=== PATIENT | female | born 1985 | race Caucasian/White ===

== ENCOUNTER → 2018-03-29 09:17 | Outpatient (REF) | payer MEDICARE, SELFPAY ==
[2018-03-29 13:56] LABS: Alanine Aminotransferase 45 U/L (12-78); Albumin Level 4.3 gm/dL (3.4-5.0); Albumin/Globulin Ratio 1.2 (1.1-1.8); Alkaline Phosphatase 71 U/L (46-116); Anion Gap 13.3 mEq/L (5-15); Aspartate Amino Transferase 14 U/L (15-37); Bilirubin,Total 0.3 mg/dL (0.2-1.0); Blood Urea Nitrogen 9 mg/dL (7-18); Calcium 9.6 mg/dL (8.5-10.1); Carbon Dioxide 26 mmol/L (21.0-32.0); Chloride 105 mmol/L (98-107); Estimated Glomerular Filt Rate 97 ml/min (>60); GFR (African American) 117 ML/MIN (>60); Globulin 3.6 gm/dl (1.3-3.2); Glucose 53 mg/dL (74-106); Potassium 4.3 mmoL/L (3.5-5.1); Sodium 140 mmol/L (136-145); T4 (Thyroxine) 5.7 ug/dl (4.7-13.3); Thyroid Stimulating Hormone 1.86 uIU/ml (0.358-3.740); Total Protein,Serum 7.9 gm/dL (6.4-8.2)
[2018-03-29 13:58] LABS: Basophils % 0.5 % (0.1-2.0); Eosinophils # 0.2 K/mm3 (0.0-0.4); Eosinophils % 2.7 % (0.1-12.0); Hematocrit 46.8 % (37.0-47.0); Hemoglobin 14.8 g/dL (12.2-16.2); Lymphocytes # 2.2 K/mm3 (0.7-4.5); Lymphocytes % 33.2 K/mm3 (10-50); Mean Corpuscular HGB Conc 31.7 g/dL (31.8-35.4); Mean Corpuscular Hemoglobin 29.4 pg (27.0-31.2); Mean Corpuscular Volume 92.9 fl (81-99); Mean Platelet Volume 7.2 fl (7.4-10.4); Monocytes # 0.6 K/mm3 (0.1-1.0); Monocytes % 9.1 % (1.7-9.3); Neutrophils # 3.6 K/mm3 (1.8-7.8); Neutrophils % 54.6 % (37.0-80.0); Platelet Count 424 K/mm3 (142-424); Red Blood Count 5.04 M/mm3 (4.20-5.40); Red Cell Distribution Width 13.4 % (11.5-17.5); White Blood Count 6.6 K/mm3 (4.8-10.8)
[2018-03-30 07:27] LABS: Hep A Ab, IgM Negative (Negative); Hepatitis B Core Antibody IgM Negative (Negative); Hepatitis B Surface Antigen Negative (Negative)
[2018-03-31 06:17] LABS: Hepatitis C Antibody >11.0 s/co ratio (0.0-0.9)
== END ==
LOC: LAB 09:17
PROVIDERS: Visit Provider Nurse Practitioner Family
DX: B19.20 Unspecified viral hepatitis C without hepatic coma (principal); R53.83 Other fatigue; J84.01 Alveolar proteinosis
CPT/HCPCS: 80053; 80074; 84436; 84443; 85025

== ENCOUNTER → 2018-04-05 08:20 | Outpatient (REF) | payer MEDICARE, SELFPAY ==
[2018-04-05 15:32] LABS: Amphetamine/Metha Screen,Urine Negative ng/mL (<1000); Barbiturates Screen,Urine Negative ng/mL (<200); Benzodiazepines Screen,Urine Positive ng/mL (<200); Cannabinoid Screen,Urine Negative ng/mL (<50); Cocaine Screen,Urine Negative ng/mL (<300); Methadone Screen,Urine Negative ng/mL (<300); Opiate Screen,Urine Negative ng/mL (<300); Phencyclidine Screen,Urine Negative ng/mL (<25)
[2018-04-07 17:12] LABS: Lamotrigine (Lamictal) 3.1 ug/mL (2.0-20.0); Oxcarbazepine 15 ug/mL (10-35)
== END ==
LOC: LAB 08:20
PROVIDERS: Visit Provider Nurse Practitioner Family
DX: G40.909 Epilepsy, unspecified, not intractable, without status epilepticus (principal); F32.9 Major depressive disorder, single episode, unspecified
CPT/HCPCS: 80168; 80183; 80305

== ENCOUNTER → 2018-04-19 09:34 | Outpatient (REF) | payer MEDICARE, SELFPAY ==
[2018-04-19 13:48] LABS: Amphetamine/Metha Screen,Urine Negative ng/mL (<1000); Barbiturates Screen,Urine Negative ng/mL (<200); Benzodiazepines Screen,Urine Positive ng/mL (<200); Cannabinoid Screen,Urine Negative ng/mL (<50); Cocaine Screen,Urine Negative ng/mL (<300); Methadone Screen,Urine Negative ng/mL (<300); Opiate Screen,Urine Negative ng/mL (<300); Phencyclidine Screen,Urine Negative ng/mL (<25)
== END ==
LOC: LAB 09:34
PROVIDERS: Visit Provider Nurse Practitioner Family
DX: Z79.899 Other long term (current) drug therapy (principal)
CPT/HCPCS: 80305

== ENCOUNTER → 2018-04-29 14:48 | Outpatient (CLI) | payer MEDICARE, SELFPAY ==
--- NOTE | 2018-04-29 14:51 | MM_ITS ---
MM Dig mamm BI DX w/CAD, US breast LT complete INDICATION: Palpable left abnormality of the left breast ORDERING PHYSICIAN: Honey Junior PATIENT AGE: 32 years COMPARISON: 04/26/2015 TECHNIQUE: Diagnostic bilateral mammogram performed along with left breast ultrasound FINDINGS: There is very dense fibroglandular tissue which decreases the sensitivity of mammography. Right breast: No malignant appearing mass or malignant appearing microcalcification is evident. The other artifact is noted in the axilla which slightly decreased when the patient was instructed to clean her armpits. There was some residual artifact noted. Left breast: The palpable abnormality is in the outer aspect of the left breast. A marker is placed at this region. There is very dense fibroglandular tissue which decreases sensitivity of mammography. Metallic artifact is noted in the axilla did persist somewhat following cleansing of the armpits. There is an asymmetric density measuring 16 x 12 mm in the upper aspect of the left breast didn't persist on spot compression view well-circumscribed along the anterior superior and posterior margin but not well delineated on the inferior margin likely due to overlying obscuration from the breast tissue. There is a 10 x 10 mm area of asymmetric density in the upper aspect of the left breast near the placed marker for the palpable abnormality. This is only well seen on the MLO view. Left breast ultrasound: Echodense fibroglandular tissue noted. There is a 4 mm hypoechoic area at 3:00 near the nipple in the region of the palpable abnormality. No sonographic abnormality to correspond to the mammographic abnormalities. Small node is present in the axilla and 1.6 x 0.5 cm. IMPRESSION: There is very dense fibroglandular tissue which decreases sensitivity of mammography and ultrasound. The right breast has an unremarkable appearance. Persistent asymmetric density is noted in the superior portion of the left breast at 16 x 12 mm and in the outer aspect of the left breast at 10 mm without sonographic correlate. These are only well seen on the MLO view. Recommend breast MRI for further evaluation in this patient with very dense breast tissue. There is a 4 mm hypoechoic area at 3:00 may be due to a complex cyst. BI-RADS Category: 0 Need Additional Imaging Evaluation RECOMMENDED FOLLOW-UP: IMM - IMMEDIATE FOLLOW-UP RECOMMENDED (A letter has been sent to the patient regarding results of the study.)
== END ==
PROVIDERS: Family Provider Emergency Medicine; PCP Emergency Medicine; Visit Provider Nurse Practitioner Family
DX: R92.8 Other abnormal and inconclusive findings on diagnostic imaging of breast (principal); N64.4 Mastodynia
CPT/HCPCS: 76641; 77066

== ENCOUNTER → 2018-05-14 15:28 | Outpatient (REF) | payer MEDICARE, SELFPAY ==
[2018-05-14 18:07] LABS: Amphetamine/Metha Screen,Urine Negative ng/mL (<1000); Barbiturates Screen,Urine Negative ng/mL (<200); Benzodiazepines Screen,Urine Positive ng/mL (<200); Cannabinoid Screen,Urine Negative ng/mL (<50); Cocaine Screen,Urine Negative ng/mL (<300); Methadone Screen,Urine Negative ng/mL (<300); Opiate Screen,Urine Negative ng/mL (<300); Phencyclidine Screen,Urine Negative ng/mL (<25)
== END ==
LOC: LAB 15:28
PROVIDERS: Visit Provider Nurse Practitioner Family
DX: Z79.899 Other long term (current) drug therapy (principal)
CPT/HCPCS: 80305

== ENCOUNTER → 2018-06-07 10:41 | Outpatient (POV) | payer MEDICARE, SELFPAY ==
[2018-06-07 13:27] LABS: INR 1.05 (0.9-1.1); Prothrombin Time 10.8 seconds (9.4-11.8)
[2018-06-07 13:40] LABS: Alanine Aminotransferase 99 U/L (12-78); Albumin Level 4.4 gm/dL (3.4-5.0); Albumin/Globulin Ratio 1.2 (1.1-1.8); Alkaline Phosphatase 78 U/L (46-116); Anion Gap 13.2 mEq/L (5-15); Aspartate Amino Transferase 24 U/L (15-37); Bilirubin,Total 0.2 mg/dL (0.2-1.0); Blood Urea Nitrogen 8 mg/dL (7-18); Calcium 9.4 mg/dL (8.5-10.1); Carbon Dioxide 30 mmol/L (21.0-32.0); Chloride 104 mmol/L (98-107); Creatinine,Serum 0.77 mg/dL (0.55-1.02); Estimated Glomerular Filt Rate 87 ml/min (>60); Ferritin 17 ng/mL (8-388); GFR (African American) 105 ML/MIN (>60); Globulin 3.7 gm/dl (1.3-3.2); Glucose 92 mg/dL (74-106); Potassium 4.2 mmoL/L (3.5-5.1); Sodium 143 mmol/L (136-145); Total Protein,Serum 8.1 gm/dL (6.4-8.2)
[2018-06-07 14:49] LABS: Basophils % 0.4 % (0.1-2.0); Eosinophils # 0.2 K/mm3 (0.0-0.4); Eosinophils % 2.9 % (0.1-12.0); Hematocrit 43.7 % (37.0-47.0); Lymphocytes # 1.9 K/mm3 (0.7-4.5); Lymphocytes % 30.2 K/mm3 (10-50); Mean Corpuscular Hemoglobin 29.8 pg (27.0-31.2); Mean Corpuscular Volume 93.3 fl (81-99); Mean Platelet Volume 6.8 fl (7.4-10.4); Monocytes # 0.5 K/mm3 (0.1-1.0); Monocytes % 8.9 % (1.7-9.3); Neutrophils # 3.5 K/mm3 (1.8-7.8); Neutrophils % 57.7 % (37.0-80.0); Platelet Count 428 K/mm3 (142-424); Red Blood Count 4.68 M/mm3 (4.20-5.40); Red Cell Distribution Width 13.1 % (11.5-17.5); White Blood Count 6.1 K/mm3 (4.8-10.8)
[2018-06-08 10:14] LABS: Iron 57 ug/dL (27-159); UIBC 385 ug/dL (131-425)
[2018-06-08 11:23] LABS: Hep A Ab, IgM Negative (Negative); Hepatitis B Core Antibody IgM Negative (Negative); Hepatitis B Surface Antigen Negative (Negative)
[2018-06-08 12:20] LABS: Ceruloplasmin 27.1 mg/dL (19.0-39.0); Immunoglobulin A, Qn 294 mg/dL (87-352); Immunoglobulin G, Qn 1169 mg/dL (700-1600)
[2018-06-08 15:22] LABS: Angiotensin Converting Enzyme 32 U/L (14-82)
[2018-06-09 11:26] LABS: Iron Saturation 13 % (15-55)
[2018-06-09 11:27] LABS: Actin (Smooth Muscle) Antibody 9 Units (0-19); Antinuclear Antibodies, IFA Negative (.); Deamidated Gliadin Abs, IgA 3 units (0-19); Deamidated Gliadin Abs, IgG 2 units (0-19); Endomysial IgA Antibody Negative (Negative); Hepatitis C Antibody >11.0 s/co ratio (0.0-0.9); Immunoglobulin M, Qn 262 mg/dL (26-217); Liver-Kidney Microsomal Ab <1.0 Units (0.0-20.0); Mitochondrial (M2) Antibody <20.0 Units (0.0-20.0); Tissue Transglutaminase IgA Ab <2 U/mL (0-3); Tissue Transglutaminase IgG Ab <2 U/mL (0-5)
[2018-06-10 06:36] LABS: Reticulin IgA Antibody Negative titer (Neg:<1:2.5)
[2018-06-10 08:23] LABS: ALT (SGPT) P5P 93 IU/L (0-40); AST (SGOT) P5P 34 IU/L (0-40); Alpha 2-Macroglobulins, Qn 323 mg/dL (110-276); Apolipoprotein A-1 172 mg/dL (116-209); Bilirubin, Total 0.1 mg/dL (0.0-1.2); Cholesterol, Total 147 mg/dL (100-199); Fibrosis Score 0.11 (0.00-0.21); GGT 32 IU/L (0-60); Glucose 86 mg/dL (65-99); Haptoglobin 53 mg/dL (34-200); NASH Score 0.25 (0.25); Steatosis Score 0.14 (0.00-0.30); Triglycerides 115 mg/dL (0-149)
[2018-06-10 12:16] LABS: HCV Genotype Charge YES; Hepatitis C Genotype 1a (.)
[2018-06-10 16:23] LABS: Alpha-1-Antitrypsin 106 mg/dL (90-200)
[2018-06-11 17:25] LABS: Phenotype (PI) MZ (.)
== END ==
PROVIDERS: Visit Provider Nurse Practitioner Acute Care
DX: K76.0 Fatty (change of) liver, not elsewhere classified (principal); R10.10 Upper abdominal pain, unspecified
CPT/HCPCS: 36415; 80053; 80074; 81256; 82103; 82104; 82164; 82390; 82728; 82784; 83516; 83540; 83550; 85025; 85610; 86038; 86255; 86256; 86376; 87522; 87902

== ENCOUNTER → 2018-06-09 10:18 | Outpatient (CLI) | payer MEDICARE, MEDICAID, SELFPAY ==
--- NOTE | 2018-06-09 10:24 | US_ITS ---
US abdomen limited History:Mid abdominal pain, hepatitis C Ordering Physician:Skye Green Patient Age: 32 years Comparison:None Findings: Pancreas:Unremarkable. No obvious mass or abnormal fluid collection. No ductal dilatation Liver:No focal liver lesions demonstrated. Homogeneous echogenicity. No intrahepatic biliary ductal dilatation evident. There is appropriate direction of blood flow within a nondilated portal vein Right Kidney:Unremarkable. Normal size and echogenicity. No hydronephrosis Gallbladder:No gallstones, gallbladder wall thickening, pericholecystic fluid, or biliary dilatation. Impression:Negative gallbladder/right upper quadrant ultrasound
== END ==
PROVIDERS: Family Provider Emergency Medicine; Visit Provider Nurse Practitioner Acute Care
DX: B19.20 Unspecified viral hepatitis C without hepatic coma (principal); R10.11 Right upper quadrant pain
CPT/HCPCS: 76705

== ENCOUNTER → 2018-06-11 13:28 | Outpatient (REF) | payer MEDICARE, SELFPAY ==
[2018-06-11 18:41] LABS: Amphetamine/Metha Screen,Urine Negative ng/mL (<1000); Barbiturates Screen,Urine Negative ng/mL (<200); Benzodiazepines Screen,Urine Negative ng/mL (<200); Cannabinoid Screen,Urine Negative ng/mL (<50); Cocaine Screen,Urine Negative ng/mL (<300); Methadone Screen,Urine Negative ng/mL (<300); Opiate Screen,Urine Negative ng/mL (<300); Phencyclidine Screen,Urine Negative ng/mL (<25)
[2018-06-21 12:12] LABS: Benzodiazepines Negative
[2018-06-21 12:13] LABS: Alprazolam Negative; Clonazepam Negative; Flurazepam Negative; Lorazepam Negative; Midazolam Negative; Temazepam Negative; Triazolam Negative
== END ==
LOC: LAB 13:28
PROVIDERS: Visit Provider Emergency Medicine
DX: Z79.899 Other long term (current) drug therapy (principal)
CPT/HCPCS: 80305; 80346

== ENCOUNTER → 2018-06-14 08:36 | Outpatient (CLI) | payer MEDICARE, MEDICAID, SELFPAY ==
--- NOTE | 2018-06-14 08:38 | MR_ITS ---
MR head/brain wo/w con HISTORY: Headaches, seizures, ITS.REASON: seizure ORDERING PHYSICIAN: Reny Mac MD PATIENT AGE: 32 years Comparison: 08/11/2015 TECHNIQUE: Standard multiplanar multiecho sequences are performed without and with gadolinium enhancement. FINDINGS: No midline shift, mass effect, intracranial hemorrhage, hydrocephalus, or enhancing lesion evident. There is normal taveras-white matter differentiation. One small T2 white matter hyperintensities present in the left basal ganglia anteriorly. This is nonspecific and of questionable clinical significance rounded in nature and measuring approximately 3 mm. The pituitary is somewhat bulky but does not demonstrate any enhancement or absence of enhancement on these non dynamic enhanced images. The pituitary stalk is not deviated. The cerebellopontine angles, cerebellum, and brainstem are unremarkable. The optic chiasm, and corpus callosum have an unremarkable appearance. There is mild cerebellar ectopia of approximately 3 mm. The fourth ventricle has an unremarkable appearance. There is opacification of the right aspect of the sphenoid sinus. No mastoid effusion. IMPRESSION: 1. No acute intracranial findings. 2. Mild prominence of the pituitary gland nonspecific. No obvious pituitary mass. 3. Single small T2 hyperintensity in the left basal ganglia anteriorly of questionable clinical significance and may be due to small gliotic focus. 4. Right sphenoid sinus disease 5. Mild cerebellar ectopia
== END ==
PROVIDERS: Family Provider Emergency Medicine; PCP Emergency Medicine; Visit Provider Specialist
DX: G40.909 Epilepsy, unspecified, not intractable, without status epilepticus (principal)
CPT/HCPCS: 70553; A9576

== ENCOUNTER → 2018-06-14 16:36 | Outpatient (REF) | payer MEDICARE, SELFPAY | LOC: LAB 16:36 | PROVIDERS: PCP Emergency Medicine; Visit Provider Emergency Medicine | DX: Z79.899 Other long term (current) drug therapy (principal) ==

== ENCOUNTER → 2018-07-07 10:20 | Outpatient (CLI) | payer MEDICARE, MEDICAID, SELFPAY ==
--- NOTE | 2018-07-07 10:24 | US_ITS ---
US transvaginal HISTORY: Pelvic pain ITS.REASON: US T/V-DUB, Recommended by CT Scan ORDERING PHYSICIAN: Joyce Dockery MD PATIENT AGE: 33 years Comparison: 06/03/2018 Last menstrual period: 06/22/2018 FINDINGS: The uterus is enlarged at 10 x 6 x 7.4 cm. Combined endometrial thickness is 15 mm. There is somewhat heterogeneous echogenicity of the endometrium. The left ovary is 3.9 x 2.5 cm with multiple small follicles. The right ovary is 3 x 2.47 m also with multiple small follicles. Bilateral fallopian tubal occlusive devices are present. No cul-de-sac fluid is evident. IMPRESSION: The uterus is bulky with a thickened endometrium with heterogeneous echogenicity and may be related to blood clots within the endometrium. Follow-up suggested as endometrial hyperplasia or even neoplasm could have a similar appearance Multiple small bilateral ovarian follicles
== END ==
PROVIDERS: PCP Emergency Medicine; Visit Provider Obstetrics & Gynecology
DX: N93.8 Other specified abnormal uterine and vaginal bleeding (principal)
CPT/HCPCS: 76830

== ENCOUNTER → 2018-07-12 08:08 | Outpatient (POV) | payer MEDICARE, MEDICAID, SELFPAY | PROVIDERS: Visit Provider Specialist | DX: G40.909 Epilepsy, unspecified, not intractable, without status epilepticus (principal) | CPT/HCPCS: 95816 ==

== ENCOUNTER → 2018-07-26 08:50 | Outpatient (POV) | payer MEDICARE, SELFPAY | PROVIDERS: Visit Provider Nurse Practitioner Acute Care | DX: Z00.00 Encounter for general adult medical examination without abnormal findings (principal) ==

== ENCOUNTER → 2018-08-25 12:34 | Outpatient (CLI) | payer MEDICARE, MEDICAID, SELFPAY ==
[2018-08-25 13:41] LABS: Alanine Aminotransferase 24 U/L (12-78); Albumin Level 4.1 gm/dL (3.4-5.0); Albumin/Globulin Ratio 1.2 (1.1-1.8); Alkaline Phosphatase 66 U/L (46-116); Anion Gap 13.4 mEq/L (5-15); Aspartate Amino Transferase 8 U/L (15-37); Bilirubin,Total 0.3 mg/dL (0.2-1.0); Blood Urea Nitrogen 9 mg/dL (7-18); Calcium 9.4 mg/dL (8.5-10.1); Carbon Dioxide 28 mmol/L (21.0-32.0); Chloride 102 mmol/L (98-107); Creatinine,Serum 0.82 mg/dL (0.55-1.02); Estimated Glomerular Filt Rate 80 ml/min (>60); GFR (African American) 97 ML/MIN (>60); Globulin 3.4 gm/dl (1.3-3.2); Glucose 98 mg/dL (74-106); Potassium 4.4 mmoL/L (3.5-5.1); Sodium 139 mmol/L (136-145); Total Protein,Serum 7.5 gm/dL (6.4-8.2)
[2018-08-25 14:33] LABS: Basophils # 0.1 K/mm3 (0-0.2); Basophils % 0.6 % (0.1-2.0); Eosinophils # 0.1 K/mm3 (0.0-0.4); Eosinophils % 1.9 % (0.1-12.0); Hematocrit 40.5 % (37.0-47.0); Hemoglobin 12.8 g/dL (12.2-16.2); Lymphocytes # 2.1 K/mm3 (0.7-4.5); Mean Corpuscular HGB Conc 31.6 g/dL (31.8-35.4); Mean Corpuscular Hemoglobin 28.5 pg (27.0-31.2); Mean Platelet Volume 6.7 fl (7.4-10.4); Monocytes # 0.6 K/mm3 (0.1-1.0); Monocytes % 7.5 % (1.7-9.3); Neutrophils # 4.6 K/mm3 (1.8-7.8); Platelet Count 453 K/mm3 (142-424); Red Blood Count 4.49 M/mm3 (4.20-5.40); Red Cell Distribution Width 13.2 % (11.5-17.5); White Blood Count 7.4 K/mm3 (4.8-10.8)
== END ==
PROVIDERS: Visit Provider Nurse Practitioner Acute Care
DX: B18.2 Chronic viral hepatitis C (principal)
CPT/HCPCS: 36415; 80053; 85025; 87522

== ENCOUNTER → 2018-09-20 13:45 | Outpatient (CLI) | payer MEDICARE, MEDICAID, SELFPAY ==
[2018-09-20 14:28] LABS: Basophils % 0.2 % (0.1-2.0); Eosinophils % 0.6 % (0.1-12.0); Hematocrit 38.4 % (37.0-47.0); Hemoglobin 11.9 g/dL (12.2-16.2); Lymphocytes # 2.1 K/mm3 (0.7-4.5); Mean Corpuscular Hemoglobin 27.7 pg (27.0-31.2); Mean Corpuscular Volume 89.2 fl (81-99); Mean Platelet Volume 6.4 fl (7.4-10.4); Monocytes # 0.4 K/mm3 (0.1-1.0); Monocytes % 5.1 % (1.7-9.3); Neutrophils % 66.1 % (37.0-80.0); Platelet Count 445 K/mm3 (142-424); Red Blood Count 4.31 M/mm3 (4.20-5.40); Red Cell Distribution Width 13.3 % (11.5-17.5); White Blood Count 7.6 K/mm3 (4.8-10.8)
[2018-09-20 14:53] LABS: Amphetamine/Metha Screen,Urine Negative ng/mL (<1000); Barbiturates Screen,Urine Negative ng/mL (<200); Benzodiazepines Screen,Urine Positive ng/mL (<200); Cannabinoid Screen,Urine Negative ng/mL (<50); Cocaine Screen,Urine Negative ng/mL (<300); Methadone Screen,Urine Negative ng/mL (<300); Opiate Screen,Urine Negative ng/mL (<300); Phencyclidine Screen,Urine Negative ng/mL (<25)
[2018-09-20 15:05] LABS: Alanine Aminotransferase 19 U/L (12-78); Albumin Level 3.9 gm/dL (3.4-5.0); Albumin/Globulin Ratio 1.2 (1.1-1.8); Alkaline Phosphatase 58 U/L (46-116); Anion Gap 14.1 mEq/L (5-15); Aspartate Amino Transferase 7 U/L (15-37); Bilirubin,Total 0.3 mg/dL (0.2-1.0); Blood Urea Nitrogen 12 mg/dL (7-18); Carbon Dioxide 24 mmol/L (21.0-32.0); Chloride 103 mmol/L (98-107); Creatinine,Serum 0.89 mg/dL (0.55-1.02); Estimated Glomerular Filt Rate 73 ml/min (>60); GFR (African American) 88 ML/MIN (>60); Globulin 3.2 gm/dl (1.3-3.2); Glucose 90 mg/dL (74-106); Potassium 4.1 mmoL/L (3.5-5.1); Sodium 137 mmol/L (136-145); Total Protein,Serum 7.1 gm/dL (6.4-8.2)
== END ==
PROVIDERS: Emergency Medicine; Visit Provider Nurse Practitioner Acute Care
DX: Z79.899 Other long term (current) drug therapy (principal); B18.2 Chronic viral hepatitis C
CPT/HCPCS: 36415; 80053; 80305; 85025; 87522

== ENCOUNTER → 2018-09-20 14:04 | Outpatient (POV) | payer MEDICARE, MEDICAID, SELFPAY | PROVIDERS: Visit Provider Nurse Practitioner Acute Care | DX: Z00.00 Encounter for general adult medical examination without abnormal findings (principal) ==

== ENCOUNTER → 2018-12-17 13:36 | Outpatient (CLI) | payer MEDICARE, MEDICAID, SELFPAY ==
[2018-12-17 14:36] LABS: Amphetamine/Metha Screen,Urine Negative ng/mL (<1000); Barbiturates Screen,Urine Negative ng/mL (<200); Benzodiazepines Screen,Urine Negative ng/mL (<200); Cannabinoid Screen,Urine Negative ng/mL (<50); Cocaine Screen,Urine Negative ng/mL (<300); Methadone Screen,Urine Negative ng/mL (<300); Opiate Screen,Urine Negative ng/mL (<300); Phencyclidine Screen,Urine Negative ng/mL (<25)
[2018-12-25 10:16] LABS: Alprazolam Negative (Cutoff=100); Benzodiazepines Negative ng/mL (Cutoff=100); Clonazepam Negative (Cutoff=100); Flurazepam Negative (Cutoff=100); Lorazepam Negative (Cutoff=100); Midazolam Negative (Cutoff=100); Temazepam Negative (Cutoff=100); Triazolam Negative (Cutoff=100)
== END ==
PROVIDERS: Visit Provider Emergency Medicine
DX: Z79.899 Other long term (current) drug therapy (principal); F41.9 Anxiety disorder, unspecified
CPT/HCPCS: 80305; 80346

== ENCOUNTER → 2019-03-09 15:06 | Outpatient (CLI) | payer MEDICARE, MEDICAID, SELFPAY ==
[2019-03-09 16:12] LABS: Amphetamine/Metha Screen,Urine Negative ng/mL (<1000); Barbiturates Screen,Urine Negative ng/mL (<200); Benzodiazepines Screen,Urine Negative ng/mL (<200); Cannabinoid Screen,Urine Negative ng/mL (<50); Cocaine Screen,Urine Negative ng/mL (<300); Methadone Screen,Urine Negative ng/mL (<300); Opiate Screen,Urine Negative ng/mL (<300); Phencyclidine Screen,Urine Negative ng/mL (<25)
[2019-03-18 19:12] LABS: Alprazolam Negative (Cutoff=100); Benzodiazepines Negative ng/mL (Cutoff=100); Clonazepam Negative (Cutoff=100); Flurazepam Negative (Cutoff=100); Lorazepam Negative (Cutoff=100); Midazolam Negative (Cutoff=100); Temazepam Negative (Cutoff=100); Triazolam Negative (Cutoff=100)
== END ==
PROVIDERS: Visit Provider Emergency Medicine
DX: Z79.899 Other long term (current) drug therapy (principal)
CPT/HCPCS: 80305; 80346

== ENCOUNTER → 2019-06-13 13:45 | Outpatient (CLI) | payer MEDICARE, MEDICAID, SELFPAY ==
[2019-06-13 15:57] LABS: Amphetamine/Metha Screen,Urine Negative ng/mL (<1000); Barbiturates Screen,Urine Negative ng/mL (<200); Benzodiazepines Screen,Urine Positive ng/mL (<200); Cannabinoid Screen,Urine Negative ng/mL (<50); Cocaine Screen,Urine Negative ng/mL (<300); Methadone Screen,Urine Negative ng/mL (<300); Opiate Screen,Urine Negative ng/mL (<300); Phencyclidine Screen,Urine Negative ng/mL (<25)
== END ==
PROVIDERS: Visit Provider Emergency Medicine
DX: G40.909 Epilepsy, unspecified, not intractable, without status epilepticus (principal)
CPT/HCPCS: 80305

== ENCOUNTER → 2019-09-12 14:55 | Outpatient (CLI) | payer MEDICARE, MEDICAID, SELFPAY ==
[2019-09-12 16:47] LABS: Amphetamine/Metha Screen,Urine Negative ng/mL (<1000); Barbiturates Screen,Urine Negative ng/mL (<200); Benzodiazepines Screen,Urine Positive ng/mL (<200); Cannabinoid Screen,Urine Negative ng/mL (<50); Cocaine Screen,Urine Negative ng/mL (<300); Methadone Screen,Urine Negative ng/mL (<300); Opiate Screen,Urine Negative ng/mL (<300); Phencyclidine Screen,Urine Negative ng/mL (<25)
== END ==
PROVIDERS: Visit Provider Emergency Medicine
DX: G40.909 Epilepsy, unspecified, not intractable, without status epilepticus (principal)
CPT/HCPCS: 80305

== ENCOUNTER → 2020-01-10 17:51 | Outpatient (CLI) | payer MEDICARE, MEDICAID, SELFPAY | PROVIDERS: Visit Provider Nurse Practitioner Family | DX: M54.9 Dorsalgia, unspecified (principal) | CPT/HCPCS: 87086; 87088; 87186 ==

== ENCOUNTER 2020-02-28 09:19 | Emergency (ER) | payer MEDICARE, MEDICAID, SELFPAY ==
[2020-02-28 09:31] VITALS: BP 106/65; PULSE 89; RESP 18; TEMP 37.2; O2SAT 98; BMI 18.8
[2020-02-28 09:52] LABS: Microscopic, Urine URINE MICROSCOPIC (MICROSCOPIC)
[2020-02-28 09:55] LABS: Appearance,Urine CLEAR (Clear); Bilirubin,Urine Negative (Negative); Blood, Urine Negative (Negative); Color,Urine YELLOW (Yellow); Glucose,Urine (UA) Negative (Negative); Ketones,Urine Negative (Negative); Leukocyte Esterase,Urine Negative (Negative); Nitrate,Urine Negative (Negative); PH,Urine 6.5 (5.0-8.5); Protein,Urine Negative (Negative); Specific Gravity, Urine 1.025 (1.005-1.030); Urobilinogen,Urine 0.2 EU/dl (0.2)
[2020-02-28 09:56] LABS: Urine Pregnancy, HCG Qual. Negative (Negative)
[2020-02-28 10:11] LABS: WBC,Urine Occasional #/hpf (0-3)
--- NOTE | 2020-02-28 10:49 | HMH.EDSKAF ---
ED Disposition Clinical Impression: Cellulitis Disposition: Home, Self-Care Condition on Discharge: Good Instructions: DI for Skin Abscess Prescriptions: clindamycin HCL [Clindamycin HCl 300mg Cap] 300 mg PO Q6 10 Days #40 cap Transmission Status: Pending to [facility] Referrals: Ed Morrissey MD [Primary Care Provider] - - Critical Care Critical Care Time: No Attestation: On 02/28/20, the high probability of a clinically significant, sudden or life threatening deterioration of the following system(s) required my full and direct attention, intervention and personal management. The time I documented below is in addition to time spent performing reported procedures but includes the following listed in this critical care notation. Medical Decision Making - Medical Records Medical records reviewed: Yes: I reviewed the patient's medical records. - Cosme Inquiry Pt receiving controlled substance: No Vital Signs: 02/28/20 09:31 Temperature 98.9 F Temperature Source Oral Pulse Rate [Left Radial] 89 Respiratory Rate 18 Blood Pressure [Right Arm] 106/65 L Blood Pressure Mean [Right Arm] 78 Blood Pressure Position [Right Arm] Sitting 02 Sat by Pulse Oximetry 98 Oxygen Delivery Method Room Air - Lab Data Lab Results 02/28/20 09:30: Urine Color Yellow, Urine Appearance Clear, Urine pH 6.5, Ur Specific [place] 1.025, Urine Protein Negative, Urine Glucose (UA) Negative, Urine Ketones Negative, Urine Blood Negative, Urine Nitrate Negative, Urine Bilirubin Negative, Urine Urobilinogen 0.2, Ur Leukocyte Esterase Negative, Urine RBC 3-5, Urine WBC Occasional, Ur Squamous Epith Cells 3-5, Urine Bacteria None 02/28/20 09:30: Urine HCG, Qual Negative Orders (Tests/Meds): ED MEDICATIONS Discontinued Medications Generic Name Dose Route Start Last Admin Trade Name Freq PRN Reason Stop Dose Admin Lidocaine HCl 20 ml 02/28/20 09:37 Lidocaine 1% 20ml Mdv SQ 02/28/20 09:38 ONCE ONE Skin/Abscess/FB HPI - General Chief complaint: Skin/Abscess/Foreign Body Stated complaint: right arm and kidneys Time Seen by Provider: 02/28/20 10:00 Mode of Arrival: Ambulatory Limitations: No Limitations Description of Symptoms (Recalled from ER Triage Doc. by RN): to ed per pvt car with c/o rt upper arm pain and swelling pt with hx IV drug use last used 1 week ago. pt also c/o kidney pain rt side lower back pain x 1 week. pt denies fever, chills, nausea, vomiting. cpta kobe 730 - History of Present Illness MD complaint: abscess/boil Onset (ago): day(s) Tetanus up to date: yes Location: LUE Severity: moderate Severity scale (1-10): 4 Quality: stabbing Consistency: constant Relieving factors: none Exacerbating factors: none Context: none - Related Data Home Medications Medication Instructions Recorded Confirmed Hyoscyamine Sulfate 0.125 mg PO DAILY 07/14/18 01/10/20 Previous Rx's Medication Instructions Recorded naproxen 500 mg tablet 500 mg PO BID PRN #40 tab 02/03/19 omeprazole 20 mg capsule,delayed 20 mg PO DAILY #90 cap 03/09/19 release epinephrine 0.3 mg/0.3 mL 0.3 mg IM Q10-15M PRN #2 each 12/05/19 injection, auto-injector alprazolam 1 mg tablet 1 mg PO TID #90 tab 01/10/20 amoxicillin 500 mg tablet 500 mg PO BID 10 Days #20 tab 01/10/20 cephalexin 500 mg capsule 500 mg PO BID 10 Days #20 cap 01/12/20 buspirone 5 mg tablet See Rx Instructions .ROUTE 01/19/20 .COMPLEX #60 tab lamotrigine 200 mg tablet 200 mg PO BID #180 tab 01/19/20 oxcarbazepine 300 mg tablet 300 mg PO BID #180 tab 01/19/20 clindamycin HCL [Clindamycin HCl 300 mg PO Q6 10 Days #40 cap 02/28/20 300mg Cap] Allergies Allergy/AdvReac Type Severity Reaction Status Date / Time venom-honey bee Allergy Unknown Verified 01/10/20 15:22 [BEE VENOM (HONEY BEE)] H History - Hepatitis A Screen Drug use history?: Yes High risk sexual behaviors?: No History of sexual
[2020-02-28 11:55] VITALS: BP 122/74; PULSE 78; RESP 16; TEMP 36.6; O2SAT 98
== END 2020-02-28 11:57 | disposition home or self-care (01) ==
PROVIDERS: Emergency Provider Family Medicine; PCP Emergency Medicine
DX: L03.111 Cellulitis of right axilla (principal); M54.5 Low back pain; F41.8 Other specified anxiety disorders; K21.9 Gastro-esophageal reflux disease without esophagitis; G43.709 Chronic migraine without aura, not intractable, without status migrainosus; Z86.718 Personal history of other venous thrombosis and embolism
CPT/HCPCS: 81001; 81025; 96372; 99281; 99282

== ENCOUNTER → 2020-04-13 11:14 | Outpatient (CLI) | payer MEDICARE, MEDICAID, SELFPAY ==
--- NOTE | 2020-04-13 11:14 | US_ITS ---
PROCEDURE: US TRANSVAGINAL CLINICAL INDICATION: US T/V- DUB enlarged uterus Dysfunctional uterine bleeding, enlarged uterus COMPARISON: CT CT ABDOMEN PELVIS W CON from 06/02/2019 FINDINGS: UTERUS: 9cm x 6cmx 5cm with a combined endometrial thickness of 14.7mm LEFT OVARY: [id number] with a volume of 8ml. RIGHT OVARY: [id number] with a volume of 10ml. The endometrium is thickened at 15 mm. There is some apparent scarring along the lower uterine segment anteriorly there is some shadowing from the endometrial area. There are bilateral ovarian follicles. No cul-de-sac fluid. IMPRESSION: Enlarged uterus with thickened endometrium with some shadowing from the fundus of the endometrial area which could be due to prior surgery. Dictated b Jarrett Kim MD 04/13/2020 13:58 Jarrett Kim MD in OV 04/13/2020 13:58
== END ==
PROVIDERS: PCP Emergency Medicine; Visit Provider Obstetrics & Gynecology
DX: N85.2 Hypertrophy of uterus (principal); N92.6 Irregular menstruation, unspecified
CPT/HCPCS: 76830

== ENCOUNTER → 2020-05-07 10:00 | Outpatient (CLI) | payer MEDICARE, MEDICAID, SELFPAY ==
[2020-05-07 10:32] LABS: Basophils % 0.4 % (0.1-2.0); Eosinophils # 0.1 K/mm3 (0.0-0.4); Eosinophils % 1.6 % (0.1-12.0); Hemoglobin 13.1 g/dL (12.2-16.2); Lymphocytes # 2.1 K/mm3 (0.7-4.5); Lymphocytes % 27.4 % (10-50); Mean Corpuscular HGB Conc 32.7 g/dL (31.8-35.4); Mean Corpuscular Hemoglobin 25.5 pg (27.0-31.2); Mean Platelet Volume 6.6 fl (7.4-10.4); Monocytes # 0.5 K/mm3 (0.1-1.0); Monocytes % 6.1 % (1.7-9.3); Neutrophils # 4.9 K/mm3 (1.8-7.8); Neutrophils % 64.6 % (37.0-80.0); Platelet Count 631 K/mm3 (142-424); Red Blood Count 5.13 M/mm3 (4.20-5.40); Red Cell Distribution Width 16.1 % (11.5-17.5); White Blood Count 7.6 K/mm3 (4.8-10.8)
[2020-05-07 11:09] LABS: Alanine Aminotransferase 12 U/L (12-78); Albumin Level 4.7 g/dl (3.5-5.0); Albumin/Globulin Ratio 1.3 (1.1-1.8); Alkaline Phosphatase 119 U/L (38-126); Anion Gap 16.9 mEq/L (5-15); Aspartate Amino Transferase 18 U/L (14-36); Bilirubin,Total 0.3 mg/dl (0.2-1.3); Blood Urea Nitrogen 11 mg/dl (7-17); Calcium 10.3 mg/dl (8.4-10.2); Carbon Dioxide 25 mmol/L (22.0-30.0); Chloride 101 mmol/L (98-107); Estimated Glomerular Filt Rate 141 ml/min (>60); GFR (African American) 171 ML/MIN (>60); Globulin 3.6 g/dL (1.3-3.2); Glucose 117 mg/dl (74-100); Potassium 4.9 mmoL/L (3.5-5.1); Sodium 138 mmol/L (136-145); Total Protein,Serum 8.3 g/dl (6.3-8.2)
[2020-05-07 11:10] LABS: HCG Qualitative, Serum Negative (Negative)
[2020-05-07 12:31] LABS: Benzodiazepines Screen,Urine Negative ng/ml (<200)
[2020-05-07 12:32] LABS: Amphetamine/Metha Screen,Urine Negative ng/ml (<1000)
[2020-05-07 12:33] LABS: Barbiturates Screen,Urine Negative ng/ml (<200); Cannabinoid Screen,Urine Negative ng/ml (<50)
[2020-05-07 12:34] LABS: Cocaine Screen,Urine Negative ng/ml (<300); Methadone Screen,Urine Negative ng/ml (<300)
[2020-05-07 12:35] LABS: Opiate Screen,Urine Negative ng/ml (<300)
[2020-05-07 12:36] LABS: Phencyclidine Screen,Urine Negative ng/ml (<25)
[2020-05-07 15:24] LABS: Coronavirus 19 IgG Antibody Negative (Negative); Coronavirus 19 IgM Antibody Negative (Negative)
== END ==
PROVIDERS: Visit Provider Obstetrics & Gynecology
DX: Z01.818 Encounter for other preprocedural examination (principal)
CPT/HCPCS: 36415; 80053; 80305; 84703; 85025; 86328

== ENCOUNTER 2020-05-08 07:09 | Inpatient (IN) | payer MEDICARE, MEDICAID, SELFPAY ==
[2020-05-07 14:57] VITALS: BMI 19.5
[2020-05-08] VITALS (24 sets, daily range): BP systolic 112–150; BP diastolic 68–98; PULSE 83–105; RESP 18–24; TEMP 36.6–43; O2SAT 96–100
--- NOTE | 2020-05-08 09:48 | HMH.ANESCL ---
[facility] Anesthesia Checklist - Patient Identification Patient Identification: Arm Band - Structural Data Admitted From: Home Planned Operative Procedure/s: Total Abdominal Hysterectomy Consent for Planned Operative Procedure(s) Verified: Yes Verified Documents: Surgical Consent, History and Physical - NPO Status Verified Time NPO: 00:00 - Additional verifications Anesthesia Reactions: No Hx Blood Transfusions: No Blood Transfusion Reaction: No - Airway Assessment C-Spine Mobility Assessed: Yes (mp2) TMJ Mobility Assessed: Yes Dentition: Good Dentition - Neurological Assessment Level of Consciousness: Awake, Alert - Anesthesia Plan Anesthesia Risk discussed: Yes Anesthesia Plan: Verified ASA Class: II Anesthesia Type: General w/block (risks/benefits of GA with TAP block at end of procedure discussed. Pt verbalizes understanding) [facility] History I have reviewed the patient's past medical history: Yes Medical History: Reports:: Anxiety, Deep Vein Thrombosis, Depression, Gastroesophageal Reflux Disease(GERD), Hepatitis, Migraine, Seizures (controlled meds) Denies:: Cancer, Diabetes Mellitus Type 1, Diabetes Mellitus Type 2, Internal Pacemaker, Lung Disease, MRSA *Have you ever received a pneumonia vaccine?: No *Have you received a flu vaccine this season?: No Other Medical History: Reports: Other. Denies: Blood Transfusion Reaction Anesthesia experience/problems:: nac Other Surgeries: Yes: , Tubal Ligation. No: Pacemaker Amputation: No Fractures: No - *Social History Smoking Status: Current every day smoker Alcohol Intake: never Alcohol Intake Frequency:: other Substance Use Type: former substance user *Occupational Status:: disabled Housing: house Household Members: spouse *Travel in the last 8 weeks: None - Psychiatric History Pschychiatric History:: Reports:: Anxiety, Bipolar Disorder, Depression Family Hx:: Coronary Artery Disease, Cancer
--- NOTE | 2020-05-08 10:51 | HMH.PHAINT ---
HOME MEDICATION RECONCILIATION COMPLETED USING LIST FROM HOME PHARMACY.
--- NOTE | 2020-05-08 11:43 | P.PN_ITS ---
[facility] Anesthesia Record Part I Intake, IV Amount: 2,200 Estimated blood loss (mL): 200 Urine output (mL): 200 Blood Pressure: 129/68 SaO2: 97 Pulse Rate: 105 Respiratory Rate: 24 Temperature: 98.2 F Patient is:: Drowsy, Stable Stable to PACU at:: 11:35
--- NOTE | 2020-05-08 11:50 | HMH.OPNOTE ---
Date of procedure: 05/08/20 Pre-op Diagnosis:: 1. Heavy menstrual bleeding 2. Pelvic pain 3. Failed endometrial ablation 4. Previous C Section 5. H/O Essure tubal sterilization Post-op Diagnosis:: same Procedure performed:: Total abdominal hysterectomy, Left salpingo-oophorectomy, right salpingectomy, lysis of adhesions Surgeon:: Joyce Dockery MD Mental Health Director(s):: Ava Shaw CARTRIDGE ASSEMBLER:: Ethan Ramos Anesthesia: GETA Estimated blood loss (mL): 200 Operative findings:: moderate dense pelvic adhesions, grossly normal uterus, grossly normal placement of essure devices bilaterally, grossly normal appearing ovaries bilaterally Operative note:: The patient was taken to the operating room and general anesthesia was administered without difficulty. She was prepped and draped in the supine position. A Pfannenstiel skin incision was made approximately 2 cm above the pubic symphysis, through the previous scar, with a scalpel and carried down to the underlying layer of fascia. The fascia was incised in the midline and extended laterally sharply. The rectus muscles were sharply dissected off the fascia and in the midline. The peritoneum was turned and sharply, with good visualization of the underlying structures. The peritoneal incision was extended bluntly. A survey of the patient's pelvis and abdomen revealed dense peritoneal adhesions extending from the bladder midway up the uterus. Uterine mobilization was limited by these dense adhesions and required sharp dissection in order to free the uterus for mobilization during the procedure. This dissection took approximately 20 minutes and proceeded without complication. Once this was completed, the patient was placed in Trendelenburg and a Mamadou retractor was placed in the abdomen; the bowel was packed with moist laparotomy sponges. A double tooth tenaculum was placed on the uterine fundus and the uterus was elevated out of the pelvis. A small pedunculated fibroid was noted off the posterior right side of the uterus. The fallopian tubes were inspected for malposition of the Essure devices but there was no perforation or malposition noted on either side. The round ligaments were identified and transected and suture-ligated. The anterior lip of the broad ligament was dissected medially on both sides and the bladder flap was created digitally. The posterior leaf of the broad ligament was dissected until the ureters were able to be identified on either side and noted to be free of the forthcoming adnexal pedicles. Infundibulopelvic ligaments were doubly clamped transected and suture ligated on either side, with excellent hemostasis noted. The right fallopian tube was excised using the enseal. The distal end of the left fallopian tube was densely adhesed to the left ovary and the resection of the fallopian tube resulted in a moderate amount of bleeding from that ovary which did not respond to oversewing the tissue. The left ovary was removed with the fallopian tube as a result of these adhesions. The uterine arteries were skeletonized on either side, and were clamped, transected and suture ligated with excellent hemostasis. The bladder flap was further bluntly dissected off the lower uterine segment with excellent hemostasis and without injury to the bladder. The cardinal and uterosacral ligaments were clamped transected and suture ligated on both sides until the vaginal mucosa was entered. The vaginal incision was extended circumferentially with the Jorganson scissors; the uterus and cervix were removed abdominally and sent for pathology, along with the left ovary and fallopian tubes. The vaginal cuff angles were closed 0 Vicryl [id number] sutures and were transfixed to the ipsilateral cardinal and uterosacral ligaments. The remainder of the vaginal cuff was closed with 0 Vicryl interrupted sutures. The pelvis was copiously irrigated with a solution of sterile water. [facility]
--- NOTE | 2020-05-08 11:56 | SUR.OPER ---
0937: 3 laps in 1048: 3 laps out
[2020-05-08 12:20] LABS: Microscopic,Cath URINE MICROSCOPIC (MICROSCOPIC)
[2020-05-08 12:56] LABS: Appearance,Urine/Cath CLEAR (Clear); Bilirubin,Cath Negative (Negative); Blood, Urine/Cath Negative (Negative); Color,Urine/Cath YELLOW (Yellow); Glucose,Urine/Cath (UA) Negative (Negative); Ketones,Urine/Cath Negative (Negative); Leukocyte Esterase,Cath Negative (Negative); Nitrate,Cath Negative (Negative); PH,Urine/Cath 7.5 (5.0-8.5); Protein,Urine/Cath Negative (Negative); Specific Gravity, Urine/Cath 1.025 (1.005-1.030); Urobilinogen,Cath 0.2 EU/dl (0.2)
[2020-05-08 13:07] LABS: Bacteria,Urine/Cath TRACE /lpf
--- NOTE | 2020-05-08 13:15 | PC.NURSE ---
pt refuses to continue to have f/c. educated on need for f/c. continues to request f/c be removed or states she will pull it out/ f/c removed at this time per pt request
--- NOTE | 2020-05-08 13:32 | P.CONPHA_ITS ---
[facility] Pharmacy VTE Monitoring - Patient Demographics Admission date: 05/08/20 Report Date: 05/08/20 Time: 13:32 Allergies/Adverse Reactions: Patient Allergies venom-honey bee [BEE VENOM (HONEY BEE)] Allergy (Unknown, Verified 05/04/20 13:26) Height: 1.7 m Weight: 56.699 kg Patient Problems: Current Active Problems S/P hysterectomy (Acute) Previous section (Acute) History of endometrial ablation (Acute) Pelvic pain in female (Acute) Menorrhagia with irregular cycle (Acute) History of female sterilization (Acute) H/O nonchemical tubal occlusion (Acute) - Prophylaxis VTE Prophylaxis Ordered?: Yes Types of VTE Prophylaxis: IPCS Thigh High Location of Applied Device: Bilateral Lower Extremeties
--- NOTE | 2020-05-08 13:55 | PC.NURSE ---
PT FREQUENTLY TURNING SIDE TO SIDE, IV PULLED OUT BY PT
--- NOTE | 2020-05-08 16:07 | P.PN_ITS ---
[facility] Anesthesia Record Part II Discharge Time: 12:05 Destination: Medical Surgical Department PACU nurse assessment reviewed?: Yes Patient Condition:: Fair Anesthesia Complications:: None Swallowing reflex intact?: Yes Cyanosis?: No Blood Pressure: 143/96 Pulse Rate: 95 Temperature: 98.2 F Mental Status: Alert & Oriented Pain level:: 7 Nausea and/or vomitting:: Nauseated Intake, IV Amount: 0 (NM)
--- NOTE | 2020-05-08 17:29 | PC.NURSE ---
PT HAS REMAINED STABLE SINCE, CONTINUES TO RATE PAIN 8-9/10, BEFORE PAIN MEDICATION AND RATES PAIN 5/10 AFTER WHICH SHE REPORTS TOLERABLE. PT HAS RESTED INTERMITTENTLY WITH EYES CLOSED VITAL SIGNS STABLE. LUNGS CTAB. HEART RATE REGULAR. HAS VOIDED SINCE F/C REMOVAL. IV PATENT. USING INCENTIVE SPIROMETER. SCUDDS ON BILATERALLY. LTV DRESSING HAS BEEN CHANGED TWICE SINCE ARRIVAL TO UNIT. PT FREQUENTLY TOSSING AND TURNING IN BED BEFORE ADEQUATE PAIN CONTROL. NO ACUTE DISTRESS AT THIS TIME. PT RESTING WITH K-PAD AND AT BEDSIDE. CALL LIGHT WITHIN REACH. WILL CONTINUE TO MONITOR
--- NOTE | 2020-05-08 23:00 | PC.NURSE ---
Addendum entered by Suellen Washington RN 05/09/20 04:00: ABD binder provided at this time. Pt. tolerated well, will continue to monitor. Original Note: Pt. rates pain at 9/10, Pt. roughly turning side to side in bed, nurse advised pt. to turn more gently.in bed, Pt. continues to roughly turn side to side. Pt. reports being unable to get comfortable. and feeling nauseated. scopolamine patch applied. Dressing remains C/D/I.
[2020-05-09] VITALS (30 sets, daily range): BP systolic 114–152; BP diastolic 67–101; PULSE 79–101; RESP 12–24; TEMP 36.5–38; O2SAT 96–100
--- NOTE | 2020-05-09 01:00 | PC.NURSE ---
Pt. resting in bed, reports pain at 9/10, requests pain medication. Toradol IV available, given see EMAR. Nurse informed pt. Oxy IR 10 available next at 03:00. Pt. v/u and denies needs.
--- NOTE | 2020-05-09 03:30 | PC.NURSE ---
Nurse to room to administer pain medication. Pt. rates pain at 9/10, pain medication given. Assessment completed at this time. Lungs remain CTA, Heart at RRR. Pt. resting easier in bed than earlier in night. Abd binder in place. Bowel sounds present x4 pt. denies flatus. No edema noted. nurse noted blood on abd binder and mesh panties Abd binder loosened. Sanguineous drainage noted to be coming from under dressing. Dressing removed ABD pad noted to be saturated with sanguineous drainage, at midline of low transverse incision, incision noted to be dehissing, fascia noted to be poking through between sutures, approximately 2 inches across. fascia noted to be pink, site cleansed and covered with sterile water soaked gauze and dry abd pad, held in place with surgical tape. Dr. Villa notified of incision site, Orders received to keep site covered and moist, give pt 30 mg restoril P.O HS. to help pt. rest. remind pt. to move gently and not roughly toss and turn in bed. Orders read back and verified. Restoril given. Pt. updated on plan of care. Pt.. V/U, denies further needs.
--- NOTE | 2020-05-09 07:10 | PC.NURSE ---
Report given to Ponce Granger RN.
[2020-05-09 07:45] LABS: Hematocrit 33.1 % (37.0-47.0); Hemoglobin 10.5 g/dL (12.2-16.2)
[2020-05-09 07:46] LABS: Chloride 104 mmol/L (98-107); Potassium 4.2 mmoL/L (3.5-5.1); Sodium 137 mmol/L (136-145)
[2020-05-09 07:49] LABS: Blood Urea Nitrogen 7 mg/dl (7-17); Creatinine Clearance Estimated 118 mL/min (50-200); Estimated Glomerular Filt Rate 114 ml/min (>60); GFR (African American) 138 ML/MIN (>60)
[2020-05-09 07:50] LABS: Anion Gap 12.2 mEq/L (5-15); Calcium 9.3 mg/dl (8.4-10.2); Carbon Dioxide 25 mmol/L (22.0-30.0); Glucose 134 mg/dl (74-100)
--- NOTE | 2020-05-09 08:58 | PC.NURSE ---
patient transferred via bed to preop. report given to luis valadez rn and lisette maldonado rn.
--- NOTE | 2020-05-09 09:10 | HMH.ACPN2 ---
Internal Medicine - PN: Subj *Date: 05/09/20 *Time: 09:10 Interval history: POD #1 KEELEY, LSO, right salpingectomy Patient had bleeding from incision through the night, requiring multiple dressing changes This morning during dressing change, fatty tissue was noted prolapsing through joseph Hgb is 10.5 this morning, with EBL 200cc; admission hgb was 13.1 Patient advised that she will need to return to OR for ex lap to evaluate for postop bleeding and new wound closure Exam Vital signs and Labs for Last 24 Hours: Temp Pulse Resp BP Pulse Ox 98.2 F 96 H 20 135/87 97 05/09/20 08:00 05/09/20 08:00 05/09/20 08:00 05/09/20 08:00 05/09/20 08:00 Laboratory Results - last 24 hr 05/08/20 09:06: Urine Color Yellow, Urine Appearance Clear, Urine pH 7.5, Ur Specific [place] 1.025, Urine Protein Negative, Urine Glucose (UA) Negative, Urine Ketones Negative, Urine Blood Negative, Urine Nitrate Negative, Urine Bilirubin Negative, Urine Urobilinogen 0.2, Ur Leukocyte Esterase Negative, Urine RBC None, Urine WBC None, Ur Squamous Epith Cells 3-5, Urine Bacteria Trace 05/09/20 07:06: Hgb 10.5 L, Hct 33.1 L 05/09/20 07:06: Sodium 137, Potassium 4.2, Chloride 104, Carbon Dioxide 25, Anion Gap 12.2, BUN 7 D, Creatinine 0.60, Estimated Creat Clear 118, Estimated GFR 114, Est GFR ( Amer) 138, Glucose 134 H, Calcium 9.3 I & O for Last 24 hours: Intake & Output 05/06/20 05/07/20 05/08/20 05/09/20 11:59 11:59 11:59 11:59 Intake Total 2325 / 2325 0 / 0 Output Total 650 / 650 Balance 2325 / 2325 -650 / -650 Weight 125 lb Narrative: CONSTITUTIONAL: no acute distress HEENT: mucous membranes moist PULMONARY: breathing unlabored without audible wheezes CV: no tachycardia or visible JVD; normal LE peripheral pulses ABD: soft, ND; appropriately tender but no rebound/guarding SKIN: incision joseph in place but active drainage and fatty tissue prolapsing through joseph EXT: no edema LEs NEURO: alert/oriented, no altered mental status PSYCH: appropriate mood and demeanor without anxiety/depression Assessment and Plan (1) Postoperative bleeding from incision Current visit: No Status: Acute Category: Medical (2) S/P hysterectomy Current visit: No Status: Acute Category: Surgical Code(s): Z90.710 - Acquired absence of both cervix and uterus - Assessment and plan all Dx Assessment and Plan for all problems:: Consented to return to OR for exploratory laparotomy
--- NOTE | 2020-05-09 10:46 | P.PN_ITS ---
[facility] Anesthesia Record Part I Intake, IV Amount: 1,200 Estimated blood loss (mL): 50 Urine output (mL): 200 Blood Pressure: 143/92 SaO2: 98 Pulse Rate: 92 Respiratory Rate: 16 Temperature: 98.6 F Patient is:: Drowsy, Stable Stable to PACU at:: 10:40
--- NOTE | 2020-05-09 10:57 | HMH.OPNOTE ---
Date of procedure: 05/09/20 Pre-op Diagnosis:: Postoperative incision bleeding Post-op Diagnosis:: Wound dehiscence Procedure performed:: Exploratory Laparotomy Surgeon:: Joyce Dockery MD Sheet Metal Layout Mechanic(s):: Ava Shaw STOCKROOM ASSOCIATE:: Ethan Ramos Anesthesia: GETA Estimated blood loss (mL): 50 Operative findings:: dehiscence of fascia no intra-abdominal bleeding from any structures Operative note:: The patient was taken to the operating room and general anesthesia was administered without difficulty. She was prepped and draped in the supine position. The Pfannenstiel skin incision was opened using a staple remover. The fascia was opened the entire length of the incision, with the knot intact on the left aspect of the incision. The remainder of the suture was cut and removed. No active bleeding or old clot was noted above the level of the fascia. The patient was placed in trendelenberg and the bowel was retracted using moist laparotomy sponges. No active bleeding or accumulated blood was noted in the pelvis. The pelvis was irrigated copiously and repeatedly with a sterile water and ancef solution. After prolonged observation, no bleeding was noted from any structures, with a clinical conclusion that the incisional bleeding observed through the night had been the result of the fascial dehiscence. As an additional precaution, Gelfoam was placed over the vaginal cuff and bladder peritoneum. Denisha was placed over the rectus muscles. The fascia was closed with 0-PDS in a running fashion. The subcutaneous fat was closed with 2-0 vicryl in an interrupted fasion. The skin was closed with joseph. The patient tolerated the procedure well; sponge/lap/needle and instrument counts were correct ?2. She was taken to the recovery room awake in stable condition. Estimated blood loss: 50 cc. Condition: stable Disposition: PACU Specimens:: none Complications:: none
--- NOTE | 2020-05-09 12:20 | PC.NURSE ---
1215 PATIENT RESTING WITH EYES CLOSED AT THIS TIME.
--- NOTE | 2020-05-09 12:33 | PC.NURSE ---
RESTING WITH EYES CLOSED. NO CHANGES TO NOTE.
[2020-05-09 12:46] LABS: Microscopic,Cath URINE MICROSCOPIC (MICROSCOPIC)
[2020-05-09 12:54] LABS: Appearance,Urine/Cath CLEAR (Clear); Bilirubin,Cath Negative (Negative); Blood, Urine/Cath TRACE-L (Negative); Color,Urine/Cath YELLOW (Yellow); Glucose,Urine/Cath (UA) Negative (Negative); Ketones,Urine/Cath Negative (Negative); Leukocyte Esterase,Cath Negative (Negative); Nitrate,Cath Negative (Negative); Protein,Urine/Cath Negative (Negative); Specific Gravity, Urine/Cath 1.015 (1.005-1.030); Urobilinogen,Cath 0.2 EU/dl (0.2)
[2020-05-09 13:14] LABS: Amorphous Sediment,Ur/Cath Trace /lpf
--- NOTE | 2020-05-09 15:49 | PC.NURSE ---
RESTING IN BED. NO CHANGES TO NOTE FROM PREVIOUS ASSESSMENT. PATIENT UPSET MENDES CATHETER STILL IN PLACE, DR PATEL WANTS LEFT TILL AM. LOW TRANSVERSE INCISION COVERED WITH TELFA, ABD PAD, AND TEGADERM. DRESSING REMAINS CLEAN DRY AND INTACT. ABDOMINAL BINDER REMAINS IN PLACE.
[2020-05-09 16:30] LABS: Hematocrit 30.5 % (37.0-47.0); Hemoglobin 9.7 g/dL (12.2-16.2)
--- NOTE | 2020-05-09 19:08 | PC.NURSE ---
REPORT GIVEN TO Chicho SUH RN.
--- NOTE | 2020-05-09 20:42 | PC.NURSE ---
pt c/o increased gas pain at this time, medicated with simethicone low grade fever noted given tylenol and encouraged incentive spirometer use, pt vervalizes understanding and is able to properly demonstrate correct use of incentive spirometer, no other needs voice, iv patent
[2020-05-10] VITALS (19 sets, daily range): BP systolic 112–153; BP diastolic 72–97; PULSE 91–120; RESP 16–20; TEMP 36.5–38.2; O2SAT 97–100
--- NOTE | 2020-05-10 03:03 | PC.NURSE ---
pt encouraged to use incentive spirometer at this time d/t low grade fever of 100.8, pt to drowsy at this time. no acute distress noted, medicated with tylenol at this time will continue to monitor fever at this time
[2020-05-10 06:11] LABS: Hematocrit 32.3 % (37.0-47.0); Hemoglobin 10.3 g/dL (12.2-16.2)
--- NOTE | 2020-05-10 06:33 | PC.NURSE ---
pt is alert and oriented x 3 and able to make needs known, heart rate remains regular, lungs clear throughout exceot LLL expiratory wheeze noted, BS x 4 quads hypoactive, pt states she isnt passing any flatus medicated with simethicone x 2 this shift for gas pain, pt has been medicated many times for pain this shift see emar, godoy catheter remains in place at this time patent and draining, pt is currently resting comfortably, dressing to abdomen remain clean dry and intact with abd binder over. pt has had low grade fever this shift medicated with acetaminophen see vital signs for list current temperature is 99.3 F orally, iv is patent no distress noted will continue to monitor at this time
--- NOTE | 2020-05-10 07:11 | PC.NURSE ---
godoy catheter removed, pt tolerated well. pt ambulated to bathroom at this time with minimal difficulty no distress noted
--- NOTE | 2020-05-10 07:22 | PC.NURSE ---
report given to Vi Granger RN
--- NOTE | 2020-05-10 08:01 | HMH.ANESII ---
[facility] Anesthesia Record Part II Discharge Time: 11:50 Destination: Obstetric PACU nurse assessment reviewed?: Yes Patient Condition:: Good Anesthesia Complications:: None Swallowing reflex intact?: Yes Cyanosis?: No Blood Pressure: 147/97 Pulse Rate: 101 Temperature: 97.7 F Mental Status: Alert & Oriented Pain level:: 0 Nausea and/or vomitting:: None Intake, IV Amount: 0
--- NOTE | 2020-05-10 11:43 | HMH.PROC ---
[facility] Procedure Note Procedure Note:: Pt in pain unable to control with current orders, consulted by Dr. Dockery. Medication ordered and an infusion of lidocaine, magnesium, and ketamine initiated for continuous infusion as tolerated.
--- NOTE | 2020-05-10 13:11 | PC.NURSE ---
1220 report called to terri reed rn. patient transported via wheelchair to room 217 stepdown at this time.
--- NOTE | 2020-05-10 13:43 | HMH.ACPN2 ---
Internal Medicine - PN: Subj *Date: 05/10/20 *Time: 13:43 Interval history: POD #2 s/p KEELEY, LSO, right salpingectomy POD #1 following exploratory laparotomy with fascial dehiscence Complaining of abdominal pain unresponsive to pain meds; patient has a history of substance abuse she was refused controlled substance Rx from pcp 3 months ago because UDS + fentanyl and + norfentanyl No drainage or bleeding from incision overnight tolerating po normal urine output Exam Vital signs and Labs for Last 24 Hours: Temp Pulse Resp BP Pulse Ox 98.2 F 96 H 16 130/73 100 05/10/20 11:45 05/10/20 11:45 05/10/20 11:45 05/10/20 11:45 05/10/20 11:45 Laboratory Results - last 24 hr 05/09/20 16:20: Hgb 9.7 L, Hct 30.5 L 05/10/20 04:29: Hgb 10.3 L, Hct 32.3 L I & O for Last 24 hours: Intake & Output 05/08/20 05/09/20 05/10/20 05/11/20 11:59 11:59 11:59 11:59 Intake Total 2325 / 2325 1200 / 1200 1700 / 1700 Output Total 850 / 1750 3900 / 3900 Balance 2325 / 2325 350 / -550 -2200 / -2200 Weight 125 lb Narrative: CONSTITUTIONAL: no acute distress, resting comfortably HEENT: mucous membranes moist PULMONARY: breathing unlabored without audible wheezes CV: no tachycardia or visible JVD; normal LE peripheral pulses ABD: soft, ND; appropriately tender but no rebound/guarding SKIN: incision well approximated with no drainage, erythema or induration EXT: no edema LEs NEURO: alert/oriented, no altered mental status Assessment and Plan (1) S/P hysterectomy Current visit: No Status: Acute Category: Surgical Code(s): Z90.710 - Acquired absence of both cervix and uterus (2) Postoperative bleeding from incision Current visit: No Status: Acute Category: Medical (3) Substance abuse Current visit: Yes Status: Acute Category: Medical Code(s): F19.10 - Other psychoactive substance abuse, uncomplicated - Assessment and plan all Dx Assessment and Plan for all problems:: Routine postop care Anesthesia consulted regarding pain control in context of patient's substance abuse
--- NOTE | 2020-05-10 15:24 | PC.NURSE ---
RECEIVED REPORT FROM Chicho GARZA @ [phone]
--- NOTE | 2020-05-10 17:23 | PC.NURSE ---
Addendum entered by Cinthia Dickens RN 05/10/20 18:56: Pt reports she has not passed flatus but did have a BM this shift. Original Note: Pt is resting at this time. Remains on room air w/ no s/s of resp distress. Continues on Ketamine gtt @ 33.6 mls/hr w/ pump locked. Gtt is being managed by anesthesia, Jean Chester, METER TESTER PRIMARY came to floor earlier to check on pt & gtt. Pt is one on one supervision w/ SRNA at arms length for pt safety. Is sinus tach on teley w/ HR ranging upper 90's to 110's. Phenergan given once since taking over care of pt w/ adequate relief noted. Low transverse surgical incision to abdomen w/ dressing c/d/i. Abdominal binder in place. Discussed importance of use of pillow to splint when getting up, pt verbalized understanding. IS at bedside w/ encouraged used throughout shift. Refuses scuds. Call cee w/in reach. No needs voiced at this time.
--- NOTE | 2020-05-10 18:09 | PC.NURSE ---
1800 - Spoke w/ B HILARIO Chester face to face. States that it is okay for pt to receive IV pain medication as well as continue on Ketamine gtt to control pain. Verbalized understanding.
--- NOTE | 2020-05-10 22:54 | PC.NURSE ---
URINE NOTED CLEAR AND YELLOW
[2020-05-11] VITALS (18 sets, daily range): BP systolic 119–143; BP diastolic 70–95; PULSE 85–100; RESP 14–20; TEMP 36.7–37.5; O2SAT 96–100; BMI 18.2
--- NOTE | 2020-05-11 02:01 | PC.NURSE ---
A&OX3. THIRD HELPER EQUAL BILAT. LUNGS CLEAR T/O AUSCULTATION. TOLERATED RA WELL. INCENTIVE SPIROMETER USED Q1HR WHILE AWAKE, DEMONSTRATED APPROPRIATE USE TO STAFF. ABDOMEN NONDISTENDED, HYPOACTIVE BOWEL SOUNDS NOTED THIS SHIFT, SOFT IN ALL QUADS PER PALPATION, LOWER ABDOMINAL QUADS NOTED WITH TENDERNESS PER PALPATION. LOW TRANSVERSE DRESSING NOTED CDI. DENIES PASSING FLATUS. NO BM NOTED THIS SHIFT. PT TOLERATED CLEAR LIQUID DIET WELL. PT REPORTS PAIN PULLING/GAS PAIN THIS SHIFT IN LOWER PORTION OF ABDOMEN. ON REASSESSMENT, PT IS NOTED RESTING IN BED WITH EYES CLOSED. ADVISED PT TO USE PILLOW TO SPLINT ABDOMINAL WALL WHILE MOVING/ COUGHING/ SNEEZING AND TO ALLOW STAFF TO ASSIST WITH EXTENSIVE MOVEMENT IN BED AND GETTING OOB. ABDOMINAL BINDER IN PLACE. SEIZURE PADS IN PLACE. ONE ON ONE OBSERVATION MAINTAINED THIS SHIFT. KETAMINE GTT INFUSING AT A RATE OF 33.6 ML/HR, PT TOLERATED WELL. IV PUMP LOCKED T/O SHIFT. VSS. WILL CONTINUE TO MONITOR.
--- NOTE | 2020-05-11 05:22 | PC.NURSE ---
PT REPORTS PASSING FLATUS.
--- NOTE | 2020-05-11 05:50 | PC.NURSE ---
HAVE OFFERED THE OTHER ADDITIONAL PAIN MEDICATIONS LISTED PER MAR WITH C/O LOWER ABDOMINAL PAIN. PT STILL REQUESTS DILAUDID AND SIMETHICONE, REPORTS ADEQUATE RELIEF FROM DILAUDID AND SIMETHICONE THIS SHIFT.
--- NOTE | 2020-05-11 09:39 | PC.NURSE ---
Dr Dockery and Ethan in anesthesia rounded on patient this morning. Per Ethan decrease Ketamine drip to 16ml and hour for 4 hours, then stop the Ketamine drip. oral pain meds to be changed to PO Dilaudid.
--- NOTE | 2020-05-11 09:42 | P.PCN_ITS ---
[facility] Procedure Note Procedure Note:: Pt seems to be doing better overall with Ketamine gtt. Still required a few doses of IV Dilaudid throughout the night. Discussed plan of care with pt. and Dr. Dockery while at bedside. Plan is to decrease infusion by half for 4 hours and then to discontinue infusion. PO Meds per Dr. Dockery. Discussed changing Oxycodone to PO Dilaudid.
--- NOTE | 2020-05-11 11:52 | P.PN_ITS ---
Internal Medicine - PN: Subj *Date: 05/11/20 *Time: 10:52 Interval history: POD #3 hysterectomy, POD #2 ex lap Patient has a history of substance abuse and has had difficulty with pain control since surgery She was moved to [facility] surg yesterday in order to accomodate 1-1 nursing needs with ketamine drip Pain control has been better with medication changes but she still rates pain 7 out of 10 this morning, although she appears to be resting comfortably Tolerating clear liquids, passing gas and had solid BM No bleeding or drainage from incision postop labs appropriate Exam Vital signs and Labs for Last 24 Hours: Temp Pulse Resp BP Pulse Ox 99.3 F 88 16 133/83 100 05/11/20 08:17 05/11/20 11:00 05/11/20 11:00 05/11/20 11:00 05/11/20 11:00 I & O for Last 24 hours: Intake & Output 05/08/20 05/09/20 05/10/20 05/11/20 11:59 11:59 11:59 11:59 Intake Total 2325 / 2325 1200 / 1200 1700 / 1700 798 / 798 Output Total 850 / 1750 3900 / 3900 1450 / 1450 Balance 2325 / 2325 350 / -550 -2200 / -2200 -652 / -652 Weight 125 lb 116 lb 3 oz Narrative: CONSTITUTIONAL: no acute distress HEENT: mucous membranes moist PULMONARY: breathing unlabored without audible wheezes CV: no tachycardia or visible JVD; normal LE peripheral pulses ABD: soft, ND; appropriately tender but no rebound/guarding SKIN: incision well approximated with no drainage, erythema or induration EXT: no edema LEs NEURO: alert/oriented, no altered mental status PSYCH: appropriate mood and demeanor without anxiety/depression Assessment and Plan (1) S/P hysterectomy Current visit: No Status: Acute Category: Surgical Code(s): Z90.710 - Acquired absence of both cervix and uterus (2) Postoperative bleeding from incision Current visit: No Status: Acute Category: Medical (3) Substance abuse Current visit: Yes Status: Acute Category: Medical Code(s): F19.10 - Other psychoactive substance abuse, uncomplicated - Assessment and plan all Dx Assessment and Plan for all problems:: Plan to discontinue ketamine drip today Resume po narcotics for postop pain Anticipate discharge home tomorrow
--- NOTE | 2020-05-11 12:50 | PC.NURSE ---
pt refused lunch. she attempted to take a few bites but is afraid her stomach isnt quite ready for it yet. pt was up to the bsc with staff, urinated with no issues. abdominal binder was replaced in a lower position that covered her incision at this time.
--- NOTE | 2020-05-11 13:18 | PC.NURSE ---
verified with Dr Dockery at 1314 that it is ok with her that the pt comes out of Stepdown after the Ketamine drip is stopped at 1330. Dr dockery is ok with coming out of SD and to also DC 1:1. Verified with Ethan Ramos in anesthesia (via Rory Mejia RN) that the pt 1:1 is dc and she is ok to come out of stepdown. ok per lainey via delfina at 1318
--- NOTE | 2020-05-11 19:11 | PC.NURSE ---
report given to mayelin
--- NOTE | 2020-05-12 03:05 | PC.NURSE ---
Pt A&OX4. lungs CTA. BS hypoactive. Pt has c/o of abd pain been medicated per NOV. Surgical incision cleaned and dressing applied c/d/i. Pt has tolerated diet well. Pt has rested quietly in bed. family member @ bedside.
[2020-05-12 04:00] VITALS: BP 143/76; PULSE 93; RESP 14; TEMP 36.8; O2SAT 98
[2020-05-12 05:00] VITALS: BMI 18.6
[2020-05-12 08:00] VITALS: BP 126/79; PULSE 89; RESP 16; TEMP 36.9; O2SAT 100
--- NOTE | 2020-05-12 13:00 | HMH.DCSUM ---
General - General Admission date:: 05/08/20 Discharge date: 05/12/20 Hospital Course Hospital Course: Patient underwent uncomplicated KEELEY, LSO, right salpingectomy She was restless following surgery and moving excessively throughout the bed, with subsequent dehiscence of fascial layer She was taken back to the OR on POD #1 for evaluation and fascia was repaired with PDS suture No intra-abdominal bleeding was noted at that surgery She again had insufficient pain control after surgery and was moved to [facility] floor to be managed with IV ketamine drip and 1-1 nursing care Pain control has improved since that time, but still sub-optimal, as patient has a history of substance abuse and showed fentanyl on drug screen a couple months prior to surgery She is discharged home on POD #4, in stable condition Tolerating po with stable vital signs and labs Ambulating and voiding without difficulty Objective Vital signs: Temp Pulse Resp BP Pulse Ox 98.4 F 89 16 126/79 100 05/12/20 08:00 05/12/20 08:00 05/12/20 08:00 05/12/20 08:00 05/12/20 08:00 Narrative: CONSTITUTIONAL: no acute distress HEENT: mucous membranes moist PULMONARY: breathing unlabored without audible wheezes CV: no tachycardia or visible JVD; normal LE peripheral pulses ABD: soft, ND; appropriately tender but no rebound/guarding SKIN: incision well approximated with no drainage, erythema or induration EXT: no edema LEs NEURO: alert/oriented, no altered mental status PSYCH: appropriate mood and demeanor without anxiety/depression DS: Diagnosis - Discharge Diagnosis (1) S/P hysterectomy Status: Acute (2) Postoperative bleeding from incision Status: Acute (3) Substance abuse Status: Acute Discharge Plan - Patient Discharge Instructions ACTIVITY: Continue current activity DIET: regular diet Patient Instructions: How to Care for a Surgical Wound, Hysterectomy -- Open Surgery, DI for Surgical Site Infection - Follow up Plan Disposition: Home, Self-Fci Medications: Home Medications Medication Instructions Recorded Confirmed Type epinephrine 0.3 mg/0.3 mL 0.3 mg IM Q10-15M PRN #2 each 12/05/19 05/08/20 Rx injection, auto-injector lamotrigine 200 mg tablet 200 mg PO BID #180 tab 04/05/20 05/08/20 Rx oxcarbazepine 300 mg tablet 300 mg PO BID #180 tab 04/05/20 05/08/20 Rx Buspirone HCl [Buspar 5mg tablet] 5 mg PO BID 05/04/20 05/08/20 History Hydromorphone HCl [Dilaudid 2mg 2 mg PO Q3HP PRN #30 tab 05/12/20 Rx tablet] Ibuprofen [Motrin 400mg 800 mg PO Q6HP PRN #30 tab 05/12/20 Rx tablet] Promethazine HCl [Phenergan 12.5mg 12.5 mg PO Q6H PRN #30 tab 05/12/20 Rx tablet] Prescriptions/Medication Reconciliation: New Hydromorphone HCl [Dilaudid 2mg tablet] 2 mg PO Q3HP PRN #30 tab PRN Reason: Moderate To Severe Pain Ibuprofen [Motrin 400mg tablet] 800 mg PO Q6HP PRN #30 tab PRN Reason: Mild Pain Promethazine HCl [Phenergan 12.5mg tablet] 12.5 mg PO Q6H PRN #30 tab PRN Reason: Nausea Continued epinephrine 0.3 mg/0.3 mL injection, auto-injector 0.3 mg IM Q10-15M PRN #2 each PRN Reason: hypersensitivity reaction lamotrigine 200 mg tablet 200 mg PO BID #180 tab oxcarbazepine 300 mg tablet 300 mg PO BID #180 tab Buspirone HCl [Buspar 5mg tablet] 5 mg PO BID - Problem Reconciliation Problems Reviewed?: Yes
== END 2020-05-12 15:35 | disposition home or self-care (01) | DRG 742 ==
LOC: OB 12:16 → 2ND 05-09 06:59 → OB 05-09 06:59 → 2ND 05-10 12:40
PROVIDERS: Admitting Provider Obstetrics & Gynecology; PCP Emergency Medicine; Visit Provider Obstetrics & Gynecology
PROC: 0UT90ZZ Resection of Uterus, Open Approach (ICD-10-PCS; CPT 58150; principal; 2020-05-08 08:30)
PROC: (CPT 49320; principal; 2020-05-09 09:00)
DX: N92.0 Excessive and frequent menstruation with regular cycle (principal); T81.31XA Disruption of external operation (surgical) wound, not elsewhere classified, initial encounter; N99.820 Postprocedural hemorrhage of a genitourinary system organ or structure following a genitourinary system procedure; D25.9 Leiomyoma of uterus, unspecified; N80.0 Endometriosis of uterus; N83.202 Unspecified ovarian cyst, left side; N32.89 Other specified disorders of bladder; N73.6 Female pelvic peritoneal adhesions (postinfective); F11.10 Opioid abuse, uncomplicated
CPT/HCPCS: 58150; 58740; 49002; 36415; 80048; 80053; 80305; 81001; 84703; 85014; 85018; 85025; 86328; 88307; 96374; J0670; J2405

== ENCOUNTER → 2020-05-18 10:15 | Outpatient (CLI) | payer MEDICARE, MEDICAID, SELFPAY ==
[2020-05-18 10:33] LABS: Basophils % 0.1 % (0.1-2.0); Eosinophils # 0.1 K/mm3 (0.0-0.4); Eosinophils % 0.5 % (0.1-12.0); Hematocrit 31.6 % (37.0-47.0); Hemoglobin 10.2 g/dL (12.2-16.2); Lymphocytes # 0.9 K/mm3 (0.7-4.5); Lymphocytes % 4.9 % (10-50); Mean Corpuscular HGB Conc 32.4 g/dL (31.8-35.4); Mean Corpuscular Hemoglobin 25.3 pg (27.0-31.2); Mean Corpuscular Volume 78.2 fl (81-99); Mean Platelet Volume 6.8 fl (7.4-10.4); Monocytes # 1.1 K/mm3 (0.1-1.0); Monocytes % 6.1 % (1.7-9.3); Neutrophils # 15.7 K/mm3 (1.8-7.8); Neutrophils % 88.3 % (37.0-80.0); Platelet Count 714 K/mm3 (142-424); Red Blood Count 4.04 M/mm3 (4.20-5.40); White Blood Count 17.8 K/mm3 (4.8-10.8)
[2020-05-18 10:39] LABS: MANUAL DIFFERENTIAL MANUAL DIFFERENTIAL (MANUAL DIFF)
[2020-05-18 10:48] LABS: Anisocytosis 1+; Eosinophils % 2 % (0-3); Hypochromasia 1+; Lymphocytes % 11 % (10-50); Microcytosis 1+; Monocytes % 1 % (2-9); Neutrophils % 86 % (42-76); Platelet Estimate Marked Increase; Poikilocytosis 1+; Total Cells Counted 100
== END ==
PROVIDERS: Visit Provider Obstetrics & Gynecology
DX: Z48.89 Encounter for other specified surgical aftercare (principal)
CPT/HCPCS: 36415; 85007; 85025

== ENCOUNTER 2020-06-12 14:34 | Emergency (ER) | payer MEDICARE, MEDICAID, SELFPAY ==
[2020-06-12 14:52] VITALS: BP 132/82; PULSE 93; RESP 20; TEMP 36.4; O2SAT 98; BMI 19.7
--- NOTE | 2020-06-12 15:07 | HMH.EDUTC ---
[facility] [place] Clinical Impression: Thrush Disposition: Home, Self-Care Condition on Discharge: Good Instructions: DI for Thrush Additional Instructions: Drink plenty of fluids. Take tylenol or ibuprofen for pain or fever. Take the medications as directed. Follow up with your regular doctor. GO TO THE ER FOR ANY WORSENING SYMPTOMS Prescriptions: Fluconazole [Diflucan 150mg tab] 150 mg PO ONCE #1 tab Transmission Status: Received by [facility] [place] [facility] Nystatin [Nystatin Susp 500,000 Units/5mL Udc] 5 ml PO QID #240 udc Transmission Status: Received by [facility] [place] [facility] Referrals: Ed Morrissey MD [Primary Care Provider] - Time of Disposition: 15:43 Medical Decision Making - Medical Records Medical records reviewed: No: I reviewed the patient's medical records. - Cosme Inquiry Pt receiving controlled substance: No Vital Signs: 06/12/20 14:52 06/12/20 15:42 Temperature 97.5 F L 97.5 F L Temperature Source Oral Pulse Rate 93 H Pulse Rate [Right Brachial] 93 H Respiratory Rate 20 20 Blood Pressure 132/82 Blood Pressure [Right Arm] 132/82 Blood Pressure Mean [Right Arm] 98 Blood Pressure Source [Right Arm] Automatic Cuff Blood Pressure Position [Right Arm] Sitting 02 Sat by Pulse Oximetry 98 Oxygen Delivery Method Room Air [facility] [place] HPI - General Stated complaint: sores in mouth and throat Time Seen by Provider: 06/12/20 15:07 Mode of Arrival: Ambulatory Source of Information: Patient Limitations: No Limitations Description of Symptoms (Recalled from Triage Doc. by RN): PATIENT C/O SORES ON TONGUE X APPROX 2.5 WEEKS. SHE WAS RECENTLY ON 14 DAYS OF BACTRIM THAT SHE FINISHED LAST WEEK HEENT Symptoms (Recalled from RN notes): Yes Resp Symptoms (Recalled from RN notes): No Skin Symptoms (Recalled from RN notes): No MS Symptoms (Recalled from RN notes): No Functional Status (Recalled from RN notes): WNL - History of Present Illness Provider Complaint: She c/o having white patches inside her mouth and her mouth is sore in places. She is on bactrim for a uti. - Related Data Home Medications Medication Instructions Recorded Confirmed Buspirone HCl [Buspar 5mg tablet] 5 mg PO BID 05/04/20 06/12/20 Previous Rx's Medication Instructions Recorded lamotrigine 200 mg tablet 200 mg PO BID #180 tab 04/05/20 oxcarbazepine 300 mg tablet 300 mg PO BID #180 tab 04/05/20 Ibuprofen [Motrin 400mg 800 mg PO Q6HP PRN #30 tab 05/12/20 tablet] Promethazine HCl [Phenergan 12.5mg 12.5 mg PO Q6H PRN #30 tab 05/12/20 tablet] Fluconazole [Diflucan 150mg tab] 150 mg PO ONCE #1 tab 06/12/20 Nystatin [Nystatin Susp 500,000 5 ml PO QID #240 udc 06/12/20 Units/5mL Udc] Allergies Allergy/AdvReac Type Severity Reaction Status Date / Time venom-honey bee Allergy Unknown Verified 05/18/20 13:22 [BEE VENOM (HONEY BEE)] - Worker's Comp Is this a Worker's Comp case?: No [facility] History - Hepatitis A Screen Drug use history?: No High risk sexual behaviors?: No History of sexually transmitted infection?: No Currently employed?: No Childcare worker?: No Do you have indoor plumbing?: Yes Do you have electricity?: Yes Attestation statement:: This patient has been screened for Hepatitis A risk factors. I have reviewed the patient's past medical history: Yes Medical History: Reports:: Anxiety, Deep Vein Thrombosis, Depression, Gastroesophageal Reflux Disease(GERD), Hepatitis, Migraine, Seizures Denies:: Cancer, Diabetes Mellitus Type 1, Diabetes Mellitus Type 2, Internal Pacemaker, Lung Disease, MRSA Other Medical History: Reports: Other. Denies: Blood Transfusion Reaction Comment: bipolar Other Surgeries: Yes: , Tubal Ligation. No: Pacemaker Amputation: No Fractures: No Comment: , Essure, Novasure/Myosure,Hysteroscopy - Social History Smoking Status: Light tobacco smoker # Packs/Day (cigarettes): 1 Alcohol Intake: never Alcohol Intake [place]
[2020-06-12 15:42] VITALS: BP 132/82; PULSE 93; RESP 20; TEMP 36.4; O2SAT 98
== END 2020-06-12 15:45 | disposition home or self-care (01) ==
PROVIDERS: Emergency Provider Nurse Practitioner Family; PCP Emergency Medicine
DX: B37.0 Candidal stomatitis (principal); F41.8 Other specified anxiety disorders; K21.9 Gastro-esophageal reflux disease without esophagitis
CPT/HCPCS: G0463; 99201

== ENCOUNTER 2020-06-19 13:10 | Emergency (ER) | payer MEDICARE, MEDICAID, SELFPAY ==
[2020-06-19 13:54] VITALS: BP 121/74; PULSE 77; RESP 18; TEMP 36.8; O2SAT 100; BMI 20.3
--- NOTE | 2020-06-19 14:09 | HMH.EDUTC ---
[facility] Disposition Clinical Impression: Thrush Disposition: Home, Self-Care Condition on Discharge: Good Instructions: Thrush-Adult, DI for Thrush Additional Instructions: Continue using Nystatin as prescribed Follow up with Family Doctor or Dentist is symptoms persist Warm fluids like tea with honey may help with mouth irritation Return if needed Straight to ER if any life threatening symptoms Referrals: Ed Morrissey MD [Primary Care Provider] - As needed Time of Disposition: 14:16 Medical Decision Making - Cosme Inquiry Pt receiving controlled substance: No Cosme was queried for this patient: No Vital Signs: 06/19/20 13:54 Temperature 98.2 F Temperature Source Oral Pulse Rate [Right Brachial] 77 Respiratory Rate 18 Blood Pressure [Right Arm] 121/74 Blood Pressure Mean [Right Arm] 89 Blood Pressure Source [Right Arm] Automatic Cuff Blood Pressure Position [Right Arm] Sitting 02 Sat by Pulse Oximetry 100 Oxygen Delivery Method Room Air [facility] HPI - General Stated complaint: sores in mouth Time Seen by Provider: 06/19/20 14:10 Mode of Arrival: Ambulatory Source of Information: Patient Limitations: No Limitations Description of Symptoms (Recalled from Triage Doc. by RN): PATIENT WAS RECENTLY SEEN IN [facility] AND TREATED FOR THRUSH. SHE STATES IT HAS NOT GONE AWAY AND IT STILL HURTS HER TO EAT OR DRINK HEENT Symptoms (Recalled from RN notes): Yes Resp Symptoms (Recalled from RN notes): No Skin Symptoms (Recalled from RN notes): No MS Symptoms (Recalled from RN notes): No Functional Status (Recalled from RN notes): WNL - History of Present Illness Provider Complaint: Patient states that she was seen in [facility] on 06/12 and was given oral medication and a mouth wash type of stuff States that she has taken all the oral medication and has been using the mouth wash and the white patches is gone but still feeling a little raw when she eats or drinks and wanted to come in and see if she needed more of the oral medication - Related Data Home Medications Medication Instructions Recorded Confirmed Buspirone HCl [Buspar 5mg tablet] 5 mg PO BID 05/04/20 06/19/20 Previous Rx's Medication Instructions Recorded lamotrigine 200 mg tablet 200 mg PO BID #180 tab 04/05/20 oxcarbazepine 300 mg tablet 300 mg PO BID #180 tab 04/05/20 Promethazine HCl [Phenergan 12.5mg 12.5 mg PO Q6H PRN #30 tab 05/12/20 tablet] Allergies Allergy/AdvReac Type Severity Reaction Status Date / Time venom-honey bee Allergy Unknown Verified 05/18/20 13:22 [BEE VENOM (HONEY BEE)] - Worker's Comp Is this a Worker's Comp case?: No H History - Hepatitis A Screen Drug use history?: No High risk sexual behaviors?: No History of sexually transmitted infection?: No Currently employed?: No Childcare worker?: No Do you have indoor plumbing?: Yes Do you have electricity?: Yes Attestation statement:: This patient has been screened for Hepatitis A risk factors. Medical History: Reports:: Anxiety, Deep Vein Thrombosis, Depression, Gastroesophageal Reflux Disease(GERD), Hepatitis, Migraine, Seizures Denies:: Cancer, Diabetes Mellitus Type 1, Diabetes Mellitus Type 2, Internal Pacemaker, Lung Disease, MRSA Other Medical History: Reports: Other. Denies: Blood Transfusion Reaction Comment: bipolar Other Surgeries: Yes: , Tubal Ligation. No: Pacemaker Amputation: No Fractures: No Comment: , Essure, Novasure/Myosure,Hysteroscopy - Social History Smoking Status: Light tobacco smoker # Packs/Day (cigarettes): 1 Alcohol Intake: never Alcohol Intake Frequency:: other Substance Use Type: former substance user Occupational Status: other Housing: house Household Members: spouse - Psychiatric History Pschychiatric History:: Reports:: Anxiety, Bipolar Disorder, Depression Family Hx:: Coronary Artery Disease, Cancer ROS Obtained: Yes All systems reviewed & no additional complaints, Yes Systems reviewed as george
[2020-06-19 14:27] VITALS: BP 121/74; PULSE 77; RESP 18; TEMP 36.8; O2SAT 100
== END 2020-06-19 14:28 | disposition home or self-care (01) ==
PROVIDERS: Emergency Provider Nurse Practitioner; PCP Emergency Medicine
DX: B37.0 Candidal stomatitis (principal); F17.210 Nicotine dependence, cigarettes, uncomplicated; Z79.899 Other long term (current) drug therapy; F41.8 Other specified anxiety disorders; K21.9 Gastro-esophageal reflux disease without esophagitis; G43.709 Chronic migraine without aura, not intractable, without status migrainosus
CPT/HCPCS: G0463; 99201

== ENCOUNTER 2020-06-29 02:53 | Emergency (ER) | payer MEDICARE, MEDICAID, SELFPAY ==
[2020-06-29] VITALS (20 sets, daily range): BP systolic 94–144; BP diastolic 53–98; PULSE 64–142; RESP 16–24; TEMP 36.4–37; O2SAT 96–100; BMI 19.5
--- NOTE | 2020-06-29 02:54 | ECG_ITS ---
APPROVED REPORT Exam: Resting ECG HR:121 bpm ECG Measurements Heart Rate 121 AXES MT 154 P 71 QRSd 96 QRS 86 QT 304 T 56 QTc 431 Conclusion Sinus tachycardia RSR' or QR pattern in V1 suggests right ventricular conduction delay Nonspecific ST abnormality Abnormal ECG Electronically signed by : Louie Lombardi, 07/09/2020 16:32:13
--- NOTE | 2020-06-29 02:59 | HMH.EDGENADL ---
ED Disposition Clinical Impression: Suicide attempt, Substance abuse Disposition: Xfer Psychiatric Hosp Condition on Discharge: Fair Additional Instructions: Additional instructions for URINARY TRACT INFECTION: Take antibiotic as prescribed. See your physician in 2-3 days for follow up and culture results. Return immediately if you have an uncontrollable fever greater than 102 degrees, severe back or abdominal pain, inability to urinate, or repetitive vomiting. Prescriptions: cephALEXin [Keflex 500mg Cap] 500 mg PO QID #28 cap Prescription Printed Referrals: Ed Morrissey MD [Primary Care Provider] - - Critical Care Critical Care Time: No Attestation: On 06/29/20, the high probability of a clinically significant, sudden or life threatening deterioration of the following system(s) required my full and direct attention, intervention and personal management. The time I documented below is in addition to time spent performing reported procedures but includes the following listed in this critical care notation. Medical Decision Making - Medical Records Medical records reviewed: Yes: I reviewed the patient's medical records. - Cosme Inquiry Pt receiving controlled substance: No Vital Signs: 06/29/20 03:03 06/29/20 03:15 06/29/20 03:30 Temperature 97.7 F 98.5 F Temperature Source Oral Axillary Pulse Rate [Right Brachial] 110 H 118 H 114 H Respiratory Rate 21 18 18 Blood Pressure [Right Arm] 144/98 H 123/83 125/76 Blood Pressure Mean [Right Arm] 113 96 92 Blood Pressure Source [Right Arm] Automatic Cuff Automatic Cuff Automatic Cuff Blood Pressure Position [Right Arm] Sitting Supine Supine 02 Sat by Pulse Oximetry 98 99 98 Oxygen Delivery Method Room Air Room Air Room Air 06/29/20 03:45 06/29/20 04:00 06/29/20 04:15 Temperature 98 F 98 F 98.6 F Temperature Source Axillary Axillary Axillary Pulse Rate [Right Brachial] 109 H 114 H 108 H Respiratory Rate 18 18 18 Blood Pressure [Right Arm] 132/81 128/79 129/71 Blood Pressure Mean [Right Arm] 98 95 90 Blood Pressure Source [Right Arm] Automatic Cuff Automatic Cuff Automatic Cuff Blood Pressure Position [Right Arm] Supine Supine Supine 02 Sat by Pulse Oximetry 98 98 99 Oxygen Delivery Method Room Air Room Air Room Air 06/29/20 04:30 06/29/20 04:45 06/29/20 05:00 Temperature Temperature Source Pulse Rate [Right Brachial] 103 H 109 H 95 H Respiratory Rate 18 18 16 Blood Pressure [Right Arm] 114/71 102/68 L 94/53 L Blood Pressure Mean [Right Arm] 85 79 66 Blood Pressure Source [Right Arm] Automatic Cuff Automatic Cuff Automatic Cuff Blood Pressure Position [Right Arm] Supine Supine Supine 02 Sat by Pulse Oximetry 97 98 99 Oxygen Delivery Method Room Air Room Air Room Air 06/29/20 05:15 06/29/20 05:30 06/29/20 05:45 Temperature 97.6 F 97.8 F 98.1 F Temperature Source Axillary Axillary Axillary Pulse Rate [Right Brachial] 95 H 122 H 114 H Respiratory Rate 17 18 20 Blood Pressure [Right Arm] 96/56 L 105/65 L 113/58 L Blood Pressure Mean [Right Arm] 69 78 76 Blood Pressure Source [Right Arm] Automatic Cuff Automatic Cuff Automatic Cuff Blood Pressure Position [Right Arm] Supine Supine Sitting 02 Sat by Pulse Oximetry 96 100 99 Oxygen Delivery Method Room Air Room Air Room Air 06/29/20 06:00 06/29/20 06:15 06/29/20 06:30 Temperature 98 F 98.1 F 98.2 F Temperature Source Axillary Oral Oral Pulse Rate [Right Brachial] 125 H 128 H 114 H Respiratory Rate 24 24 18 Blood Pressure [Right Arm] 126/86 99/68 L 111/75 Blood Pressure Mean [Right Arm] 99 78 87 Blood Pressure Source [Right Arm] Automatic Cuff Automatic Cuff Automatic Cuff Blood Pressure Position [Right Arm] Supine Supine Supine 02 Sat by Pulse Oximetry 100 99 100 Oxygen Delivery Method Room Air Room Air Room Air 06/29/20 06:45 06/29/20 07:00 06/29/20 07:16 Temperature 98.1 F 98.1 F Temperature Source Oral Axillary Pulse Rate [Right Brachial] 64 136 H 142 H Respiratory Rate 20
--- NOTE | 2020-06-29 03:12 | XR_ITS ---
PROCEDURE: XR CHEST PORTABLE CLINICAL HISTORY: chest pain COMPARISON: CR [id number] CHEST 2 VIEW W/APICAL LORDOTIC from 05/02/2015 CR CXR CHEST(2 VIEWS-NOT PORTABLE) from 08/08/2016 CR XR CHEST 2V from 06/02/2019 FINDINGS: The cardiomediastinal silhouette and pulmonary vascularity are within normal limits. The lungs are clear without infiltrates, suspicious nodules, or pleural effusions. No acute bony abnormalities. IMPRESSION: No acute findings. Dictated by: Jarrett Kim MD 06/29/2020 04:59 Jarrett Kmi MD in [facility] 06/29/2020 04:59
--- NOTE | 2020-06-29 03:15 | PC.NURSE ---
pt belongings removed from room, pt states she is suicidal, and has a plan for self-harm, one she has already attempted to execute this date. obs in place. house notified
[2020-06-29 03:22] LABS: Microscopic, Urine URINE MICROSCOPIC (MICROSCOPIC)
[2020-06-29 03:23] LABS: Appearance,Urine CLOUDY (Clear); Bilirubin,Urine Negative (Negative); Blood, Urine Negative (Negative); Color,Urine YELLOW (Yellow); Glucose,Urine (UA) Negative (Negative); Ketones,Urine Negative (Negative); Leukocyte Esterase,Urine 1+ (Negative); Nitrate,Urine Negative (Negative); Protein,Urine Negative (Negative); Specific Gravity, Urine 1.015 (1.005-1.030); Urobilinogen,Urine 0.2 EU/dl (0.2)
[2020-06-29 03:23] LABS: Basophils % 0.2 % (0.1-2.0); Eosinophils # 0.1 K/mm3 (0.0-0.4); Eosinophils % 0.3 % (0.1-12.0); Hemoglobin 11.8 g/dL (12.2-16.2); Lymphocytes # 2.4 K/mm3 (0.7-4.5); Lymphocytes % 13.7 % (10-50); Mean Corpuscular HGB Conc 29.5 g/dL (31.8-35.4); Mean Corpuscular Volume 74.6 fl (81-99); Mean Platelet Volume 6.4 fl (7.4-10.4); Monocytes # 1.2 K/mm3 (0.1-1.0); Monocytes % 6.5 % (1.7-9.3); Neutrophils # 14.1 K/mm3 (1.8-7.8); Neutrophils % 79.3 % (37.0-80.0); Platelet Count 772 K/mm3 (142-424); Red Blood Count 5.37 M/mm3 (4.20-5.40); Red Cell Distribution Width 16.5 % (11.5-17.5); White Blood Count 17.8 K/mm3 (4.8-10.8)
[2020-06-29 03:25] LABS: Chloride 102 mmol/L (98-107); Potassium 3.6 mmoL/L (3.5-5.1); Sodium 139 mmol/L (136-145)
[2020-06-29 03:27] LABS: Alanine Aminotransferase 13 U/L (12-78); Albumin Level 4.8 g/dl (3.5-5.0); Alkaline Phosphatase 117 U/L (38-126); Aspartate Amino Transferase 19 U/L (14-36); Bilirubin,Indirect 0.3 mg/dL (0.0-0.9); Bilirubin,Total 0.3 mg/dl (0.2-1.3); Bilirubin,Unconjugated 0.3 mg/dL (0.0-1.1); Blood Urea Nitrogen 9 mg/dl (7-17); Creatinine Clearance Estimated 88 mL/min (50-200); Estimated Glomerular Filt Rate 95 ml/min (>60); GFR (African American) 115 ML/MIN (>60); Total Protein,Serum 8.7 g/dl (6.3-8.2)
[2020-06-29 03:28] LABS: Acetaminophen 16 ug/ml (10-30); Anion Gap 15.6 mEq/L (5-15); Carbon Dioxide 25 mmol/L (22.0-30.0); Ethyl Alcohol < 10 mg/dl (0-10); Glucose 121 mg/dl (74-100)
[2020-06-29 03:29] LABS: MANUAL DIFFERENTIAL MANUAL DIFFERENTIAL (MANUAL DIFF); Salicylate < 1.0 mg/dL (2.0-20.0)
[2020-06-29 03:31] LABS: Amorphous Sediment,Urine 1+ /lpf; Bacteria,Urine 2+ /lpf; Mucus,Urine 1+ /lpf
[2020-06-29 03:35] LABS: Barbiturates Screen,Urine Negative ng/ml (<200)
[2020-06-29 03:36] LABS: Amphetamine/Metha Screen,Urine Negative ng/ml (<1000); Benzodiazepines Screen,Urine Negative ng/ml (<200)
[2020-06-29 03:37] LABS: Cannabinoid Screen,Urine Negative ng/ml (<50)
[2020-06-29 03:38] LABS: Cocaine Screen,Urine Positive ng/ml (<300); Methadone Screen,Urine Negative ng/ml (<300)
[2020-06-29 03:39] LABS: Opiate Screen,Urine Negative ng/ml (<300)
[2020-06-29 03:40] LABS: Phencyclidine Screen,Urine Negative ng/ml (<25)
[2020-06-29 04:00] LABS: Troponin I < 0.01 ng/ml (0.00-0.034)
--- NOTE | 2020-06-29 04:00 | PC.NURSE ---
pt requests to speak with md. emmanuel order received for what she perceives as signs of withdrawal to help calm her down
--- NOTE | 2020-06-29 04:12 | PC.NURSE ---
daughter at bedside. pt remains 1-on-1 obs.
[2020-06-29 04:27] LABS: Lymphocytes % 14 % (10-50); Monocytes % 1 % (2-9); Neutrophils % 85 % (42-76); Platelet Estimate Normal; Stomatocytes 1+; Total Cells Counted 100
[2020-06-29 04:28] LABS: Lactic Acid 0.6 mmol/L (0.7-2.1)
--- NOTE | 2020-06-29 05:10 | PC.NURSE ---
pt resting on her left side. no complaints offered. daughter remains at bedside along with staff member.
--- NOTE | 2020-06-29 05:48 | PC.NURSE ---
md at bedside. daughter upset and left bedside due to conversation between the two.
[2020-06-29 06:46] LABS: Troponin I < 0.01 ng/ml (0.00-0.034)
--- NOTE | 2020-06-29 07:05 | PC.NURSE ---
report given to yanni mills and anya mcgowanrn
--- NOTE | 2020-06-29 07:13 | PC.NURSE ---
shift change report taken from shift engineer. I am sitting 1-1 at this time. Pt is very agitated stating she hurts all over I can't do this, let me go home to my family, I won't do it! pt writhing around in bed.
--- NOTE | 2020-06-29 07:15 | PC.NURSE ---
Upon entering the room to sit 1-1 pt was observed eating her breakfast with her fingers stating that she doesn't want any silverware.
--- NOTE | 2020-06-29 07:18 | PC.NURSE ---
Per retail shift manager pt has removed her own IV. Pt nurse aware.
--- NOTE | 2020-06-29 07:22 | PC.NURSE ---
Pt is requesting something to help her sleep. Due to 1-1 precautions, I asked pt's nurse for order and she was going to ask Dr Andres.
--- NOTE | 2020-06-29 07:24 | PC.NURSE ---
Pt has now removed all v/s monitors and is laying in the floor stating that her legs are hurting.
--- NOTE | 2020-06-29 07:36 | PC.NURSE ---
while reaching for her orange juice pt dumped entire breakfast tray in the floor. House keeping has mopped. Pt given clean blankets and is back to writing around in bed at this time. refusing all v/s monitors.
--- NOTE | 2020-06-29 07:41 | PC.NURSE ---
Addendum entered by Agnes Craig, EMT 06/29/20 07:42: aware. Original Note: Pt up to restroom but states that she is unable to go. States that her vision is going black . Pt helped back to bed at this time. Will make MD aware.
--- NOTE | 2020-06-29 08:03 | PC.NURSE ---
Pt asking to speak with the MD at this time. MD aware.
--- NOTE | 2020-06-29 08:11 | PC.NURSE ---
MD at bedside but pt is asleep at this time.
--- NOTE | 2020-06-29 08:15 | PC.NURSE ---
commitment papers faxed to judge Lipscomb, unable to contact him by phone.
--- NOTE | 2020-06-29 08:15 | PC.NURSE ---
Pt refusing v/s monitors
--- NOTE | 2020-06-29 08:46 | PC.NURSE ---
Pt continues to writhe around in bed at this time and is asking for something to drink.
--- NOTE | 2020-06-29 08:48 | PC.NURSE ---
Pt provided with juice at this time.
--- NOTE | 2020-06-29 08:58 | PC.NURSE ---
Pt is awake requesting her phone at this time.
--- NOTE | 2020-06-29 08:59 | PC.NURSE ---
Pt is talking on the phone at this time. Repeating, they will not let me leave
--- NOTE | 2020-06-29 09:04 | PC.NURSE ---
asked MD about home meds and he stated he would get them ordered.
--- NOTE | 2020-06-29 09:20 | PC.NURSE ---
Pt again requesting to speak to the MD. Stating that she has not seen a doctor since shes been here, which is not the case. Explained to pt that MD had been in here she was just asleep when he came in. Pt understands but seems frustrated with this. MD aware that pt is requesting to speak to him.
--- NOTE | 2020-06-29 09:26 | PC.NURSE ---
Pt up to restroom, pt remained 1-1 while in the restroom.
--- NOTE | 2020-06-29 09:27 | PC.NURSE ---
Pt is back on the phone at this time. She has covered her head up and is asking whoever is on the phone if there is a leather production worker that can get her out of this. Pt states she wants to go home. I explained to pt that the safety measures we have to take due to the nature of what has gone on.
--- NOTE | 2020-06-29 09:50 | PC.NURSE ---
pt resting at this time
--- NOTE | 2020-06-29 10:03 | PC.NURSE ---
pt back on her phone at this time.
--- NOTE | 2020-06-29 10:41 | PC.NURSE ---
report called to [facility]
== END 2020-06-29 10:47 ==
PROVIDERS: Emergency Provider Emergency Medicine; PCP Emergency Medicine
DX: R07.9 Chest pain, unspecified (principal); T14.91XA Suicide attempt, initial encounter; T65.92XA Toxic effect of unspecified substance, intentional self-harm, initial encounter; Y92.019 Unspecified place in single-family (private) house as the place of occurrence of the external cause; F19.10 Other psychoactive substance abuse, uncomplicated; D47.3 Essential (hemorrhagic) thrombocythemia; F41.8 Other specified anxiety disorders; G43.709 Chronic migraine without aura, not intractable, without status migrainosus; K21.9 Gastro-esophageal reflux disease without esophagitis; Z79.899 Other long term (current) drug therapy
CPT/HCPCS: 71045; 80048; 80076; 80305; 80329; 81001; 83605; 84484; 85007; 85025; 87040; 87086; 93005; 96365; 96375; 96376; 99284; J2405

== ENCOUNTER 2020-07-21 19:55 | Emergency (ER) | payer MEDICARE, MEDICAID, SELFPAY ==
[2020-07-21 20:18] VITALS: BP 128/85; PULSE 121; RESP 18; O2SAT 98; BMI 19.3
--- NOTE | 2020-07-21 20:38 | HMH.EDUTC ---
[facility] [place] Disposition Clinical Impression: Cough, Encounter for laboratory testing for COVID-19 virus Disposition: Home, Self-Care Condition on Discharge: Good Instructions: Cough Additional Instructions: *Monitor Temp, Over the counter Motrin or Tylenol as directed/as needed Tylenol every 4 hours and Motrin every 6 hours (as long as your family doctor has told you that you can take it) for fever or pain. and straight to ER if unable to lower temp less than 101.0 after medication given *Warm salt water gargles may help to soothe the throat *Throat Lozenges *Warm fluids like tea with honey may help to soothe the throat *Sleep elevated *Humidifier/Vaporizer *Flonase 2 sprays in each nostril daily but be aware that it may take 2-3 days before you notice improvement Follow up IMMEDIATELY for new or worsening symptoms or no Noticeable improvement over the next 48-72 hours. 911 for difficulty breathing or swallowing You was tested for today for COVID19 your test result should be back in the next 24-48 hours, you may call to the [facility] tomorrow to see if your test results are back and the result [phone] You was given a handout with instructions for Self Quarantine and Self isolation for while you wait on test results and what to do if they are positive If you are positive the Health Dept will be contacting you also Prescriptions: Fluticasone Propionate [Flonase 50mcg nasal spray 16gm] 1 - 2 spr NS DAILY #1 bottle Transmission Status: Pending to [facility] Referrals: Ed Morrissey MD [Primary Care Provider] - As needed Forms: Work/School Release Time of Disposition: 20:44 Medical Decision Making - Cosme Inquiry Pt receiving controlled substance: No Cosme was queried for this patient: No Vital Signs: 07/21/20 20:18 Pulse Rate [Radial] 121 H Respiratory Rate 18 Blood Pressure [Right Arm] 128/85 Blood Pressure Mean [Right Arm] 99 Blood Pressure Source [Right Arm] Automatic Cuff Blood Pressure Position [Right Arm] Sitting 02 Sat by Pulse Oximetry 98 Oxygen Delivery Method Room Air Orders (Tests/Meds): ORDERS Category Date Time Status Covid-19 Nasal PCR ([facility]) Routine Lab 07/21/20 20:20 Received Medical Decision Narrative: Patient heart rate elevated, patient advised that she is nervous about the COVID test denies nausea at this time [facility] HPI - General Stated complaint: Cough Time Seen by Provider: 07/21/20 20:38 Mode of Arrival: Ambulatory Source of Information: Patient Limitations: No Limitations Description of Symptoms (Recalled from Triage Doc. by RN): COUGH, NAUSEA X 4 DAYS. WANTS COVID TEST HEENT Symptoms (Recalled from RN notes): No Resp Symptoms (Recalled from RN notes): No Skin Symptoms (Recalled from RN notes): No MS Symptoms (Recalled from RN notes): No Functional Status (Recalled from RN notes): WNL - History of Present Illness Provider Complaint: Patient states that she has had cough for about 4 days and at times having nausea States that she thinks she may have been exposed to someone with COVID and wants to get tested - Related Data Previous Rx's Medication Instructions Recorded oxcarbazepine 300 mg tablet 300 mg PO BID #180 tab 04/05/20 Promethazine HCl [Phenergan 12.5mg 12.5 mg PO Q6H PRN #30 tab 05/12/20 tablet] buspirone 5 mg tablet See Rx Instructions .ROUTE 06/27/20 .COMPLEX #60 tablet cephALEXin [Keflex 500mg Cap] 500 mg PO QID #28 cap 06/29/20 lamotrigine 200 mg tablet See Rx Instructions .ROUTE 07/17/20 .COMPLEX #180 tab Fluticasone Propionate [Flonase 1 - 2 spr NS DAILY #1 bottle 07/21/20 50mcg nasal spray 16gm] Allergies Allergy/AdvReac Type Severity Reaction Status Date / Time venom-honey bee Allergy Unknown Verified 05/18/20 13:22 [BEE VENOM (HONEY BEE)] - Worker's Comp Is this a Worker's Comp case?: No [facility] History - Hepatitis A Screen Drug use history?: No High risk sexual behaviors?: No History of sexually t
[2020-07-21 21:04] VITALS: BP 128/85; PULSE 121; RESP 18; TEMP 36.7; O2SAT 98
== END 2020-07-21 21:05 | disposition home or self-care (01) ==
PROVIDERS: Emergency Provider Nurse Practitioner; PCP Emergency Medicine
DX: Z20.828 Contact with and (suspected) exposure to other viral communicable diseases (principal); F41.8 Other specified anxiety disorders; K21.9 Gastro-esophageal reflux disease without esophagitis; G43.709 Chronic migraine without aura, not intractable, without status migrainosus; G40.909 Epilepsy, unspecified, not intractable, without status epilepticus; F17.210 Nicotine dependence, cigarettes, uncomplicated
CPT/HCPCS: G0463; 99201; U0003

== ENCOUNTER 2020-07-25 08:10 | Emergency (ER) | payer MEDICARE, MEDICAID, SELFPAY ==
[2020-07-25 08:11] VITALS: BP 131/89; PULSE 86; RESP 18; TEMP 36.7; O2SAT 100; BMI 19.3
--- NOTE | 2020-07-25 08:25 | CT_ITS ---
PROCEDURE: CT HEAD/BRAIN WO CON CLINICAL INDICATION: fall, headstrike Head injury with headache/pain, contusion, abrasion or hematoma with loss of consciousness, possible seizure COMPARISON: CT HDWO CT HEAD W/O CONTRAST from 08/11/2015 TECHNIQUE: Axial images obtained. All CT scans at the facility use one or more dose reduction, viz: automated exposure control, ma/kV adjustment per patient size (including targeted exams where dose is matched to indication, i.e. head), or iterative reconstruction technique. FINDINGS: No midline shift, mass effect, intracranial hemorrhage, hydrocephalus, or extra-axial fluid collection is evident. The calvarium has an unremarkable appearance. No mastoid effusion. No sinus air-fluid level. IMPRESSION: No acute intracranial finding Dictated by: Jarrett Kim MD 07/25/2020 09:06 Jarrett Kim MD in [facility] 07/25/2020 09:06
[2020-07-25 08:38] LABS: Chloride 106 mmol/L (98-107); Potassium 4.1 mmoL/L (3.5-5.1); Sodium 141 mmol/L (136-145)
[2020-07-25 08:41] VITALS: BP 135/94; PULSE 87; O2SAT 99
[2020-07-25 08:41] LABS: Alanine Aminotransferase 18 U/L (12-78); Albumin Level 4.8 g/dl (3.5-5.0); Albumin/Globulin Ratio 1.3 (1.1-1.8); Alkaline Phosphatase 124 U/L (38-126); Anion Gap 14.1 mEq/L (5-15); Aspartate Amino Transferase 27 U/L (14-36); Bilirubin,Total 0.3 mg/dl (0.2-1.3); Blood Urea Nitrogen 5 mg/dl (7-17); Calcium 9.8 mg/dl (8.4-10.2); Carbon Dioxide 25 mmol/L (22.0-30.0); Creatinine Clearance Estimated 96 mL/min (50-200); Estimated Glomerular Filt Rate 95 ml/min (>60); GFR (African American) 115 ML/MIN (>60); Globulin 3.7 g/dL (1.3-3.2); Glucose 115 mg/dl (74-100); Total Protein,Serum 8.5 g/dl (6.3-8.2)
[2020-07-25 09:11] VITALS: BP 140/81; PULSE 113; O2SAT 98
--- NOTE | 2020-07-25 09:29 | HMH.EDGENADL ---
ED Disposition Clinical Impression: Generalized seizure Disposition: Left Against Medical Advice Condition on Discharge: Undetermined Instructions: DI for Seizure Disorder -- Adult, DI for Seizure (Not Epilepsy/Seizure Disorder), DI for Seizure Disorder -- Child Referrals: Ed Morrissey MD [Primary Care Provider] - - Critical Care Critical Care Time: No Attestation: On 07/25/20, the high probability of a clinically significant, sudden or life threatening deterioration of the following system(s) required my full and direct attention, intervention and personal management. The time I documented below is in addition to time spent performing reported procedures but includes the following listed in this critical care notation. Medical Decision Making - Cosme Inquiry Pt receiving controlled substance: No Vital Signs: 07/25/20 08:11 07/25/20 08:41 07/25/20 09:11 Temperature 98.0 F Temperature Source Oral Pulse Rate [Left Radial] 86 87 113 H Respiratory Rate 18 Blood Pressure [Right Arm] 131/89 135/94 H 140/81 Blood Pressure Mean [Right Arm] 103 107 100 Blood Pressure Source [Right Arm] Automatic Cuff Automatic Cuff Automatic Cuff Blood Pressure Position [Right Arm] Sitting Sitting Sitting 02 Sat by Pulse Oximetry 100 99 98 Oxygen Delivery Method Room Air Room Air Room Air - Lab Data Lab Results 07/25/20 07:50: Sodium 141, Potassium 4.1, Chloride 106, Carbon Dioxide 25, Anion Gap 14.1, BUN 5 L, Creatinine 0.70, Estimated Creat Clear 96, Estimated GFR 95, Est GFR ( Amer) 115, Glucose 115 H, Calcium 9.8, Total Bilirubin 0.3, AST 27, ALT 18, Alkaline Phosphatase 124, Total Protein 8.5 H, Albumin 4.8, Globulin 3.7 H, Albumin/Globulin Ratio 1.3 Result diagrams: 07/25/20 07:50 Orders (Tests/Meds): ORDERS Category Date Time Status Drug Screen,Urine Stat Lab 07/25/20 08:26 Ordered - CT Data CT Scan: Head Time Received: 09:[address] Reviewed: Yes: I have reviewed the patient's CT results Preliminary Findings: Normal/NAD Medical Decision Narrative: 35yo F evaluated post seizure. Patient reports taking medication as directed. Etiology of seizure possibly inappropriate dosing of medication, missing doses of medication, drug withdrawal from opiates. Patient CT head is unremarkable. CMP is also unremarkable. Patient is in no acute distress during her evaluation the emergency department. Shortly after receiving back her blood work and CT result, patient states that she no letter was to be here and would like to sign out AMA. Risk/benefits/alternatives explained to patient. She proceeded to leave AMA. General Adult HPI - General Chief complaint: Seizure Stated complaint: seizure Time Seen by Provider: 07/25/20 08:12 Mode of Arrival: EMS Limitations: No Limitations Description of Symptoms (Recalled from ER Triage Doc. by RN): Per EMS pt was witnessed by bystanders having a seizure. States pt was walking through the front door and fell to the ground hitting her head. Red area noted on left forehead and right foot. Pt states that she has a hx of seizures but hasnt for a few years. Denies any issure at this time. - History of Present Illness HPI narrative: 35yo F w/ PMH significant for seizure for which she takes 2 antiepileptic medications. Also has a history positive for drug abuse and reports her last use of fentanyl was 2 days ago. States she was recently evicted from her home and lost her bupropion in that time. She states she continues take her seizure medication as directed. She denies missing any doses of the medication. She denies any fever, nausea/vomiting/diarrhea. EMS brought patient in following a seizure of unknown length of time. Patient does not remember the event, did not lose control of her bladder, did not bite her tongue. Patient has no complaints at this time. - Related Data Previous Rx's Medication Instructions Recorded oxcarbazepine 300 mg tablet 300 m
[2020-07-25 09:30] VITALS: BP 119/78; PULSE 96
--- NOTE | 2020-07-25 09:30 | PC.NURSE ---
Pt stepped out of room stating that she wanted to sign herself out. Pt states that she don't know how long we are going to be and she just wants to leave. MD aware, Pt understands that if symptoms occur again to seek medical attention. Pt verbalizes she understands and aware of symptoms to observe for.
[2020-07-25 09:35] VITALS: BP 119/76; PULSE 87; RESP 20; TEMP 36.7; O2SAT 100
== END 2020-07-25 09:42 | disposition home or self-care (01) ==
PROVIDERS: Emergency Provider Family Medicine; PCP Emergency Medicine
DX: G40.909 Epilepsy, unspecified, not intractable, without status epilepticus (principal); F41.8 Other specified anxiety disorders; K21.9 Gastro-esophageal reflux disease without esophagitis; G43.709 Chronic migraine without aura, not intractable, without status migrainosus; F17.210 Nicotine dependence, cigarettes, uncomplicated; Z79.899 Other long term (current) drug therapy
CPT/HCPCS: 70450; 80053; 99283

== ENCOUNTER 2020-08-15 10:51 | Emergency (ER) | payer MEDICARE, MEDICAID, SELFPAY ==
[2020-08-15 11:09] VITALS: BP 115/76; PULSE 102; RESP 14; TEMP 37; O2SAT 99; BMI 19.7
[2020-08-15 11:22] LABS: Apearance,Urine Cloudy (Clear); Color,Urine Yellow (Yellow)
[2020-08-15 11:23] LABS: Glucose,Urine (UA) Negative (Negative); Ketones,Urine Negative (Negative); PH,Urine 5.5 (5.0-8.5); Protein,Urine Negative (Negative)
[2020-08-15 11:24] LABS: Bilirubin,Urine Negative (Negative); Blood, Urine Trace (Negative); UTC Leukocyte Esterase,Urine 2+ (Negative); Urobilinogen,Urine 0.2 EU/dl (0.2)
[2020-08-15 11:25] LABS: UTC Nitrate,Urine Positive (Negative)
--- NOTE | 2020-08-15 11:31 | HMH.EDUTC ---
[facility] [place] Clinical Impression: Numbness and tingling in right hand UTI (urinary tract infection) Qualifiers: Urinary tract infection type: site unspecified Hematuria presence: with hematuria Qualified Code(s): N39.0 - Urinary tract infection, site not specified Disposition: Home, Self-Care Condition on Discharge: Good Instructions: Urinary Tract Infection, Urine Culture, DI for Carpal Tunnel Syndrome Additional Instructions: Drink plenty of fluids. Take tylenol or ibuprofen for pain or fever. Take the medications as directed. Follow up with your regular doctor. GO TO THE ER FOR ANY WORSENING SYMPTOMS The pyridium will make your urine turn orange, this is an expected side effect. It will stain your clothes if it comes into contact with them. Use the elastic wrist splint that I prescribed as directed (sleep with it on, to see if it helps you not wake up with a numb and tingling hand). Prescriptions: Sulfamethoxazole/Trimethoprim [Bactrim DS tablet] 1 each PO BID 7 Days #14 tab Transmission Status: Received by [facility] Phenazopyridine HCl [Pyridium 200mg Tablet] 200 pow PO TID #6 tab Transmission Status: Received by [facility] Referrals: Ed Morrissey MD [Primary Care Provider] - Funmilayo Calderón MD [Physician] - Time of Disposition: 11:37 Medical Decision Making - Medical Records Medical records reviewed: No: I reviewed the patient's medical records. - Cosme Inquiry Pt receiving controlled substance: No Vital Signs: 08/15/20 11:09 08/15/20 11:48 Temperature 98.6 F 98.6 F Temperature Source Oral Oral Pulse Rate 102 H Pulse Rate [Radial] 102 H Respiratory Rate 14 14 Blood Pressure 115/76 Blood Pressure [Right Arm] 115/76 Blood Pressure Mean [Right Arm] 89 Blood Pressure Source Automatic Cuff Blood Pressure Source [Right Arm] Automatic Cuff Blood Pressure Position Sitting Blood Pressure Position [Right Arm] Sitting 02 Sat by Pulse Oximetry 99 Oxygen Delivery Method Room Air Room Air - Lab Data Lab results reviewed: Yes: I reviewed the patient's lab results. Lab Results 08/15/20 11:21: Urine Color Yellow, Urine Appearance Cloudy, Urine pH 5.5, Ur Specific [place] 1.020, Urine Protein Negative, Urine Glucose (UA) Negative, Urine Ketones Negative, Urine Blood Trace, Urine Nitrate Positive A, Urine Bilirubin Negative, Urine Urobilinogen 0.2, Ur Leukocyte Esterase 2+ A Orders (Tests/Meds): ORDERS Category Date Time Status Covid-19 Nasal PCR Sendout Lorenzo Routine Lab 08/15/20 11:15 Received Urine Culture Stat Micro 08/15/20 11:15 [place] [facility] [place] - General Stated complaint: Vomiting, constant urination, pain Time Seen by Provider: 08/15/20 11:31 Mode of Arrival: Ambulatory Source of Information: Patient Limitations: No Limitations Description of Symptoms (Recalled from Triage Doc. by RN): COVID TEST. Pain in vaginal area, difficulty urinating, pressure down there HEENT Symptoms (Recalled from RN notes): No Resp Symptoms (Recalled from RN notes): No Skin Symptoms (Recalled from RN notes): No MS Symptoms (Recalled from RN notes): No Functional Status (Recalled from RN notes): wnl - History of Present Illness Provider Complaint: She c/o 3 days of dysuria, low back pain and urinary frequency. She has also been waking up with her right hand numb at times. She denies any neck, shoulder or arm pain. - Related Data Previous Rx's Medication Instructions Recorded Promethazine HCl [Phenergan 12.5mg 12.5 mg PO Q6H PRN #30 tab 05/12/20 tablet] lamotrigine 200 mg tablet See Rx Instructions .ROUTE 07/17/20 .COMPLEX #180 tab Fluticasone Propionate [Flonase 1 - 2 spr NS DAILY #1 bottle 07/21/20 50mcg nasal spray 16gm] buspirone 5 mg tablet See Rx Instructions .ROUTE 07/31/20 .COMPLEX #60 tablet oxcarbazepine 300 mg tablet 300 mg PO BID #180 tab 07/31/20 Phenazopyridine HCl [Pyridium 200 pow PO TID #6 tab 1
[2020-08-15 11:48] VITALS: BP 115/76; PULSE 102; RESP 14; TEMP 37; O2SAT 99
[2020-08-16 12:33] LABS: Covid-19 Nasal PCR Sendout Lex Not Detected
[2020-08-18 00:59] LABS: Neisseria gonorrhoeae, NAA Negative (Negative)
== END 2020-08-15 11:49 | disposition home or self-care (01) ==
PROVIDERS: Emergency Provider Nurse Practitioner Family; PCP Emergency Medicine
DX: Z20.828 Contact with and (suspected) exposure to other viral communicable diseases (principal); R20.2 Paresthesia of skin; N39.0 Urinary tract infection, site not specified; F41.8 Other specified anxiety disorders; K21.9 Gastro-esophageal reflux disease without esophagitis; F17.210 Nicotine dependence, cigarettes, uncomplicated; Z79.899 Other long term (current) drug therapy
CPT/HCPCS: G0463; 81003; 87086; 87088; 87186; 87491; 87591; 99202; U0004

== ENCOUNTER 2020-08-19 21:26 | Emergency (ER) | payer MEDICARE, MEDICAID, SELFPAY ==
[2020-08-19 21:27] VITALS: BP 135/106; PULSE 111; RESP 16; TEMP 37; O2SAT 100; BMI 19.3
--- NOTE | 2020-08-19 21:34 | CT_ITS ---
PROCEDURE: CT ABDOMEN PELVIS W CON CLINICAL INDICATION: n/v Right-sided abdominal pain with nausea vomiting and diarrhea COMPARISON: CT CT ABDOMEN PELVIS W CON from 06/02/2019 TECHNIQUE: IV Contrast: 75ML Isovue 370 Oral Contrast None Axial images obtained with sagittal and coronal reformats. All CT scans at the facility use one or more dose reduction, viz: automated exposure control, ma/kV adjustment per patient size (including targeted exams where dose is matched to indication, i.e. head), or iterative reconstruction technique. FINDINGS: LOWER THORAX: No acute finding ABDOMEN & PELVIS: The liver, spleen, adrenal glands, pancreas, and kidneys have an unremarkable appearance. There is an intussusception involving the jejunal loops in the left upper quadrant with some adjacent mucosal thickening. No dilated small bowel loops. Contrast is present distal to this region. No evidence of appendicitis. There has been a prior hysterectomy. There is anterior angulation of the coccyx which is old. No acute bony anomalies. IMPRESSION: Intussusception of small bowel loops in the left upper quadrant. In adults is usually transient. Follow-up CT enterography small-bowel follow-through may confirm. Contrast material noted distal to this site. Dictated by: Jarrett Kim MD 08/20/2020 05:50 Jarrett Kim MD in [place] 08/20/2020 05:50
[2020-08-19 21:44] LABS: Basophils % 0.7 % (0.1-2.0); Eosinophils # 0.2 K/mm3 (0.0-0.4)
[2020-08-19 21:50] LABS: Alanine Aminotransferase 24 U/L (12-78); Albumin Level 5.7 g/dl (3.5-5.0); Albumin/Globulin Ratio 1.2 (1.1-1.8); Alkaline Phosphatase 123 U/L (38-126); Anion Gap 19.1 mEq/L (5-15); Aspartate Amino Transferase 25 U/L (14-36); Bilirubin,Total 0.6 mg/dl (0.2-1.3); Blood Urea Nitrogen 14 mg/dl (7-17); Calcium 11.4 mg/dl (8.4-10.2); Carbon Dioxide 29 mmol/L (22.0-30.0); Chloride 98 mmol/L (98-107); Creatinine Clearance Estimated 75 mL/min (50-200); Eosinophils % 1.4 % (0.1-12.0); Estimated Glomerular Filt Rate 71 ml/min (>60); GFR (African American) 86 ML/MIN (>60); Globulin 4.6 g/dL (1.3-3.2); Glucose 118 mg/dl (74-100); Hematocrit 48.5 % (37.0-47.0); Hemoglobin 14.8 g/dL (12.2-16.2); Lymphocytes # 3.4 K/mm3 (0.7-4.5); Lymphocytes % 25.3 % (10-50); Mean Corpuscular HGB Conc 30.5 g/dL (31.8-35.4); Mean Corpuscular Hemoglobin 22.3 pg (27.0-31.2); Mean Corpuscular Volume 73.4 fl (81-99); Mean Platelet Volume 6.5 fl (7.4-10.4); Monocytes # 0.8 K/mm3 (0.1-1.0); Monocytes % 6.1 % (1.7-9.3); Neutrophils # 8.9 K/mm3 (1.8-7.8); Neutrophils % 66.5 % (37.0-80.0); Platelet Count 882 K/mm3 (142-424); Potassium 4.1 mmoL/L (3.5-5.1); Red Blood Count 6.61 M/mm3 (4.20-5.40); Red Cell Distribution Width 16.8 % (11.5-17.5); Sodium 142 mmol/L (136-145); Total Protein,Serum 10.3 g/dl (6.3-8.2); White Blood Count 13.4 K/mm3 (4.8-10.8)
--- NOTE | 2020-08-19 21:50 | HMH.EDSEIZ ---
ED Disposition Clinical Impression: Gastroenteritis, SIRS (systemic inflammatory response syndrome), Thrombocytosis Epileptic seizure Qualifiers: Epilepsy type: unspecified Intractability: not intractable Status epilepticus: without status epilepticus Qualified Code(s): G40.909 - Epilepsy, unspecified, not intractable, without status epilepticus Disposition: Home, Self-Care Condition on Discharge: Good Instructions: DI for Seizure Disorder -- Adult Additional Instructions: see pcp for follow up and neuro Referrals: Ed Morrissey MD [Primary Care Provider] - Reny Mac MD [Staff Physician] - - Critical Care Critical Care Time: No Attestation: On 08/19/20, the high probability of a clinically significant, sudden or life threatening deterioration of the following system(s) required my full and direct attention, intervention and personal management. The time I documented below is in addition to time spent performing reported procedures but includes the following listed in this critical care notation. Medical Decision Making - Medical Records Medical records reviewed: Yes: I reviewed the patient's medical records. - Cosme Inquiry Pt receiving controlled substance: No Vital Signs: 08/19/20 21:27 08/19/20 21:57 08/19/20 22:27 Temperature 98.6 F Temperature Source Oral Pulse Rate [Right Brachial] 111 H 101 H 95 H Respiratory Rate 16 Blood Pressure [Right Arm] 135/106 H 144/104 H 124/82 Blood Pressure Mean [Right Arm] 115 117 96 02 Sat by Pulse Oximetry 100 100 98 Oxygen Delivery Method Room Air 08/19/20 22:57 08/20/20 00:13 Temperature Temperature Source Pulse Rate [Right Brachial] 94 H Respiratory Rate Blood Pressure [Right Arm] 128/81 Blood Pressure Mean [Right Arm] 96 02 Sat by Pulse Oximetry 100 Oxygen Delivery Method Room Air - Lab Data Lab results reviewed: Yes: I reviewed the patient's lab results. Lab Results 08/19/20 21:25: WBC 13.4 H, RBC 6.61 H, Hgb 14.8, Hct 48.5 H, MCV 73.4 L, MCH 22.3 L, MCHC 30.5 L, RDW 16.8, Plt Count 882 H, MPV 6.5 L, Neut % (Auto) 66.5, Lymph % (Auto) 25.3, [place] % (Auto) 6.1, Eos % (Auto) 1.4, Baso % (Auto) 0.7, Neut # (Auto) 8.9 H, Lymph # (Auto) 3.4, [place] # (Auto) 0.8, Eos # (Auto) 0.2, Baso # (Auto) 0.1 08/19/20 21:25: Sodium 142, Potassium 4.1, Chloride 98, Carbon Dioxide 29, Anion Gap 19.1 H, BUN 14, Creatinine 0.90, Estimated Creat Clear 75, Estimated GFR 71, Est GFR ( Amer) 86, Glucose 118 H, Calcium 11.4 H, Total Bilirubin 0.6, AST 25, ALT 24, Alkaline Phosphatase 123, C-Reactive Protein < 0.3, Total Protein 10.3 H, Albumin 5.7 H, Globulin 4.6 H, Albumin/Globulin Ratio 1.2 08/19/20 21:25: ESR 1 08/19/20 21:25: Procalcitonin 0.078 08/19/20 21:25: Lipase 98 08/19/20 21:25: SARS-CoV-2 IgG Ab (Rapid) Negative, SARS-CoV-2 IgM Ab (Rapid) Negative 08/19/20 21:43: Influenza Type A Ag Negative, Influenza Type B Ag Negative 08/19/20 23:25: Urine Color Yellow, Urine Appearance Sl cloudy, Urine pH 7.5, Ur Specific L[place] <= 1.005, Urine Protein Negative, Urine Glucose (UA) Negative, Urine Ketones Negative, Urine Blood Trace-i, Urine Nitrate Positive, Urine Bilirubin Negative, Urine Urobilinogen 0.2, Ur Leukocyte Esterase Negative, Urine RBC Occasional, Ur Squamous Epith Cells 20-50, Urine Bacteria Trace 08/19/20 23:25: Urine Opiates Screen Negative, Urine Methadone Screen Negative, Ur Barbituates Screen Negative, Ur Phencyclidine Scrn Negative, Ur Amphetamines Screen Negative, U Benzodiazepines Scrn Negative, Urine Cocaine Screen Negative, U Marijuana (THC) Screen Negative Result diagrams: 08/19/20 21:25 08/19/20 21:25 Orders (Tests/Meds): ED MEDICATIONS Generic Name Dose Route Start Last Admin Trade Name Freq PRN Reason Stop Dose Admin Sodium Chloride 1,000 mls @ 999 mls/hr 08/19/20 21:45 08/19/20 21:55 Sod Chlor 0.9% 1000ml Bag IV 12/13/20 22:45 999 mls/hr .Q1H1M ASIM Administration Sodium Chloride 8 ml 08/19/20 21:38
[2020-08-19 21:53] LABS: Basophils # 0.1 K/mm3 (0-0.2)
[2020-08-19 21:57] VITALS: BP 144/104; PULSE 101; O2SAT 100
[2020-08-19 22:02] LABS: Lipase 98 U/L (23-300)
[2020-08-19 22:09] LABS: Procalcitonin 0.078 ng/mL (0.0-2.0)
--- NOTE | 2020-08-19 22:10 | PC.NURSE ---
oral contrast finished at 2210
--- NOTE | 2020-08-19 22:10 | PC.NURSE ---
Pt finished oral contrast Rabecca in radiology notified
[2020-08-19 22:11] LABS: C-Reactive Protein < 0.3 mg/L (0-4)
--- NOTE | 2020-08-19 22:11 | PC.NURSE ---
pt threw up contrast. md was made aware and advised to just do the scan with iv contrast.
[2020-08-19 22:16] LABS: Erythrocyte Sedimentation Rate 1 mm/hr (0-20)
[2020-08-19 22:27] VITALS: BP 124/82; PULSE 95; O2SAT 98
[2020-08-19 22:57] VITALS: BP 128/81; PULSE 94; O2SAT 100
--- NOTE | 2020-08-19 22:57 | PC.NURSE ---
Seizure pads placed on bed
[2020-08-19 23:26] LABS: Coronavirus 19 IgG Antibody Negative (Negative); Coronavirus 19 IgM Antibody Negative (Negative)
[2020-08-19 23:31] LABS: Microscopic, Urine URINE MICROSCOPIC (MICROSCOPIC)
[2020-08-19 23:32] LABS: Appearance,Urine SL CLOUDY (Clear); Bilirubin,Urine Negative (Negative); Blood, Urine TRACE-I (Negative); Color,Urine YELLOW (Yellow); Glucose,Urine (UA) Negative (Negative); Ketones,Urine Negative (Negative); Leukocyte Esterase,Urine Negative (Negative); Nitrate,Urine POSITIVE (Negative); PH,Urine 7.5 (5.0-8.5); Protein,Urine Negative (Negative); Specific Gravity, Urine <= 1.005 (1.005-1.030); Urobilinogen,Urine 0.2 EU/dl (0.2)
[2020-08-19 23:36] LABS: RBC,Urine Occasional #/hpf (0-3)
[2020-08-19 23:37] LABS: Bacteria,Urine Trace /lpf; Squamous Epithelial Cell,Urine 20-50 #/hpf (0-5)
[2020-08-19 23:47] LABS: Amphetamine/Metha Screen,Urine Negative ng/ml (<1000)
[2020-08-19 23:48] LABS: Barbiturates Screen,Urine Negative ng/ml (<200)
[2020-08-19 23:49] LABS: Benzodiazepines Screen,Urine Negative ng/ml (<200); Cannabinoid Screen,Urine Negative ng/ml (<50)
[2020-08-19 23:50] LABS: Cocaine Screen,Urine Negative ng/ml (<300); Methadone Screen,Urine Negative ng/ml (<300)
[2020-08-19 23:51] LABS: Opiate Screen,Urine Negative ng/ml (<300)
[2020-08-19 23:52] LABS: Phencyclidine Screen,Urine Negative ng/ml (<25)
[2020-08-20 00:41] VITALS: BP 129/80; PULSE 110; RESP 17; TEMP 36.7; O2SAT 98
[2020-08-22 00:27] LABS: Peripheral Smear Review Scanned Result
[2020-08-23 02:28] LABS: Lamotrigine (Lamictal) 2.1 ug/mL (2.0-20.0)
[2020-10-09 12:49] LABS: POC Glucose,Bedside 109 (70-110)
== END 2020-08-20 00:48 | disposition home or self-care (01) ==
PROVIDERS: Emergency Provider Emergency Medicine; PCP Emergency Medicine
DX: K52.9 Noninfective gastroenteritis and colitis, unspecified (principal); R65.10 Systemic inflammatory response syndrome (SIRS) of non-infectious origin without acute organ dysfunction; D47.3 Essential (hemorrhagic) thrombocythemia; Z01.84 Encounter for antibody response examination; G40.909 Epilepsy, unspecified, not intractable, without status epilepticus; F41.8 Other specified anxiety disorders; K21.9 Gastro-esophageal reflux disease without esophagitis; F17.210 Nicotine dependence, cigarettes, uncomplicated; Z79.899 Other long term (current) drug therapy
CPT/HCPCS: 74177; 80053; 80168; 80305; 81001; 82962; 83690; 84145; 85025; 85651; 86140; 86328; 87275; 87276; 96365; 96375; 99284; J2405; Q9967

== ENCOUNTER 2020-09-10 10:01 | Emergency (ER) | payer MEDICARE, MEDICAID, SELFPAY ==
[2020-09-10 10:30] VITALS: BP 0/0; PULSE 0; RESP 0; TEMP -17.7; TEMP 0
== END 2020-09-10 10:30 | disposition left against medical advice (07) ==
PROVIDERS: Emergency Provider Nurse Practitioner; PCP Emergency Medicine
DX: Z53.21 Procedure and treatment not carried out due to patient leaving prior to being seen by health care provider (principal); R05 Cough

== ENCOUNTER 2020-10-02 14:38 | Emergency (ER) | payer MEDICARE, MEDICAID, SELFPAY ==
[2020-10-02 15:10] VITALS: BP 120/78; PULSE 82; RESP 20; TEMP 36.7; O2SAT 98
--- NOTE | 2020-10-02 15:16 | HMH.EDUTC ---
[facility] – [place] Dis[place] Clinical Impression: Aphthous ulcer Disposition: Home, Self-Care Condition on Discharge: Good Instructions: DI for Mouth Lesions Additional Instructions: Follow up with Dr. Bryan (ENT doctor). Call either this afternoon or in the morning to get an appointment. Use the trimacinolone dental paste as directed. Follow up with your primary care doctor. GO TO THE ER FOR ANY WORSENING SYMPTOMS OR CONCERNS Prescriptions: Triamcinolone Acetonide 5 gm DT DAILYP PRN 5 Days #1 tube PRN Reason: Mouth Irritation Transmission Status: Received by [facility] Referrals: Ed Morrissey MD [Primary Care Provider] - Finn Bryan MD [Staff Physician] - Time of Disposition: 15:32 Medical Decision Making - Medical Records Medical records reviewed: No: I reviewed the patient's medical records. - Cosme Inquiry Pt receiving controlled substance: No Vital Signs: 10/02/20 15:10 10/02/20 15:33 Temperature 98.1 F 98.1 F Temperature Source Oral Pulse Rate 82 Pulse Rate [Right Brachial] 82 Respiratory Rate 20 20 Blood Pressure 120/78 Blood Pressure [Right Arm] 120/78 Blood Pressure Mean [Right Arm] 92 Blood Pressure Source [Right Arm] Automatic Cuff Blood Pressure Position [Right Arm] Sitting 02 Sat by Pulse Oximetry 98 Oxygen Delivery Method Room Air Medical Decision Narrative: I explained to her that any lesions in your mouth that last for over 2 weeks need to be followed up on by an ENT doctor. She is agreeable to f/u with ENT from here on out. [facility] [place] HPI - General Stated complaint: sores in mouth Time Seen by Provider: 10/02/20 15:18 - History of Present Illness Provider Complaint: She states that for the past 1 month she has had recurrent sores in side her mouth. She has been here once for this already. She states that she was prescribed. - Related Data Home Medications Medication Instructions Recorded Confirmed Buspirone HCl [Buspar 5mg tablet] See Rx Instructions .ROUTE .COMPLEX 08/19/20 09/18/20 lamoTRIgine [Lamotrigine] See Rx Instructions .ROUTE .COMPLEX 08/19/20 09/18/20 Previous Rx's Medication Instructions Recorded oxcarbazepine 300 mg tablet 300 mg PO BID #180 tab 07/31/20 alprazolam 0.5 mg tablet 0.5 mg PO QID #120 tab 09/18/20 Triamcinolone Acetonide 5 gm DT DAILYP PRN 5 Days #1 tube 10/02/20 Allergies Allergy/AdvReac Type Severity Reaction Status Date / Time venom-honey bee Allergy Unknown Verified 09/18/20 15:50 [BEE VENOM (HONEY BEE)] [facility] History - Hepatitis A Screen Attestation statement:: This patient has been screened for Hepatitis A risk factors. I have reviewed the patient's past medical history: Yes Medical History: Reports:: Anxiety, Deep Vein Thrombosis, Depression, Gastroesophageal Reflux Disease(GERD), Hepatitis, Migraine, Seizures Denies:: Cancer, Diabetes Mellitus Type 1, Diabetes Mellitus Type 2, Internal Pacemaker, Lung Disease, MRSA Other Medical History: Reports: Other. Denies: Blood Transfusion Reaction Comment: bipolar Other Surgeries: Yes: , Tubal Ligation. No: Pacemaker Amputation: No Fractures: No Comment: , Essure, Novasure/Myosure,Hysteroscopy - Social History Smoking Status: Current every day smoker Tobacco Type: cigarettes # Packs/Day (cigarettes): 1 Alcohol Intake: never Alcohol Intake Frequency:: other Substance Use Type: former substance user Occupational Status: unemployed Housing: house Household Members: spouse - Psychiatric History Pschychiatric History:: Reports:: Anxiety, Bipolar Disorder, Depression Family Hx:: Coronary Artery Disease, Cancer ROS Obtained: Yes All systems reviewed & no additional complaints - Constitutional Constitutional: Reports system reviewed and no additional complaints, except as docu, Denies chills, Denies fever(s) - Integumentary/Breasts Skin/Breast: Reports as per HPI Physical Exam - General General appearance: alert,
[2020-10-02 15:33] VITALS: BP 120/78; PULSE 82; RESP 20; TEMP 36.7; O2SAT 98
== END 2020-10-02 15:35 | disposition home or self-care (01) ==
PROVIDERS: Emergency Provider Nurse Practitioner Family; PCP Emergency Medicine
DX: K12.0 Recurrent oral aphthae (principal); F41.8 Other specified anxiety disorders; K21.9 Gastro-esophageal reflux disease without esophagitis; G43.709 Chronic migraine without aura, not intractable, without status migrainosus; F17.210 Nicotine dependence, cigarettes, uncomplicated; Z79.899 Other long term (current) drug therapy
CPT/HCPCS: G0463; 99202

== ENCOUNTER → 2021-03-01 13:50 | Outpatient (CLI) | payer MEDICARE, MEDICAID, SELFPAY ==
[2021-03-01 14:29] LABS: Amphetamine/Metha Screen,Urine Negative ng/ml (<1000)
[2021-03-01 14:30] LABS: Barbiturates Screen,Urine Negative ng/ml (<200); Benzodiazepines Screen,Urine Negative ng/ml (<200)
[2021-03-01 14:31] LABS: Cannabinoid Screen,Urine Negative ng/ml (<50)
[2021-03-01 14:32] LABS: Cocaine Screen,Urine Negative ng/ml (<300); Methadone Screen,Urine Negative ng/ml (<300)
[2021-03-01 14:33] LABS: Opiate Screen,Urine Negative ng/ml (<300)
[2021-03-01 14:34] LABS: Phencyclidine Screen,Urine Negative ng/ml (<25)
== END ==
PROVIDERS: Visit Provider Emergency Medicine
DX: Z79.899 Other long term (current) drug therapy (principal)
CPT/HCPCS: 80305

== ENCOUNTER 2021-06-03 15:23 | Emergency (ER) | payer MEDICARE, MEDICAID, SELFPAY ==
[2021-06-03 15:24] VITALS: BP 119/77; PULSE 87; RESP 16; TEMP 37.2; O2SAT 98; BMI 17.2
[2021-06-03 15:39] LABS: Basophils # 0.1 K/mm3 (0-0.2); Basophils % 0.5 % (0.1-2.0); Eosinophils # 0.1 K/mm3 (0.0-0.4); Hematocrit 47.8 % (37.0-47.0); Hemoglobin 15.2 g/dL (12.2-16.2); Lymphocytes # 2.4 K/mm3 (0.7-4.5); Lymphocytes % 25.6 % (10-50); Mean Corpuscular HGB Conc 31.7 g/dL (31.8-35.4); Mean Corpuscular Hemoglobin 26.1 pg (27.0-31.2); Mean Corpuscular Volume 82.2 fl (81-99); Mean Platelet Volume 8.2 fl (7.4-10.4); Monocytes # 0.6 K/mm3 (0.1-1.0); Neutrophils # 6.2 K/mm3 (1.8-7.8); Neutrophils % 66.9 % (37.0-80.0); Platelet Count 800 K/mm3 (142-424); Red Blood Count 5.81 M/mm3 (4.20-5.40); Red Cell Distribution Width 16.5 % (11.5-17.5); White Blood Count 9.3 K/mm3 (4.8-10.8)
[2021-06-03 15:42] LABS: Chloride 105 mmol/L (98-107); Potassium 3.6 mmoL/L (3.5-5.1); Sodium 142 mmol/L (136-145)
[2021-06-03 15:45] LABS: Alanine Aminotransferase 21 U/L (12-78); Albumin/Globulin Ratio 1.3 (1.1-1.8); Alkaline Phosphatase 114 U/L (38-126); Anion Gap 16.6 mEq/L (5-15); Aspartate Amino Transferase 26 U/L (14-36); Bilirubin,Total 0.3 mg/dl (0.2-1.3); Blood Urea Nitrogen 7 mg/dl (7-17); Calcium 10.4 mg/dl (8.4-10.2); Carbon Dioxide 24 mmol/L (22.0-30.0); Creatinine Clearance Estimated 112 mL/min (50-200); Estimated Glomerular Filt Rate 114 ml/min (>60); GFR (African American) 138 ML/MIN (>60); Glucose 113 mg/dl (74-100)
--- NOTE | 2021-06-03 15:57 | HMH.EDGENADL ---
ED Disposition Clinical Impression: Seizure, Left against medical advice Disposition: Home, Self-Care Condition on Discharge: Fair Instructions: DI for Acute Abdominal Pain Referrals: Provider,Referral, [Primary Care Provider] - - Critical Care Critical Care Time: No Attestation: On 06/03/21, the high probability of a clinically significant, sudden or life threatening deterioration of the following system(s) required my full and direct attention, intervention and personal management. The time I documented below is in addition to time spent performing reported procedures but includes the following listed in this critical care notation. Medical Decision Making - Medical Records Medical records reviewed: Yes: I reviewed the patient's medical records. - Cosme Inquiry Pt receiving controlled substance: No Vital Signs: 06/03/21 15:24 Temperature 98.9 F Temperature Source Oral Pulse Rate [Radial] 87 Respiratory Rate 16 Blood Pressure [Right Arm] 119/77 Blood Pressure Mean [Right Arm] 91 Blood Pressure Position [Right Arm] Sitting 02 Sat by Pulse Oximetry 98 Oxygen Delivery Method Room Air - Lab Data Lab Results 06/03/21 15:25: WBC 9.3, RBC 5.81 H, Hgb 15.2, Hct 47.8 H, MCV 82.2, MCH 26.1 L, MCHC 31.7 L, RDW 16.5, Plt Count 800 H, MPV 8.2, Neut % (Auto) 66.9, Lymph % (Auto) 25.6, [place] % (Auto) 6.0, Eos % (Auto) 1.0, Baso % (Auto) 0.5, Neut # (Auto) 6.2, Lymph # (Auto) 2.4, [place] # (Auto) 0.6, Eos # (Auto) 0.1, Baso # (Auto) 0.1 06/03/21 15:25: Sodium 142, Potassium 3.6, Chloride 105, Carbon Dioxide 24, Anion Gap 16.6 H, BUN 7, Creatinine 0.60, Estimated Creat Clear 112, Estimated GFR 114, Est GFR ( Amer) 138, Glucose 113 H, Calcium 10.4 H, Total Bilirubin 0.3, AST 26, ALT 21, Alkaline Phosphatase 114, Total Protein 9.0 H, Albumin 5.0, Globulin 4.0 H, Albumin/Globulin Ratio 1.3 Result diagrams: 06/03/21 15:25 06/03/21 15:25 Orders (Tests/Meds): ED MEDICATIONS Discontinued Medications Generic Name Dose Route Start Last Admin Trade Name Darshana PRN Reason Stop Dose Admin Ondansetron HCl 4 mg 06/03/21 15:34 Ondansetron 4mg/2ml Vial IV 06/03/21 15:35 ONCE ONE ORDERS Category Date Time Status UDS [Drug Screen,Urine] Stat Lab 06/03/21 15:30 Ordered Urinalysis and Microscopic Stat Lab 06/03/21 15:29 Ordered - Reevaluation(s) Time: 15:59 Reevaluation #1: On reevaluation, the patient states that she does not want to provide urine. I said it is part of her current medical work-up. Patient is declining. She states that would not have been helping her here. I did assure her that we are completing her work-up and also provided antiemetics given her symptoms. Patient became very aggressive at this time. She elected to leave AGAINST MEDICAL ADVICE. Medical Decision Narrative: 35-year-old female presented to the emergency department with breakthrough seizure and abdominal pain. Patient has a normal neurologic exam at this time. There is no evidence of tongue trauma. Abdomen is relatively benign. Work-up initiated. General Adult HPI - General Chief complaint: Abdominal Pain Stated complaint: seizure Time Seen by Provider: 06/03/21 15:30 Mode of Arrival: EMS Limitations: No Limitations Description of Symptoms (Recalled from ER Triage Doc. by RN): TO ED PER [facility] REPORTS THEY WERE CALLED FOR SEIZURE ACTIVITY. PT WITH HX OF SEIZURES. PT STATES TAKING MEDS PRESCRIBED. PT ALERT AND ORIENTED X 4. PT C/O GENERALIZED ABD PAIN AND NAUSEA. - History of Present Illness HPI narrative: 35-year-old female presented to the emergency department after possible seizure. Patient states that it was witnessed by a friend of hers. Shaking in nature. Lasted approximately 5 seconds. Patient does have a longstanding history of seizure disorder. She has been complaining of some abdominal pain nausea and vomiting. She is had this for the last few days. Abdominal pain is mera
[2021-06-03 16:00] VITALS: BP 119/77; PULSE 87; RESP 16; TEMP 37.2; O2SAT 98
== END 2021-06-03 16:04 | disposition left against medical advice (07) ==
PROVIDERS: Emergency Provider Emergency Medicine
DX: G40.909 Epilepsy, unspecified, not intractable, without status epilepticus (principal); F41.8 Other specified anxiety disorders; K21.9 Gastro-esophageal reflux disease without esophagitis; F17.210 Nicotine dependence, cigarettes, uncomplicated
CPT/HCPCS: 80053; 85025; 96374; 99281; J2405

== ENCOUNTER 2021-06-05 04:35 | Emergency (ER) | payer MEDICARE, MEDICAID, SELFPAY ==
[2021-06-05 04:36] VITALS: BP 139/94; PULSE 76; RESP 16; TEMP 36.7; O2SAT 99; BMI 19.3
--- NOTE | 2021-06-05 04:51 | ECG_ITS ---
APPROVED REPORT Exam: Resting ECG HR:76 bpm ECG Measurements Heart Rate 76 AXES AL 158 P 56 QRSd 72 QRS 75 QT 388 T 34 QTc 436 Conclusion Normal sinus rhythm Normal ECG Electronically signed by : Kun Tobin MD 06/05/2021 11:18:23
--- NOTE | 2021-06-05 04:53 | CT_ITS ---
PROCEDURE INFORMATION: Exam: CT Abdomen And Pelvis With Contrast Exam date and time: 06/05/2021 4:53 AM Age: 35 years old Clinical indication: Abdominal pain; Localized; Left lower quadrant (llq); Prior surgery; Surgery date: 6+ months; Surgery type: Hysterectomy; Additional info: Abdominal pain llq TECHNIQUE: Imaging protocol: Computed tomography of the abdomen and pelvis with contrast. Radiation optimization: All CT scans at this facility use at least one of these dose optimization techniques: automated exposure control; mA and/or kV adjustment per patient size (includes targeted exams where dose is matched to clinical indication); or iterative reconstruction. Contrast material: ISOVUE; Contrast volume: 75 ml; Contrast route: IV; COMPARISON: CT ABDOMEN PELVIS W CON 08/19/2020 10:37 PM FINDINGS: Liver: Unremarkable. No definable mass or enhancing hepatic lesion. Gallbladder and bile ducts: Normal. No calcified stones. No ductal dilation. Pancreas: Normal. No ductal dilation. Spleen: Normal. No splenomegaly. Adrenal glands: Normal. No mass. Kidneys and ureters: Kidneys enhance symmetrically and there is no evidence for obstructive uropathy. Stomach and bowel: Increased amount of stool noted within the colon, which may be correlated clinically with constipation. Appendix: No evidence of appendicitis. Intraperitoneal space: Trace free pelvic fluid. Vasculature: Unremarkable. No abdominal aortic aneurysm. Lymph nodes: Unremarkable. No enlarged lymph nodes. Urinary bladder: The bladder is decompressed around a Quintanilla catheter with nondependent air compatible with recent intervention. Reproductive: The uterus is not well appreciated, possibly atrophic or resected. Bones/joints: Unremarkable. No acute fracture. Soft tissues: Unremarkable. IMPRESSION: 1. Trace nonspecific free pelvic fluid. 2. Increased amount of stool noted within the colon, which may be correlated clinically with constipation. 3. Other incidental/chronic changes, as above.
--- NOTE | 2021-06-05 04:53 | XR_ITS ---
PROCEDURE INFORMATION: Exam: XR Chest Exam date and time: 06/05/2021 4:53 AM Age: 35 years old Clinical indication: Pain; Chest pressure; Patient HX: N/v; Additional info: Chest pain TECHNIQUE: Imaging protocol: XR of the chest. Views: 2 views. COMPARISON: CR XR CHEST PORTABLE 06/29/2020 3:19 AM FINDINGS: Lungs: Unremarkable. No consolidation. Pleural spaces: Unremarkable. No pleural effusion. No pneumothorax. Heart/Mediastinum: Unremarkable. No cardiomegaly. Bones/joints: Unremarkable. IMPRESSION: No acute findings.
--- NOTE | 2021-06-05 05:04 | PC.NURSE ---
Pt finished PO contrast at this time. Radiology notified.
[2021-06-05 05:15] LABS: Alanine Aminotransferase 19 U/L (12-78); Albumin Level 4.3 g/dl (3.5-5.0); Alkaline Phosphatase 86 U/L (38-126); Amylase 83 U/L (30-110); Anion Gap 14.2 mEq/L (5-15); Aspartate Amino Transferase 19 U/L (14-36); Bilirubin,Direct 0.1 mg/dl (0.0-0.4); Blood Urea Nitrogen 13 mg/dl (7-17); Calcium 9.1 mg/dl (8.4-10.2); Carbon Dioxide 24 mmol/L (22.0-30.0); Chloride 109 mmol/L (98-107); Creatinine Clearance Estimated 112 mL/min (50-200); Estimated Glomerular Filt Rate 114 ml/min (>60); GFR (African American) 138 ML/MIN (>60); Glucose 113 mg/dl (74-100); Lipase 112 U/L (23-300); Potassium 4.2 mmoL/L (3.5-5.1); Sodium 143 mmol/L (136-145); Total Protein,Serum 7.4 g/dl (6.3-8.2)
[2021-06-05 05:20] LABS: Bilirubin,Total 0.1 mg/dl (0.2-1.3); C-Reactive Protein 0.5 mg/L (0-4)
[2021-06-05 05:21] LABS: Microscopic, Urine URINE MICROSCOPIC (MICROSCOPIC)
[2021-06-05 05:21] LABS: Basophils % 0.3 % (0.1-2.0); Eosinophils # 0.2 K/mm3 (0.0-0.4); Eosinophils % 1.7 % (0.1-12.0); Hematocrit 45.2 % (37.0-47.0); Hemoglobin 13.7 g/dL (12.2-16.2); Lymphocytes # 3.7 K/mm3 (0.7-4.5); Lymphocytes % 40.4 % (10-50); Mean Corpuscular HGB Conc 30.4 g/dL (31.8-35.4); Mean Corpuscular Hemoglobin 26.4 pg (27.0-31.2); Mean Platelet Volume 7.3 fl (7.4-10.4); Monocytes # 0.6 K/mm3 (0.1-1.0); Monocytes % 6.3 % (1.7-9.3); Neutrophils # 4.7 K/mm3 (1.8-7.8); Neutrophils % 51.3 % (37.0-80.0); Platelet Count 637 K/mm3 (142-424); Red Cell Distribution Width 17.1 % (11.5-17.5); White Blood Count 9.1 K/mm3 (4.8-10.8)
[2021-06-05 05:23] LABS: Lactic Acid 1.6 mmol/L (0.7-2.1)
[2021-06-05 05:26] LABS: Appearance,Urine CLEAR (Clear); Bilirubin,Urine Negative (Negative); Blood, Urine Negative (Negative); Color,Urine YELLOW (Yellow); Glucose,Urine (UA) Negative (Negative); Ketones,Urine Negative (Negative); Leukocyte Esterase,Urine Negative (Negative); Nitrate,Urine Negative (Negative); Protein,Urine Negative (Negative); Specific Gravity, Urine 1.025 (1.005-1.030); Urobilinogen,Urine 0.2 EU/dl (0.2)
[2021-06-05 05:27] LABS: Troponin I < 0.01 ng/ml (0.00-0.034)
[2021-06-05 05:39] LABS: Barbiturates Screen,Urine Negative ng/ml (<200)
[2021-06-05 05:40] LABS: Benzodiazepines Screen,Urine Negative ng/ml (<200)
[2021-06-05 05:41] LABS: Amphetamine/Metha Screen,Urine Negative ng/ml (<1000); Cannabinoid Screen,Urine Negative ng/ml (<50)
[2021-06-05 05:42] LABS: Cocaine Screen,Urine Negative ng/ml (<300); Methadone Screen,Urine Negative ng/ml (<300)
[2021-06-05 05:43] LABS: Opiate Screen,Urine Negative ng/ml (<300)
[2021-06-05 05:44] LABS: Phencyclidine Screen,Urine Negative ng/ml (<25)
[2021-06-05 05:53] LABS: Erythrocyte Sedimentation Rate 8 mm/hr (0-20)
[2021-06-05 05:54] LABS: Bacteria,Urine 1+ /lpf; Mucus,Urine 1+ /lpf
--- NOTE | 2021-06-05 06:18 | HMH.EDNVD ---
ED Disposition Clinical Impression: Abdominal pain Qualifiers: Abdominal location: generalized Qualified Code(s): R10.84 - Generalized abdominal pain Fentanyl adverse reaction Qualifiers: Encounter type: initial encounter Qualified Code(s): T40.415A - Adverse effect of fentanyl or fentanyl analogs, initial encounter Disposition: Home, Self-Care Condition on Discharge: Fair Instructions: DI for Acute Abdominal Pain Additional Instructions: fluids and see pcp for follow up Prescriptions: ondansetron HCL [Zofran 4mg Tab] 4 mg PO TID #30 tab Transmission Status: Pending to [facility] Referrals: Ed Morrissey MD [Primary Care Provider] - - Critical Care Critical Care Time: No Attestation: On 06/05/21, the high probability of a clinically significant, sudden or life threatening deterioration of the following system(s) required my full and direct attention, intervention and personal management. The time I documented below is in addition to time spent performing reported procedures but includes the following listed in this critical care notation. Medical Decision Making - Medical Records Medical records reviewed: Yes: I reviewed the patient's medical records. - Cosme Inquiry Pt receiving controlled substance: No Vital Signs: 06/05/21 04:36 Temperature 98.0 F Temperature Source Oral Pulse Rate [Right Radial] 76 Respiratory Rate 16 Blood Pressure [Right Arm] 139/94 H Blood Pressure Mean [Right Arm] 109 Blood Pressure Source [Right Arm] Automatic Cuff Blood Pressure Position [Right Arm] Sitting 02 Sat by Pulse Oximetry 99 Oxygen Delivery Method Room Air - Lab Data Lab results reviewed: Yes: I reviewed the patient's lab results. Lab Results 06/05/21 04:50: WBC 9.1, RBC 5.20, Hgb 13.7, Hct 45.2, MCV 87.0, MCH 26.4 L, MCHC 30.4 L, RDW 17.1, Plt Count 637 H, MPV 7.3 L, Neut % (Auto) 51.3, Lymph % (Auto) 40.4, [place] % (Auto) 6.3, Eos % (Auto) 1.7, Baso % (Auto) 0.3, Neut # (Auto) 4.7, Lymph # (Auto) 3.7, [place] # (Auto) 0.6, Eos # (Auto) 0.2, Baso # (Auto) 0.0, ESR 8 06/05/21 04:50: Sodium 143, Potassium 4.2, Chloride 109 H, Carbon Dioxide 24, Anion Gap 14.2, BUN 13 D, Creatinine 0.60, Estimated Creat Clear 112, Estimated GFR 114, Est GFR ( Amer) 138, Glucose 113 H, Calcium 9.1, Total Bilirubin 0.1 L, Direct Bilirubin 0.1, Conjugated Bilirubin 0.0, Indirect Bilirubin 0.0, Unconjugated Bilirubin 0.0, AST 19 D, ALT 19, Alkaline Phosphatase 86, Troponin I < 0.01, C-Reactive Protein 0.5, Total Protein 7.4, Albumin 4.3, Amylase 83, Lipase 112, Procalcitonin 0.050 06/05/21 04:50: Lactate 1.6 06/05/21 05:00: Urine Color Yellow, Urine Appearance Clear, Urine pH 6.0, Ur Specific [place] 1.025, Urine Protein Negative, Urine Glucose (UA) Negative, Urine Ketones Negative, Urine Blood Negative, Urine Nitrate Negative, Urine Bilirubin Negative, Urine Urobilinogen 0.2, Ur Leukocyte Esterase Negative, Urine WBC 3-5, Urine Bacteria 1+, Urine Mucus 1+ 06/05/21 05:00: Urine Opiates Screen Negative, Urine Methadone Screen Negative, Ur Barbituates Screen Negative, Ur Phencyclidine Scrn Negative, Ur Amphetamines Screen Negative, U Benzodiazepines Scrn Negative, Urine Cocaine Screen Negative, U Marijuana (THC) Screen Negative Result diagrams: 06/05/21 04:50 06/05/21 04:50 Orders (Tests/Meds): ED MEDICATIONS Generic Name Dose Route Start Last Admin Trade Name Freq PRN Reason Stop Dose Admin Sodium Chloride 8 ml 06/05/21 04:53 Sodium Chloride 0.9% 10ml Vial IV 07/05/21 04:52 NEEDED PRN dilute pepcid Discontinued Medications Generic Name Dose Route Start Last Admin Trade Name Freq PRN Reason Stop Dose Admin Diatrizoate Meglum/Diatrizoate Sod 30 ml 06/05/21 04:53 06/05/21 05:03 Diatrizoate Kathi 66% & Diatrizoate Na 10% 30ml Udc PO 06/05/21 04:54 30 ml ONCE ONE Administration Famotidine 20 mg 06/05/21 04:53 06/05/21 05:08 Famotidine 20mg/2ml Vial IV 06/05/21 04:54 20 m
--- NOTE | 2021-06-05 06:43 | PC.NURSE ---
pt gone to ct scan
--- NOTE | 2021-06-05 06:58 | PC.NURSE ---
pt returned from ct scan
[2021-06-05 09:19] VITALS: BP 132/70; PULSE 70; RESP 16; TEMP 36.8; O2SAT 98
== END 2021-06-05 09:19 | disposition home or self-care (01) ==
PROVIDERS: Emergency Provider Emergency Medicine; PCP Emergency Medicine
DX: R10.84 Generalized abdominal pain (principal); T40.415A Adverse effect of fentanyl or fentanyl analogs, initial encounter; F41.8 Other specified anxiety disorders; K21.9 Gastro-esophageal reflux disease without esophagitis; F17.210 Nicotine dependence, cigarettes, uncomplicated; K59.00 Constipation, unspecified; Z79.899 Other long term (current) drug therapy
CPT/HCPCS: 71046; 74177; 80048; 80076; 80305; 81001; 82150; 83605; 83690; 84145; 84484; 85025; 85651; 86140; 87040; 93005; 96365; 96367; 96375; 99284; J2405; Q9967

== ENCOUNTER → 2021-07-31 14:18 | Outpatient (CLI) | payer MEDICARE, MEDICAID, SELFPAY ==
[2021-07-31 14:52] LABS: Amphetamine/Metha Screen,Urine Negative ng/ml (<1000)
[2021-07-31 14:53] LABS: Barbiturates Screen,Urine Negative ng/ml (<200)
[2021-07-31 14:55] LABS: Benzodiazepines Screen,Urine Negative ng/ml (<200); Cannabinoid Screen,Urine Negative ng/ml (<50)
[2021-07-31 14:56] LABS: Cocaine Screen,Urine Negative ng/ml (<300)
[2021-07-31 14:57] LABS: Methadone Screen,Urine Negative ng/ml (<300); Opiate Screen,Urine Negative ng/ml (<300)
[2021-07-31 14:58] LABS: Phencyclidine Screen,Urine Negative ng/ml (<25)
== END ==
PROVIDERS: Visit Provider Nurse Practitioner Family
DX: Z79.899 Other long term (current) drug therapy (principal)
CPT/HCPCS: 80305

== ENCOUNTER 2021-08-19 12:01 | Emergency (ER) | payer MEDICARE, MEDICAID, SELFPAY ==
--- NOTE | 2021-08-19 12:26 | HMH.EDUTC ---
[facility] [place] Clinical Impression: Viral syndrome Pharyngitis Qualifiers: Pharyngitis/tonsillitis etiology: unspecified etiology Qualified Code(s): J02.9 - Acute pharyngitis, unspecified Low back pain Qualifiers: Chronicity: acute Back pain laterality: left Sciatica presence: without sciatica Qualified Code(s): M54.50 - Low back pain, unspecified Disposition: Home, Self-Care Condition on Discharge: Good Instructions: Low Back Pain, DI for Low Back Pain Additional Instructions: Drink plenty of fluids. Take tylenol or ibuprofen for pain or fever. Take the medications as directed. Follow up with your regular doctor. GO TO THE ER FOR ANY WORSENING SYMPTOMS Quarantine until you know the results of your covid-19 test. If it is positive, the health department should call you and give you further instructions about your length of Quarantine and other things. Notify your school or workplace of your results and follow their instructions regarding return to work/school. Prescriptions: Ibuprofen [Ibuprofen 600mg Tablet] 600 mg PO Q6HP PRN #30 tab PRN Reason: Mild Pain Transmission Status: Received by [facility] Cefdinir [Omnicef 300mg Capsule] 300 mg PO BID #20 cap Transmission Status: Received by [facility] Referrals: Ed Morrissey MD [Primary Care Provider] - Time of Disposition: 14:50 Medical Decision Making - Medical Records Medical records reviewed: No: I reviewed the patient's medical records. - Cosme Inquiry Pt receiving controlled substance: No Vital Signs: 08/19/21 12:39 08/19/21 14:48 Temperature 98.9 F 98.9 F Temperature Source Oral Pulse Rate 112 H Pulse Rate [Left] 112 H Respiratory Rate 18 18 Blood Pressure 131/87 Blood Pressure [Right Arm] 131/87 Blood Pressure Mean [Right Arm] 101 02 Sat by Pulse Oximetry 98 - Lab Data Lab results reviewed: Yes: I reviewed the patient's lab results. Lab Results 08/19/21 12:52: Strep Scn [facility] Negative 08/19/21 13:11: Urine Color Yellow, Urine Appearance Clear, Urine pH 7.0, Ur Specific [place] 1.015, Urine Protein Negative, Urine Glucose (UA) Negative, Urine Ketones Negative, Urine Blood Negative, Urine Nitrate Negative, Urine Bilirubin Negative, Urine Urobilinogen 0.2, Ur Leukocyte Esterase Negative Orders (Tests/Meds): ORDERS Category Date Time Status Covid-19 Nasal PCR ([facility]) Routine Lab 08/19/21 14:40 Received Strep Screen Confirmation Routine Micro 08/19/21 12:52 Received [facility] HPI - General Stated complaint: sore throat, kidney pain Time Seen by Provider: 08/19/21 12:26 - History of Present Illness Provider Complaint: She states that she has had a sore throat for the past 2 days. She has also been having left sided low back pain that does not radiate any where. She denies any back pain. - Related Data Previous Rx's Medication Instructions Recorded ondansetron HCL [Zofran 4mg Tab] 4 mg PO TID #30 tab 06/05/21 oxcarbazepine 300 mg tablet See Rx Instructions .ROUTE 07/23/21 .COMPLEX #180 tablet lamotrigine 200 mg tablet 200 mg PO BID #180 tab 07/30/21 hydroxyzine pamoate 25 mg capsule 25 mg PO TID PRN #60 cap 07/31/21 escitalopram oxalate 10 mg tablet 10 mg PO DAILY #30 tab 08/07/21 Cefdinir [Omnicef 300mg Capsule] 300 mg PO BID #20 cap 08/19/21 Ibuprofen [Ibuprofen 600mg 600 mg PO Q6HP PRN #30 tab 08/19/21 Tablet] Allergies Allergy/AdvReac Type Severity Reaction Status Date / Time venom-honey bee Allergy Unknown Verified 08/07/21 11:13 [BEE VENOM (HONEY BEE)] [facility] History - Hepatitis A Screen Attestation statement:: This patient has been screened for Hepatitis A risk factors. I have reviewed the patient's past medical history: Yes Medical History: Reports:: Anxiety, Deep Vein Thrombosis, Depression, Gastroesophageal Reflux Disease(GERD), Hepatitis, Migraine, Seizures Denies:: Cancer, Diabetes Mellitus Type 1, Diabet
[2021-08-19 12:39] VITALS: BP 131/87; PULSE 112; RESP 18; TEMP 37.2; O2SAT 98; BMI 21.1
[2021-08-19 12:53] LABS: UTC Strep Screen (Rapid) Negative (Negative)
[2021-08-19 13:12] LABS: Apearance,Urine Clear (Clear); Color,Urine Yellow (Yellow)
[2021-08-19 13:13] LABS: Bilirubin,Urine Negative (Negative); Blood, Urine Negative (Negative); Glucose,Urine (UA) Negative (Negative); Ketones,Urine Negative (Negative); Protein,Urine Negative (Negative); Specific Gravity, Urine 1.015 (1.005-1.030); UTC Leukocyte Esterase,Urine Negative (Negative); UTC Nitrate,Urine Negative (Negative); Urobilinogen,Urine 0.2 EU/dl (0.2)
[2021-08-19 14:48] VITALS: BP 131/87; PULSE 112; RESP 18; TEMP 37.2
== END 2021-08-19 15:40 | disposition home or self-care (01) ==
PROVIDERS: Emergency Provider Nurse Practitioner Family; PCP Emergency Medicine
DX: J02.9 Acute pharyngitis, unspecified (principal); B34.9 Viral infection, unspecified; M54.50 Low back pain, unspecified; F41.8 Other specified anxiety disorders; K21.9 Gastro-esophageal reflux disease without esophagitis; G43.709 Chronic migraine without aura, not intractable, without status migrainosus; F17.210 Nicotine dependence, cigarettes, uncomplicated
CPT/HCPCS: G0463; 81003; 87880; 99203; C9803; U0003; U0005

== ENCOUNTER → 2021-08-21 18:29 | Outpatient (CLI) | payer MEDICARE, MEDICAID, SELFPAY ==
[2021-08-21 23:47] LABS: Amphetamine/Metha Screen,Urine Negative ng/ml (<1000); Barbiturates Screen,Urine Negative ng/ml (<200)
[2021-08-21 23:48] LABS: Benzodiazepines Screen,Urine Negative ng/ml (<200)
[2021-08-21 23:49] LABS: Cannabinoid Screen,Urine Negative ng/ml (<50); Cocaine Screen,Urine Negative ng/ml (<300)
[2021-08-21 23:50] LABS: Methadone Screen,Urine Negative ng/ml (<300)
[2021-08-21 23:51] LABS: Opiate Screen,Urine Negative ng/ml (<300); Phencyclidine Screen,Urine Negative ng/ml (<25)
== END ==
PROVIDERS: Visit Provider Emergency Medicine
DX: Z79.899 Other long term (current) drug therapy (principal)
CPT/HCPCS: 80305

== ENCOUNTER → 2021-09-10 13:54 | Outpatient (CLI) | payer MEDICARE, MEDICAID, SELFPAY ==
--- NOTE | 2021-09-10 13:54 | US_ITS ---
PROCEDURE INFORMATION: Exam: US Left Breast, Complete MG Bilateral Diagnostic Breast Tomosynthesis Exam date and time: 09/10/2021 1:54 PM Age: 36 years old Clinical indication: Palpable area lateral left breast TECHNIQUE: Imaging protocol: Complete ultrasound of all four quadrants of the Left breast and the retroareolar regions, including ultrasound of the axilla when performed. Bilateral Diagnostic tomosynthesis and 2D mammography including computer-aided detection (CAD) when performed. Unilateral or bilateral exam. COMPARISON: 1. MG DXBI MM Dig mamm BI DX w/CAD 04/29/2018 3:05 PM 2. MG DMDBAV DIG MAMM-DX CHRISTIAN W ADD VIEWS 04/26/2015 11:28 AM Sonogram dated 04/29/2018 FINDINGS: MAMMOGRAPHY: The breast tissue is extremely dense, limiting the sensitivity of mammography. A skin marker was placed over the palpable abnormality left anterior upper outer quadrant. The spot compression views demonstrate normal overlapping fibroglandular structures. There is no stellate mass, architectural distortion or suspicious microcalcifications in either breast to suggest malignancy. No skin thickening or axillary adenopathy. ULTRASOUND: Sonographic images of the left breast including the retroareolar region, all 4 quadrants and the axilla demonstrates a questionable hypoechoic mass in the 3 o'clock periareolar region measuring 0.4 x 0.3 cm in dimension. This may reflect a debris-filled cyst. The finding is nevertheless stable compared to prior ultrasound dated 04/29/2018. Its long-term stability is compatible with a benign etiology. No architectural distortion or acoustical shadowing. No skin thickening or axillary adenopathy. IMPRESSION: Benign 0.4 cm mass in the left 3 o'clock axis. It is unclear if this is a directly correlates with the patient's complaint of a palpable abnormality. Further evaluation of a palpable abnormality should be based on clinical grounds regardless of radiographic findings or lack thereof.Annual bilateral mammographic screening is recommended to commence at the age of 40 unless otherwise clinically indicated. ASSESSMENT: BI-RADS Category 2: Benign
== END ==
PROVIDERS: PCP Emergency Medicine; Visit Provider Emergency Medicine
DX: N64.59 Other signs and symptoms in breast (principal); N63.20 Unspecified lump in the left breast, unspecified quadrant
CPT/HCPCS: 76641; 77062; 77066; G0279

== ENCOUNTER → 2021-09-19 13:49 | Outpatient (CLI) | payer MEDICARE, MEDICAID, SELFPAY | PROVIDERS: PCP Emergency Medicine; Visit Provider Nurse Practitioner | DX: Z20.822 Contact with and (suspected) exposure to COVID-19 (principal) | CPT/HCPCS: C9803; U0003; U0005 ==

== ENCOUNTER 2021-09-26 11:39 | Emergency (ER) | payer MEDICARE, MEDICAID, SELFPAY ==
[2021-09-26 11:41] VITALS: BP 130/68; PULSE 78; RESP 16; TEMP 36.8; O2SAT 100; BMI 20.5
--- NOTE | 2021-09-26 12:09 | HMH.EDGENADL ---
ED Disposition Clinical Impression: Exposure to COVID-19 virus Concussion Qualifiers: Encounter type: initial encounter Loss of consciousness presence/duration: with LOC of 30 min or less Qualified Code(s): S06.0X1A - Concussion with loss of consciousness of 30 minutes or less, initial encounter Cervical strain Qualifiers: Encounter type: initial encounter Qualified Code(s): S16.1XXA - Strain of muscle, fascia and tendon at neck level, initial encounter Disposition: Home, Self-Care Condition on Discharge: Good Instructions: DI for COVID-19 (Suspected or Confirmed ), DI for Concussion, DI for Neck Sprain Additional Instructions: Tylenol or ibuprofen for pain. The emergency department will call you with results of your COVID test. Follow-up with your primary care provider if headaches persist. Call for appointment. Referrals: Ed Morrissey MD [Primary Care Provider] - - Critical Care Critical Care Time: No Attestation: On 09/26/21, the high probability of a clinically significant, sudden or life threatening deterioration of the following system(s) required my full and direct attention, intervention and personal management. The time I documented below is in addition to time spent performing reported procedures but includes the following listed in this critical care notation. Medical Decision Making - Cosme Inquiry Pt receiving controlled substance: No Vital Signs: 09/26/21 11:41 Temperature 98.2 F Temperature Source Oral Pulse Rate [Right] 78 Respiratory Rate 16 Blood Pressure [Right Arm] 130/68 Blood Pressure Mean [Right Arm] 88 Blood Pressure Source [Right Arm] Automatic Cuff Blood Pressure Position [Right Arm] Sitting 02 Sat by Pulse Oximetry 100 Oxygen Delivery Method Room Air Orders (Tests/Meds): ORDERS Category Date Time Status Rapid PCR Covid and Flu A/B Stat Lab 09/26/21 13:40 Received - CT Data CT Scan: Head, C-Spine Time Received: 14:[address] Reviewed: Yes: I have viewed the radiologist's interpretation Findings Narrative: Procedure(s): CT head/brain wo con Accession Number(s): [id number] cc: Ed Morrissey MD; Mayank Womack MD; Wilman Andres MD~ FINAL REPORT CLINICAL HISTORY: fall with head and neck injury, c/o left sided head and neck pain COMPARISON: 07/25/2020 FINDINGS: Axial images of the head were obtained without contrast. Coronal reformatted images were also obtained.This study was performed with techniques to keep radiation doses as low as reasonably achievable (ALARA). Individualized dose reduction techniques using automated exposure control or adjustment of mA and/or kV according to the patient''s size were employed. There is no evidence of intracranial hemorrhage or mass. The ventricular size is within normal limits. There is no evidence of shift of the midline structures. No abnormal extra axial fluid collection is identified. No skull abnormality is seen on the bone window images. IMPRESSION: No acute intracranial abnormality. Reviewed, Interpreted and Dictated by Mayank Womack III, MD Transcribed by Ihsan Fernandez Authenticated by Mayank Womack III, MD on 09/26/2021 02:00:09 PM [facility] Procedure(s): CT cervical spine wo con Accession Number(s): [id number] cc: Ed Morrissey MD; Mayank Womack MD; Wilman Andres MD~ FINAL REPORT CLINICAL HISTORY: fall with head and neck injury, c/o left sided head and neck pain FINDINGS: Axial CT images of the cervical spine were obtained without contrast. Sagittal and coronal reformatted images were also obtained. This study was performed with techniques to keep radiation doses as low as reasonably achievable (ALARA). Individualized dose reduction techniques using automated exposure control or adjustment of mA and/or kV according to the patient's size were employed. There is no evidence of fracture or dislocation. The bony alignment is normal. The
--- NOTE | 2021-09-26 12:16 | CT_ITS ---
FINAL REPORT CLINICAL HISTORY: fall with head and neck injury, c/o left sided head and neck pain FINDINGS: Axial CT images of the cervical spine were obtained without contrast. Sagittal and coronal reformatted images were also obtained. This study was performed with techniques to keep radiation doses as low as reasonably achievable (ALARA). Individualized dose reduction techniques using automated exposure control or adjustment of mA and/or kV according to the patient's size were employed. There is no evidence of fracture or dislocation. The bony alignment is normal. There is mild kyphosis centered at C5. There are mild degenerative changes with osteophytes. There is no evidence of canal stenosis. No paraspinous soft tissue abnormality is seen. There is mild scarring in the lung apices. IMPRESSION: No fracture or acute bony abnormality identified. Reviewed, Interpreted and Dictated by Mayank Womack III, MD Transcribed by Maura Iyer Authenticated by Mayank Womack III, MD on 09/26/2021 01:39:59 PM [facility]
--- NOTE | 2021-09-26 12:16 | CT_ITS ---
FINAL REPORT CLINICAL HISTORY: fall with head and neck injury, c/o left sided head and neck pain COMPARISON: 07/25/2020 FINDINGS: Axial images of the head were obtained without contrast. Coronal reformatted images were also obtained.This study was performed with techniques to keep radiation doses as low as reasonably achievable (ALARA). Individualized dose reduction techniques using automated exposure control or adjustment of mA and/or kV according to the patient''s size were employed. There is no evidence of intracranial hemorrhage or mass. The ventricular size is within normal limits. There is no evidence of shift of the midline structures. No abnormal extra axial fluid collection is identified. No skull abnormality is seen on the bone window images. IMPRESSION: No acute intracranial abnormality. Reviewed, Interpreted and Dictated by Mayank Womack III, MD Transcribed by Ihsan Fernandez Authenticated by Mayank Womack III, MD on 09/26/2021 02:00:09 PM [facility]
--- NOTE | 2021-09-26 12:53 | PC.NURSE ---
pt to rad.
[2021-09-26 13:48] LABS: Influenza A, PCR Not Detected (NotDetected); Influenza B, PCR Not Detected (NotDetected)
[2021-09-26 14:14] LABS: Coronavirus 19, PCR Detected (NotDetected)
[2021-09-26 14:44] VITALS: BP 128/79; PULSE 72; RESP 14; TEMP 36.8; O2SAT 97
== END 2021-09-26 14:44 | disposition home or self-care (01) ==
PROVIDERS: Emergency Provider Emergency Medicine; PCP Emergency Medicine
DX: S06.0X1A Concussion with loss of consciousness of 30 minutes or less, initial encounter (principal); S16.1XXA Strain of muscle, fascia and tendon at neck level, initial encounter; F41.8 Other specified anxiety disorders; F17.210 Nicotine dependence, cigarettes, uncomplicated; W10.9XXA Fall (on) (from) unspecified stairs and steps, initial encounter; Y92.019 Unspecified place in single-family (private) house as the place of occurrence of the external cause
CPT/HCPCS: 70450; 72125; 99282; C9803; U0003; U0005

== ENCOUNTER 2021-10-12 18:09 | Emergency (ER) | payer MEDICARE, MEDICAID, SELFPAY ==
[2021-10-12 18:10] VITALS: BP 137/100; PULSE 88; RESP 18; TEMP 36.7; O2SAT 100; BMI 19.3
--- NOTE | 2021-10-12 18:24 | CT_ITS ---
PROCEDURE INFORMATION: Exam: CT Abdomen And Pelvis With Contrast Exam date and time: 10/12/2021 6:24 PM Age: 36 years old Clinical indication: Abdominal pain; Localized; Right lower quadrant (rlq); Prior surgery; Surgery date: 6+ months; Surgery type: Hysterectomy; Additional info: Lrq pain lower RT abdomen pain TECHNIQUE: Imaging protocol: Computed tomography of the abdomen and pelvis with contrast. Radiation optimization: All CT scans at this facility use at least one of these dose optimization techniques: automated exposure control; mA and/or kV adjustment per patient size (includes targeted exams where dose is matched to clinical indication); or iterative reconstruction. Contrast material: ISOVUE; Contrast volume: 75 ml; Contrast route: IV; COMPARISON: CT ABDOMEN PELVIS W CON 06/05/2021 6:47 AM FINDINGS: Lungs: The visualized lung bases are clear. Pleural spaces: There are no pleural effusions. Heart: The visualized portions of the heart are unremarkable. There is no evidence of pericardial fluid collections. Liver: There is diffuse decrease in hepatic parenchymal density consistent with fatty infiltration. Gallbladder and bile ducts: The gallbladder is normal. Pancreas: The pancreas is normal. Spleen: The spleen is normal. An accessory splenule is present. Adrenal glands: The adrenal glands are normal. Kidneys and ureters: The kidneys are normal. Stomach and bowel: The stomach is normal. The duodenum is unremarkable. Lack of gastrointestinal contrast limits evaluation of bowel. There is mild retained fecal material and fluid throughout the abdomen with air-fluid levels in the proximal colon raising the question of possible diarrheal illness. Correlate clinically. Unopacified loops of small bowel are within range of normal. There is fluid and fecal filled fecal distention of the cecum measuring 9.6 cm. Appendix: No evidence of appendicitis. Intraperitoneal space: No evidence of intraperitoneal free air. No significant free fluid. Vasculature: There are numerous benign phleboliths in the pelvis. No aneurysm. Lymph nodes: No enlarged lymph nodes. Urinary bladder: The bladder is decompressed. Reproductive: The uterus is either atrophic or absent. There is a cystic region in the right adnexal area which is likely right ovarian cyst measuring approximately 3.2 x 3.2 by 3.3 cm. There is a small peripheral enhancing hypodensity immediately posteriorly measuring approximately 13 mm which most likely reflects involuting corpus luteal cyst or follicle. The left ovary is normal. Bones/joints: Small focus of increased density in the left femoral neck is most likely a benign enostosis.There is no evidence of acute fracture. Soft tissues: Unremarkable. IMPRESSION: 1. Mild retained fecal material and fluid throughout the colon with air-fluid levels in the proximal colon raising the question of possible diarrheal illness. There is fluid-filled distention of the right colon, most noted involving the cecum, measuring 9.6 cm. Correlate clinically. 2. Cystic region in the right adnexal area which is likely right ovarian cyst measuring approximately 3.2 x 3.2 by 3.3 cm. There is a small peripheral enhancing hypodensity immediately posteriorly measuring approximately 13 mm which most likely reflects involuting corpus luteal cyst or follicle. Pelvic ultrasound could be performed for further evaluation as clinically warranted. 3. Fatty hepatic infiltration.
[2021-10-12 18:48] LABS: Basophils # 0.2 K/mm3 (0-0.2); Basophils % 2.6 % (0.1-2.0); Eosinophils # 0.1 K/mm3 (0.0-0.4); Eosinophils % 1.1 % (0.1-12.0); Hematocrit 44.6 % (37.0-47.0); Hemoglobin 14.2 g/dL (12.2-16.2); Lymphocytes # 2.8 K/mm3 (0.7-4.5); Lymphocytes % 35.2 % (10-50); Mean Corpuscular HGB Conc 31.9 g/dL (31.8-35.4); Mean Corpuscular Hemoglobin 29.3 pg (27.0-31.2); Mean Corpuscular Volume 91.7 fl (81-99); Mean Platelet Volume 6.8 fl (7.4-10.4); Monocytes # 0.6 K/mm3 (0.1-1.0); Monocytes % 7.3 % (1.7-9.3); Neutrophils # 4.2 K/mm3 (1.8-7.8); Neutrophils % 53.8 % (37.0-80.0); Platelet Count 556 K/mm3 (142-424); Red Blood Count 4.86 M/mm3 (4.20-5.40); Red Cell Distribution Width 14.4 % (11.5-17.5); White Blood Count 7.8 K/mm3 (4.8-10.8)
[2021-10-12 19:18] LABS: Alanine Aminotransferase 15 U/L (12-78); Albumin Level 4.8 g/dl (3.5-5.0); Albumin/Globulin Ratio 1.7 (1.1-1.8); Alkaline Phosphatase 74 U/L (38-126); Amylase 84 U/L (30-110); Anion Gap 13.1 mEq/L (5-15); Aspartate Amino Transferase 19 U/L (14-36); Bilirubin,Total 0.4 mg/dl (0.2-1.3); Blood Urea Nitrogen 13 mg/dl (7-17); Calcium 9.8 mg/dl (8.4-10.2); Carbon Dioxide 27 mmol/L (22.0-30.0); Chloride 107 mmol/L (98-107); Creatinine Clearance Estimated 114 mL/min (50-200); Estimated Glomerular Filt Rate 113 ml/min (>60); GFR (African American) 137 ML/MIN (>60); Globulin 2.8 g/dL (1.3-3.2); Glucose 98 mg/dl (74-100); Lipase 82 U/L (23-300); Potassium 4.1 mmoL/L (3.5-5.1); Sodium 143 mmol/L (136-145); Total Protein,Serum 7.6 g/dl (6.3-8.2)
[2021-10-12 19:44] LABS: Microscopic, Urine URINE MICROSCOPIC (MICROSCOPIC)
--- NOTE | 2021-10-12 19:46 | HMH.EDGENADL ---
ED Disposition Clinical Impression: Colitis Disposition: Home, Self-Care Condition on Discharge: Good Instructions: DI for Acute Abdominal Pain Prescriptions: Ondansetron [Zofran 4mg ODT] 4 mg PO TIDP PRN #12 tab PRN Reason: Nausea Transmission Status: Pending to [facility] Referrals: Ed Morrissey MD [Primary Care Provider] - - Critical Care Critical Care Time: No Attestation: On 10/12/21, the high probability of a clinically significant, sudden or life threatening deterioration of the following system(s) required my full and direct attention, intervention and personal management. The time I documented below is in addition to time spent performing reported procedures but includes the following listed in this critical care notation. Medical Decision Making - Medical Records Medical records reviewed: Yes: I reviewed the patient's medical records. - Cosme Inquiry Pt receiving controlled substance: No Vital Signs: 10/12/21 18:10 Temperature 98.1 F Temperature Source Oral Pulse Rate [Left Radial] 88 Respiratory Rate 18 Blood Pressure [Right Arm] 137/100 H Blood Pressure Mean [Right Arm] 112 Blood Pressure Source [Right Arm] Automatic Cuff Blood Pressure Position [Right Arm] Sitting 02 Sat by Pulse Oximetry 100 Oxygen Delivery Method Room Air - Lab Data Lab Results 10/12/21 18:15: Urine Color Yellow, Urine Appearance Sl cloudy, Urine pH >= 9.0 H, Ur Specific [place] 1.015, Urine Protein 1+, Urine Glucose (UA) Negative, Urine Ketones Negative, Urine Blood Negative, Urine Nitrate Negative, Urine Bilirubin Negative, Urine Urobilinogen 0.2, Ur Leukocyte Esterase Negative, Urine WBC Occasional, Ur Squamous Epith Cells 5-10, Urine Bacteria 4+ 10/12/21 18:30: WBC 7.8, RBC 4.86, Hgb 14.2, Hct 44.6, MCV 91.7, MCH 29.3, MCHC 31.9, RDW 14.4, Plt Count 556 H, MPV 6.8 L, Neut % (Auto) 53.8, Lymph % (Auto) 35.2, [place] % (Auto) 7.3, Eos % (Auto) 1.1, Baso % (Auto) 2.6 H, Neut # (Auto) 4.2, Lymph # (Auto) 2.8, [place] # (Auto) 0.6, Eos # (Auto) 0.1, Baso # (Auto) 0.2 10/12/21 18:30: Sodium 143, Potassium 4.1, Chloride 107, Carbon Dioxide 27, Anion Gap 13.1, BUN 13, Creatinine 0.60, Estimated Creat Clear 114, Estimated GFR 113, Est GFR ( Amer) 137, Glucose 98, Calcium 9.8, Total Bilirubin 0.4, AST 19, ALT 15, Alkaline Phosphatase 74, Total Protein 7.6, Albumin 4.8, Globulin 2.8, Albumin/Globulin Ratio 1.7, Amylase 84, Lipase 82 Result diagrams: 10/12/21 18:30 10/12/21 18:30 Orders (Tests/Meds): ED MEDICATIONS Generic Name Dose Route Start Last Admin Trade Name Freq PRN Reason Stop Dose Admin Sodium Chloride 10 ml 10/12/21 18:24 Sodium Chloride 0.9% 10ml Flush Syringe IV 11/11/21 18:23 NEEDED PRN Maintain IV Site Discontinued Medications Generic Name Dose Route Start Last Admin Trade Name Freq PRN Reason Stop Dose Admin Iopamidol 75 ml 10/12/21 18:50 10/12/21 18:51 Iopamidol-370 (76%);100ml Bottle IV 10/12/21 18:51 75 ml ONCE ONE Administration Ketorolac Tromethamine 30 mg 10/12/21 18:36 10/12/21 18:38 Ketorolac 30mg/Ml Vial IV 10/12/21 18:37 30 mg ONCE ONE Administration Ondansetron HCl 4 mg 10/12/21 18:36 10/12/21 18:38 Ondansetron 4mg/2ml Vial IV 10/12/21 18:37 4 mg ONCE ONE Administration Sodium Chloride 10 ml 10/12/21 18:50 10/12/21 18:51 Sodium Chloride 0.9% 10ml Syr (Rad Only) IV 10/12/21 18:51 10 ml ONCE ONE Administration ORDERS Category Date Time Status Urine Culture Stat Micro 10/12/21 18:15 Received Medical Decision Narrative: Patient is a 36-year-old female presents the ED today with right lower quadrant abdominal pain, patient is well-appearing on initial evaluation no acute distress, vital signs within normal limits and stable, patient with no tachycardia no hypotension, no evidence of peritonism or valdemar abdominal sepsis. Patient does have positive McBurney's point tenderness, positive psoas
[2021-10-12 19:47] LABS: Appearance,Urine SL CLOUDY (Clear); Bilirubin,Urine Negative (Negative); Blood, Urine Negative (Negative); Color,Urine YELLOW (Yellow); Glucose,Urine (UA) Negative (Negative); Ketones,Urine Negative (Negative); Leukocyte Esterase,Urine Negative (Negative); Nitrate,Urine Negative (Negative); Protein,Urine 1+ (Negative); Specific Gravity, Urine 1.015 (1.005-1.030); Urobilinogen,Urine 0.2 EU/dl (0.2)
[2021-10-12 19:59] LABS: PH,Urine >= 9.0 (5.0-8.5)
[2021-10-12 20:01] LABS: Bacteria,Urine 4+ /lpf; WBC,Urine Occasional #/hpf (0-3)
[2021-10-12 20:44] VITALS: BP 111/70; PULSE 81; RESP 20; TEMP 36.7; O2SAT 99
== END 2021-10-12 20:47 | disposition home or self-care (01) ==
PROVIDERS: Emergency Provider Student in an Organized Health Care Education/Training Program; PCP Emergency Medicine
DX: K52.9 Noninfective gastroenteritis and colitis, unspecified (principal); K21.9 Gastro-esophageal reflux disease without esophagitis; F41.8 Other specified anxiety disorders; F17.210 Nicotine dependence, cigarettes, uncomplicated
CPT/HCPCS: 74177; 80053; 81001; 82150; 83690; 85025; 87086; 96374; 96375; 99283; J2405; Q9967

== ENCOUNTER 2022-03-09 16:13 | Emergency (ER) | payer MEDICARE, MEDICAID, SELFPAY ==
[2022-03-09 16:15] VITALS: BP 121/67; PULSE 91; RESP 16; TEMP 37.1; O2SAT 98; BMI 19.3
[2022-03-09 16:29] VITALS: BMI 19.3
[2022-03-09 16:37] LABS: Microscopic, Urine URINE MICROSCOPIC (MICROSCOPIC)
--- NOTE | 2022-03-09 16:40 | HMH.EDABDPAI ---
ED Disposition Clinical Impression: Gastritis Qualifiers: Gastritis type: unspecified gastritis Chronicity: acute Gastritis bleeding: without bleeding Qualified Code(s): K29.00 - Acute gastritis without bleeding Disposition: Home, Self-Care Condition on Discharge: Fair Instructions: DI for Gastritis Additional Instructions: You may take [id number] antacid and/or proton pump inhibitors for your symptoms. I recommend you follow-up with your primary care doctor in about 1 week or so to discuss the possibility of needing an upper endoscopy. Please return to the emergency department if you feel worse in any way. Referrals: Ed Morrissey MD [Primary Care Provider] - - Critical Care Critical Care Time: No Attestation: On 03/09/22, the high probability of a clinically significant, sudden or life threatening deterioration of the following system(s) required my full and direct attention, intervention and personal management. The time I documented below is in addition to time spent performing reported procedures but includes the following listed in this critical care notation. Medical Decision Making - [place] Inquiry Pt receiving controlled substance: No Vital Signs: 03/09/22 16:15 Temperature 98.8 F Temperature Source Oral Pulse Rate [Radial] 91 H Respiratory Rate 16 Blood Pressure [Right Arm] 121/67 Blood Pressure Mean [Right Arm] 85 Blood Pressure Position [Right Arm] Sitting 02 Sat by Pulse Oximetry 98 Oxygen Delivery Method Room Air - Lab Data Lab results reviewed: Yes: I reviewed the patient's lab results. Lab Results 03/09/22 16:35: Urine Color Yellow, Urine Appearance Clear, Urine pH 7.5, Ur Specific [place] 1.020, Urine Protein Negative, Urine Glucose (UA) Negative, Urine Ketones Negative, Urine Blood Negative, Urine Nitrate Negative, Urine Bilirubin Negative, Urine Urobilinogen 0.2, Ur Leukocyte Esterase Negative, Urine RBC None, Urine WBC Occasional, Ur Squamous Epith Cells Occasional, Urine Bacteria None 03/09/22 17:00: Sodium 137, Potassium 4.3, Chloride 107, Carbon Dioxide 24, Anion Gap 10.3, BUN 17, Creatinine 0.60, Estimated Creat Clear 111, Estimated GFR 113, Est GFR ( Amer) 137, Glucose 99, Calcium 9.8, Total Bilirubin 0.3, AST 29, ALT 16, Alkaline Phosphatase 56, Total Protein 7.3, Albumin 4.6, Globulin 2.7, Albumin/Globulin Ratio 1.7, Lipase 69 03/09/22 17:15: WBC 10.2, RBC 4.67, Hgb 13.9, Hct 45.0, MCV 96.4, MCH 29.7, MCHC 30.8 L, RDW 13.1, Plt Count 424, MPV 7.4, Neut % (Auto) 60.9, Lymph % (Auto) 27.0, [place] % (Auto) 6.5, Eos % (Auto) 3.4, Baso % (Auto) 2.2 H, Neut # (Auto) 6.2, Lymph # (Auto) 2.8, [place] # (Auto) 0.7, Eos # (Auto) 0.3, Baso # (Auto) 0.2 Result diagrams: 03/09/22 17:15 03/09/22 17:00 Orders (Tests/Meds): ED MEDICATIONS Discontinued Medications Generic Name Dose Route Start Last Admin Trade Name Freq PRN Reason Stop Dose Admin Belladonna Alkaloids 60 ml 03/09/22 16:42 03/09/22 17:02 Gi Cocktail 60ml Udc PO 03/09/22 16:43 60 ml ONCE ONE Administration Medical Decision Narrative: The patient's work-up in the emergency department did not reveal any life-threatening or dangerous causes for the patient's abdominal pain. The patient was given a GI cocktail which significantly but transiently improved the patient's symptoms. The patient's urinalysis and blood work are unremarkable. I feel that the patient's symptoms are most likely due to a gastritis and/or peptic ulcer. The patient will be discharged in stable condition with instructions to follow-up with her primary care physician to discuss a possible upper endoscopy. Meanwhile I am recommending that the patient take [id number] antacid or proton pump inhibitors. Abdominal Pain HPI - General Stated Complaint: pain left side and back Time Seen by Provider: 03/09/22 16:40 Source of Information: Patient Limitations: No Limitations - History of Present Illness HPI narrative: Th
[2022-03-09 16:50] LABS: Appearance,Urine CLEAR (Clear); Bilirubin,Urine Negative (Negative); Blood, Urine Negative (Negative); Color,Urine YELLOW (Yellow); Glucose,Urine (UA) Negative (Negative); Ketones,Urine Negative (Negative); Leukocyte Esterase,Urine Negative (Negative); Nitrate,Urine Negative (Negative); PH,Urine 7.5 (5.0-8.5); Protein,Urine Negative (Negative); Urobilinogen,Urine 0.2 EU/dl (0.2)
[2022-03-09 17:04] LABS: Squamous Epithelial Cell,Urine Occasional #/hpf (0-5); WBC,Urine Occasional #/hpf (0-3)
--- NOTE | 2022-03-09 17:05 | PC.NURSE ---
pt resting offers no other c/o at present
[2022-03-09 17:14] LABS: Chloride 107 mmol/L (98-107); Potassium 4.3 mmoL/L (3.5-5.1); Sodium 137 mmol/L (136-145)
[2022-03-09 17:16] LABS: Alanine Aminotransferase 16 U/L (12-78); Aspartate Amino Transferase 29 U/L (14-36); Blood Urea Nitrogen 17 mg/dl (7-17); Creatinine Clearance Estimated 111 mL/min (50-200); Estimated Glomerular Filt Rate 113 ml/min (>60); GFR (African American) 137 ML/MIN (>60)
[2022-03-09 17:17] LABS: Albumin Level 4.6 g/dl (3.5-5.0); Albumin/Globulin Ratio 1.7 (1.1-1.8); Alkaline Phosphatase 56 U/L (38-126); Anion Gap 10.3 mEq/L (5-15); Bilirubin,Total 0.3 mg/dl (0.2-1.3); Calcium 9.8 mg/dl (8.4-10.2); Carbon Dioxide 24 mmol/L (22.0-30.0); Globulin 2.7 g/dL (1.3-3.2); Glucose 99 mg/dl (74-100); Lipase 69 U/L (23-300); Total Protein,Serum 7.3 g/dl (6.3-8.2)
[2022-03-09 17:26] LABS: Basophils # 0.2 K/mm3 (0-0.2); Basophils % 2.2 % (0.1-2.0); Eosinophils # 0.3 K/mm3 (0.0-0.4); Eosinophils % 3.4 % (0.1-12.0); Hemoglobin 13.9 g/dL (12.2-16.2); Lymphocytes # 2.8 K/mm3 (0.7-4.5); Mean Corpuscular HGB Conc 30.8 g/dL (31.8-35.4); Mean Corpuscular Hemoglobin 29.7 pg (27.0-31.2); Mean Corpuscular Volume 96.4 fl (81-99); Mean Platelet Volume 7.4 fl (7.4-10.4); Monocytes # 0.7 K/mm3 (0.1-1.0); Monocytes % 6.5 % (1.7-9.3); Neutrophils # 6.2 K/mm3 (1.8-7.8); Neutrophils % 60.9 % (37.0-80.0); Platelet Count 424 K/mm3 (142-424); Red Blood Count 4.67 M/mm3 (4.20-5.40); Red Cell Distribution Width 13.1 % (11.5-17.5); White Blood Count 10.2 K/mm3 (4.8-10.8)
[2022-03-09 17:49] VITALS: BP 113/74; PULSE 65; RESP 16; TEMP 36.6; O2SAT 98
== END 2022-03-09 17:50 | disposition home or self-care (01) ==
PROVIDERS: Emergency Provider Emergency Medicine; PCP Emergency Medicine
DX: K29.00 Acute gastritis without bleeding (principal); Z72.0 Tobacco use; F41.9 Anxiety disorder, unspecified; I73.9 Peripheral vascular disease, unspecified; F32.A Depression, unspecified; K21.9 Gastro-esophageal reflux disease without esophagitis; G43.909 Migraine, unspecified, not intractable, without status migrainosus; K75.9 Inflammatory liver disease, unspecified; R56.9 Unspecified convulsions
CPT/HCPCS: 80053; 81001; 83690; 85025; 99283

== ENCOUNTER → 2022-04-05 08:56 | Outpatient (CLI) | payer MEDICARE, MEDICAID, SELFPAY ==
[2022-04-04 17:18] LABS: Chloride 107 mmol/L (98-107); Potassium 4.4 mmoL/L (3.5-5.1); Sodium 137 mmol/L (136-145)
[2022-04-04 17:19] LABS: Basophils # 0.1 K/mm3 (0-0.2); Basophils % 1.5 % (0.1-2.0); Eosinophils # 0.2 K/mm3 (0.0-0.4); Eosinophils % 2.3 % (0.1-12.0); Hematocrit 39.1 % (37.0-47.0); Hemoglobin 13.6 g/dL (12.2-16.2); Lymphocytes # 2.6 K/mm3 (0.7-4.5); Mean Corpuscular HGB Conc 34.8 g/dL (31.8-35.4); Mean Corpuscular Hemoglobin 32.7 pg (27.0-31.2); Mean Corpuscular Volume 94.1 fl (81-99); Mean Platelet Volume 9.6 fl (7.4-10.4); Monocytes # 0.7 K/mm3 (0.1-1.0); Monocytes % 7.9 % (1.7-9.3); Neutrophils # 5.7 K/mm3 (1.8-7.8); Neutrophils % 60.3 % (37.0-80.0); Platelet Count 323 K/mm3 (142-424); Red Blood Count 4.16 M/mm3 (4.20-5.40); Red Cell Distribution Width 12.8 % (11.5-17.5); White Blood Count 9.4 K/mm3 (4.8-10.8)
[2022-04-04 17:20] LABS: Blood Urea Nitrogen 14 mg/dl (7-17); Estimated Glomerular Filt Rate 113 ml/min (>60); GFR (African American) 137 ML/MIN (>60)
[2022-04-04 17:21] LABS: Alanine Aminotransferase 15 U/L (12-78); Albumin Level 4.6 g/dl (3.5-5.0); Albumin/Globulin Ratio 1.8 (1.1-1.8); Alkaline Phosphatase 75 U/L (38-126); Anion Gap 13.4 mEq/L (5-15); Aspartate Amino Transferase 21 U/L (14-36); Calcium 9.6 mg/dl (8.4-10.2); Carbon Dioxide 21 mmol/L (22.0-30.0); Globulin 2.5 g/dL (1.3-3.2); Glucose 96 mg/dl (74-100); Total Protein,Serum 7.1 g/dl (6.3-8.2)
[2022-04-04 17:27] LABS: Bilirubin,Total < 0.1 mg/dl (0.2-1.3)
[2022-04-06 07:11] LABS: HIV Screen 4th Generation wRfx Non Reactive (Non Reactive)
[2022-04-06 09:09] LABS: Hepatitis B Surface Antigen Negative (Negative); Hepatitis C Antibody >11.0 s/co ratio (0.0-0.9)
[2022-04-06 11:08] LABS: Hep A Ab, Total Positive (Negative); Hep B Core Ab, Total Negative (Negative); Hep B Surface Ab, Qual Reactive (.)
[2022-04-08 02:17] LABS: ALT (SGPT) P5P 10 IU/L (0-40); Alpha 2-Macroglobulins, Qn 249 mg/dL (110-276); Apolipoprotein A-1 132 mg/dL (116-209); Bilirubin, Total <0.1 mg/dL (0.0-1.2); Fibrosis Score 0.09 (0.00-0.21); GGT 16 IU/L (0-60); Haptoglobin 60 mg/dL (33-278); Necroinflammat Activity Grade A0-No activity (.); Necroinflammat Activity Score 0.02 (0.00-0.17)
== END ==
PROVIDERS: Visit Provider Nurse Practitioner Family
DX: Z11.4 Encounter for screening for human immunodeficiency virus [HIV]; K27.9 Peptic ulcer, site unspecified, unspecified as acute or chronic, without hemorrhage or perforation; R10.13 Epigastric pain; B18.2 Chronic viral hepatitis C; B15.9 Hepatitis A without hepatic coma; E80.7 Disorder of bilirubin metabolism, unspecified
CPT/HCPCS: 80053; 81596; 85025; 86703; 86704; 86706; 86708; 87340; 87380; 87522; G0432

== ENCOUNTER 2022-04-23 13:11 | Emergency (ER) | payer MEDICARE, MEDICAID, SELFPAY ==
[2022-04-23 13:45] VITALS: BP 109/57; PULSE 85; RESP 16; TEMP 37.2; O2SAT 97; BMI 21.3
[2022-04-23 13:53] LABS: UTC Strep Screen (Rapid) Negative (Negative)
--- NOTE | 2022-04-23 14:12 | HMH.EDUTC ---
[place] Disposition Clinical Impression: Viral syndrome Disposition: Home, Self-Care Condition on Discharge: Good Instructions: DI for Viral Syndrome, Preventing the Spread of Coronavirus Discharge Instructions Additional Instructions: Drink plenty of fluids. Take tylenol or ibuprofen for pain or fever. Take the medications as directed. Follow up with your regular doctor. GO TO THE ER FOR ANY WORSENING SYMPTOMS Quarantine until you know the results of your covid-19 test. Notify your school or workplace of your results and follow their instructions regarding return to work/school. The promethazine will make you drowsy, so don't drive or operate heavy machinery after taking it. Prescriptions: Promethazine HCl [Phenergan 25mg tab] 25 mg PO Q6H PRN #20 tab PRN Reason: Nausea And Vomiting Transmission Status: Received by [facility] Referrals: Ed Morrissey MD [Primary Care Provider] - Time of Disposition: 14:16 Medical Decision Making - Medical Records Medical records reviewed: No: I reviewed the patient's medical records. - [place] Inquiry Pt receiving controlled substance: No Vital Signs: 04/23/22 13:45 04/23/22 14:28 Temperature 99.0 F 99.0 F Temperature Source Oral Pulse Rate 85 Pulse Rate [Left] 85 Respiratory Rate 16 16 Blood Pressure 109/57 L Blood Pressure [Right Arm] 109/57 L Blood Pressure Mean [Right Arm] 74 02 Sat by Pulse Oximetry 97 - Lab Data Lab results reviewed: Yes: I reviewed the patient's lab results. Lab Results 04/23/22 13:36: Strep Scn Rapid Clinic Negative [place] HPI - General Stated complaint: vomiting, fever Time Seen by Provider: 04/23/22 14:00 Mode of Arrival: Ambulatory Source of Information: Patient Limitations: No Limitations Description of Symptoms (Recalled from Triage Doc. by RN): patient comes in for nausea, sore throat, fever, body aches. symptoms began thursday night HEENT Symptoms (Recalled from RN notes): Yes Resp Symptoms (Recalled from RN notes): Yes Skin Symptoms (Recalled from RN notes): No MS Symptoms (Recalled from RN notes): No Functional Status (Recalled from RN notes): n/a - History of Present Illness Provider Complaint: She states that she has had n/v/d, malaise and a scratchy sore throat for the past 3 days. - Related Data Previous Rx's Medication Instructions Recorded oxcarbazepine 300 mg tablet See Rx Instructions .ROUTE 04/03/22 .COMPLEX #180 tab omeprazole 20 mg capsule,delayed 20 mg PO DAILY #30 cap 04/04/22 release desvenlafaxine succinate 50 mg 50 mg PO DAILY #30 tab 04/08/22 tablet,extended release 24 hr propranolol 10 mg tablet 10 mg PO TID PRN #90 tab 04/08/22 lamotrigine 200 mg tablet See Rx Instructions .ROUTE 04/11/22 .COMPLEX #180 tab vilazodone 20 mg tablet 20 mg PO DAILY #30 tab 04/14/22 Promethazine HCl [Phenergan 25mg 25 mg PO Q6H PRN #20 tab 04/23/22 tab] Allergies Allergy/AdvReac Type Severity Reaction Status Date / Time venom-honey bee Allergy Unknown Verified 04/23/22 13:48 [BEE VENOM (HONEY BEE)] - Worker's Comp Is this a Worker's Comp case?: No [facility] History - Hepatitis A Screen Attestation statement:: This patient has been screened for Hepatitis A risk factors. I have reviewed the patient's past medical history: Yes Medical History: Reports:: Anxiety, Deep Vein Thrombosis, Depression, Gastroesophageal Reflux Disease(GERD), Hepatitis, Migraine, Seizures Denies:: Cancer, Diabetes Mellitus Type 1, Diabetes Mellitus Type 2, Internal Pacemaker, Lung Disease, MRSA Other Medical History: Reports: Other. Denies: Blood Transfusion Reaction Comment: bipolar Other Surgeries: Yes: , Hysterectomy-Partial, Tubal Ligation. No: Pacemaker Amputation: No Fractures: No Comment: , Essure, Novasure/Myosure,Hysteroscopy - Social History Smoking Status: Current every day smoker Tobacco Type: cigarettes # Packs/Day (cigarettes): 1
[2022-04-23 14:28] VITALS: BP 109/57; PULSE 85; RESP 16; TEMP 37.2
== END 2022-04-23 14:29 | disposition home or self-care (01) ==
PROVIDERS: Emergency Provider Nurse Practitioner Family; PCP Emergency Medicine
DX: U07.1 COVID-19 (principal)
CPT/HCPCS: 87880; 99212; C9803; G0463; U0003; U0005

== ENCOUNTER 2022-04-30 11:22 | Emergency (ER) | payer MEDICARE, MEDICAID, SELFPAY ==
[2022-04-30] VITALS (10 sets, daily range): BP systolic 109–133; BP diastolic 73–84; PULSE 77–89; RESP 13–18; TEMP 36.9; O2SAT 97–98; BMI 22.6
--- NOTE | 2022-04-30 11:15 | ECG_ITS ---
APPROVED REPORT Exam: Resting ECG HR:87 bpm ECG Measurements Heart Rate 87 AXES MA 149 P 56 QRSd 96 QRS 80 QT 354 T 62 QTc 398 Conclusion SINUS RHYTHM POSSIBLE RIGHT VENTRICULAR CONDUCTION DELAY [RSR (QR) IN V1/V2] BORDERLINE ECG UNCONFIRMED REPORT Electronically signed by : Kun Tobin MD 05/03/2022 08:12:24
--- NOTE | 2022-04-30 11:25 | PC.NURSE ---
IV established and blood sent to the lab
--- NOTE | 2022-04-30 11:42 | XR_ITS ---
FINAL REPORT CLINICAL HISTORY: mid-sternal pain COMPARISON: June 05, 2021 FINDINGS: SINGLE VIEW CHEST. The heart is normal in size. The mediastinum is unremarkable. The lungs are clear. There is no pneumothorax. IMPRESSION: No acute process. Reviewed, Interpreted and Dictated by Javier Cabezas MD Transcribed by Maura Iyer Authenticated and [facility]
[2022-04-30 11:59] LABS: Basophils # 0.1 K/mm3 (0-0.2); Basophils % 0.9 % (0.1-2.0); Eosinophils # 0.2 K/mm3 (0.0-0.4); Eosinophils % 1.9 % (0.1-12.0); Hematocrit 46.4 % (37.0-47.0); Hemoglobin 14.8 g/dL (12.2-16.2); Lymphocytes # 2.1 K/mm3 (0.7-4.5); Lymphocytes % 24.4 % (10-50); Mean Corpuscular HGB Conc 31.8 g/dL (31.8-35.4); Mean Corpuscular Hemoglobin 30.2 pg (27.0-31.2); Mean Corpuscular Volume 95.1 fl (81-99); Mean Platelet Volume 7.7 fl (7.4-10.4); Monocytes # 0.5 K/mm3 (0.1-1.0); Monocytes % 5.4 % (1.7-9.3); Neutrophils # 5.9 K/mm3 (1.8-7.8); Neutrophils % 67.4 % (37.0-80.0); Platelet Count 455 K/mm3 (142-424); Red Blood Count 4.88 M/mm3 (4.20-5.40); Red Cell Distribution Width 12.8 % (11.5-17.5); White Blood Count 8.7 K/mm3 (4.8-10.8)
[2022-04-30 12:02] LABS: Anion Gap 13.4 mEq/L (5-15); Blood Urea Nitrogen 12 mg/dl (7-17); Calcium 9.4 mg/dl (8.4-10.2); Carbon Dioxide 26 mmol/L (22.0-30.0); Chloride 103 mmol/L (98-107); Creatinine Clearance Estimated 105 mL/min (50-200); Estimated Glomerular Filt Rate 95 ml/min (>60); GFR (African American) 115 ML/MIN (>60); Glucose 104 mg/dl (74-100); Potassium 4.4 mmoL/L (3.5-5.1); Sodium 138 mmol/L (136-145)
--- NOTE | 2022-04-30 12:14 | CT_ITS ---
FINAL REPORT TECHNIQUE: Axial CT images were performed through the head. Coronal reformatted images were submitted. This study was performed with techniques to keep radiation doses as low as reasonably achievable (ALARA). Individualized dose reduction techniques using automated exposure control or adjustment of mA and/or kV according to the patient's size were employed. CLINICAL HISTORY: double vision/bilat feet tingling COMPARISON: September 26, 2021 FINDINGS: The ventricles are normal in size. There is no evidence of hemorrhage. There is no mass or edema identified. There is no abnormal extra-axial fluid seen. The sinuses are well aerated. IMPRESSION: No acute intracranial process. Reviewed, Interpreted and Dictated by Javier Cabezas MD Transcribed by Zee Garcia Authenticated and . [facility]
[2022-04-30 12:15] LABS: Troponin I < 0.01 ng/ml (0.00-0.034)
--- NOTE | 2022-04-30 12:16 | PC.NURSE ---
pt ambulatory to the restroom. Radiology at the bedside to take pt to CT when finished.
--- NOTE | 2022-04-30 12:19 | PC.NURSE ---
pt to ct at this time
--- NOTE | 2022-04-30 12:21 | PC.NURSE ---
urine sent to the lab
--- NOTE | 2022-04-30 12:21 | PC.NURSE ---
pt back from CT
[2022-04-30 12:29] LABS: Microscopic, Urine URINE MICROSCOPIC (MICROSCOPIC)
[2022-04-30 12:32] LABS: Appearance,Urine CLEAR (Clear); Bilirubin,Urine Negative (Negative); Blood, Urine Negative (Negative); Color,Urine YELLOW (Yellow); Glucose,Urine (UA) Negative (Negative); Ketones,Urine Negative (Negative); Leukocyte Esterase,Urine Negative (Negative); Nitrate,Urine Negative (Negative); PH,Urine 6.5 (5.0-8.5); Protein,Urine Negative (Negative); Specific Gravity, Urine <= 1.005 (1.005-1.030); Urobilinogen,Urine 0.2 EU/dl (0.2)
[2022-04-30 12:43] LABS: Barbiturates Screen,Urine Negative ng/ml (<200)
[2022-04-30 12:44] LABS: Amphetamine/Metha Screen,Urine Negative ng/ml (<1000); Benzodiazepines Screen,Urine Negative ng/ml (<200)
[2022-04-30 12:45] LABS: Cannabinoid Screen,Urine Negative ng/ml (<50)
[2022-04-30 12:46] LABS: Cocaine Screen,Urine Negative ng/ml (<300); Methadone Screen,Urine Negative ng/ml (<300)
[2022-04-30 12:47] LABS: Opiate Screen,Urine Negative ng/ml (<300)
[2022-04-30 12:48] LABS: Bacteria,Urine Trace /lpf; Phencyclidine Screen,Urine Negative ng/ml (<25)
--- NOTE | 2022-04-30 15:25 | HMH.EDGENADL ---
Discharge Plan Disposition Patient Disposition: Home, Self-Care Condition: Good Chief Complaint: PAIN Prescriptions Prescriptions: No Action omeprazole 20 mg capsule,delayed release(DR/EC) 20 mg PO DAILY Qty: 30 2RF desvenlafaxine succinate [Pristiq] 50 mg tablet extended release 24 hr 50 mg PO DAILY Qty: 30 1RF propranolol 10 mg tablet 10 mg PO TID PRN (Reason: for increased anxiety) Qty: 90 0RF oxcarbazepine 300 mg tablet See Rx Instructions .ROUTE .COMPLEX Qty: 180 0RF Dose Instruction: TAKE ONE TABLET BY MOUTH TWICE DAILY FOR seizures Rx Instructions: TAKE ONE TABLET BY MOUTH TWICE DAILY FOR seizures lamotrigine 200 mg tablet See Rx Instructions .ROUTE .COMPLEX Qty: 180 6RF Dose Instruction: TAKE ONE TABLET BY MOUTH TWICE DAILY FOR SEIZURES Rx Instructions: TAKE ONE TABLET BY MOUTH TWICE DAILY FOR SEIZURES Viibryd 20 mg tablet 20 mg PO DAILY Qty: 30 2RF Rx Instructions: must administer with a meal/food promethazine 25 MG tablet 25 mg PO Q6H PRN (Reason: Nausea And Vomiting) Qty: 20 0RF Referrals Referrals: Ed Morrissey MD [Primary Care Provider] - Enter time for follow up Activity Restrictions/Add. Instructions Additional Instructions/Restrictions: ADDITIONAL INSTRUCTIONS FOR COVID-19: Rest, drink plenty of fluids. Tylenol or Ibuprofen for fever and/or aches and pains. Monitor your symptoms. IF YOU HAVE AN EMERGENCY WARNING SIGN (INCLUDING TROUBLE BREATHING), SEEK EMERGENCY MEDICAL CARE IMMEDIATELY. COVID-19 Isolation: People with COVID-19 should isolate for 5 days. Then if they are asymptomatic (no symptoms) or their symptoms are resolving (without fever for 24 hours), follow that by 5 days of wearing a mask when around others to minimize the risk of infecting people you encounter. If you test positive for COVID-19 and never develop symptoms, day 0 is the day of your positive viral test (based on the date you were tested) and day 1 is the first full day after your positive test. If you develop symptoms after testing positive, your 5-day isolation period must start over. Day 0 is your first day of symptoms. Day 1 is the first full day after your symptoms developed. What to do: Stay in a separate room from other household members, if possible. Use a separate bathroom, if possible. Avoid contact with other members of the household and pets. Don?t share personal household items, like cups, towels, and utensils. Wear a mask when around other people if able. Clinical Impressions Clinical Impression: Atypical chest pain, Back pain, COVID-19 Instructions Patient Instructions: DI for Low Back Pain, DI for Atypical Chest Pain, DI for COVID-19 (Suspected or Confirmed ) Discharge ED Provider: Wilman Andres General Adult HPI General Chief complaint: PAIN Stated complaint: chest pain Time Seen by Provider: 04/30/22 15:25 Mode of Arrival: Ambulatory Source of Information: Patient Limitations: No Limitations Description of Symptoms (Recalled from ER Triage Doc. by RN): pt to ed c/o epigastric/mid-sternal pain that started yesterday afternoon associated with nausea and bilateral feet tingling. pt states it was a gradual onset. pt states she had episodes of blurry vision and headache. pt denies any falls or trauma. History of Present Illness HPI narrative: Patient states that she was diagnosed with COVID last week in the urgent treatment center. She is currently complaining of kidney pain and chest pain. States that she has pain in her left lumbar area. This has been going on for about 4 days. She has pain in her left anterior chest ever since she was diagnosed with COVID. She has persistent cough. She has nausea. Her feet tingle off and on. She has episodes of blurry vision and headache. Her grandmother is being seen here for cough and suspected COVID as well. The patient has not been vaccinated against COVID. Related Data
[2022-04-30 15:35] LABS: Troponin I < 0.01 ng/ml (0.00-0.034)
== END 2022-04-30 16:28 | disposition home or self-care (01) ==
PROVIDERS: Emergency Provider Emergency Medicine; PCP Emergency Medicine
DX: U07.1 COVID-19 (principal); R07.89 Other chest pain; M54.50 Low back pain, unspecified
CPT/HCPCS: 36415; 70450; 71045; 80048; 80305; 81001; 84484; 85025; 93005; 96374; 99285

== ENCOUNTER 2022-06-05 13:30 | Emergency (ER) | payer MEDICARE, MEDICAID, SELFPAY ==
[2022-06-05 14:29] VITALS: BP 114/73; PULSE 92; RESP 18; TEMP 36.8; O2SAT 97; BMI 22.8
--- NOTE | 2022-06-05 14:29 | EXP.UTC ---
Discharge Plan Disposition Patient Disposition: Home, Self-Care Condition: Good Prescriptions Prescriptions: New azithromycin [Zithromax] 250 mg tablet 250 mg PO UD DOSE PK Qty: 6 0RF Rx Instructions: Take two (2) tablets today, then one (1) tablet days #2 thru #5 benzonatate [benzonatate] 100 mg capsule 100 mg PO TIDP PRN (Reason: Cough) Qty: 30 0RF ondansetron 4 mg Tablet,Disintegrating 4 mg PO Q8H PRN (Reason: Nausea) Qty: 20 0RF No Action omeprazole 20 mg capsule,delayed release(DR/EC) 20 mg PO DAILY Qty: 30 2RF desvenlafaxine succinate [Pristiq] 50 mg tablet extended release 24 hr 50 mg PO DAILY Qty: 30 1RF propranolol 10 mg tablet 10 mg PO TID PRN (Reason: for increased anxiety) Qty: 90 0RF oxcarbazepine 300 mg tablet See Rx Instructions .ROUTE .COMPLEX Qty: 180 0RF Dose Instruction: TAKE ONE TABLET BY MOUTH TWICE DAILY FOR seizures Rx Instructions: TAKE ONE TABLET BY MOUTH TWICE DAILY FOR seizures lamotrigine 200 mg tablet See Rx Instructions .ROUTE .COMPLEX Qty: 180 6RF Dose Instruction: TAKE ONE TABLET BY MOUTH TWICE DAILY FOR SEIZURES Rx Instructions: TAKE ONE TABLET BY MOUTH TWICE DAILY FOR SEIZURES Viibryd 20 mg tablet 20 mg PO DAILY Qty: 30 2RF Rx Instructions: must administer with a meal/food promethazine 25 MG tablet 25 mg PO Q6H PRN (Reason: Nausea And Vomiting) Qty: 20 0RF Referrals Follow up/Referrals: Ed Morrissey MD [Primary Care Provider] - See instructions Activity Restrictions/Add. Instructions Additional Instructions/Restrictions: Drink plenty of fluids. Take tylenol or ibuprofen for pain or fever. Take the medications as directed. Follow up with your regular doctor. GO TO THE ER FOR ANY WORSENING SYMPTOMS Quarantine until you know the results of your covid-19 test. Notify your school or workplace of your results and follow their instructions regarding return to work/school. Clinical Impressions Clinical Impression: Pharyngitis, Viral syndrome Stand Alone Forms Stand Alone Forms: Work/School Release Instructions Patient Instructions: Coronavirus Disease 2019, Preventing the Spread of Coronavirus Discharge Instructions Discharge ED Provider: Faizan George [facility] General Stated complaint: lung congestion, cough, fever Time Seen by Provider: 06/05/22 14:28 History of Present Illness Provider Complaint: She states that for the past 2 days she has had a sore throat, chills, body aches, and gi upset. Related Data Previous Rx's Medication Instructions Recorded oxcarbazepine 300 mg tablet See Rx Instructions .Route 04/03/22 .COMPLEX #180 tabs omeprazole 20 mg capsule,delayed 20 mg PO DAILY #30 caps 04/04/22 release desvenlafaxine succinate 50 mg 50 mg PO DAILY #30 tabs 04/08/22 tablet,extended release 24 hr (Pristiq) propranolol 10 mg tablet 10 mg PO TID PRN for increased 04/08/22 anxiety #90 tabs lamotrigine 200 mg tablet See Rx Instructions .Route 04/11/22 .COMPLEX #180 tabs vilazodone 20 mg tablet (Viibryd) 20 mg PO DAILY #30 tabs 04/14/22 promethazine 25 mg tablet 25 mg PO Q6H PRN Nausea And 04/23/22 Vomiting #20 tabs azithromycin 250 mg tablet 250 mg PO UD DOSE PK #6 tabs 06/05/22 (Zithromax) benzonatate 100 mg capsule 100 mg PO TIDP PRN Cough #30 caps 06/05/22 ondansetron 4 mg disintegrating 4 mg PO Q8H PRN Nausea #20 tabs 06/05/22 tablet Allergies Allergy/AdvReac Type Severity Reaction Status Date / Time venom-honey bee Allergy Unknown Verified 04/23/22 13:48 [BEE VENOM (HONEY BEE)] [facility] Medical History GERD (gastroesophageal reflux disease) Social History Smoking Status: Former smoker second hand exposure: Yes alcohol intake: never substance use type: former substance user and heroin current occupation
[2022-06-05 15:11] LABS: UTC Strep Screen (Rapid) Negative (Negative)
[2022-06-05 15:43] VITALS: BP 114/73; PULSE 92; RESP 18; TEMP 36.8; O2SAT 97
== END 2022-06-05 15:45 | disposition home or self-care (01) ==
PROVIDERS: Emergency Provider Nurse Practitioner Family; PCP Emergency Medicine
DX: J02.9 Acute pharyngitis, unspecified (principal); B34.9 Viral infection, unspecified
CPT/HCPCS: 87880; 99212; C9803; G0463; U0003; U0005

== ENCOUNTER 2022-06-20 11:23 | Emergency (ER) | payer MEDICARE, MEDICAID, SELFPAY ==
[2022-06-20 11:31] VITALS: BP 138/73; PULSE 107; RESP 16; TEMP 36.7; O2SAT 98; BMI 22.2
[2022-06-20 12:00] VITALS: BP 112/79; PULSE 95; RESP 16; O2SAT 97
[2022-06-20 12:30] VITALS: BP 116/77; PULSE 94; RESP 17; O2SAT 98
[2022-06-20 12:44] LABS: Microscopic, Urine URINE MICROSCOPIC (MICROSCOPIC)
[2022-06-20 12:47] LABS: Appearance,Urine CLEAR (Clear); Bilirubin,Urine Negative (Negative); Blood, Urine Negative (Negative); Color,Urine YELLOW (Yellow); Glucose,Urine (UA) Negative (Negative); Ketones,Urine Negative (Negative); Leukocyte Esterase,Urine Negative (Negative); Nitrate,Urine Negative (Negative); Protein,Urine Negative (Negative); Urobilinogen,Urine 0.2 EU/dl (0.2)
[2022-06-20 12:49] LABS: Basophils # 0.1 K/mm3 (0-0.2); Basophils % 1.7 % (0.1-2.0); Eosinophils # 0.2 K/mm3 (0.0-0.4); Eosinophils % 2.2 % (0.1-12.0); Hematocrit 50.2 % (37.0-47.0); Hemoglobin 16.3 g/dL (12.2-16.2); Lymphocytes # 1.9 K/mm3 (0.7-4.5); Lymphocytes % 25.7 % (10-50); Mean Corpuscular HGB Conc 32.4 g/dL (31.8-35.4); Mean Corpuscular Hemoglobin 30.8 pg (27.0-31.2); Mean Corpuscular Volume 95.1 fl (81-99); Mean Platelet Volume 11.8 fl (7.4-10.4); Monocytes # 0.4 K/mm3 (0.1-1.0); Neutrophils # 4.7 K/mm3 (1.8-7.8); Neutrophils % 64.4 % (37.0-80.0); Platelet Count 569 K/mm3 (142-424); Red Blood Count 5.28 M/mm3 (4.20-5.40); Red Cell Distribution Width 15.7 % (11.5-17.5); White Blood Count 7.4 K/mm3 (4.8-10.8)
[2022-06-20 12:52] VITALS: BP 123/83; PULSE 97; O2SAT 98
[2022-06-20 12:56] LABS: Chloride 99 mmol/L (98-107)
[2022-06-20 12:57] LABS: Potassium 4.3 mmoL/L (3.5-5.1); Sodium 139 mmol/L (136-145)
[2022-06-20 12:59] LABS: Alanine Aminotransferase 20 U/L (12-78); Aspartate Amino Transferase 25 U/L (14-36); Blood Urea Nitrogen 11 mg/dl (7-17); Creatinine Clearance Estimated 109 mL/min (50-200); Estimated Glomerular Filt Rate 94 ml/min (>60); GFR (African American) 114 ML/MIN (>60)
[2022-06-20 13:00] LABS: Albumin Level 5.3 g/dl (3.5-5.0); Albumin/Globulin Ratio 1.6 (1.1-1.8); Alkaline Phosphatase 76 U/L (38-126); Anion Gap 16.3 mEq/L (5-15); Bilirubin,Total 0.2 mg/dl (0.2-1.3); Calcium 9.7 mg/dl (8.4-10.2); Carbon Dioxide 28 mmol/L (22.0-30.0); Globulin 3.3 g/dL (1.3-3.2); Glucose 96 mg/dl (74-100); Total Protein,Serum 8.6 g/dl (6.3-8.2)
--- NOTE | 2022-06-20 13:00 | HMH.EDGENADL ---
Discharge Plan Disposition Patient Disposition: Home, Self-Care Condition: Good Prescriptions Prescriptions: New prednisone 20 mg tablet 20 mg PO BID Qty: 10 0RF ondansetron 4 mg tablet,disintegrating 4 mg PO HS PRN (Reason: nausea and vomiting) 3 Days Qty: 10 0RF No Action omeprazole 20 mg capsule,delayed release(DR/EC) 20 mg PO DAILY Qty: 30 2RF desvenlafaxine succinate [Pristiq] 50 mg tablet extended release 24 hr 50 mg PO DAILY Qty: 30 1RF propranolol 10 mg tablet 10 mg PO TID PRN (Reason: for increased anxiety) Qty: 90 0RF oxcarbazepine 300 mg tablet See Rx Instructions .ROUTE .COMPLEX Qty: 180 0RF Dose Instruction: TAKE ONE TABLET BY MOUTH TWICE DAILY FOR seizures Rx Instructions: TAKE ONE TABLET BY MOUTH TWICE DAILY FOR seizures lamotrigine 200 mg tablet See Rx Instructions .ROUTE .COMPLEX Qty: 180 6RF Dose Instruction: TAKE ONE TABLET BY MOUTH TWICE DAILY FOR SEIZURES Rx Instructions: TAKE ONE TABLET BY MOUTH TWICE DAILY FOR SEIZURES Viibryd 20 mg tablet 20 mg PO DAILY Qty: 30 2RF Rx Instructions: must administer with a meal/food promethazine 25 MG tablet 25 mg PO Q6H PRN (Reason: Nausea And Vomiting) Qty: 20 0RF azithromycin [Zithromax] 250 mg tablet 250 mg PO UD DOSE PK Qty: 6 0RF Rx Instructions: Take two (2) tablets today, then one (1) tablet days #2 thru #5 benzonatate [benzonatate] 100 mg capsule 100 mg PO TIDP PRN (Reason: Cough) Qty: 30 0RF ondansetron 4 mg Tablet,Disintegrating 4 mg PO Q8H PRN (Reason: Nausea) Qty: 20 0RF Referrals Follow up/Referrals: Ed Morrissey MD [Primary Care Provider] - See instructions Activity Restrictions/Add. Instructions Additional Instructions/Restrictions: Prednisone as prescribed. Ibuprofen as prescribed. Zofran as needed for nausea and vomiting. [id number] Imodium as needed for diarrhea. Follow-up with primary care provider, call for appointment. Additional instructions for BACK PAIN: See your physician as soon as possible for further evaluation. Return immediately if back pain becomes intolerable, or if fever, numbness or weakness of your legs, loss of control of your bowels or bladder. Clinical Impressions Clinical Impression: Low back pain, Gastroenteritis, Paresthesia of right foot Discharge ED Provider: Wilman Andres General Adult HPI General Chief complaint: PAIN Stated complaint: vomiting, right side pains Time Seen by Provider: 06/20/22 12:55 Mode of Arrival: Ambulatory Source of Information: Patient Limitations: No Limitations Description of Symptoms (Recalled from ER Triage Doc. by RN): Pt c/o pain in lower right side of back that extends around side x2 days. Also c/o vomiting and fever. Denies any difficulty with urination or bowel movements. Advises pain increases with movement and ambulation. Also c/o pins and needles sensation in rt foot with ambulation. History of Present Illness HPI narrative: 2-day history of pain in her right lumbar area that radiates around to her right inguinal part of her groin. She has a pins and needle sensation on the bottom of her right foot. No bowel or bladder symptoms. No injury. Her pain in her back increases with position and movement. Upon my arrival she is leaning to the left which she says while sitting on the stretcher which she says helps alleviate the pain. She is also had some vomiting and diarrhea for the past 2 to 3 days. Related Data Previous Rx's Medication Instructions Recorded oxcarbazepine 300 mg tablet See Rx Instructions .Route 04/03/22 .COMPLEX #180 tabs omeprazole 20 mg capsule,delayed 20 mg PO DAILY #30 caps 04/04/22 release desvenlafaxine succinate 50 mg 50 mg PO DAILY #30 tabs 04/08/22 tablet,extended release 24 hr (Pristiq) propranolol 10 mg tablet 10 mg PO TID PRN for increased 04/08/22 anxiety #90 tabs lamotrigine 200 mg tablet See Rx Instru
[2022-06-20 13:13] LABS: Bacteria,Urine Trace /lpf; Squamous Epithelial Cell,Urine Occasional #/hpf (0-5)
[2022-06-20 13:52] VITALS: BP 128/81; PULSE 81; RESP 16; TEMP 36.7; O2SAT 97
== END 2022-06-20 13:54 | disposition home or self-care (01) ==
PROVIDERS: Emergency Provider Emergency Medicine; PCP Emergency Medicine
DX: M54.50 Low back pain, unspecified (principal); K52.9 Noninfective gastroenteritis and colitis, unspecified; R20.2 Paresthesia of skin
CPT/HCPCS: 80053; 81001; 85025; 96374; 99284

== ENCOUNTER → 2022-07-04 11:17 | Outpatient (CLI) | payer MEDICARE, MEDICAID, SELFPAY ==
--- NOTE | 2022-07-04 11:26 | XR_ITS ---
FINAL REPORT CLINICAL HISTORY: low back pain HYSTERECTOMY FINDINGS: AP and lateral views were obtained. There is no acute fracture. There is no malalignment. The disc spaces are maintained. IMPRESSION: No acute process. Reviewed, Interpreted and Dictated by Mayank Womack III, MD Transcribed by Ihsan Fernandez Authenticated and [facility]
== END ==
PROVIDERS: PCP Emergency Medicine; Visit Provider Nurse Practitioner Family
DX: M54.30 Sciatica, unspecified side (principal); M54.50 Low back pain, unspecified
CPT/HCPCS: 72100

== ENCOUNTER 2022-07-15 09:00 | Outpatient (RCR) | payer MEDICARE, MEDICAID, SELFPAY | END 2022-10-02 10:07 | disposition home or self-care (01) | LOC: PT 09:00 | PROVIDERS: PCP Emergency Medicine; Visit Provider Nurse Practitioner Family | DX: M54.31 Sciatica, right side (principal) | CPT/HCPCS: 97140; 97163 ==

== ENCOUNTER → 2022-07-16 10:30 | Outpatient (CLI) | payer MEDICARE, MEDICAID, SELFPAY ==
[2022-07-16 13:44] LABS: Opiate Screen,Urine Negative ng/ml (<300)
[2022-07-16 13:45] LABS: Phencyclidine Screen,Urine Negative ng/ml (<25)
[2022-07-16 13:48] LABS: Amphetamine/Metha Screen,Urine Negative ng/ml (<1000); Barbiturates Screen,Urine Negative ng/ml (<200)
[2022-07-16 13:49] LABS: Benzodiazepines Screen,Urine Negative ng/ml (<200)
[2022-07-16 13:50] LABS: Cannabinoid Screen,Urine Negative ng/ml (<50); Cocaine Screen,Urine Negative ng/ml (<300)
[2022-07-16 13:51] LABS: Methadone Screen,Urine Negative ng/ml (<300)
== END ==
PROVIDERS: PCP Nurse Practitioner Family; Visit Provider Nurse Practitioner Family
DX: Z79.899 Other long term (current) drug therapy (principal)
CPT/HCPCS: 80305

== ENCOUNTER 2022-07-16 19:49 | Emergency (ER) | payer MEDICARE, MEDICAID, SELFPAY ==
[2022-07-16 19:50] VITALS: BP 133/90; PULSE 77; RESP 18; TEMP 36.8; O2SAT 98; BMI 23.1
--- NOTE | 2022-07-16 21:22 | XR_ITS ---
PROCEDURE INFORMATION: Exam: XR Right Hip Exam date and time: 07/16/2022 9:22 PM Age: 37 years old Clinical indication: Injury or trauma; Fall; Blunt trauma (contusions or hematomas); Right; Hip; Additional info: Fall, pain TECHNIQUE: Imaging protocol: Radiologic exam of the Right hip. Views: 2 or 3 views hip with pelvis when performed. COMPARISON: CT ABDOMEN PELVIS W CON 10/12/2021 6:39 PM FINDINGS: Bones/joints: No visible fracture or dislocation. Soft tissues: Unremarkable. IMPRESSION: No visible fracture or dislocation.
--- NOTE | 2022-07-16 21:22 | XR_ITS ---
PROCEDURE INFORMATION: Exam: XR Lumbosacral Spine Exam date and time: 07/16/2022 9:24 PM Age: 37 years old Clinical indication: Injury or trauma; Fall; Blunt trauma (contusions or hematomas); Additional info: Fall, pain TECHNIQUE: Imaging protocol: Radiologic exam of the lumbosacral spine. Views: 2 or 3 views. COMPARISON: CR XR LUMBAR SPINE 2-3V 07/04/2022 11:29 AM FINDINGS: Bones/joints: There is preservation of vertebral alignment and vertebral body heights. Facet joints are aligned. No acute fracture. Sacroiliac joints are intact. Soft tissues: Unremarkable. IMPRESSION: No acute fracture. No traumatic subluxation
--- NOTE | 2022-07-16 22:23 | HMH.EDFALL ---
Discharge Plan Disposition Patient Disposition: Home, Self-Care Chief Complaint: Fall Prescriptions Prescriptions: No Action omeprazole 20 mg capsule,delayed release(DR/EC) 20 mg PO DAILY Qty: 30 2RF Vraylar 1.5 mg capsule 1.5 mg PO DAILY Qty: 30 1RF clonazepam [Klonopin] 0.5 mg tablet 0.5 mg PO BID PRN (Reason: panic attack(s)) Qty: 20 0RF naproxen 500 mg tablet 500 mg PO BID Qty: 30 0RF hydrocodone-acetaminophen 5-325 mg tablet 1 tab PO Q6H PRN (Reason: pain) Qty: 14 0RF lamotrigine 200 mg tablet See Rx Instructions .ROUTE .COMPLEX Qty: 180 6RF Dose Instruction: TAKE ONE TABLET BY MOUTH TWICE DAILY FOR SEIZURES Rx Instructions: TAKE ONE TABLET BY MOUTH TWICE DAILY FOR SEIZURES oxcarbazepine 300 mg tablet See Rx Instructions .ROUTE .COMPLEX Qty: 180 0RF Dose Instruction: TAKE ONE TABLET BY MOUTH TWICE DAILY FOR seizures Rx Instructions: TAKE ONE TABLET BY MOUTH TWICE DAILY FOR seizures Referrals Follow up/Referrals: Ed Morrissey MD [Primary Care Provider] - See instructions Clinical Impressions Clinical Impression: Lumbar radicular pain, Fall, Contusion of hip, right Instructions Patient Instructions: DI for Lumbar Radiculopathy Discharge ED Provider: Ed Morrissey Fall HPI General Chief Complaint: Fall Stated Complaint: AO 07/16/22 1700 LBP/leg pain Time Seen by Provider: 07/16/22 22:23 Mode of Arrival: Wheelchair Source of Information: Patient, Relative and Medical Record Limitations: Physical Limitations Description of Symptoms (Recalled from ER Triage Doc. by RN): Pt c/o pain in R lower back raditing down R buttocks. Denies any parethesia or numbness. Denies any urinary or bowel incontinence. Pt states that she saw Simeon Garrison in the office today for low back pain, reports she is going to have a MRI soon. Tonight, her dog knocked her down striaght back and the pain to R sciatic area worsened. 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 Pt also c/o R hip bruise that did not occur from the fall, pt states I have been waking up with these all over my legs. Pt is able to bear weight but states it hurts real bad in my right side butt . History of Present Illness HPI Narrative: pt has ongoing back pain with rad to rt lower ext and no cauda equina sx - was seen by pcp and has pending mri and was given pain meds - was pushed down by dog tonight and landed on rt side - increased pain MD complaint: fall Onset (ago): hour(s) Fall from: standing Fall witnessed: no Place fall occurred: home Loss of consciousness: none Prolonged down time: no Location of injury: back Severity: moderate Related Data Previous Rx's Medication Instructions Recorded omeprazole 20 mg capsule,delayed 20 mg PO DAILY #30 caps 04/04/22 release lamotrigine 200 mg tablet See Rx Instructions .Route 04/11/22 .COMPLEX #180 tabs oxcarbazepine 300 mg tablet See Rx Instructions .Route 06/23/22 .COMPLEX #180 tabs naproxen 500 mg tablet 500 mg PO BID #30 tabs 07/02/22 cariprazine 1.5 mg capsule 1.5 mg PO DAILY #30 caps 07/09/22 (Vraylar) clonazepam 0.5 mg tablet (Klonopin) 0.5 mg PO BID PRN panic attack(s) 07/09/22 #20 tabs hydrocodone 5 mg-acetaminophen 325 1 tab PO Q6H PRN pain #14 tabs 07/16/22 mg tablet Allergies Allergy/AdvReac Type Severity Reaction Status Date / Time venom-honey bee Allergy Unknown Verified 07/16/22 09:36 [BEE VENOM (HONEY BEE)] [facility] Medical History Bipolar II disorder GERD (gastroesophageal reflux disease) Major depressive disorder Panic disorder Social History Smoking Status: Current every day smoker tobacco type: cigarettes packs per day: 1 second hand exposure: Yes alcohol intake: never substance use type: former substance user and heroin current occupational status: unemployed [employer]
[2022-07-16 23:41] VITALS: BP 133/90; PULSE 72; RESP 16; TEMP 36.8; O2SAT 98
== END 2022-07-16 23:44 | disposition home or self-care (01) ==
PROVIDERS: Emergency Provider Emergency Medicine; PCP Emergency Medicine
DX: M54.16 Radiculopathy, lumbar region (principal); S70.01XA Contusion of right hip, initial encounter; W01.0XXA Fall on same level from slipping, tripping and stumbling without subsequent striking against object, initial encounter; Z79.899 Other long term (current) drug therapy; F31.81 Bipolar II disorder; K21.9 Gastro-esophageal reflux disease without esophagitis; F32.A Depression, unspecified; F41.0 Panic disorder [episodic paroxysmal anxiety]; Z72.0 Tobacco use
CPT/HCPCS: 72100; 73502; 80305; 96372; 99284

== ENCOUNTER → 2022-07-25 11:31 | Outpatient (CLI) | payer MEDICARE, MEDICAID, SELFPAY ==
--- NOTE | 2022-07-25 11:31 | MR_ITS ---
FINAL REPORT CLINICAL HISTORY: Lower Back Pain. LEFT SIDED LOW BACK AND BUTTOX PAIN. LEFT LEG PAIN WORSE WHEN WALKING. INTERMITTENT BILATERAL FEET TINGLING. FINDINGS: Multiplanar MR imaging of the lumbar spine was performed without contrast. On the sagittal T2-weighted images, there is abnormal decreased signal throughout the lumbar discs. The vertebrae are of normal height. The vertebral alignment is normal. L1-2: There is no significant canal stenosis or neural foraminal narrowing. L2-3: There is no significant canal stenosis or neural foraminal narrowing. L3-4: There is a minimal annular bulge with minimal compromise of the neural foramina. L4-5: There is no significant canal stenosis or neural foraminal narrowing. L5-S1: There is no significant canal stenosis or neural foraminal narrowing. IMPRESSION: Minimal annular bulge at L3-4 with minimal compromise of the neural foramina. Reviewed, Interpreted and Dictated by Javier Cabezas MD Transcribed by Maura Iyer Authenticated and [facility]
== END ==
PROVIDERS: PCP Emergency Medicine; Visit Provider Nurse Practitioner Family
DX: M54.9 Dorsalgia, unspecified (principal); M79.604 Pain in right leg; M54.50 Low back pain, unspecified
CPT/HCPCS: 72148; 76376

== ENCOUNTER → 2022-08-18 14:06 | Outpatient (POV) | payer MEDICARE, MEDICAID, SELFPAY ==
[2022-08-18 14:09] VITALS: BP 120/89; PULSE 101; RESP 18; O2SAT 98; BMI 23.1
--- NOTE | 2022-08-18 15:06 | EXP.PAIN.OV ---
HPI Data of Consult Patient: new to practice Consult date: 08/18/22 Requesting Physician: Ene Skinner APRN Primary Care Provider: Ed Morrissey MD Consult Narrative Reason for consult: Low back pain, right leg pain History of present illness: Ms. Melgar is a 37 year old female who presents today as a new patient. She is a referral from Simeon Garrison's office. Today she rates her pain a 6 out of 10. Patient states the pain is all in her low back with radiating symptoms into her right leg. Patient states this has been going on for the last several months and denies any specific trauma or injury. Patient states that just progressively worsened over time. Patient does describe this as a sharp, shooting sensation that is worse with increased activity. Patient also states she has a [id number] sensation in her feet that has been going on for years. Patient states that she recently had a right hip injection in her doctor's office however this did not provide significant improvement of her symptoms. Patient does use zeyu-sak-[id number] naproxen, ibuprofen or Tylenol as needed to help with some of her symptoms however she states this is only minimal. Patient has used icy hot and Bengay with no improvement of her symptoms. Patient states she does often use heat and ice to provide temporary relief. Patient has been to physical therapy with her last visit just 2 weeks ago however she states that this has aggravated her pain symptoms and made it worse. Patient states this does affect her ability to perform activities of daily living such as light cooking and cleaning. Patient states that she is not even able to go and visit her grandchild due to her pain symptoms. Patient states she has been prescribed muscle relaxers in the past including Flexeril however she did not notice any additional change in her symptoms. Patient has currently been prescribed Largo 5 mg from her primary care doctor's office. Patient denies any side effects from this medication. She states this medication does seem to take the edge off. Her Cosme is [id number]. It has been reviewed and appropriate. CC: Ene Skinner APRN [facility] Disclaimer: The information contained in this section may have been updated after the patient was seen, as this information can be updated by other users. Medical History (Updated 08/18/22 @ 15:12 by Ene Skinner APRN) Bipolar II disorder GERD (gastroesophageal reflux disease) Major depressive disorder Panic disorder Surgical History (Updated 08/18/22 @ 14:27 by Melody De La Rosa RN) H/O: hysterectomy Previous section Social History (Updated 08/18/22 @ 14:28 by Melody De La Rosa RN) Smoking Status: Current every day smoker tobacco type: cigarettes packs per day: 1 second hand exposure: Yes alcohol intake: never substance use type: former substance user and heroin current occupational status: disabled Travel in the last 8 weeks: None household members: spouse housing: house number of children: 2 current occupational exposures/hazards: No caffeine: Yes Review of Systems Review of Systems Review of systems:: pertinent systems reviewed and negative unless documented below Review of systems (narrative): Review of Systems: General: No recent weight changes, no fever, no sleep disturbances Respiratory: No cough, no shortness of air, no recurring pulmonary infections Cardiovascular/peripheral vascular: No chest pain, no palpitations, no edema, no shortness of breath Gastrointestinal: No new onset incontinence, normal bowel movements reported Genitourinary: No new onset incontinence Musculoskeletal: Low back pain, right leg pain Psychiatric: [Normal mood/affect] Neurological: [Denies weakness in extremities], [denies balance issues] Meds Home Medications and Allergies Home Medications Medication Instructions Recorded Confirmed Type clonazepam 0.5 mg tablet (Klonopin) 0.5 mg PO BID VT
== END ==
PROVIDERS: PCP Emergency Medicine; Visit Provider Nurse Practitioner Family
DX: M54.50 Low back pain, unspecified (principal); M25.551 Pain in right hip; M79.604 Pain in right leg
CPT/HCPCS: 99202; G0463

== ENCOUNTER 2022-08-26 07:58 | Day surgery (SDC) | payer MEDICARE, MEDICAID, SELFPAY ==
[2022-08-26 08:21] VITALS: BP 137/75; PULSE 88; RESP 18; TEMP 36.7; O2SAT 100; BMI 23.7
[2022-08-26 08:42] VITALS: BP 118/64; PULSE 90; RESP 18; O2SAT 97
[2022-08-26 08:43] VITALS: BP 118/64; PULSE 90; RESP 18; O2SAT 97
[2022-08-26 08:50] VITALS: BP 105/74; PULSE 73; RESP 18; O2SAT 99
--- NOTE | 2022-08-26 09:13 | EXP.PAIN.PRO ---
Procedure Date: 08/26/22 Time: 08:15 Anesthesiologist:: Nicola Addison CRNA Complications:: None Pre-procedure Diagnosis:: Right sacroiliitis Post-procedure Diagnosis:: Same. Indications for Procedure:: Very pleasant 37-year-old female comes our clinic today for right sacroiliac joint injection. Patient extreme point tenderness over the right SI joint. She rates her pain 8/10. Procedure Details:: Procedure: Right sacroliliac joint injection under fluoroscopy Informed consent was obtained and the risk and benefits of the procedure were explained to the patient.~ The patient was taken to the procedure room and noninvasive monitors were placed including noninvasive blood pressure cuff and pulse oximeter.~ The patient was placed prone on the procedure table.~ The~ right hip was cleansed using Betadine as a cleansing solution.~ C-arm fluorosocpy was used to view the right SI joint.~ The skin and subcutaneous tissues were anesthetized using Lidocaine 1.5% and a 25-gauge needle.~ After this, a 22-gauge spinal needle was inserted under fluoroscopic guidance into the inferior aspect of the right SI joint.~ Omnipaque dye was injected and a good spread was seen throughout the joint.~ After this, approximately 5 mL of bupivacaine 0.25% and Depo-Medrol 40 mg was incrementally injected into the sacroiliac joint.~ The patient tolerated the procedure well with no complications.~ The patient was observed in the Pain Clinic, then discharged home neurologically intact.~ Plan and Disposition:: Patient was discharged out incident.
== END 2022-08-26 08:50 | disposition home or self-care (01) ==
LOC: SC.PAINP 08-28 10:49
PROVIDERS: PCP Emergency Medicine; Visit Provider Nurse Anesthetist, Certified Registered
DX: M46.1 Sacroiliitis, not elsewhere classified (principal)
CPT/HCPCS: 27096; G0260; J1040

== ENCOUNTER 2022-09-09 15:38 | Emergency (ER) | payer MEDICARE, MEDICAID, SELFPAY ==
[2022-09-09] VITALS (8 sets, daily range): BP systolic 105–140; BP diastolic 69–85; PULSE 74–83; RESP 16–18; TEMP 36.4–36.6; O2SAT 95–98; BMI 21.9
--- NOTE | 2022-09-09 15:38 | ECG_ITS ---
APPROVED REPORT Exam: Resting ECG HR:78 bpm ECG Measurements Heart Rate 78 AXES LA 142 P 8 QRSd 96 QRS 74 QT 361 T 56 QTc 394 Conclusion SINUS RHYTHM POSSIBLE RIGHT VENTRICULAR CONDUCTION DELAY [RSR (QR) IN V1/V2] BORDERLINE ECG UNCONFIRMED REPORT Electronically signed by : Kun Tobin MD 09/11/2022 08:14:10
--- NOTE | 2022-09-09 15:48 | XR_ITS ---
FINAL REPORT CLINICAL HISTORY: chest pain FINDINGS: PORTABLE CHEST The heart is normal in size. The mediastinum is unremarkable. The lungs are clear. There is no pneumothorax. IMPRESSION: No acute process. Reviewed, Interpreted and Dictated by Ayla Mcdowell MD Transcribed by Maura Iyer Authenticated and [facility]
[2022-09-09 16:07] LABS: Blood Urea Nitrogen 12 mg/dl (7-17); Carbon Dioxide 28 mmol/L (22.0-30.0); Chloride 102 mmol/L (98-107); Creatinine Clearance Estimated 97 mL/min (50-200); Estimated Glomerular Filt Rate 81 ml/min (>60); GFR (African American) 98 ML/MIN (>60); Glucose 89 mg/dl (74-100); Sodium 138 mmol/L (136-145)
[2022-09-09 16:11] LABS: Basophils # 0.1 K/mm3 (0-0.2); Basophils % 0.9 % (0.1-2.0); Eosinophils # 0.2 K/mm3 (0.0-0.4); Eosinophils % 2.7 % (0.1-12.0); Hematocrit 44.6 % (37.0-47.0); Hemoglobin 14.5 g/dL (12.2-16.2); Lymphocytes # 2.4 K/mm3 (0.7-4.5); Lymphocytes % 27.1 % (10-50); Mean Corpuscular HGB Conc 32.5 g/dL (31.8-35.4); Mean Corpuscular Hemoglobin 29.6 pg (27.0-31.2); Mean Corpuscular Volume 91.2 fl (81-99); Mean Platelet Volume 7.3 fl (7.4-10.4); Monocytes # 0.6 K/mm3 (0.1-1.0); Monocytes % 6.7 % (1.7-9.3); Neutrophils # 5.6 K/mm3 (1.8-7.8); Neutrophils % 62.6 % (37.0-80.0); Platelet Count 487 K/mm3 (142-424); Red Blood Count 4.89 M/mm3 (4.20-5.40); Red Cell Distribution Width 12.9 % (11.5-17.5); White Blood Count 8.9 K/mm3 (4.8-10.8)
[2022-09-09 16:23] LABS: Troponin I < 0.01 ng/ml (0.00-0.034)
[2022-09-09 18:01] LABS: Microscopic, Urine URINE MICROSCOPIC (MICROSCOPIC)
[2022-09-09 18:20] LABS: Appearance,Urine CLEAR (Clear); Bilirubin,Urine Negative (Negative); Blood, Urine Negative (Negative); Color,Urine YELLOW (Yellow); Glucose,Urine (UA) Negative (Negative); Ketones,Urine Negative (Negative); Leukocyte Esterase,Urine Negative (Negative); Nitrate,Urine Negative (Negative); Protein,Urine Negative (Negative); Specific Gravity, Urine <= 1.005 (1.005-1.030); Urobilinogen,Urine 0.2 EU/dl (0.2)
--- NOTE | 2022-09-09 18:48 | PC.NURSE ---
notified ER MD pt requesting pain medication, ER MD reports he will see pt and assess pt at that time, no new orders pt at this time
[2022-09-09 18:54] LABS: Bacteria,Urine Trace /lpf
--- NOTE | 2022-09-09 18:59 | HMH.EDGENADL ---
Discharge Plan Disposition Patient Disposition: Home, Self-Care Condition: Good Prescriptions Prescriptions: No Action clonazepam [Klonopin] 0.5 mg tablet 0.5 mg PO BID PRN (Reason: panic attack(s)) Qty: 20 0RF hydrocodone-acetaminophen 5-325 mg tablet 1 tab PO Q6H PRN (Reason: pain) Qty: 14 0RF lamotrigine 200 mg tablet See Rx Instructions .ROUTE .COMPLEX Rx Instructions: TAKE ONE TABLET BY MOUTH TWICE DAILY FOR SEIZURES oxcarbazepine 300 mg tablet See Rx Instructions .ROUTE .COMPLEX Rx Instructions: TAKE ONE TABLET BY MOUTH TWICE DAILY FOR seizures omeprazole 20 mg capsule,delayed release(DR/EC) 20 mg PO DAILY naproxen 500 mg tablet 500 mg PO BID mirtazapine 7.5 mg tablet 7.5 mg PO HS Vraylar 1.5 mg capsule 1.5 mg PO DAILY Referrals Follow up/Referrals: Provider,Referral, MD [Primary Care Provider] - See instructions Activity Restrictions/Add. Instructions Additional Instructions/Restrictions: Naproxen for pain. Additional instructions for CHEST PAIN: See your physician as soon as possible for further evaluation. Return immediately if worsening chest pain, vomiting, shortness of breath, fever, coughing of blood. Clinical Impressions Clinical Impression: Chest pain Instructions Patient Instructions: DI for Atypical Chest Pain Discharge ED Provider: Wilman Andres Adult HPI General Chief complaint: Chest Pain Stated complaint: chest pain Time Seen by Provider: 09/09/22 18:59 Mode of Arrival: Ambulatory Source of Information: Patient Limitations: No Limitations Description of Symptoms (Recalled from ER Triage Doc. by RN): pt reports pain under L breast that began yesterday. Pt reports today pain began radiating to her back. pt reports has been SOA today and felt lightheaded. Pt reports she took 324 mg of Aspirin this morning. History of Present Illness HPI narrative: Patient complains of chest pain that began yesterday. It is under her left breast and goes to her back. It increases with breathing and she feels short of breath today. She says also that her feet feel tingly since yesterday. No recent cough or fever. No hemoptysis. No leg pain or swelling. No prior history of cardiac disease. No prior cardiac evaluation such as stress test or heart cath, however has been to the emergency department several times for chest pain in the past. She is a former smoker. Denies any recent drug use, states her last drug use was 2 years ago. Family history of an arrhythmia in her 20-year-old daughter. Grandparents had strokes and heart attacks. She does not have diabetes, hypertension, or hyperlipidemia. No history of thromboembolic disease. She has had a hysterectomy. She is not on estrogen replacement therapy. No recent travel, hospitalizations, or surgeries. Related Data Home Medications Medication Instructions Recorded Confirmed cariprazine 1.5 mg capsule 1.5 mg PO DAILY BIPOLAR DISORDER 08/18/22 08/26/22 (Vraylar) lamotrigine 200 mg tablet See Rx Instructions .Route 08/18/22 08/26/22 .COMPLEX SEIZURES mirtazapine 7.5 mg tablet 7.5 mg PO HS MOOD 08/18/22 08/26/22 naproxen 500 mg tablet 500 mg PO BID GERD 08/18/22 08/26/22 omeprazole 20 mg capsule,delayed 20 mg PO DAILY GERD 08/18/22 08/26/22 release oxcarbazepine 300 mg tablet See Rx Instructions .Route 08/18/22 08/26/22 .COMPLEX SEIZURES Previous Rx's Medication Instructions Recorded clonazepam 0.5 mg tablet (Klonopin) 0.5 mg PO BID PRN panic attack(s) 07/09/22 #20 tabs hydrocodone 5 mg-acetaminophen 325 1 tab PO Q6H PRN pain #14 tabs 08/28/22 mg tablet Allergies Allergy/AdvReac Type Severity Reaction Status Date / Time venom-honey bee Allergy Unknown Verified 08/26/22 08:22 [BEE VENOM (HONEY BEE)] [facility] Disclaimer: The information contained in this section may have been updated after the patient was seen, as this inform
[2022-09-09 19:08] LABS: Troponin I < 0.01 ng/ml (0.00-0.034)
[2022-09-09 19:28] LABS: D-Dimer 0.51 ug/mL (0.0-0.5)
--- NOTE | 2022-09-09 20:09 | PC.NURSE ---
shift change report given to chaddrn
== END 2022-09-09 20:01 | disposition home or self-care (01) ==
PROVIDERS: Emergency Provider Emergency Medicine
DX: R07.89 Other chest pain (principal); N64.4 Mastodynia; R42 Dizziness and giddiness; R06.02 Shortness of breath; F31.81 Bipolar II disorder; K21.9 Gastro-esophageal reflux disease without esophagitis; F41.0 Panic disorder [episodic paroxysmal anxiety]; Z90.710 Acquired absence of both cervix and uterus
CPT/HCPCS: 36415; 71045; 80048; 81001; 84484; 85025; 85378; 93005; 96374; 99285

== ENCOUNTER → 2022-09-15 08:52 | Outpatient (POV) | payer MEDICARE, MEDICAID, SELFPAY ==
--- NOTE | 2022-09-15 08:57 | EXP.PAIN.SOA ---
[facility] Pain Management SOAP Note Subjective:: Patient is a pleasant 37-year-old female who presents today for follow-up of right SI on 08/26/2022. We are currently treating the patient for low back pain with lumbar radiculopathy symptoms, right hip pain, right-sided sacroiliitis. Today she states she is unsure exactly how well this injection worked because fairly shortly after this shot she came down with a sinus/respiratory infection. Patient states she finally got over this infection and then around September 08 she began experiencing chest pain. Patient states she was just doing laundry when she started to experience the chest pain and did go to the ER for evaluation. Patient states her family does have a cardiac history as well as her daughter. Patient states that her platelets and D-dimer were elevated. Patient was recommended by the ER to follow-up with her primary care doctor as soon as possible. Patient states she is scheduled to see her primary care doctor on Thursday. Patient states she still is experiencing shortness of breath with minimal exertion such as doing the dishes. Patient does use [id number] Tylenol as needed to help with her pain symptoms. She is also prescribed Weatherby from her primary care doctor. Patient denies any side effects from this medication. Patient is prescribed compounding cream that she states has improved her pain symptoms in her back. Her Cosme is [id number]. It is been reviewed and appropriate. Review of Systems: General: No recent weight changes, no fever, no sleep disturbances Respiratory: No cough, no shortness of air, no recurring pulmonary infections Cardiovascular/peripheral vascular: No chest pain, no palpitations, no edema, no shortness of breath Gastrointestinal: No new onset incontinence, normal bowel movements reported Genitourinary: No new onset incontinence Musculoskeletal: Low back pain left side Psychiatric: [Normal mood/affect] Neurological: [Denies weakness in extremities], [denies balance issues] Objective:: Physical Exam: General: Alert and oriented x3, no acute distress, pleasant and cooperative Lungs: Respirations even and unlabored, symmetrical chest expansion Eyes: PERRL Musculoskeletal: Flexion and extension of lumbar [spine] somewhat guarded secondary to pain, [antalgic gait noted] Neurological: Speech clear, no gross sensory deficit Assessment:: Low back pain with lumbar radiculopathy symptoms, sacroiliitis, right hip pain Plan:: Patient continues to experience significant pain in her low back now more prominent along her left side. At this time with the patient having an elevated D-dimer I have recommended that we hold off on doing anything any injections. Patient will return to clinic in 1 month for reevaluation of symptoms and follow-up. I have counseled the patient that if she is cleared by her primary care at her next follow-up date and would like to come back sooner for possible injective therapy she can contact our office. Patient has been instructed to contact the clinic with any concerns before the next appointment. Dr. Thakkar has reviewed this note and agrees with this plan of care. This note was dictated using voice recognition software and make contain errors or omissions. [facility] Disclaimer: The information contained in this section may have been updated after the patient was seen, as this information can be updated by other users. Medical History (Updated 09/09/22 @ 20:14 by Wilman Andres MD) Bipolar II disorder GERD (gastroesophageal reflux disease) Major depressive disorder Panic disorder Surgical History H/O: hysterectomy Previous section Family History (Updated 08/26/22 @ 08:21 by Aminta Flor RN) Other No significant family history Social History Smoking Status: Never smoker second hand exposure: Yes a
[2022-09-15 09:18] VITALS: BP 122/92; PULSE 89; RESP 18; O2SAT 96; BMI 23.1
== END ==
PROVIDERS: Visit Provider Nurse Practitioner Family
DX: M54.16 Radiculopathy, lumbar region (principal); M46.1 Sacroiliitis, not elsewhere classified; M25.551 Pain in right hip
CPT/HCPCS: 99212; G0463

== ENCOUNTER → 2022-09-29 16:57 | Outpatient (CLI) | payer MEDICARE, MEDICAID, SELFPAY ==
[2022-09-29 19:37] LABS: Alanine Aminotransferase 21 U/L (12-78); Albumin Level 5.1 g/dl (3.5-5.0); Alkaline Phosphatase 70 U/L (38-126); Anion Gap 12.3 mEq/L (5-15); Aspartate Amino Transferase 23 U/L (14-36); Bilirubin,Direct 0.2 mg/dl (0.0-0.4); Bilirubin,Total 0.2 mg/dl (0.2-1.3); Blood Urea Nitrogen 14 mg/dl (7-17); Calcium 9.6 mg/dl (8.4-10.2); Carbon Dioxide 28 mmol/L (22.0-30.0); Chloride 103 mmol/L (98-107); Chol/HDL Ratio 2.7 (1-3.5); Cholesterol 175 mg/dl (140-200); Estimated Glomerular Filt Rate 81 ml/min (>60); GFR (African American) 98 ML/MIN (>60); Glucose 79 mg/dl (74-100); HDL Cholesterol 64 mg/dl (40-60); Potassium 4.3 mmoL/L (3.5-5.1); Sodium 139 mmol/L (136-145); Triglycerides 144 mg/dl (30-150); VLDL Cholesterol 29 mg/dL (0-40)
[2022-09-29 19:48] LABS: Direct LDL Cholesterol 80.61 mg/dL (100-129)
[2022-09-29 19:53] LABS: Free T4 (Free Thyroxine) 0.86 ng/dl (0.78-2.19)
[2022-09-29 20:08] LABS: Thyroid Stimulating Hormone 0.87 uIU/mL (0.465-4.68)
[2022-09-29 20:20] LABS: Basophils # 0.1 K/mm3 (0-0.2); Basophils % 0.9 % (0.1-2.0); Eosinophils # 0.2 K/mm3 (0.0-0.4); Eosinophils % 2.2 % (0.1-12.0); Hematocrit 47.6 % (37.0-47.0); Lymphocytes # 2.4 K/mm3 (0.7-4.5); Lymphocytes % 27.9 % (10-50); Mean Corpuscular HGB Conc 31.5 g/dL (31.8-35.4); Mean Corpuscular Hemoglobin 29.5 pg (27.0-31.2); Mean Corpuscular Volume 93.8 fl (81-99); Mean Platelet Volume 7.9 fl (7.4-10.4); Monocytes # 0.6 K/mm3 (0.1-1.0); Neutrophils # 5.4 K/mm3 (1.8-7.8); Platelet Count 533 K/mm3 (142-424); Red Blood Count 5.07 M/mm3 (4.20-5.40); Red Cell Distribution Width 13.3 % (11.5-17.5); White Blood Count 8.7 K/mm3 (4.8-10.8)
== END ==
PROVIDERS: PCP Emergency Medicine; Visit Provider Physician Assistant
DX: B18.2 Chronic viral hepatitis C (principal); F17.200 Nicotine dependence, unspecified, uncomplicated; F32.9 Major depressive disorder, single episode, unspecified; F41.9 Anxiety disorder, unspecified; R06.02 Shortness of breath; R07.9 Chest pain, unspecified; E11.9 Type 2 diabetes mellitus without complications; R06.00 Dyspnea, unspecified; I63.9 Cerebral infarction, unspecified; I11.9 Hypertensive heart disease without heart failure
CPT/HCPCS: 36415; 80048; 80061; 80076; 84439; 84443; 85025

== ENCOUNTER → 2022-10-01 09:16 | Outpatient (CLI) | payer MEDICARE, MEDICAID, SELFPAY ==
--- NOTE | 2022-10-01 11:57 | NM_ITS ---
APPROVED REPORT Exam: Nuclear Stress Test Indication: C.P., SOB Patient Location: Outpatient Stress Tech: Tatyana Mitchell [place] Tech:RADHA Comer RT (R)(N)(M) Ht: 5 ft 6 in Wt: 144 lbs Bra Size: A HR: 80 bpm BP: 127/82 mmHg BSA: 1.74 m2 TID: 1.01 BMI: 23.2 History: C.P., ALICIA Procedure: Patient received 0.4 mg of intravenous Lexiscan, resting heart rate 80 bpm, resting blood pressure 127/82 mmHg, with Lexiscan maximum heart rate achieved was 109 bpm which is Less than 85 % of the maximum predicted heart rate and blood pressure was 12/87 mmHg. With Lexiscan, patient denied any complaint of chest pain. Electrocardiogram Resting electrocardiogram shows sinus rhythm with Lexiscan there is less than 1.[address] segment depression noted from the baseline EKG. The EKG portion of the Lexiscan is nondiagnostic. Cardiac Stress and Resting SPECT Images: Cardiac Stress and Resting SPECT images were obtained using technetium 99m Myoview 31.6 mCi stress and 10.58 mCi at rest. Gated SPECT analysis of segmental wall motion and calculation of the ejection fraction also done. Prone images were also obtained. Cardiac stress cholecystectomy show uniform myocardial activity without segmental perfusion abnormality, computer derived ejection fraction 57% with no regional wall motion abnormality, right ventricle is normal size and contractility. Conclusion: 1. The EKG portion of the Lexiscan is nondiagnostic. 2. No scintigraphic evidence of reversible ischemia seen, computer derived ejection fraction is 57% with no regional wall motion abnormality, right ventricle is normal size and contractility. 3. Normal Lexiscan Myoview study. Electronically signed by : Alejandro Pierson MD 10/02/2022 06:51:01
--- NOTE | 2022-10-01 13:26 | CA_ITS ---
APPROVED REPORT EXAM: Comprehensive 2D, Doppler, and color-flow Echocardiogram Scraper Hand: Martha Car CRT Ht: 5 ft 6 in Wt: 144lbs BSA: 1.74 BP: 127/81 mmHg Indications: Chest Pain, Shortness of Breath 2D Dimensions LVOT 1.90 cm (M/F) 1.5-2.5 LA Volume 14.80 mL LA Volume Index 8.30 mL/m2 (M/F) 16-34 M-Mode Dimensions RVDd 1.94 cm (0.9-2.6) LA Diam 2.07 cm (1.9-4.0) LVDd 4.57 cm (3.5-5.7) Ao Diam 3.26 cm (2.0-3.7) LVDs 2.60 cm (3.5-5.7) IVSd 0.72 cm (0.6-1.1) PWd 0.78 cm (0.6-1.1) EF (Teich) 74.30% FS 43.10% EDV (Teich) 95.90 mL TAPSE 2.62 (<1.7) ESV (Teich) 24.60 mL LV Diastology E Decel Time 247.00 (160-240 msec) E/A Ratio 1.23 MED E' 8.30 (< 7 cm/sec) MED A' 8.60 cm/s E'/MED E' Ratio 10.19 (>14) LAT E' 14.20 (<10 cm/sec) LAT A' 7.00 cm/s E/LAT E' Ratio 5.96 (>14) Aortic Valve AO Peak GR. 6.20 mmHg Mitral Valve MV A Velocity 69.00 (40-130 cm/s) E/A Ratio 1.23 MV Decel. Time 247.00 (160-240 ms) Tricuspid Valve TR P. Velocity 210.00 cm/s Left Ventricle Left atrium is normal size left ventricle is normal size there is no concentric left ventricular hypertrophy, estimated ejection fraction 55% with no regional wall motion abnormality, diastolic parameters are within normal range. Right Ventricle Right atrium and right ventricle are normal size and contractility. Aortic Valve Aortic valve is grossly normal there is no aortic stenosis or aortic insufficiency. Mitral Valve Mitral valve is grossly normal, there is no mitral stenosis or mitral regurgitation. Tricuspid Valve Tricuspid grossly normal, there is no significant tricuspid regurgitation. Pulmonic Valve Pulmonic valve is poorly visualized. Great Vessels Aortic root is normal size. Inferior vena cava is normal 7 normal inspiratory collapse. Pericardium No significant pericardial effusion. Conclusion 1. Normal left ventricular size present left ventricular systolic function, estimated ejection fraction 55% with no regional wall motion abnormality, diastolic parameters are within normal range. 2. No significant pericardial effusion noted. 3. Inferior vena cava is normal size with normal inspiratory collapse. Electronically signed by : Alejandro Pierson MD 10/02/2022 05:49:07
--- NOTE | 2022-10-01 14:29 | CA_ITS ---
APPROVED REPORT Exam: Pharmacologic Technologist: Tatyana Mitchell Ht: 5 ft 6 in Wt: 144 lbs BSA: 1.74 m2 HR: 74 bpm BP: 127/82 mmHg Indications: CP Medical History Medications: Naproxen,,,,, LaMotrigine,,,,, Cariprazine,,,,, Hydrocodone Acetaminophen,,,,, Clonzaepam,,,,, Oxacarbazepine,,,,, Stress Test Details Test: LEXISCAN HR Resting HR: 80 bpm Max Heart Rate (APMHR): 183.892389 bpm Max HR Achieved: 112 bpm Target HR (85% APMHR): 155.260424 bpm % of APMHR: 61.20 Recovery HR: 78 bpm BP Resting BP: 127.0/82.0 mmHg Max BP: 127.0/82.0 mmHg Recovery BP: 118.0/75.0 mmHg ECG Resting ECG: Normal sinus rhythm, non-diagnostic q waves inferiorly and laterally. Clinical Exercise duration: 04:00 min Highest Stage Achieved: Exercise capacity: 1.0 METs Stress ECG Conclusion Symptoms: Mild stomach discomfort. No change in pre-test chest pain with Lexiscan. Arrhythmias/Ectopy: None ST-T Changes: No significant changes. Conclusion: Unremarkable Lexiscan stress. Myoview images reported separately. Test Summary REST . . . . . . . Resting REST 04:00 . . 80 . 127/ 82 . . Stage 1 . . . . . . . Myoview Injected Stage 1 01:00 . . 109 . . . . Stage 2 . . . . . . . chest tightness Stage 2 01:00 . . 85 . 123/ 87 . . Stage 3 01:00 . . 86 . 118/ 80 . . Stage 4 01:00 . . 83 . 120/ 81 . Stop exercise at 04:00 RECOVERY 01:00 . . 87 . . . . RECOVERY 02:00 . . 82 . 125/ 82 . . RECOVERY 03:00 . . 79 . 118/ 75 . . RECOVERY 03:19 . . 81 . 118/ 75 . . Electronically signed by : Alejandro Pierson MD 10/02/2022 06:36:41
== END ==
PROVIDERS: PCP Nurse Practitioner Family; Visit Provider Physician Assistant
DX: B18.2 Chronic viral hepatitis C (principal); F17.200 Nicotine dependence, unspecified, uncomplicated; F32.9 Major depressive disorder, single episode, unspecified; F41.9 Anxiety disorder, unspecified; R06.02 Shortness of breath; R07.9 Chest pain, unspecified
CPT/HCPCS: 78452; 93017; 93306; A9502; J2785

== ENCOUNTER 2022-10-07 11:37 | Emergency (ER) | payer MEDICARE, MEDICAID, SELFPAY ==
[2022-10-07 12:00] VITALS: BP 131/77; PULSE 88; RESP 20; TEMP 36.9; O2SAT 98; BMI 23.3
--- NOTE | 2022-10-07 12:13 | EXP.UTC ---
Discharge Plan Disposition Patient Disposition: Home, Self-Care Condition: Good Prescriptions Prescriptions: New azithromycin [Zithromax Z-Gomez] 250 mg tablet See Rx Instructions .ROUTE .COMPLEX 5 Days Qty: 6 0RF Rx Instructions: For 250 mg dose pack: take 500 mg today (day 1), then 250 mg for 4 days (days 2-5) prednisone [prednisone] 20 mg tablet 20 mg PO BID 5 Days Qty: 10 0RF guaifenesin [Mucinex] 600 mg tablet extended release 12hr 600 mg PO BID PRN (Reason: cough) Qty: 20 0RF No Action clonazepam [Klonopin] 0.5 mg tablet 0.5 mg PO BID PRN (Reason: panic attack(s)) Qty: 20 0RF Vraylar 1.5 mg capsule 1.5 mg PO DAILY Qty: 90 1RF hydrocodone-acetaminophen 5-325 mg tablet 1 tab PO Q6H PRN (Reason: pain) Qty: 14 0RF oxcarbazepine 300 mg tablet See Rx Instructions .ROUTE .COMPLEX Qty: 180 0RF Rx Instructions: TAKE ONE TABLET BY MOUTH TWICE DAILY FOR seizures lamotrigine 200 mg tablet See Rx Instructions .ROUTE .COMPLEX Rx Instructions: TAKE ONE TABLET BY MOUTH TWICE DAILY FOR SEIZURES naproxen 500 mg tablet 500 mg PO BID Referrals Follow up/Referrals: Ed Morrissey MD [Primary Care Provider] - See instructions Activity Restrictions/Add. Instructions Additional Instructions/Restrictions: *Monitor Temp, Over the counter Motrin or Tylenol as directed/as needed Tylenol every 4 hours and Motrin every 6 hours (as long as your family doctor has told you that you can take it) for fever or pain. and straight to ER if unable to lower temp less than 101.0 after medication given *Warm salt water gargles may help to soothe the throat *Throat Lozenges? *Warm fluids like tea with honey may help to soothe the throat? *Sleep elevated *Humidifier/Vaporizer Follow up IMMEDIATELY for new or worsening symptoms or no Noticeable improvement over the next 48-72 hours. 911 for difficulty breathing or swallowing You were tested for today for COVID19 your test result should be back in the next 24-48 hours, you may check your results on the [facility] My Health Portal Clinical Impressions Clinical Impression: Sinusitis Stand Alone Forms Stand Alone Forms: Work/School Release Instructions Patient Instructions: DI for Sinusitis, Sinusitis Discharge ED Provider: Kari Simeon [facility] [place] HPI General Stated complaint: Fever cough chest congestion covid exposure Mode of Arrival: Ambulatory Source of Information: Patient Limitations: No Limitations Time Seen by Provider: 10/07/22 12:14 Description of Symptoms (Recalled from Triage Doc. by RN): PATIENT C/O CONGESTION, COUGH, AND FEVER X 2 DAYS. REPORTS POSSIBLE EXPOSURE TO COVID HEENT Symptoms (Recalled from RN notes): Yes Resp Symptoms (Recalled from RN notes): Yes Skin Symptoms (Recalled from RN notes): No MS Symptoms (Recalled from RN notes): No Functional Status (Recalled from RN notes): WNL History of Present Illness Provider Complaint: Patient states that she has been having fever, chills and bodyaches along with headache and sinus congestion and pressure that has got worse over the last couple of days States that today she was feeling worse then found out a family member that she was around last week thinks they may have COVID so she wanted to get tested for that too Related Data Home Medications Medication Instructions Recorded Confirmed lamotrigine 200 mg tablet See Rx Instructions .Route 08/18/22 10/01/22 .COMPLEX SEIZURES naproxen 500 mg tablet 500 mg PO BID GERD 08/18/22 10/01/22 Previous Rx's Medication Instructions Recorded clonazepam 0.5 mg tablet (Klonopin) 0.5 mg PO BID PRN panic attack(s) 07/09/22 #20 tabs hydrocodone 5 mg-acetaminophen 325 1 tab PO Q6H PRN pain #14 tabs 08/28/22 mg tablet cariprazine 1.5 mg capsule 1.5 mg PO DAILY BIPOLAR DISORDER 09/17/22 (Vraylar) #90 caps oxcarbazepine 300 mg tablet See Rx Instructions .Route 09/22/22 .COMPLEX SEIZURES #18
[2022-10-07 12:25] VITALS: BP 131/77; PULSE 88; RESP 20; TEMP 36.9; O2SAT 98
== END 2022-10-07 12:28 | disposition home or self-care (01) ==
PROVIDERS: Emergency Provider Nurse Practitioner; PCP Emergency Medicine
DX: J32.9 Chronic sinusitis, unspecified (principal)
CPT/HCPCS: 99212; 99213; G0463

== ENCOUNTER 2022-10-13 09:31 | Emergency (ER) | payer MEDICARE, MEDICAID, SELFPAY ==
[2022-10-13 10:30] VITALS: BP 115/68; PULSE 79; RESP 20; TEMP 37; O2SAT 98; BMI 24.4
--- NOTE | 2022-10-13 10:31 | EXP.UTC ---
Discharge Plan Disposition Patient Disposition: Home, Self-Care Condition: Good Prescriptions Prescriptions: New cyclobenzaprine 10 mg Tablet 10 mg PO BID PRN (Reason: Muscle Spasm) Qty: 20 0RF methylprednisolone 4 mg Tablets,Dose Pack 4 mg PO DIRECTED Qty: 21 0RF No Action Vraylar 1.5 mg capsule 1.5 mg PO DAILY Qty: 90 1RF lamotrigine 200 mg tablet See Rx Instructions .ROUTE .COMPLEX Qty: 180 0RF Rx Instructions: TAKE ONE TABLET BY MOUTH TWICE DAILY FOR SEIZURES clonazepam [Klonopin] 0.5 mg tablet 0.5 mg PO BID PRN (Reason: panic attack(s)) Qty: 60 0RF oxcarbazepine 300 mg tablet See Rx Instructions .ROUTE .COMPLEX Qty: 180 0RF Rx Instructions: TAKE ONE TABLET BY MOUTH TWICE DAILY FOR seizures mirtazapine 7.5 mg tablet 7.5 mg PO DAILY Label Comments: TAKE ONE TABLET BY MOUTH EVERY DAY AT BEDTIME Referrals Follow up/Referrals: Ed Morrissey MD [Primary Care Provider] - See instructions Activity Restrictions/Add. Instructions Additional Instructions/Restrictions: Go home and rest. It would be best if you rested tomorrow too. No heavy lifting. No twisting. Take the oral medications as directed. The muscle relaxer (cyclobenzaprine--Flexeril) will make you drowsy, so don't drive or operate heavy machinery after taking it. Don't start the oral steroids (medrol dose pack) until tomorrow, since you had the shots in here today. Follow up with your regular doctor. GO TO THE ER FOR ANY WORSENING SYMPTOMS OR CONCERN, ESPECIALLY BOWEL OR BLADDER ISSUES, SADDLE AREA NUMBNESS, FEVER, ETC Clinical Impressions Clinical Impression: Low back pain Instructions Patient Instructions: DI for Low Back Pain Discharge ED Provider: Faizan George [facility] General Stated complaint: Back pain, no accident Time Seen by Provider: 10/13/22 10:31 History of Present Illness Provider Complaint: She states that for the past 3 days she has had low back pain. The pain seems to radiate down her right leg. She denies any urinary symptoms, but wants to have her urine checked just to make sure its not urinary. She has a history of degenerative disk in her lower back. Related Data Home Medications Medication Instructions Recorded Confirmed mirtazapine 7.5 mg tablet 7.5 mg PO DAILY . 10/13/22 10/13/22 Previous Rx's Medication Instructions Recorded cariprazine 1.5 mg capsule 1.5 mg PO DAILY BIPOLAR DISORDER 09/17/22 (Vraylar) #90 caps oxcarbazepine 300 mg tablet See Rx Instructions .Route 09/22/22 .COMPLEX SEIZURES #180 tabs clonazepam 0.5 mg tablet (Klonopin) 0.5 mg PO BID PRN panic attack(s) 10/13/22 #60 tabs cyclobenzaprine 10 mg tablet 10 mg PO BID PRN Muscle Spasm #20 10/13/22 tabs lamotrigine 200 mg tablet See Rx Instructions .Route 10/13/22 .COMPLEX SEIZURES #180 tabs methylprednisolone 4 mg tablets in 4 mg PO DIRECTED #21 tabs 10/13/22 a dose pack Allergies Allergy/AdvReac Type Severity Reaction Status Date / Time venom-honey bee Allergy Unknown Verified 10/13/22 13:04 [BEE VENOM (HONEY BEE)] [facility] Disclaimer: The information contained in this section may have been updated after the patient was seen, as this information can be updated by other users. Medical History Anxiety Bipolar II disorder GERD (gastroesophageal reflux disease) Hypertension Liver disease Major depressive disorder Migraine Panic disorder Seizure Thyroid disease Urinary tract infection Surgical History H/O: hysterectomy Previous section Family History Other No significant family history Social History Smoking Status: Never smoker second hand exposure: Yes alcohol intake: never substance use type: former s
[2022-10-13 10:57] LABS: Apearance,Urine Clear (Clear); Bilirubin,Urine Negative (Negative); Blood, Urine Negative (Negative); Color,Urine Yellow (Yellow); Glucose,Urine (UA) Negative (Negative); Ketones,Urine Negative (Negative); Protein,Urine Negative (Negative); UTC Leukocyte Esterase,Urine Negative (Negative); UTC Nitrate,Urine Negative (Negative); Urobilinogen,Urine 0.2 EU/dl (0.2)
[2022-10-13 11:52] VITALS: BP 122/79; PULSE 75; RESP 20; TEMP 36.9; O2SAT 98
== END 2022-10-13 11:52 | disposition home or self-care (01) ==
PROVIDERS: Emergency Provider Nurse Practitioner Family; PCP Emergency Medicine
DX: M54.50 Low back pain, unspecified (principal)
CPT/HCPCS: 81003; 87086; 96372; 99212; 99213; G0463

== ENCOUNTER → 2022-10-16 08:55 | Outpatient (POV) | payer MEDICARE, MEDICAID, SELFPAY ==
[2022-10-16 09:21] VITALS: BP 141/87; PULSE 89; RESP 19; O2SAT 98; BMI 24.5
--- NOTE | 2022-10-16 09:26 | EXP.PAIN.SOA ---
[facility] Pain Management SOAP Note Subjective:: Patient is a pleasant 37-year-old female who presents today for follow-up. We are currently treating the patient for low back pain, lumbar radiculopathy symptoms, right hip pain, right-sided sacroiliitis. Today she rates her pain a 8 out of 10. Patient denies any new trauma or injury. Patient denies any change location or type of pain she experiences. Patient does state her pain continues to be in her low back and into her legs. Patient does state that she has some tingling sensations in her bilateral feet. Patient states from our last visit she had been experiencing some chest pain and did go to a aviation safety technician where her D-dimer and platelets were elevated. Patient states she has had no other findings following this timeframe and has had significant improvement of the symptoms. Patient states she will occasionally still have a chest pain however it just comes and goes and is random. Patient is scheduled for a follow-up appointment with her aviation safety technician later today. Patient also states she has had significant improvement of the shortness of breath. Patient states this has completely resolved. Patient is prescribed compounding cream that she states does help however she states she has not been able to get her refill due to not having the extra money but that she does plan on ordering it soon. Patient is prescribed clonazepam 0.5 mg twice a day from an outside provider. Patient denies any side effects from this medication. Patient also states she is on Flexeril however she has not noticed significant improvement with this medication. She is asking if we can provide anything additional. Her Cosme is [phone]. Its been reviewed and appropriate. Review of Systems: General: No recent weight changes, no fever, no sleep disturbances Respiratory: No cough, no shortness of air, no recurring pulmonary infections Cardiovascular/peripheral vascular: No chest pain, no palpitations, no edema, no shortness of breath Gastrointestinal: No new onset incontinence, normal bowel movements reported Genitourinary: No new onset incontinence Musculoskeletal: Low back pain, leg pain, feet pain Psychiatric: [Normal mood/affect] Neurological: [Denies weakness in extremities], [denies balance issues] Objective:: Physical Exam: General: Alert and oriented x3, no acute distress, pleasant and cooperative Lungs: Respirations even and unlabored, symmetrical chest expansion Eyes: PERRL Musculoskeletal: Flexion and extension of lumbar [spine] somewhat guarded secondary to pain, [antalgic gait noted] Neurological: Speech clear, no gross sensory deficit Assessment:: Low back pain, lumbar radiculopathy symptoms, right hip pain, right sacroiliitis Plan:: Patient continues to experience significant pain in her low back with radiating symptoms into her legs. Patient did have limited range of motion of her lumbar spine during today's visit. I have counseled the patient that she may benefit from a lumbar epidural steroid injection at L3-L4. Patient's MRI did show a disc bulge at this location with narrowing. Risk and benefits were discussed with the patient. She would like to proceed forward with this plan of care. She is not on any blood thinners. I have counseled the patient to talk with cardiology later today regarding this injection and confirm there are no contraindications for this injection. I will also order the patient methocarbamol 500 mg 3 times daily and provide a 1 month supply of this medication. I have counseled the patient to stop taking her Flexeril while on this medication. We will schedule the patient for a diagnostic lumbar epidural steroid injection at L3-L4. Patient has been instructed to contact the clinic with any concerns before the next appointment. Dr. Thakkar has reviewed this note and agrees with this plan of care. This note was dictated using voice recognition software and make contain errors or omissions. [facility]
== END | disposition home or self-care (01) ==
PROVIDERS: PCP Emergency Medicine; Visit Provider Nurse Practitioner Family
DX: M54.16 Radiculopathy, lumbar region (principal); M46.1 Sacroiliitis, not elsewhere classified; M54.50 Low back pain, unspecified; M25.551 Pain in right hip
CPT/HCPCS: 99212; G0463

== ENCOUNTER → 2022-10-16 12:27 | Outpatient (CLI) | payer MEDICARE, MEDICAID, SELFPAY ==
--- NOTE | 2022-10-16 12:33 | CT_ITS ---
FINAL REPORT TECHNIQUE: Thin section axial CT images were performed from the lung apices to the upper abdomen after the administration of IV contrast. 3-D and MIP reconstructions performed. This study was performed with techniques to keep radiation doses as low as reasonably achievable (ALARA). Individualized dose reduction techniques using automated exposure control or adjustment of mA and/or kV according to the patient''s size were employed. CLINICAL HISTORY: chest pain, soa, elevated d dimer FINDINGS: There is no evidence for pulmonary embolism. The thoracic aorta is patent without evidence of dissection. There is no axillary adenopathy. There is no mediastinal or hilar adenopathy. The heart size is normal. There is no pleural or pericardial effusion. Lung window images demonstrate no suspicious pulmonary nodule or infiltrate. Limited images of the upper abdomen are unremarkable. IMPRESSION: No evidence of pulmonary embolism or aortic dissection. Reviewed, Interpreted and Dictated by Javier Cabezas MD Transcribed by Sindhu Hall Authenticated and [facility]
== END ==
PROVIDERS: PCP Emergency Medicine; Visit Provider Nurse Practitioner
DX: R06.00 Dyspnea, unspecified (principal); R07.9 Chest pain, unspecified; R79.89 Other specified abnormal findings of blood chemistry
CPT/HCPCS: 71275; 99212; G0463; Q9967

== ENCOUNTER 2022-10-21 11:17 | Day surgery (SDC) | payer MEDICARE, MEDICAID, SELFPAY ==
[2022-10-21 11:50] VITALS: BP 131/85; PULSE 101; RESP 20; TEMP 36.9; O2SAT 98; BMI 24.7
[2022-10-21 12:27] VITALS: BP 117/76; PULSE 102; RESP 18; O2SAT 98
[2022-10-21 12:28] VITALS: BP 117/76; PULSE 102; RESP 18; O2SAT 98
[2022-10-21 12:32] VITALS: BP 132/72; PULSE 108; RESP 18; O2SAT 97
--- NOTE | 2022-10-21 12:41 | EXP.PAIN.PRO ---
Procedure Date: 10/21/22 Time: 12:45 Anesthesiologist:: Nicola Addison CRNA Complications:: None Pre-procedure Diagnosis:: Degenerative disc disease lumbar spine multilevels. Lumbar radiculopathy. Post-procedure Diagnosis:: Same. Indications for Procedure:: This patient is a pleasant 37-year-old who comes our clinic today for lumbar epidural steroid injection at the L3-4 level. Patient describes low back pain as constant, dull, aching. She also complains of right hip and leg radicular symptoms at times. She rates her pain today 8/10. Procedure Details:: Procedure: Lumbar epidural steroid injection under fluoroscopy Informed consent was obtained and the risks and benefits of the procedure were explained to the patient. The patient was taken to the procedure room and noninvasive monitors placed, including noninvasive blood pressure cuff and pulse oximeter. The back was viewed using C-arm Fluoroscopy and prepped using Chloraprep as a cleansing solution and the L4-L5 interspace was palpated. Skin and subcutaneous tissues were anesthetized using lidocaine 1.5% and a 25-gauge needle. After this, an 18-gauge Touhy epidural needle was placed into the L4-L5 interspace and advanced using fluoroscopic guidance and loss of resistance to air until the epidural space was encountered. After confirmation of needle placement in the epidural space, with dye, a solution containing normal saline, 3 mL and Depo-Medrol 80 mg were incrementally injected into the lumbar epidural space. The patient tolerated the procedure well with no complications. The patient was observed in the Pain Clinic and then discharged home neurologically intact. Plan and Disposition:: Patient was discharged without incident.
== END 2022-10-21 12:32 | disposition home or self-care (01) ==
LOC: SC.PAINP 11:18
PROVIDERS: PCP Emergency Medicine; Visit Provider Nurse Anesthetist, Certified Registered
DX: M51.16 Intervertebral disc disorders with radiculopathy, lumbar region (principal)
CPT/HCPCS: 62323; J1040

== ENCOUNTER → 2022-11-11 14:23 | Outpatient (CLI) | payer MEDICARE, MEDICAID, SELFPAY ==
--- NOTE | 2022-11-11 14:25 | XR_ITS ---
FINAL REPORT TECHNIQUE: 3 views CLINICAL HISTORY: had seizure 10/31/2022 & fell, neck pain & left sided lumbar pain FINDINGS: There is no fracture present. There is no malalignment. There are mild degenerative changes with osteophytes. IMPRESSION: No acute process. Reviewed, Interpreted and Dictated by Mayank Womack III, MD Transcribed by Ihsan Fernandez Authenticated and [facility]
--- NOTE | 2022-11-11 14:25 | XR_ITS ---
FINAL REPORT CLINICAL HISTORY: had seizure 10/31/2022 & fell, neck pain & left sided lumbar pain FINDINGS: AP and lateral views were obtained. There is no acute fracture. There is no malalignment. The disc spaces are maintained. IMPRESSION: No acute process. Reviewed, Interpreted and Dictated by Mayank Womack III, MD Transcribed by Ihsan Fernandez Authenticated and [facility]
== END ==
PROVIDERS: PCP Emergency Medicine; Visit Provider Student in an Organized Health Care Education/Training Program
DX: M54.50 Low back pain, unspecified (principal); W19.XXXA Unspecified fall, initial encounter; M54.2 Cervicalgia
CPT/HCPCS: 72040; 72100

== ENCOUNTER → 2022-11-13 08:34 | Outpatient (CLI) | payer MEDICARE, MEDICAID, SELFPAY ==
--- NOTE | 2022-11-13 08:34 | US_ITS ---
FINAL REPORT TECHNIQUE: Ultrasound images of the abdomen were obtained. CLINICAL HISTORY: spleenomegaly COMPARISON: None FINDINGS: ABDOMINAL ULTRASOUND COMPLETE: The liver is normal in size and echogenicity without focal abnormality. The gallbladder is normal. The common duct is normal at 2 mm. The right kidney measures 11.6 cm in length and is normal in echogenicity without hydronephrosis. The left kidney measures 11.4 cm in length and is normal in echogenicity without hydronephrosis. The spleen is unremarkable. The pancreas is obscured by overlying bowel gas. The visualized portions of the aorta and the IVC are normal. The vena cava is unremarkable. IMPRESSION: Unremarkable abdominal ultrasound. Reviewed, Interpreted and Dictated by Mayank Womack III, MD Transcribed by Amarilys Benton Authenticated and [facility]
== END ==
PROVIDERS: PCP Emergency Medicine; Visit Provider Emergency Medicine
DX: R16.1 Splenomegaly, not elsewhere classified (principal)
CPT/HCPCS: 76700

== ENCOUNTER → 2022-12-02 10:56 | Outpatient (CLI) | payer MEDICARE, MEDICAID, SELFPAY ==
--- NOTE | 2022-12-02 10:56 | CT_ITS ---
FINAL REPORT TECHNIQUE: Thin section axial images were obtained from skull base to vertex without contrast. Coronal reconstruction images were obtained from the axial data. Exam was performed using dose reduction technique. CLINICAL HISTORY: headache after sz, fall, headaches in top of left side of head, sees floaters, dizziness COMPARISON: April 2022 FINDINGS: There is no mass effect or midline shift. There is no hydrocephalus. There is no intracranial hemorrhage. The posterior fossa is without acute abnormality. The basilar cisterns are preserved. The soft tissues are without acute abnormality. No acute osseous abnormality is identified. IMPRESSION: No acute intracranial abnormality. Reviewed, Interpreted and Dictated by Kellie Murrell MD Transcribed by Ihsan Fernandez Authenticated and [facility]
== END ==
PROVIDERS: PCP Emergency Medicine; Visit Provider Student in an Organized Health Care Education/Training Program
DX: R51.9 Headache, unspecified (principal); R56.9 Unspecified convulsions; W19.XXXA Unspecified fall, initial encounter
CPT/HCPCS: 70450

== ENCOUNTER → 2022-12-08 10:58 | Outpatient (POV) | payer MEDICARE, MEDICAID, SELFPAY ==
--- NOTE | 2022-12-08 11:06 | EXP.PAIN.SOA ---
[facility] Pain Management SOAP Note Subjective:: Patient is a pleasant 37-year-old female who presents today for follow-up of lumbar epidural steroid injection at L4-L5 on 10/21/20192029. We are currently treating the patient for low back pain, lumbar radiculopathy symptoms, right hip pain, right-sided sacroiliitis.? Today she rates her pain a 7 out of 10.? Patient states she did not notice any additional relief following this injection. She states on October 31 she was at [employer] and she fell and had a seizure. Patient denies any specific fractures that resulted from this fall. Patient did have additional imaging that showed no fractures or malalignments. Patient states she does have a seizure history with her last one approximately 3 years ago. She does state that she believes her primary care doctor is sending her to see a neurologist. She states she continues to have low back pain and describes it as a aching, throbbing sensation that is worse with increased activity. Previously the patient had had episodes of chest pain and was seen by her executive vice president business development however she states that they found no abnormal findings and no explanation of why she was experiencing chest pain. She states she has been doing better and not been having any additional symptoms related to this. Patient is prescribed compounding cream that she states does provide additional relief. Patient is also managed with gabapentin 300 mg 3 times a day, clonazepam 0.5 mg twice a day and phentermine [address] Morrissey's office.? Patient denies any side effects from these medications.? She is requesting that we take over the gabapentin prescription if possible. At her last visit we did change her Flexeril muscle relaxer to methocarbamol however she was unable to tolerate this due to GI upset. We then later tried tizanidine however this also caused an issue and discontinued this medication. Her Cosme is [id number].? Its been reviewed and appropriate. Review of Systems: General: No recent weight changes, no fever, no sleep disturbances Respiratory: No cough, no shortness of air, no recurring pulmonary infections Cardiovascular/peripheral vascular: No chest pain, no palpitations, no edema, no shortness of breath Gastrointestinal: No new onset incontinence, normal bowel movements reported Genitourinary: No new onset incontinence Musculoskeletal: Low back pain Psychiatric: [Normal mood/affect] Neurological: [Denies weakness in extremities], [denies balance issues] Objective:: Physical Exam: General: Alert and oriented x3, no acute distress, pleasant and cooperative Lungs: Respirations even and unlabored, symmetrical chest expansion Eyes: PERRL Musculoskeletal: Flexion and extension of lumbar [spine] somewhat guarded secondary to pain, [antalgic gait noted] Neurological: Speech clear, no gross sensory deficit FINAL REPORT CLINICAL HISTORY: Lower Back Pain. LEFT SIDED LOW BACK AND BUTTOX PAIN. LEFT LEG PAIN WORSE WHEN WALKING. INTERMITTENT BILATERAL FEET TINGLING. FINDINGS: Multiplanar MR imaging of the lumbar spine was performed without contrast. On the sagittal T2-weighted images, there is abnormal decreased signal throughout the lumbar discs. The vertebrae are of normal height. The vertebral alignment is normal.? ? L1-2: There is no significant canal stenosis or neural foraminal narrowing.? L2-3: There is no significant canal stenosis or neural foraminal narrowing.? L3-4:? There is a minimal annular bulge with minimal compromise of the neural foramina.? L4-5: There is no significant canal stenosis or neural foraminal narrowing.? L5-S1: There is no significant canal stenosis or neural foraminal narrowing. IMPRESSION: Minimal annular bulge at L3-4 with minimal compromise of the neural foramina. Reviewed, Interpreted and Dictated by Javier Cabezas MD Transcribed by Maura Iyer Authenticated and [facility]
[2022-12-08 11:13] VITALS: BP 113/87; PULSE 103; RESP 18; O2SAT 98; BMI 25.2
== END ==
PROVIDERS: PCP Emergency Medicine; Visit Provider Nurse Practitioner Family
DX: M51.16 Intervertebral disc disorders with radiculopathy, lumbar region (principal); M46.1 Sacroiliitis, not elsewhere classified; M25.551 Pain in right hip
CPT/HCPCS: 99212; G0463

== ENCOUNTER 2023-01-05 13:38 | Emergency (ER) | payer MEDICARE, MEDICAID, SELFPAY ==
[2023-01-05 13:38] VITALS: BP 124/93; PULSE 77; RESP 17; TEMP 36.7; O2SAT 100; BMI 23.8
[2023-01-05 14:06] LABS: Microscopic, Urine URINE MICROSCOPIC (MICROSCOPIC)
[2023-01-05 14:10] LABS: Chloride 99 mmol/L (98-107); Sodium 137 mmol/L (136-145)
[2023-01-05 14:11] LABS: Potassium 4.2 mmoL/L (3.5-5.1)
[2023-01-05 14:13] LABS: Alanine Aminotransferase 16 U/L (12-78); Amylase 87 U/L (30-110); Anion Gap 15.2 mEq/L (5-15); Aspartate Amino Transferase 18 U/L (14-36); Blood Urea Nitrogen 11 mg/dl (7-17); Carbon Dioxide 27 mmol/L (22.0-30.0); Creatinine Clearance Estimated 117 mL/min (50-200); Estimated Glomerular Filt Rate 94 ml/min (>60); GFR (African American) 114 ML/MIN (>60)
--- NOTE | 2023-01-05 14:13 | CT_ITS ---
FINAL REPORT TECHNIQUE: Postcontrast axial images through the abdomen and pelvis were performed. This study was performed with techniques to keep radiation doses as low as reasonably achievable, (ALARA). Individualized dose reduction techniques using automated exposure control or adjustment of mA and/or kV according to the patient's size were employed. CLINICAL HISTORY: rlq pain FINDINGS: Abdomen: The lung bases are clear. The liver is normal in size and attenuation. The gallbladder is present. The spleen is unremarkable. The adrenals are normal. The pancreas is unremarkable. The kidneys enhance appropriately. The aorta is normal in caliber. No free fluid or adenopathy is identified. No findings for mechanical bowel obstruction are identified. Pelvis: The appendix is normal. The uterus is not identified and may be surgically absent. The urinary bladder is unremarkable. No free fluid, free air, abscess or adenopathy is identified. IMPRESSION: Normal appendix. No acute process identified. Reviewed, Interpreted and Dictated by Javier Cabezas MD Transcribed by Ihsan Fernandez Authenticated and [facility]
[2023-01-05 14:14] LABS: Albumin Level 4.8 g/dl (3.5-5.0); Albumin/Globulin Ratio 1.7 (1.1-1.8); Alkaline Phosphatase 85 U/L (38-126); Appearance,Urine CLEAR (Clear); Bilirubin,Total 0.2 mg/dl (0.2-1.3); Bilirubin,Urine Negative (Negative); Blood, Urine Negative (Negative); Calcium 9.1 mg/dl (8.4-10.2); Color,Urine YELLOW (Yellow); Globulin 2.8 g/dL (1.3-3.2); Glucose 91 mg/dl (74-100); Glucose,Urine (UA) Negative (Negative); Ketones,Urine Negative (Negative); Leukocyte Esterase,Urine Negative (Negative); Lipase 83 U/L (23-300); Nitrate,Urine Negative (Negative); Protein,Urine Negative (Negative); Total Protein,Serum 7.6 g/dl (6.3-8.2); Urobilinogen,Urine 0.2 EU/dl (0.2)
--- NOTE | 2023-01-05 14:14 | PC.NURSE ---
Chaperoned Dr. Pacheco while he did a physical exam
--- NOTE | 2023-01-05 14:14 | HMH.EDABDPAI ---
Discharge Plan Disposition Patient Disposition: Home, Self-Care Condition: Good Prescriptions Prescriptions: New dicyclomine 20 mg tablet 20 mg PO TID PRN (Reason: cramps) Qty: 20 0RF No Action Vraylar 1.5 mg capsule 1.5 mg PO DAILY Qty: 90 1RF oxcarbazepine 300 mg tablet See Rx Instructions .ROUTE .COMPLEX Qty: 180 0RF Rx Instructions: TAKE ONE TABLET BY MOUTH TWICE DAILY FOR seizures lamotrigine 200 mg tablet See Rx Instructions .ROUTE .COMPLEX Qty: 180 0RF Rx Instructions: TAKE ONE TABLET BY MOUTH TWICE DAILY FOR SEIZURES phentermine [Adipex-P] 37.5 mg tablet 37.5 mg PO DAILY Qty: 30 0RF Rx Instructions: must administer 30 minutes before or 1-2 hours after breakfast gabapentin 300 mg capsule 300 mg PO TID Qty: 90 1RF clonazepam [Klonopin] 0.5 mg tablet 0.5 mg PO BID PRN (Reason: panic attack(s)) Qty: 60 1RF epinephrine [EpiPen 2-Gomez] 0.3 mg/0.3 mL auto-injector 0.3 mg IM Q5-15M PRN (Reason: anaphylaxis) Qty: 2 1RF Rx Instructions: do not exceed 3 doses per episode mirtazapine 7.5 mg tablet 7.5 mg PO DAILY Label Comments: TAKE ONE TABLET BY MOUTH EVERY DAY AT BEDTIME cyclobenzaprine 10 mg Tablet 10 mg PO BID PRN (Reason: Muscle Spasm) Qty: 20 0RF Referrals Follow up/Referrals: Ed Morrissey MD [Primary Care Provider] - See instructions Activity Restrictions/Add. Instructions Additional Instructions/Restrictions: Return for worsening abdominal pain, fever or other concerns. Clinical Impressions Clinical Impression: Abdominal pain, Pelvic pain in female Instructions Patient Instructions: DI for Acute Abdominal Pain Discharge ED Provider: Reid Pacheco Abdominal Pain HPI General Chief Complaint: Abdominal Pain Stated Complaint: Abd pain Time Seen by Provider: 01/05/23 14:09 Mode of Arrival: Ambulatory Source of Information: Patient Limitations: No Limitations Description of Symptoms (Recalled from ER Triage Doc. by RN): pt to ED with RLQ pain since this morning. pt denies any vomiting or diarrhea History of Present Illness HPI narrative: Patient presents complaining of abdominal pain that began earlier this morning. She states the pain was initially severe and made her double over . She states pain is worse with certain positional changes. She has had nausea but no vomiting is been no diarrhea she denies hematuria dysuria. She status post partial hysterectomy and denies abnormal vaginal discharge or bleeding. Related Data Home Medications Medication Instructions Recorded Confirmed mirtazapine 7.5 mg tablet 7.5 mg PO DAILY . 10/13/22 12/10/22 Previous Rx's Medication Instructions Recorded cariprazine 1.5 mg capsule 1.5 mg PO DAILY BIPOLAR DISORDER 09/17/22 (Vraylar) #90 caps cyclobenzaprine 10 mg tablet 10 mg PO BID PRN Muscle Spasm #20 10/13/22 tabs lamotrigine 200 mg tablet See Rx Instructions .Route 12/09/22 .COMPLEX SEIZURES #180 tabs oxcarbazepine 300 mg tablet See Rx Instructions .Route 12/09/22 .COMPLEX SEIZURES #180 tabs clonazepam 0.5 mg tablet (Klonopin) 0.5 mg PO BID PRN panic attack(s) 12/10/22 #60 tabs gabapentin 300 mg capsule 300 mg PO TID Pain #90 caps 12/10/22 phentermine 37.5 mg tablet 37.5 mg PO DAILY Weight loss #30 12/10/22 (Adipex-P) tabs epinephrine 0.3 mg/0.3 mL 0.3 mg (0.3 mL) IM Q5-15M PRN 12/19/22 injection, auto-injector (EpiPen anaphylaxis #2 ea 2-Gomez) dicyclomine 20 mg tablet 20 mg PO TID PRN cramps #20 tabs 01/05/23 Allergies Allergy/AdvReac Type Severity Reaction Status Date / Time venom-honey bee Allergy Unknown Verified 11/11/22 13:54 [BEE VENOM (HONEY BEE)] [facility] Disclaimer: The information contained in this section may have been updated after the patient was seen, as this information can be updated by other users. Medical History Anxiety Bipolar II disorder GERD (gastroesoph
[2023-01-05 14:16] LABS: Urine Pregnancy, HCG Qual. Negative (Negative)
[2023-01-05 14:17] LABS: Basophils % 0.3 % (0.1-2.0); Eosinophils # 0.4 K/mm3 (0.0-0.4); Eosinophils % 4.3 % (0.1-12.0); Hematocrit 46.5 % (37.0-47.0); Lymphocytes # 2.3 K/mm3 (0.7-4.5); Lymphocytes % 23.4 % (10-50); Mean Corpuscular HGB Conc 32.3 g/dL (31.8-35.4); Mean Corpuscular Hemoglobin 29.9 pg (27.0-31.2); Mean Corpuscular Volume 92.6 fl (81-99); Mean Platelet Volume 7.2 fl (7.4-10.4); Monocytes # 0.6 K/mm3 (0.1-1.0); Monocytes % 6.3 % (1.7-9.3); Neutrophils # 6.4 K/mm3 (1.8-7.8); Neutrophils % 65.8 % (37.0-80.0); Platelet Count 518 K/mm3 (142-424); Red Blood Count 5.02 M/mm3 (4.20-5.40); Red Cell Distribution Width 12.9 % (11.5-17.5); White Blood Count 9.7 K/mm3 (4.8-10.8)
[2023-01-05 14:51] LABS: Bacteria,Urine Trace /lpf; RBC,Urine Occasional #/hpf (0-3); WBC,Urine Occasional #/hpf (0-3); Yeast,Urine Occasional /lpf
--- NOTE | 2023-01-05 15:29 | US_ITS ---
PROCEDURE INFORMATION: Exam: US Pelvis, Transvaginal Exam date and time: 01/05/2023 4:07 PM Age: 37 years old Clinical indication: Pelvic pain; Prior surgery; Surgery date: 6+ months; Additional info: Rlq pain TECHNIQUE: Imaging protocol: Real-time transvaginal pelvic ultrasound with image documentation. Transvaginal imaging was used for better evaluation of the endometrium, adnexa, and/or cervix. COMPARISON: US TRANSVAGINAL 04/13/2020 11:35 AM FINDINGS: Uterus: Uterus has been removed. Right ovary/adnexa: Right ovary unremarkable in overall size measuring 2.2 x 1.6 x 3.2 cm. No adnexal mass detected. Adequate Doppler flow demonstrated. Left ovary/adnexa: Left ovary cannot be identified. There is and ill-defined masslike shadowing left adnexa presumed to represent stool-filled bowel loops. Intraperitoneal space: There is no mass or free fluid seen within the cul-de-sac. Other findings: Small amount of fluid noted in the vaginal cuff. IMPRESSION: 1. Unremarkable examination of the right ovary and right adnexa. 2. Limited assessment of the left ovary. 3. Prior hysterectomy.
[2023-01-05 15:45] VITALS: BP 124/76; PULSE 65; O2SAT 98
--- NOTE | 2023-01-05 15:48 | PC.NURSE ---
patient given some ice water. no other needs at this time. call button within reach
[2023-01-05 17:47] VITALS: BP 118/74; PULSE 78; RESP 20; TEMP 36.7; O2SAT 98
== END 2023-01-05 17:48 | disposition home or self-care (01) ==
PROVIDERS: Emergency Provider Emergency Medicine; PCP Emergency Medicine
DX: R10.31 Right lower quadrant pain (principal); F17.210 Nicotine dependence, cigarettes, uncomplicated
CPT/HCPCS: 74177; 76705; 76830; 80053; 81001; 81025; 82150; 83690; 85025; 96374; 96375; 99285; J2405; Q9967

== ENCOUNTER 2023-03-04 12:52 | Emergency (ER) | payer MEDICARE, MEDICAID, SELFPAY ==
[2023-03-04 12:54] VITALS: BP 109/87; PULSE 89; RESP 16; TEMP 36.8; O2SAT 99; BMI 25.2
[2023-03-04 13:12] LABS: Microscopic, Urine URINE MICROSCOPIC (MICROSCOPIC)
[2023-03-04 13:20] LABS: Appearance,Urine CLEAR (Clear); Bilirubin,Urine Negative (Negative); Blood, Urine Negative (Negative); Color,Urine YELLOW (Yellow); Glucose,Urine (UA) Negative (Negative); Ketones,Urine Negative (Negative); Leukocyte Esterase,Urine Negative (Negative); Nitrate,Urine Negative (Negative); PH,Urine 7.5 (5.0-8.5); Protein,Urine Negative (Negative); Specific Gravity, Urine <= 1.005 (1.005-1.030); Urobilinogen,Urine 0.2 EU/dl (0.2)
--- NOTE | 2023-03-04 13:30 | CT_ITS ---
FINAL REPORT CLINICAL HISTORY: left flank pain COMPARISON: 01/05/2023 FINDINGS: Axial CT images of the abdomen and pelvis were obtained without intravenous contrast. Coronal and sagittal reformatted images were also obtained.This study was performed with techniques to keep radiation doses as low as reasonably achievable (ALARA). Individualized dose reduction techniques using automated exposure control or adjustment of mA and/or kV according to the patient''s size were employed. Abdomen:The lung bases are clear. There is no evidence of renal stone or hydronephrosis.The liver, spleen and pancreas have an unremarkable, unenhanced appearance. No mass or adenopathy is seen. No inflammatory process is identified. Pelvis: Images of the pelvis reveal no evidence of ureteral dilation or ureteral stone.No mass or abnormal fluid collection is identified. The appendix is normal in appearance. The patient is status post hysterectomy. A small umbilical hernia containing fat is noted. IMPRESSION: No renal or ureteral stone, or hydronephrosis. No mass or inflammatory process. Reviewed, Interpreted and Dictated by Mayank Womack III, MD Transcribed by Leti Hussein Authenticated and [facility]
--- NOTE | 2023-03-04 13:31 | HMH.EDGENADL ---
Discharge Plan Disposition Chief Complaint: Abdominal Pain Prescriptions Prescriptions: No Action Vraylar 1.5 mg capsule 1.5 mg PO DAILY Qty: 90 1RF oxcarbazepine 300 mg tablet See Rx Instructions .ROUTE .COMPLEX Qty: 180 0RF Rx Instructions: TAKE ONE TABLET BY MOUTH TWICE DAILY FOR seizures lamotrigine 200 mg tablet See Rx Instructions .ROUTE .COMPLEX Qty: 180 0RF Rx Instructions: TAKE ONE TABLET BY MOUTH TWICE DAILY FOR SEIZURES epinephrine [EpiPen 2-Gomez] 0.3 mg/0.3 mL auto-injector 0.3 mg IM Q5-15M PRN (Reason: anaphylaxis) Qty: 2 1RF Rx Instructions: do not exceed 3 doses per episode phentermine [Adipex-P] 37.5 mg tablet 37.5 mg PO DAILY Qty: 30 0RF Rx Instructions: must administer 30 minutes before or 1-2 hours after breakfast clonazepam [Klonopin] 0.5 mg tablet 0.5 mg PO BID PRN (Reason: panic attack(s)) Qty: 60 0RF gabapentin 300 mg capsule 300 mg PO TID Qty: 90 0RF mirtazapine 7.5 mg tablet 7.5 mg PO DAILY Label Comments: TAKE ONE TABLET BY MOUTH EVERY DAY AT BEDTIME cyclobenzaprine 10 mg Tablet 10 mg PO BID PRN (Reason: Muscle Spasm) Qty: 20 0RF dicyclomine 20 mg tablet 20 mg PO TID PRN (Reason: cramps) Qty: 20 0RF Referrals Follow up/Referrals: Ed Morrissey MD [Primary Care Provider] - See instructions Instructions Patient Instructions: DI for Acute Abdominal Pain Discharge ED Provider: Nathalie Dockery General Adult HPI General Chief complaint: Abdominal Pain Stated complaint: Lt side back pain, vomiting/urniating blood Time Seen by Provider: 03/04/23 13:24 Mode of Arrival: Ambulatory Source of Information: Patient Limitations: No Limitations Description of Symptoms (Recalled from ER Triage Doc. by RN): Presents to ED with complaints of LLQ abd/flank pain x 3 days. Reports hematuria that began at 0300 this morning. Denies dysuria and fever [employer]. OTC Aleve 440 mg [employer]. Denies hx of kdiney stones History of Present Illness HPI narrative: Patient is a 37-year-old female presenting today with left lower quadrant left flank pain and hematuria. Denies any dysuria frequency or urgency. States that she was using the bathroom with certain that she was urinating and saw some blood in her urine and had some blood with wiping. She has not had any vaginal bleeding. She has a history of a hysterectomy in 2019 for excessive vaginal bleeding she had uterine ablations before that. She states that the pain has been coming and going she does not have a history of any kidney stones. No blood in her stool either. No fevers or chills. Related Data Home Medications Medication Instructions Recorded Confirmed mirtazapine 7.5 mg tablet 7.5 mg PO DAILY . 10/13/22 02/23/23 Previous Rx's Medication Instructions Recorded cariprazine 1.5 mg capsule 1.5 mg PO DAILY BIPOLAR DISORDER 09/17/22 (Vraylar) #90 caps cyclobenzaprine 10 mg tablet 10 mg PO BID PRN Muscle Spasm #20 10/13/22 tabs lamotrigine 200 mg tablet See Rx Instructions .Route 12/09/22 .COMPLEX SEIZURES #180 tabs oxcarbazepine 300 mg tablet See Rx Instructions .Route 12/09/22 .COMPLEX SEIZURES #180 tabs epinephrine 0.3 mg/0.3 mL 0.3 mg (0.3 mL) IM Q5-15M PRN 12/19/22 injection, auto-injector (EpiPen anaphylaxis #2 ea 2-Gomez) dicyclomine 20 mg tablet 20 mg PO TID PRN cramps #20 tabs 01/05/23 phentermine 37.5 mg tablet 37.5 mg PO DAILY Weight loss #30 01/16/23 (Adipex-P) tabs clonazepam 0.5 mg tablet (Klonopin) 0.5 mg PO BID PRN panic attack(s) 02/09/23 #60 tabs gabapentin 300 mg capsule 300 mg PO TID Pain #90 caps 02/09/23 Allergies Allergy/AdvReac Type Severity Reaction Status Date / Time morphine Allergy Severe Rash Verified 03/04/23 15:40 venom-honey bee Allergy Unknown Unknown Verified 03/04/23 15:40 [BEE VENOM (HONEY BEE)] [facility] Disclaimer: The information contained in this section may have been updated after th
[2023-03-04 13:40] LABS: Basophils % 0.4 % (0.1-2.0); Eosinophils # 0.3 K/mm3 (0.0-0.4); Eosinophils % 3.2 % (0.1-12.0); Hematocrit 43.6 % (37.0-47.0); Hemoglobin 13.9 g/dL (12.2-16.2); Lymphocytes # 2.5 K/mm3 (0.7-4.5); Lymphocytes % 28.7 % (10-50); Mean Corpuscular HGB Conc 31.9 g/dL (31.8-35.4); Mean Corpuscular Hemoglobin 29.6 pg (27.0-31.2); Mean Corpuscular Volume 92.7 fl (81-99); Monocytes # 0.5 K/mm3 (0.1-1.0); Monocytes % 5.7 % (1.7-9.3); Neutrophils # 5.4 K/mm3 (1.8-7.8); Platelet Count 468 K/mm3 (142-424); White Blood Count 8.7 K/mm3 (4.8-10.8)
[2023-03-04 13:40] LABS: Bacteria,Urine Trace /lpf; RBC,Urine Occasional #/hpf (0-3); Squamous Epithelial Cell,Urine Occasional #/hpf (0-5)
[2023-03-04 13:45] LABS: Chloride 104 mmol/L (98-107); Potassium 3.6 mmoL/L (3.5-5.1); Sodium 139 mmol/L (136-145)
--- NOTE | 2023-03-04 13:47 | PC.NURSE ---
Patient to CT
[2023-03-04 13:48] LABS: Alanine Aminotransferase 21 U/L (12-78); Albumin Level 4.6 g/dl (3.5-5.0); Albumin/Globulin Ratio 1.6 (1.1-1.8); Alkaline Phosphatase 85 U/L (38-126); Anion Gap 11.6 mEq/L (5-15); Aspartate Amino Transferase 23 U/L (14-36); Blood Urea Nitrogen 6 mg/dl (7-17); Calcium 9.3 mg/dl (8.4-10.2); Carbon Dioxide 27 mmol/L (22.0-30.0); Creatinine Clearance Estimated 120 mL/min (50-200); Estimated Glomerular Filt Rate 94 ml/min (>60); GFR (African American) 114 ML/MIN (>60); Globulin 2.9 g/dL (1.3-3.2); Glucose 89 mg/dl (74-100); Total Protein,Serum 7.5 g/dl (6.3-8.2)
[2023-03-04 13:49] LABS: Bilirubin,Total 0.1 mg/dl (0.2-1.3)
[2023-03-04 14:00] VITALS: BP 108/79; PULSE 69; O2SAT 97
--- NOTE | 2023-03-04 14:01 | PC.NURSE ---
ROUNDED ON PT NOTHING NEEDED , CALL LIGHT AT BS
[2023-03-04 14:30] VITALS: BP 120/84; PULSE 68; O2SAT 97
--- NOTE | 2023-03-04 14:30 | PC.NURSE ---
Rounded on patient; patient said she is still in 8/10 pain. Informed patient I will let MD know when he comes out of pt. room
--- NOTE | 2023-03-04 14:39 | PC.NURSE ---
notified of patient's pain of 04/16
[2023-03-04 15:00] VITALS: BP 115/81; PULSE 86; O2SAT 99
--- NOTE | 2023-03-04 15:07 | PC.NURSE ---
V/O for Morphine 4mg by MD for 8/10 pain
--- NOTE | 2023-03-04 15:19 | PC.NURSE ---
PAtient complained of IV site burning. Checked IV; IV patent. Had charge nurse check IV site.
--- NOTE | 2023-03-04 15:24 | PC.NURSE ---
NURSE WAS AT BS PT NEED NOTHING AT THIS TIME, CALL LIGHT AT BS
[2023-03-04 15:30] VITALS: BP 117/81; PULSE 74; O2SAT 98
--- NOTE | 2023-03-04 15:30 | PC.NURSE ---
Nya GARCIA notified me of Pt. IV site was red and edematous. IV discontinued.
--- NOTE | 2023-03-04 15:40 | PC.NURSE ---
Notified Willie from pharmacy of infiltrated peripheral IV post morphine IV push; No recommendations per pharmacy.
[2023-03-04 15:50] VITALS: BP 117/81; PULSE 62; RESP 16; TEMP 36.8; O2SAT 98
== END 2023-03-04 15:53 | disposition home or self-care (01) ==
PROVIDERS: Emergency Provider Student in an Organized Health Care Education/Training Program; PCP Emergency Medicine
DX: R10.32 Left lower quadrant pain (principal); F17.210 Nicotine dependence, cigarettes, uncomplicated; K21.9 Gastro-esophageal reflux disease without esophagitis; E03.9 Hypothyroidism, unspecified; I10 Essential (primary) hypertension; F31.81 Bipolar II disorder; F41.1 Generalized anxiety disorder
CPT/HCPCS: 74176; 80053; 81001; 85025; 96361; 96374; 96375; 99284; 99285; J2405

== ENCOUNTER → 2023-05-25 09:11 | Outpatient (CLI) | payer MEDICARE, MEDICAID, SELFPAY ==
[2023-05-25 15:43] LABS: Barbiturates Screen,Urine Negative ng/ml (<200)
[2023-05-25 15:44] LABS: Amphetamine/Metha Screen,Urine Negative ng/ml (<1000)
[2023-05-25 15:46] LABS: Cocaine Screen,Urine Negative ng/ml (<300)
[2023-05-25 15:47] LABS: Benzodiazepines Screen,Urine Negative ng/ml (<200)
[2023-05-25 15:48] LABS: Cannabinoid Screen,Urine Negative ng/ml (<50); Phencyclidine Screen,Urine Negative ng/ml (<25)
[2023-05-25 15:49] LABS: Methadone Screen,Urine Negative ng/ml (<300); Opiate Screen,Urine Negative ng/ml (<300)
== END ==
PROVIDERS: PCP Emergency Medicine; Visit Provider Emergency Medicine
DX: N23 Unspecified renal colic (principal); Z79.899 Other long term (current) drug therapy
CPT/HCPCS: 80305; 87086

== ENCOUNTER → 2023-06-04 15:19 | Outpatient (CLI) | payer MEDICARE, OTHER, SELFPAY ==
--- NOTE | 2023-06-04 15:19 | MM_ITS ---
PROCEDURE INFORMATION: Exam: MG Bilateral Screening 3D Mammography Exam date and time: 06/04/2023 3:17 PM Age: 37 years old Clinical indication: Screening examination; Family history of breast cancer in mother; Mother's age: 40 years TECHNIQUE: Imaging protocol: Bilateral Screening tomosynthesis and 2D mammography including computer-aided detection (CAD) when performed. COMPARISON: 1. MG MM DIG MAMM BI DX W/CAD 09/10/2021 2:10 PM 2. MG DXBI MM Dig mamm BI DX w/CAD 04/29/2018 3:05 PM FINDINGS: MAMMOGRAPHY: Breast composition: The breasts are heterogeneously dense, which may obscure small masses. Mass: None. Architectural distortion: None. Calcifications: No suspicious calcifications. Asymmetric density: None. Skin thickening: None. Axillary adenopathy: None. IMPRESSION: No mammographic evidence of malignancy. Annual screening is recommended unless otherwise clinically indicated. Given the reported risk factors coupled with the patient's breast density, a breast cancer risk assessment may prove useful for further evaluation. ASSESSMENT: BI-RADS Category 1: Negative
== END ==
PROVIDERS: PCP Emergency Medicine; Visit Provider Emergency Medicine
DX: Z12.31 Encounter for screening mammogram for malignant neoplasm of breast (principal)
CPT/HCPCS: 77063; 77067

== ENCOUNTER 2023-06-20 11:28 | Emergency (ER) | payer MEDICARE, OTHER, SELFPAY ==
[2023-06-20] VITALS (9 sets, daily range): BP systolic 106–135; BP diastolic 73–88; PULSE 76–107; RESP 16–20; TEMP 36.6–36.8; O2SAT 97–100; BMI 21.7
--- NOTE | 2023-06-20 11:20 | ECG_ITS ---
APPROVED REPORT Exam: Resting ECG HR:106 bpm ECG Measurements Heart Rate 106 AXES TN 141 P 83 QRSd 98 QRS 88 QT 321 T 74 QTc 383 Conclusion SINUS TACHYCARDIA ABNORMAL RHYTHM ECG UNCONFIRMED REPORT Electronically signed by : Kun Tobin MD 06/21/2023 15:16:56
--- NOTE | 2023-06-20 11:36 | XR_ITS ---
PROCEDURE INFORMATION: Exam: XR Chest Exam date and time: 06/20/2023 12:27 PM Age: 38 years old Clinical indication: Shortness of breath; Additional info: Cp SOA TECHNIQUE: Imaging protocol: Radiologic exam of the chest. Views: 1 view. Total images: 1 COMPARISON: CR XR CHEST PORTABLE 09/09/2022 4:11 PM FINDINGS: Lungs: Unremarkable. No consolidation. Pleural spaces: Unremarkable. No pleural effusion. No pneumothorax. Heart/Mediastinum: Unremarkable. No cardiomegaly. Bones/joints: Unremarkable. IMPRESSION: No acute findings.
[2023-06-20 11:40] LABS: Coronavirus 19, PCR Not Detected (NotDetected); Influenza A, PCR Not Detected (NotDetected); Influenza B, PCR Not Detected (NotDetected)
--- NOTE | 2023-06-20 11:40 | HMH.EDGENADL ---
Discharge Plan Disposition Patient Disposition: Home, Self-Care Condition: Good Prescriptions Prescriptions: New albuterol sulfate 90 mcg/actuation HFA aerosol inhaler 2 inh inhalation Q6H PRN (Reason: shortness of breath or wheezing) Qty: 8.5 0RF No Action quetiapine 25 mg tablet 25 mg PO HS Patient Comments: TAKE ONE TABLET BY MOUTH EVERY DAY AT BEDTIME aripiprazole 5 mg tablet 5 mg PO DAILY gabapentin 300 mg capsule 300 mg PO TID Qty: 90 2RF oxcarbazepine 300 mg tablet See Rx Instructions .ROUTE .COMPLEX Qty: 180 0RF Rx Instructions: TAKE ONE TABLET BY MOUTH TWICE DAILY FOR seizures epinephrine [EpiPen 2-Gomez] 0.3 mg/0.3 mL auto-injector 0.3 mg IM Q5-15M PRN (Reason: anaphylaxis) Qty: 2 1RF Rx Instructions: do not exceed 3 doses per episode lamotrigine 200 mg tablet See Rx Instructions .ROUTE .COMPLEX Qty: 180 0RF Rx Instructions: TAKE ONE TABLET BY MOUTH TWICE DAILY FOR SEIZURES phentermine [Adipex-P] 37.5 mg tablet 37.5 mg PO DAILY Qty: 30 0RF Rx Instructions: must administer 30 minutes before or 1-2 hours after breakfast clonazepam [Klonopin] 0.5 mg tablet 0.5 mg PO BID PRN (Reason: panic attack(s)) Qty: 60 1RF Referrals Follow up/Referrals: Ed Morrissey MD [Primary Care Provider] - See instructions Activity Restrictions/Add. Instructions Additional Instructions/Restrictions: You were evaluated in the emergency department today for chest pain. I did not identify any dangerous causes of this. He did have improvement of symptoms after receiving nebulizer treatment so you have been prescribed albuterol. Take this as directed if needed for shortness of breath. Continue taking DayQuil/NyQuil if needed for symptoms. You may also take ibuprofen if needed for pain. Do not exceed the recommended doses on the bottles. Continue taking all other home medications as previously prescribed. Make an appointment with your primary care physician for reevaluation and 2 to 3 days. Return to the emergency department with new, worsening, or otherwise concerning symptoms Clinical Impressions Clinical Impression: Chest pain Qualifiers: Chest pain type: unspecified Qualified Code(s): R07.9 - Chest pain, unspecified Discharge ED Provider: Hammond,Mikalah General Adult HPI General Chief complaint: Chest Pain Stated complaint: cp Time Seen by Provider: 06/20/23 11:36 Mode of Arrival: Ambulatory Source of Information: Patient Limitations: No Limitations Description of Symptoms (Recalled from ER Triage Doc. by RN): PT STATES SHE HAS HAD SUBSTERNAL CHEST PAIN THAT STARTED YESTERDAY ALONG WITH SOB OFF AND ON, ALSO REPORTS DIZZINESS AND A HEADACHE, DENIES COUGH, FEVER, RUNNY NOSE, OR CONGESTION, STATES HER DAUGHTER HAS BEEN SICK BUT NOT TESTED FOR ANYTHING History of Present Illness HPI narrative: This 38-year-old female with a history of seizure disorder presents to the emergency department with concerns of chest pain with intermittent shortness of breath. Patient states her daughter is sick with upper respiratory infection and she started developing the same symptoms a few days ago. She is taking DayQuil and NyQuil regularly for symptoms. She states in the last 24 hours she has developed chest pain worse with deep inspiration and feels like sometimes she has to take a deep breath in order to catch her breath. Patient states that she has had similar symptoms in the past when she had bronchitis. She has no history of blood clot, no oral contraceptives. Patient has a history of hysterectomy. She does not have a productive cough, no hemoptysis. No history of cardiac issues Related Data Home Medications Medication Instructions Recorded Confirmed quetiapine 25 mg tablet 25 mg PO HS 03/11/23 06/20/23 aripiprazole 5 mg tablet 5 mg PO DAILY 04/08/23 06/20/23 Previous Rx's Medication Instructions Recorded oxcarbazepine 300 mg tablet See Rx Ins
[2023-06-20 11:44] LABS: Basophils # 0.1 K/mm3 (0-0.2); Basophils % 0.6 % (0.1-2.0); Eosinophils # 0.3 K/mm3 (0.0-0.4); Eosinophils % 3.2 % (0.1-12.0); Lymphocytes # 2.3 K/mm3 (0.7-4.5); Lymphocytes % 23.7 % (10-50); Mean Corpuscular Hemoglobin 31.4 pg (27.0-31.2); Mean Corpuscular Volume 92.4 fl (81-99); Mean Platelet Volume 7.5 fl (7.4-10.4); Monocytes # 0.7 K/mm3 (0.1-1.0); Neutrophils # 6.3 K/mm3 (1.8-7.8); Neutrophils % 65.5 % (37.0-80.0); Platelet Count 456 K/mm3 (142-424); Red Blood Count 5.08 M/mm3 (4.20-5.40); Red Cell Distribution Width 13.1 % (11.5-17.5); White Blood Count 9.6 K/mm3 (4.8-10.8)
[2023-06-20 11:50] LABS: Alanine Aminotransferase 25 U/L (12-78); Albumin Level 5.5 g/dl (3.5-5.0); Albumin/Globulin Ratio 1.4 (1.1-1.8); Alkaline Phosphatase 90 U/L (38-126); Anion Gap 16.3 mEq/L (5-15); Aspartate Amino Transferase 27 U/L (14-36); Bilirubin,Total 0.3 mg/dl (0.2-1.3); Blood Urea Nitrogen 11 mg/dl (7-17); Calcium 9.9 mg/dl (8.4-10.2); Carbon Dioxide 27 mmol/L (22.0-30.0); Chloride 101 mmol/L (98-107); Creatinine Clearance Estimated 82 mL/min (50-200); Estimated Glomerular Filt Rate 70 ml/min (>60); GFR (African American) 85 ML/MIN (>60); Globulin 3.8 g/dL (1.3-3.2); Glucose 110 mg/dl (74-100); Potassium 4.3 mmoL/L (3.5-5.1); Sodium 140 mmol/L (136-145); Total Protein,Serum 9.3 g/dl (6.3-8.2)
[2023-06-20 12:18] LABS: Troponin I < 0.01 ng/ml (0.00-0.034)
--- NOTE | 2023-06-20 15:03 | PC.NURSE ---
DOLORES CORRIGAN UPDATING PT.
[2023-06-20 15:16] LABS: Troponin I < 0.01 ng/ml (0.00-0.034)
== END 2023-06-20 15:30 | disposition home or self-care (01) ==
PROVIDERS: Emergency Provider Emergency Medicine; PCP Emergency Medicine
DX: R07.9 Chest pain, unspecified (principal); R00.0 Tachycardia, unspecified; K21.9 Gastro-esophageal reflux disease without esophagitis; I10 Essential (primary) hypertension; E03.9 Hypothyroidism, unspecified; G40.909 Epilepsy, unspecified, not intractable, without status epilepticus; F41.1 Generalized anxiety disorder; F31.81 Bipolar II disorder
CPT/HCPCS: 36415; 71045; 80053; 84484; 85025; 87636; 93005; 96361; 96374; 99284

== ENCOUNTER → 2023-08-21 15:44 | Outpatient (CLI) | payer MEDICARE, OTHER, SELFPAY ==
[2023-08-21 15:49] LABS: Amphetamine/Metha Screen,Urine Negative ng/ml (<1000)
[2023-08-21 15:52] LABS: Benzodiazepines Screen,Urine Negative ng/ml (<200)
[2023-08-21 15:53] LABS: Barbiturates Screen,Urine Negative ng/ml (<200)
[2023-08-21 15:54] LABS: Opiate Screen,Urine Negative ng/ml (<300)
[2023-08-21 16:16] LABS: Methadone Screen,Urine Negative ng/ml (<300)
[2023-08-21 16:18] LABS: Cocaine Screen,Urine Negative ng/ml (<300); Phencyclidine Screen,Urine Negative ng/ml (<25)
[2023-08-21 16:48] LABS: Cannabinoid Screen,Urine Negative ng/ml (<50)
[2023-08-27 11:15] LABS: Alprazolam Negative (Cutoff=100); Benzodiazepines Positive ng/mL (Cutoff=100); Clonazepam Positive (.); Clonazepam Confirm 208 ng/mL (Cutoff=100); Flurazepam Negative (Cutoff=100); Lorazepam Negative (Cutoff=100); Midazolam Negative (Cutoff=100); Opiates Negative ng/mL (Cutoff=100); Temazepam Negative (Cutoff=100); Triazolam Negative (Cutoff=100)
== END ==
LOC: LAB.DROPOF 15:45
PROVIDERS: PCP Nurse Practitioner Family; Visit Provider Internal Medicine
DX: Z79.899 Other long term (current) drug therapy; R56.9 Unspecified convulsions; Z72.0 Tobacco use
CPT/HCPCS: 80307; 80346; 80361; G0480

== ENCOUNTER 2023-09-15 13:25 | Emergency (ER) | payer MEDICARE, OTHER, SELFPAY ==
[2023-09-15] VITALS (11 sets, daily range): BP systolic 107–128; BP diastolic 74–86; PULSE 84–97; RESP 9–22; TEMP 36.7; O2SAT 95–100; BMI 25.4
--- NOTE | 2023-09-15 13:21 | ECG_ITS ---
APPROVED REPORT Exam: Resting ECG HR:94 bpm ECG Measurements Heart Rate 94 AXES DC 152 P 71 QRSd 92 QRS 83 QT 319 T 70 QTc 371 Conclusion SINUS RHYTHM Normal ECG UNCONFIRMED REPORT Electronically signed by : Kun Tobin MD 09/15/2023 20:37:42
--- NOTE | 2023-09-15 13:57 | XR_ITS ---
FINAL REPORT CLINICAL HISTORY: chest tightness FINDINGS: A single portable view of the chest was obtained. The heart size and pulmonary vascularity are within normal limits. The mediastinum is within normal limits. No acute pulmonary abnormality is identified. The bony thorax is intact. IMPRESSION: No active cardiopulmonary disease. Reviewed, Interpreted and Dictated by Mayank Womack III, MD Transcribed by Leti Hussein Authenticated and [facility]
[2023-09-15 14:07] LABS: Microscopic, Urine URINE MICROSCOPIC (MICROSCOPIC)
[2023-09-15 14:08] LABS: Appearance,Urine CLEAR (Clear); Bilirubin,Urine Negative (Negative); Blood, Urine TRACE-I (Negative); Color,Urine YELLOW (Yellow); Glucose,Urine (UA) Negative (Negative); Ketones,Urine Negative (Negative); Leukocyte Esterase,Urine Negative (Negative); Nitrate,Urine Negative (Negative); Protein,Urine Negative (Negative); Urobilinogen,Urine 0.2 EU/dl (0.2)
[2023-09-15 14:08] LABS: Basophils # 0.1 K/mm3 (0-0.2); Basophils % 0.9 % (0.1-2.0); Eosinophils # 0.2 K/mm3 (0.0-0.4); Eosinophils % 3.1 % (0.1-12.0); Hematocrit 43.4 % (37.0-47.0); Hemoglobin 14.3 g/dL (12.2-16.2); Lymphocytes # 2.6 K/mm3 (0.7-4.5); Lymphocytes % 33.5 % (10-50); Mean Corpuscular Hemoglobin 30.5 pg (27.0-31.2); Mean Corpuscular Volume 92.6 fl (81-99); Mean Platelet Volume 7.7 fl (7.4-10.4); Monocytes # 0.5 K/mm3 (0.1-1.0); Monocytes % 6.6 % (1.7-9.3); Neutrophils # 4.4 K/mm3 (1.8-7.8); Platelet Count 434 K/mm3 (142-424); Red Blood Count 4.69 M/mm3 (4.20-5.40); Red Cell Distribution Width 13.2 % (11.5-17.5); White Blood Count 7.9 K/mm3 (4.8-10.8)
[2023-09-15 14:09] LABS: Chloride 106 mmol/L (98-107); Sodium 138 mmol/L (136-145)
[2023-09-15] MEDS: KETOROLAC 30MG/ML VIAL 15 MG IV (14:10)
[2023-09-15] MEDS: hydrOXYzine pamoate 25MG CAPSULE 50 MG PO (14:10)
[2023-09-15 14:11] LABS: Alanine Aminotransferase 26 U/L (12-78); Blood Urea Nitrogen 6 mg/dl (7-17); Creatinine Clearance Estimated 101 mL/min (50-200); Estimated Glomerular Filt Rate 80 ml/min (>60); GFR (African American) 97 ML/MIN (>60)
[2023-09-15 14:12] LABS: Albumin Level 4.5 g/dl (3.5-5.0); Albumin/Globulin Ratio 1.8 (1.1-1.8); Alkaline Phosphatase 51 U/L (38-126); Aspartate Amino Transferase 30 U/L (14-36); Bilirubin,Total 0.4 mg/dl (0.2-1.3); Calcium 8.7 mg/dl (8.4-10.2); Carbon Dioxide 23 mmol/L (22.0-30.0); Globulin 2.5 g/dL (1.3-3.2); Glucose 92 mg/dl (74-100)
--- NOTE | 2023-09-15 14:17 | [facility]H.EDCP ---
Discharge Plan Disposition Patient Disposition: Home, Self-Care Prescriptions Prescriptions: No Action quetiapine 25 mg tablet 25 mg PO HS Patient Comments: TAKE ONE TABLET BY MOUTH EVERY DAY AT BEDTIME sertraline 50 mg tablet 50 mg PO DAILY Patient Comments: TAKE ONE TABLET BY MOUTH EVERY DAY oxcarbazepine 300 mg tablet 150 mg PO BID epinephrine [EpiPen 2-Gomez] 0.3 mg/0.3 mL auto-injector 0.3 mg IM Q5-15M PRN (Reason: anaphylaxis) Qty: 2 1RF Rx Instructions: do not exceed 3 doses per episode lamotrigine 200 mg tablet See Rx Instructions .ROUTE .COMPLEX Qty: 180 0RF Rx Instructions: TAKE ONE TABLET BY MOUTH TWICE DAILY FOR SEIZURES clonazepam [Klonopin] 0.5 mg tablet 0.5 mg PO BID PRN (Reason: panic attack(s)) Qty: 60 1RF gabapentin 300 mg capsule 300 mg PO TID Qty: 90 2RF albuterol sulfate 90 mcg/actuation HFA aerosol inhaler 2 inh inhalation Q6H PRN (Reason: shortness of breath or wheezing) Qty: 8.5 0RF Referrals Follow up/Referrals: Provider,Referral, [Primary Care Provider] - See instructions Clinical Impressions Clinical Impression: Chest pain Discharge ED Provider: Reid Amaya HPI <Reid Amaya MD - Last Filed: 09/15/23 15:57> General Chief Complaint: Chest Pain Stated Complaint: chest pain Time Seen by Provider: 09/15/23 13:33 Mode of Arrival: Wheelchair Source of Information: Patient Limitations: No Limitations Description of Symptoms (Recalled from ER Triage Doc. by RN): pt began light having lightheadnes today with sharp stabbing midsternal chest pain that goes down left arm. pt also complains of flank pain and burning upon urination. History of Present Illness HPI narrative: 38-year-old female with history of anxiety, bipolar, depression, nonepileptic seizures presenting with chest pressure. Patient states that she started having chest pain this morning right after waking up. It is left-sided, pressure more so than pain, radiates to her left shoulder. She was not doing anything in particular that time was started. No nausea or vomiting, diaphoresis, but shortness of breath. No other relevant history Related Data Home Medications Medication Instructions Recorded Confirmed quetiapine 25 mg tablet 25 mg PO HS 03/11/23 08/21/23 oxcarbazepine 300 mg tablet 150 mg PO BID SEIZURES 08/21/23 sertraline 50 mg tablet 50 mg PO DAILY 08/21/23 08/21/23 Previous Rx's Medication Instructions Recorded epinephrine 0.3 mg/0.3 mL 0.3 mg (0.3 mL) IM Q5-15M PRN 12/19/22 injection, auto-injector (EpiPen anaphylaxis #2 ea 2-Gomez) lamotrigine 200 mg tablet See Rx Instructions .Route 04/01/23 .COMPLEX SEIZURES #180 tabs albuterol sulfate 90 mcg/actuation 2 inh inhalation Q6H PRN shortness 06/20/23 aerosol inhaler of breath or wheezing #8.5 grams clonazepam 0.5 mg tablet (Klonopin) 0.5 mg PO BID PRN panic attack(s) 08/07/23 #60 tabs gabapentin 300 mg capsule 300 mg PO TID Pain #90 caps 08/07/23 Allergies Allergy/AdvReac Type Severity Reaction Status Date / Time venom-honey bee Allergy Unknown Unknown Verified 08/21/23 09:03 [BEE VENOM (HONEY BEE)] allergy reaction [facility] <Reid Amaya MD - Last Filed: 09/15/23 15:57> [facility] Disclaimer: The information contained in this section may have been updated after the patient was seen, as this information can be updated by other users. Medical History Anxiety Bipolar II disorder GERD (gastroesophageal reflux disease) Hypertension Liver disease Major depressive disorder Migraine Panic disorder Seizure Thyroid disease Urinary tract infection Surgical History H/O: hysterectomy Previous section Family History Other No significant family history Social History Smoking Status: Current every day smoker tobacco type: cigarettes packs per day: 1 second hand exposure: Yes alcohol intake: never substance use type: former substance user and heroin current occupational status: disabled Travel in the last 8 weeks: None household members: spouse housing: house number of children: 2 current occupational exposures/hazards: No caffeine: Yes <Reid Amaya MD - Last Filed: 09/15/23 15:57> ROS Obtained: Yes All systems reviewed & no additional complaints except as documented Physical Exam <Reid Amaya MD - Last Filed: 09/15/23 15:57> General General appearance: alert Neck Neck exam: Present trachea midline Chest Chest inspection: Present normal inspection and symmetric chest wall rise Respiratory Respiratory exam: Present normal lung sounds bilaterally; Absent respiratory distress, wheezes, stridor, accessory muscle use or prolonged expiratory phase Cardiovascular Cardiovascular exam: Present regular rate and normal rhythm Extremities Exam Extremities exam: Absent edema Neurological Exam Neurological exam: Present alert, oriented X3 and CN II-XII intact Skin Skin exam: Present warm and dry; Absent cyanosis, diaphoresis or pallor HEART Score <Reid Amaya MD - Last Filed: 09/15/23 15:57> HEART Score HEART Score assessment performed?: No <Nathalie Dockery MD - Last Filed: 09/15/23 17:24> HEART Score HEART Score assessment performed?: Yes History (anamnesis): Slightly suspicious ECG: Non-specific disturbance Age: <45 years Risk factors: 1-2 risk factors Troponin: </= normal limit HEART Score: 2 Critical Care <Reid Amaya MD - Last Filed: 09/15/23 15:57> Critical Care Time Critical Care Time: No Medical Decision Making <Reid Amaya MD - Last Filed: 09/15/23 15:57> Medical Records Medical records reviewed: Yes I reviewed the patient's medical records. Cosme Inquiry Pt receiving controlled substance: No Cosme was queried for this patient: No Vital Signs Vital Signs: 09/15/23 13:25 09/15/23 13:51 09/15/23 14:00 Temperature 98.1 F Temperature Source Oral Pulse Rate 97 H 94 H Pulse Rate [Right Radial] 97 H Respiratory Rate 20 18 Blood Pressure 128/84 Blood Pressure [Right Arm] 128/79 Blood Pressure Mean 96 Blood Pressure Mean [Right Arm] 95 02 Sat by Pulse Oximetry 95 96 Oxygen Delivery Method Room Air 09/15/23 14:30 09/15/23 14:40 09/15/23 15:00 Temperature Temperature Source Pulse Rate 92 H 84 84 Pulse Rate [Right Radial] Respiratory Rate 20 22 20 Blood Pressure 124/75 128/78 107/74 L Blood Pressure [Right Arm] Blood Pressure Mean 87 85 Blood Pressure Mean [Right Arm] 02 Sat by Pulse Oximetry 97 99 100 Oxygen Delivery Method Room Air 09/15/23 15:40 09/15/23 16:00 09/15/23 16:20 Temperature Temperature Source Pulse Rate 84 84 86 Pulse Rate [Right Radial] Respiratory Rate 20 17 9 L Blood Pressure 117/79 117/78 122/86 Blood Pressure [Right Arm] Blood Pressure Mean 86 Blood Pressure Mean [Right Arm] 02 Sat by Pulse Oximetry 100 99 100 Oxygen Delivery Method Room Air Room Air 09/15/23 17:00 Temperature Temperature Source Pulse Rate 88 Pulse Rate [Right Radial] Respiratory Rate 13 Blood Pressure 115/80 Blood Pressure [Right Arm] Blood Pressure Mean Blood Pressure Mean [Right Arm] 02 Sat by Pulse Oximetry 98 Oxygen Delivery Method Room Air Lab Data Labs: Lab Results 09/15/23 13:30: Urine Color Yellow, Urine Appearance Clear, Urine pH 6.0, Ur Specific [place] 1.010, Urine Protein Negative, Urine Glucose (UA) Negative, Urine Ketones Negative, Urine Blood Trace-i, Urine Nitrate Negative, Urine Bilirubin Negative, Urine Urobilinogen 0.2, Ur Leukocyte Esterase Negative, Urine RBC None, Urine WBC Occasional, Ur Squamous Epith Cells 5-10, Urine Bacteria 1+ 09/15/23 13:45: WBC 7.9, RBC 4.69, Hgb 14.3, Hct 43.4, MCV 92.6, MCH 30.5, MCHC 33.0, RDW 13.2, Plt Count 434 H, MPV 7.7, Neut % (Auto) 56.0, Lymph % (Auto) 33.5, [place] % (Auto) 6.6, Eos % (Auto) 3.1, Baso % (Auto) 0.9, Neut # (Auto) 4.4, Lymph # (Auto) 2.6, [place] # (Auto) 0.5, Eos # (Auto) 0.2, Baso # (Auto) 0.1, Sodium 138, Potassium 4.0, Chloride 106, Carbon Dioxide 23, Anion Gap 13.0, BUN 6 L, Creatinine 0.80, Estimated Creat Clear 101, Estimated GFR 80, Est GFR ( Amer) 97, Glucose 92, Calcium 8.7, Total Bilirubin 0.4, AST 30, ALT 26, Alkaline Phosphatase 51, Troponin I < 0.01, Total Protein 7.0, Albumin 4.5, Globulin 2.5, Albumin/Globulin Ratio 1.8, HCG, Quant < 2 09/15/23 16:40: Troponin I < 0.01 09/15/23 13:45 09/15/23 13:45 Response Orders (Tests/Meds): ED MEDICATIONS Discontinued Medications Generic Name Dose Route Start Last Admin Trade Name Darshana PRN Reason Stop Dose Admin Acetaminophen 1,000 mg 09/15/23 16:33 09/15/23 16:43 Acetaminophen 1,000mg/100ml Vial IV 09/15/23 16:34 1,000 mg ONCE ONE Administration Albuterol/Ipratropium 6 ml 09/15/23 15:56 09/15/23 16:09 Ipratropium/Albuterol 3 Ml Neb IH 09/15/23 15:57 6 ml ONCE ONE Administration Hydroxyzine Pamoate 50 mg 09/15/23 13:57 09/15/23 14:10 Hydroxyzine Pamoate 25mg Capsule PO 09/15/23 13:58 50 mg ONCE ONE Administration Ketorolac Tromethamine 15 mg 09/15/23 13:57 09/15/23 14:10 Ketorolac 30mg/Ml Vial IV 09/15/23 13:58 15 mg ONCE ONE Administration ORDERS Category Date Time Status CXR --portable [XR chest portable] Stat Exams 09/15/23 13:57 Completed CBC w/Auto Diff [Complete Blood Count Auto Diff] Stat Lab 09/15/23 13:45 Completed CMP [Comprehensive Metabolic Panel] Stat Lab 09/15/23 13:45 Completed HCG,Quantitative Stat Lab 09/15/23 13:45 Completed Troponin I Q3H Lab 09/15/23 16:40 Completed Troponin I Q3H Lab 09/15/23 22:00 Ordered Troponin I Stat Lab 09/15/23 13:45 Completed UA [Urinalysis and Microscopic] Stat Lab 09/15/23 13:30 Completed ECG initial Besson Routine Y 09/15/23 13:21 Completed MDM Narrative Medical Decision Narrative: 38-year-old female with history of anxiety, bipolar, depression, nonepileptic seizures presenting with chest pressure. Patient states that she started having chest pain this morning right after waking up. It is left-sided, pressure more so than pain, radiates to her left shoulder. She was not doing anything in particular that time was started. No nausea or vomiting, diaphoresis, but shortness of breath. No other relevant history. History was obtained via conversation with patient. On arrival, patient hemodynamically stable, alert, oriented x4, appropriate, GCS 15, moving all extremities spontaneously, pupils equal and reactive to light. Full physical exam performed and significant for well-appearing woman in no acute distress. Lungs clear to auscultation bilaterally. No evidence of murmur. Pulses equal and symmetric. Patient appears anxious, but overall well. Nontachycardic, afebrile, normotensive, saturating appropriately on room air. Differential includes anxiety, bronchitis, reactive airway disease, pneumonia, pulmonary embolus, pneumothorax, among others. Patient was given Toradol and hydroxyzine for symptomatic management and correction of underlying abnormalities. Patient took aspirin prior to arrival. Workup independently interpreted and significant for nonactionable CBC or chemistry. Chest x-ray normal urinalysis negative. See radiology read for full review of final results. Independent interpretation of EKG shows sinus rhythm [address] or T wave changes concerning for acute ischemia. Prior to delta troponin and disposition, care handed off to oncoming physician. <Nathalie Dockery MD - Last Filed: 09/15/23 17:24> Vital Signs Vital Signs: 09/15/23 13:25 09/15/23 13:51 09/15/23 14:00 Temperature 98.1 F Temperature Source Oral Pulse Rate 97 H 94 H Pulse Rate [Right Radial] 97 H Respiratory Rate 20 18 Blood Pressure 128/84 Blood Pressure [Right Arm] 128/79 Blood Pressure Mean 96 Blood Pressure Mean [Right Arm] 95 02 Sat by Pulse Oximetry 95 96 Oxygen Delivery Method Room Air 09/15/23 14:30 09/15/23 14:40 09/15/23 15:00 Temperature Temperature Source Pulse Rate 92 H 84 84 Pulse Rate [Right Radial] Respiratory Rate 20 22 20 Blood Pressure 124/75 128/78 107/74 L Blood Pressure [Right Arm] Blood Pressure Mean 87 85 Blood Pressure Mean [Right Arm] 02 Sat by Pulse Oximetry 97 99 100 Oxygen Delivery Method Room Air 09/15/23 15:40 09/15/23 16:00 09/15/23 16:20 Temperature Temperature Source Pulse Rate 84 84 86 Pulse Rate [Right Radial] Respiratory Rate 20 17 9 L Blood Pressure 117/79 117/78 122/86 Blood Pressure [Right Arm] Blood Pressure Mean 86 Blood Pressure Mean [Right Arm] 02 Sat by Pulse Oximetry 100 99 100 Oxygen Delivery Method Room Air Room Air 09/15/23 17:00 Temperature Temperature Source Pulse Rate 88 Pulse Rate [Right Radial] Respiratory Rate 13 Blood Pressure 115/80 Blood Pressure [Right Arm] Blood Pressure Mean Blood Pressure Mean [Right Arm] 02 Sat by Pulse Oximetry 98 Oxygen Delivery Method Room Air Lab Data Lab results reviewed: Yes I reviewed the patient's lab results. Labs: Lab Results 09/15/23 13:30: Urine Color Yellow, Urine Appearance Clear, Urine pH 6.0, Ur Specific [place] 1.010, Urine Protein Negative, Urine Glucose (UA) Negative, Urine Ketones Negative, Urine Blood Trace-i, Urine Nitrate Negative, Urine Bilirubin Negative, Urine Urobilinogen 0.2, Ur Leukocyte Esterase Negative, Urine RBC None, Urine WBC Occasional, Ur Squamous Epith Cells 5-10, Urine Bacteria 1+ 09/15/23 13:45: WBC 7.9, RBC 4.69, Hgb 14.3, Hct 43.4, MCV 92.6, MCH 30.5, MCHC 33.0, RDW 13.2, Plt Count 434 H, MPV 7.7, Neut % (Auto) 56.0, Lymph % (Auto) 33.5, [place] % (Auto) 6.6, Eos % (Auto) 3.1, Baso % (Auto) 0.9, Neut # (Auto) 4.4, Lymph # (Auto) 2.6, [place] # (Auto) 0.5, Eos # (Auto) 0.2, Baso # (Auto) 0.1, Sodium 138, Potassium 4.0, Chloride 106, Carbon Dioxide 23, Anion Gap 13.0, BUN 6 L, Creatinine 0.80, Estimated Creat Clear 101, Estimated GFR 80, Est GFR ( Amer) 97, Glucose 92, Calcium 8.7, Total Bilirubin 0.4, AST 30, ALT 26, Alkaline Phosphatase 51, Troponin I < 0.01, Total Protein 7.0, Albumin 4.5, Globulin 2.5, Albumin/Globulin Ratio 1.8, HCG, Quant < 2 09/15/23 16:40: Troponin I < 0.01 Response Orders (Tests/Meds): ED MEDICATIONS Discontinued Medications Generic Name Dose Route Start Last Admin Trade Name Darshana PRN Reason Stop Dose Admin Acetaminophen 1,000 mg 09/15/23 16:33 09/15/23 16:43 Acetaminophen 1,000mg/100ml Vial IV 09/15/23 16:34 1,000 mg ONCE ONE Administration Albuterol/Ipratropium 6 ml 09/15/23 15:56 09/15/23 16:09 Ipratropium/Albuterol 3 Ml Neb IH 09/15/23 15:57 6 ml ONCE ONE Administration Hydroxyzine Pamoate 50 mg 09/15/23 13:57 09/15/23 14:10 Hydroxyzine Pamoate 25mg Capsule PO 09/15/23 13:58 50 mg ONCE ONE Administration Ketorolac Tromethamine 15 mg 09/15/23 13:57 09/15/23 14:10 Ketorolac 30mg/Ml Vial IV 09/15/23 13:58 15 mg ONCE ONE Administration ORDERS Category Date Time Status CXR --portable [XR chest portable] Stat Exams 09/15/23 13:57 Completed CBC w/Auto Diff [Complete Blood Count Auto Diff] Stat Lab 09/15/23 13:45 Completed CMP [Comprehensive Metabolic Panel] Stat Lab 09/15/23 13:45 Completed HCG,Quantitative Stat Lab 09/15/23 13:45 Completed Troponin I Q3H Lab 09/15/23 16:40 Completed Troponin I Q3H Lab 09/15/23 22:00 Ordered Troponin I Stat Lab 09/15/23 13:45 Completed UA [Urinalysis and Microscopic] Stat Lab 09/15/23 13:30 Completed ECG initial [place]on Routine Y 09/15/23 13:21 Completed MDM Narrative Medical Decision Narrative: 38-year-old female with history of anxiety, bipolar, depression, nonepileptic seizures presenting with chest pressure. Patient states that she started having chest pain this morning right after waking up. It is left-sided, pressure more so than pain, radiates to her left shoulder. She was not doing anything in particular that time was started. No nausea or vomiting, diaphoresis, but shortness of breath. No other relevant history. History was obtained via conversation with patient. On arrival, patient hemodynamically stable, alert, oriented x4, appropriate, GCS 15, moving all extremities spontaneously, pupils equal and reactive to light. Full physical exam performed and significant for well-appearing woman in no acute distress. Lungs clear to auscultation bilaterally. No evidence of murmur. Pulses equal and symmetric. Patient appears anxious, but overall well. Nontachycardic, afebrile, normotensive, saturating appropriately on room air. Differential includes anxiety, bronchitis, reactive airway disease, pneumonia, pulmonary embolus, pneumothorax, among others. Patient was given Toradol and hydroxyzine for symptomatic management and correction of underlying abnormalities. Patient took aspirin prior to arrival. Workup independently interpreted and significant for nonactionable CBC or chemistry. Chest x-ray normal urinalysis negative. See radiology read for full review of final results. Independent interpretation of EKG shows sinus rhythm [address] or T wave changes concerning for acute ischemia. Prior to delta troponin and disposition, care handed off to oncoming physician. Sarkis. Patient low risk. serial Tn normal. f/u with pmd.
[2023-09-15 14:22] LABS: Bacteria,Urine 1+ /lpf; WBC,Urine Occasional #/hpf (0-3)
[2023-09-15 14:33] LABS: HCG,Quantitative < 2 mIU/ml (0-5.42)
[2023-09-15] MEDS: IPRATROPIUM/ALBUTEROL 3 ML NEB 6 ML IH (16:09)
[2023-09-15 16:22] LABS: Troponin I < 0.01 ng/ml (0.00-0.034)
[2023-09-15] MEDS: ACETAMINOPHEN 1,000MG/100ML VIAL 1000 MG IV (16:43)
--- NOTE | 2023-09-15 17:15 | PC.NURSE ---
LAB advised 3 minutes remaining on second trop
[2023-09-15 17:17] LABS: Troponin I < 0.01 ng/ml (0.00-0.034)
== END 2023-09-15 17:34 | disposition home or self-care (01) ==
PROVIDERS: Emergency Provider Emergency Medicine
DX: R07.9 Chest pain, unspecified (principal); R42 Dizziness and giddiness; M79.602 Pain in left arm; R30.0 Dysuria; I10 Essential (primary) hypertension; E07.9 Disorder of thyroid, unspecified; F17.210 Nicotine dependence, cigarettes, uncomplicated
CPT/HCPCS: 71045; 80053; 81001; 84484; 84702; 85025; 93005; 96374; 96375; 99285; J0131

== ENCOUNTER 2023-12-04 13:12 | Outpatient (CLI) | payer MEDICARE, OTHER, SELFPAY ==
--- NOTE | 2023-12-04 13:15 | MM_ITS ---
PROCEDURE INFORMATION: Exam: MG Left Diagnostic Breast Tomosynthesis Exam date and time: 12/04/2023 1:04 PM Age: 38 years old Clinical indication: Recall on the basis of a sonography 12/04/2023 for mammographic evaluation of palpable concern in the left breast at 2 o'clock. TECHNIQUE: Imaging protocol: Left Diagnostic tomosynthesis and 2D mammography including computer-aided detection (CAD) when performed. Unilateral or bilateral exam. Triangular skin marker placed at palpable concern with spot compression added. COMPARISON: US BREAST LT COMPLETE 12/04/2023 1:55 PM MG MM DIG SCREENING MAMM BI W/CAD 06/04/2023 3:17 PM MG MM DIG MAMM BI DX W/CAD 09/10/2021 2:10 PM US BREAST LT COMPLETE 09/10/2021 2:32 PM MG DXBI MM Dig mamm BI DX w/CAD 04/29/2018 3:05 PM BREASTLT US breast LT complete 04/29/2018 3:37 PM FINDINGS: MAMMOGRAPHY: Breast mammogram findings: Breast composition: The breasts are heterogeneously dense, which may obscure small masses. Mass: None. Architectural distortion: None. Calcifications: No suspicious calcifications. Asymmetric density: In region of palpable concern, somewhat oval 1.5 asymmetry in the upper outer posterior 3rd, 8-10 cm from the nipple, CC image [id number] frame 45 and MLO image [id number] frame 44. This is very similar to 04/18/2019 diagnostic mammography related to palpable concern. No sonographic correlate was reported on 04/18/2019. Skin thickening: None. Axillary adenopathy: None. IMPRESSION: Similar appearance of mammographic asymmetry in the left upper outer quadrant, in the region of the palpable concern, since 2019. Suggest six-month follow-up left diagnostic mammogram unless otherwise clinically indicated. Further evaluation of a palpable abnormality should be based on clinical grounds regardless of radiographic findings or lack thereof. ASSESSMENT: BI-RADS Category 3: Probably benign.
--- NOTE | 2023-12-04 13:15 | US_ITS ---
PROCEDURE INFORMATION: Exam: US Left Breast, Complete Exam date and time: 12/04/2023 1:55 PM Age: 38 years old Clinical indication: Lump in left breast TECHNIQUE: Imaging protocol: Complete ultrasound of all four quadrants of the left breast and the retroareolar regions, including ultrasound of the axilla when performed. COMPARISON: US BREAST LT COMPLETE 09/10/2021 2:32 PM FINDINGS: ULTRASOUND: Breast ultrasound findings: Sonographic images of the left breast including the retroareolar region, all 4 quadrants and the axilla do not demonstrate any solid or cystic masses. This is with particular attention to the 2 o'clock axis where the patient reports a palpable abnormality. No architectural distortion or acoustical shadowing. No skin thickening or axillary adenopathy. IMPRESSION: A skin marker should be placed over the area of palpable concern followed by a diagnostic unilateral mammogram with spot compression views for full evaluation of the patient's complaint of a palpable abnormality. ASSESSMENT: BI-RADS Category 0: Incomplete- Need Additional Imaging Evaluation and/or Prior Mammograms for Comparison.
== END 2023-12-04 23:59 ==
LOC: RAD 13:12
PROVIDERS: PCP Nurse Practitioner Family; Visit Provider Nurse Practitioner Family
DX: N64.59 Other signs and symptoms in breast (principal); R92.8 Other abnormal and inconclusive findings on diagnostic imaging of breast
CPT/HCPCS: 76641; 77061; 77065; G0279

== ENCOUNTER 2024-01-15 11:00 | Outpatient (RCR) | payer MEDICARE, OTHER, SELFPAY ==
--- NOTE | 2024-01-17 19:35 | HMH.RHREAS ---
Rehab Reassessment Rehab OP Re-assessment Start: 12/04/23 13:55 Freq: Status: Active Protocol: Document 01/15/24 11:00 JEFF (Rec: 01/17/24 19:35 JEFF [id number]) E-signed By Chucky Rodriguez, PT Oswestry Index Section 1 Pain Intensity The pain is moderate and does not vary much Section 2 Personal Care (Washing,Dresing) my way of washing or dressing even though it causes some pain Section 3 Lifting Pain prevents me from lifting weights off the floor Section 4 Walking I cannot walk more than one mile wihtout increasing pain Section 5 Sitting Pain prevents me from sitting for more than one hour Section 6 Standing I have some pain on standing, but it does not increase with time Section 7 Sleeping I get pain in bed, but it does not prevent me from sleeping well Section 8 Social Life My social life is normal and gives me no extra pain Section 9 Traveling I get some pain when traveling , but none of my usual forms of travel m Section 10 Changing Degreee of Pain My pain is neither getting better or worse Score and Risk Level Oswestry Sc 16 Oswestry Risk Level Moderate Disability Rehab Re-assessment Subjective Subjective Patient reports no significant change since start of care. Objective Objective Notes AROM: WNL MMT: WNL Pain: today 6/10; at worst over past week 04/16 Neuro: intermittent NT to L5/ S1 LLE TTP: L SIJ 2/4 Assessment Progress Assessment Progressing as Expected Assessment Notes Today is the first visit since initial evaluation for reassessment. Patient presents with R ant/L post rotation of the innominant. Patient would benefit from continuing with skilled PT interventions in order to address functional limitations with prolonged standing, walking, bending and lifting activities. Patient goals met STG 2 Goals Not Met All others Revised Goals NA Plan Plan Continue with current POC. Frequency of Therapy 2x/week Duration of therapy 4 weeks Time and Billing Re-Eval Time 16 Re-Eval Billing Units 1 PHYSICIAN CERTIFICATION: I certify the specified therapy services for Josy Melgar are required, authorized, and reviewed every 30 days.
== END 2024-01-15 12:10 | disposition home or self-care (01) ==
LOC: PT 11:00
PROVIDERS: Visit Provider Nurse Practitioner Family
DX: M54.50 Low back pain, unspecified (principal); M54.16 Radiculopathy, lumbar region
CPT/HCPCS: 97163; 97164; 97530

== ENCOUNTER 2024-02-03 15:51 | Emergency (ER) | payer MEDICARE, OTHER, SELFPAY ==
[2024-02-03 15:54] VITALS: BP 120/84; PULSE 84; O2SAT 98
--- NOTE | 2024-02-03 15:54 | ECG_ITS ---
APPROVED REPORT Exam: Resting ECG HR:76 bpm ECG Measurements Heart Rate 76 AXES ID 149 P 25 QRSd 100 QRS 78 QT 365 T 60 QTc 396 Conclusion SINUS RHYTHM Incomplete right bundle branch block Electronically signed by : MINERVA FARIAS, 02/03/2024 22:15:33
[2024-02-03 16:00] VITALS: BP 125/82; PULSE 78; O2SAT 97
--- NOTE | 2024-02-03 16:01 | XR_ITS ---
PROCEDURE INFORMATION: Exam: XR Chest Exam date and time: 02/03/2024 4:22 PM Age: 38 years old Clinical indication: Pain; Left-sided; Additional info: L sided cp TECHNIQUE: Imaging protocol: Radiologic exam of the chest. Views: 1 view. COMPARISON: CR XR CHEST PORTABLE 09/15/2023 2:32 PM FINDINGS: Lungs: A thin linear density is seen projecting of the medial left upper lobe. This is probably artifactual. Clinical correlation is recommended. No focal consolidation is seen. Pleural spaces: No pleural effusion. No pneumothorax. Heart/Mediastinum: No significant cardiac silhouette enlargement. Bones/joints: Unremarkable. IMPRESSION: A thin linear density is seen projecting of the medial left upper lobe. This is probably artifactual. Clinical correlation is recommended.
--- NOTE | 2024-02-03 16:06 | CT_ITS ---
PROCEDURE INFORMATION: Exam: CT Head Without Contrast Exam date and time: 02/03/2024 4:25 PM Age: 38 years old Clinical indication: Injury or trauma; Fall; Blunt trauma (contusions or hematomas); Additional info: Fall, struck head, QUARLES TECHNIQUE: Imaging protocol: Computed tomography of the head without contrast. Radiation optimization: All CT scans at this facility use at least one of these dose optimization techniques: automated exposure control; mA and/or kV adjustment per patient size (includes targeted exams where dose is matched to clinical indication); or iterative reconstruction. COMPARISON: CT HEAD/BRAIN WO CON 12/02/2022 11:00 AM FINDINGS: Brain: No acute intracranial hemorrhage, cerebral edema, or midline shift. Cerebral ventricles: No hydrocephalus. Paranasal sinuses: There is no acute sinusitis. Mastoid air cells: Visualized mastoid air cells are well aerated. Orbital cavities: The visualized orbits appear unremarkable. Bones: Unremarkable. No acute fracture. Soft tissues: Unremarkable. IMPRESSION: No acute intracranial abnormality.
[2024-02-03 16:07] VITALS: BP 120/84; PULSE 84; RESP 16; TEMP 36.9; O2SAT 98; BMI 25.2
--- NOTE | 2024-02-03 16:07 | HMH.EDCP ---
Discharge Plan Disposition Patient Disposition: Home, Self-Care Prescriptions Prescriptions: No Action quetiapine 25 mg tablet 25 mg PO HS Patient Comments: TAKE ONE TABLET BY MOUTH EVERY DAY AT BEDTIME famotidine 20 mg tablet 20 mg PO DAILY Qty: 30 2RF sertraline 50 mg tablet 50 mg PO DAILY Patient Comments: TAKE ONE TABLET BY MOUTH EVERY DAY hydrocodone-acetaminophen 7.5-325 mg tablet PO Patient Comments: TAKE ONE TABLET BY MOUTH EVERY 4 TO 6 HOURS NEEDED FOR PAIN MAY CAUSE DROWSINESS ibuprofen 600 mg tablet PO Patient Comments: TAKE ONE TABLET BY MOUTH EVERY 6 HOURS NEEDED FOR PAIN --TAKE WITH FOOD-- epinephrine [EpiPen 2-Gomez] 0.3 mg/0.3 mL auto-injector 0.3 mg IM Q5-15M PRN (Reason: anaphylaxis) Qty: 2 1RF Rx Instructions: do not exceed 3 doses per episode lamotrigine 200 mg tablet See Rx Instructions .ROUTE .COMPLEX Qty: 180 0RF Rx Instructions: TAKE ONE TABLET BY MOUTH TWICE DAILY FOR SEIZURES gabapentin 300 mg capsule 300 mg PO TID Qty: 90 1RF clonazepam [Klonopin] 0.5 mg tablet 0.5 mg PO BID PRN (Reason: panic attack(s)) Qty: 45 0RF oxcarbazepine 150 mg tablet 150 mg PO BID Qty: 90 2RF albuterol sulfate 90 mcg/actuation HFA aerosol inhaler 2 inh inhalation Q6H PRN (Reason: shortness of breath or wheezing) Qty: 8.5 0RF Referrals Follow up/Referrals: Provider,Referral, MD [Referring] - See instructions Activity Restrictions/Add. Instructions Additional Instructions/Restrictions: Call your family doctor to establish care for this visit to the emergency department and schedule follow-up within 48 hours to ensure improvement. If you have any worsening of your condition or any other concerning signs or symptoms, return to the emergency department or your primary care doctor for further evaluation. Take Tylenol 1000 mg every 6 hours (4 times daily) and ibuprofen 400 mg every 6 hours (4 times daily) as needed with food and water to prevent GI upset and kidney damage. Clinical Impressions Clinical Impression: Closed head injury, Concussion, Chest pain Discharge ED Provider: Reid Amaya HPI General Chief Complaint: Chest Pain Stated Complaint: chest pain Time Seen by Provider: 02/03/24 15:52 History of Present Illness HPI narrative: Please note that above description of symptoms, in this electronic medical record under categorization of recalled from ER triage doctor by RN are reflective of an initial nursing assessment, however, is not reflective of my full history and physical exam that was personally taken and clarified. Consequentially, this preceding description of symptoms, which may include the patient's categorized chief complaint in the EMR, do not reflect my personal clinical impression, and the ultimate description of history of present illness and patient stated complaints should be deferred to this section of the note. Unless stated otherwise or congruent with this section of the note, additional signs, symptoms, or incongruence should be interpreted as inaccurate with my clinical impression. Related Data Home Medications Medication Instructions Recorded Confirmed quetiapine 25 mg tablet 25 mg PO HS 03/11/23 11/19/23 sertraline 50 mg tablet 50 mg PO DAILY 08/21/23 11/19/23 hydrocodone 7.5 mg-acetaminophen tab PO 11/19/23 11/19/23 325 mg tablet ibuprofen 600 mg tablet mg PO 11/19/23 11/19/23 Previous Rx's Medication Instructions Recorded epinephrine 0.3 mg/0.3 mL 0.3 mg (0.3 mL) IM Q5-15M PRN 12/19/22 injection, auto-injector (EpiPen anaphylaxis #2 ea 2-Gomez) lamotrigine 200 mg tablet See Rx Instructions .Route 04/01/23 .COMPLEX SEIZURES #180 tabs albuterol sulfate 90 mcg/actuation 2 inh inhalation Q6H PRN shortness 06/20/23 aerosol inhaler of breath or wheezing #8.5 grams famotidine 20 mg tablet 20 mg PO DAILY #30 tabs 10/28/23 clonazepam 0.5 mg tablet (Klonopin) 0.5 mg PO BID PRN panic attack(s) 01/05/24 #45 tabs gabapentin 300 mg capsule 300 mg PO TID Pain #90 caps 01/05/24 oxcarbazepine 150 mg tablet 150 mg PO BID #90 tabs 01/28/24 Allergies Allergy/AdvReac Type Severity Reaction Status Date / Time venom-honey bee Allergy Unknown Unknown Verified 10/28/23 09:15 [BEE VENOM (HONEY BEE)] [facility] Disclaimer: The information contained in this section may have been updated after the patient was seen, as this information can be updated by other users. Medical History (Updated 02/03/24 @ 16:59 by Reid Amaya MD) Cervical strain Exposure to COVID-19 virus Viral syndrome Gastroenteritis Contusion of hip, right Fall Chest pain Sinusitis Anxiety Seizure Liver disease Thyroid disease Urinary tract infection Migraine Hypertension Panic disorder Major depressive disorder Bipolar II disorder Surgical History H/O: hysterectomy Previous section Family History Other No significant family history Social History Smoking Status: Former smoker tobacco type: cigarettes packs per day: 1 second hand exposure: Yes alcohol intake: never substance use type: former substance user and heroin current occupational status: disabled Travel in the last 8 weeks: None household members: spouse housing: house number of children: 2 current occupational exposures/hazards: No caffeine: Yes ROS Obtained: Yes All systems reviewed & no additional complaints except as documented Physical Exam General General appearance: alert Neck Neck exam: Present trachea midline Chest Chest inspection: Present normal inspection and symmetric chest wall rise Respiratory Respiratory exam: Present normal lung sounds bilaterally; Absent respiratory distress, wheezes, stridor, accessory muscle use or prolonged expiratory phase Cardiovascular Cardiovascular exam: Present regular rate and normal rhythm Extremities Exam Extremities exam: Absent edema Neurological Exam Neurological exam: Present alert, oriented X3 and CN II-XII intact Skin Skin exam: Present warm and dry; Absent cyanosis, diaphoresis or pallor HEART Score HEART Score HEART Score assessment performed?: Yes HEART Score: 0 Critical Care Critical Care Time Critical Care Time: No Medical Decision Making Medical Records Medical records reviewed: Yes I reviewed the patient's medical records. Cosme Inquiry Pt receiving controlled substance: No Cosme was queried for this patient: No Vital Signs Vital Signs: 02/03/24 15:54 02/03/24 16:00 02/03/24 16:07 Temperature 98.4 F Temperature Source Oral Pulse Rate 84 78 Pulse Rate [Right Brachial] 84 Respiratory Rate 16 Blood Pressure 120/84 125/82 Blood Pressure [Right Arm] 120/84 Blood Pressure Mean [Right Arm] 96 Blood Pressure Source [Right Arm] Automatic Cuff Blood Pressure Position [Right Arm] Sitting 02 Sat by Pulse Oximetry 98 97 98 Oxygen Delivery Method Room Air Room Air Room Air 02/03/24 16:30 02/03/24 17:11 Temperature 98.0 F Temperature Source Pulse Rate 76 67 Pulse Rate [Right Brachial] Respiratory Rate 13 Blood Pressure 120/83 103/61 L Blood Pressure [Right Arm] Blood Pressure Mean [Right Arm] Blood Pressure Source [Right Arm] Blood Pressure Position [Right Arm] 02 Sat by Pulse Oximetry 96 Oxygen Delivery Method Room Air Lab Data Labs: Lab Results 02/03/24 16:03: WBC 7.6, RBC 4.44, Hgb 13.4, Hct 41.8, MCV 94.1, MCH 30.0, MCHC 31.9, RDW 13.7, Plt Count 499 H, MPV 7.4, Neut % (Auto) 65.8, Lymph % (Auto) 24.5, Tripp % (Auto) 7.9, Eos % (Auto) 1.0, Baso % (Auto) 0.8, Neut # (Auto) 5.0, Lymph # (Auto) 1.9, Tripp # (Auto) 0.6, Eos # (Auto) 0.1, Baso # (Auto) 0.1, Sodium 140, Potassium 3.4 L, Chloride 108 H, Carbon Dioxide 23, Anion Gap 12.4, BUN 9, Creatinine 0.70, Estimated Creat Clear 115, Estimated GFR 94, Est GFR ( Amer) 113, Glucose 112 H, Hemoglobin A1c 4.8, Calcium 9.3, Total Bilirubin 0.2, AST 24, ALT 19, Alkaline Phosphatase 69, Troponin I < 0.01, Total Protein 7.0, Albumin 4.4, Globulin 2.6, Albumin/Globulin Ratio 1.7, Triglycerides 89, Cholesterol 147, LDL Cholesterol Direct 75.36 L, VLDL Cholesterol 18, HDL Cholesterol 55, Cholesterol/HDL Ratio 2.7, Lipase 57, TSH 0.64, Thyroxine (T4) 7.0 02/03/24 16:03 02/03/24 16:03 Response Orders (Tests/Meds): ED MEDICATIONS Discontinued Medications Generic Name Dose Route Start Last Admin Trade Name Freq PRN Reason Stop Dose Admin Acetaminophen 1,000 mg 02/03/24 16:01 02/03/24 16:42 Acetaminophen 500mg Tab PO 02/03/24 16:02 1,000 mg ONCE ONE Administration Belladonna Alkaloids 60 ml 02/03/24 16:01 02/03/24 16:41 Belladonna Alkaloids 60 Ml Ml PO 02/03/24 16:02 60 ml ONCE ONE Administration Dexamethasone 10 mg 02/03/24 16:01 02/03/24 16:42 Dexamethasone 4mg Tablet PO 02/03/24 16:02 10 mg ONCE ONE Administration Diphenhydramine HCl 25 mg 02/03/24 16:01 02/03/24 16:41 Diphenhydramine 50mg/Ml Vial IV 02/03/24 16:02 25 mg ONCE ONE Administration Lactated Ringer's 1,000 mls @ 999 mls/hr 02/03/24 16:01 02/03/24 16:42 Lactated Ringer's 1000 Ml Bag IV 02/03/24 17:01 999 mls/hr .Q1H1M ONE Administration Ketorolac Tromethamine 15 mg 02/03/24 16:01 02/03/24 16:41 Ketorolac 30mg/Ml Vial IV 02/03/24 16:02 15 mg ONCE ONE Administration Prochlorperazine Edisylate 10 mg 02/03/24 16:01 02/03/24 16:41 Prochlorperazine 10mg/2ml Vial IV 02/03/24 16:02 10 mg ONCE ONE Administration ORDERS Category Date Time Status CT head/brain wo con Stat Cat Scan 02/03/24 16:06 Completed XR chest portable Stat Exams 02/03/24 16:01 Completed Complete Blood Count Auto Diff Stat Lab 02/03/24 16:03 Completed Comprehensive Metabolic Panel Stat Lab 02/03/24 16:03 Completed Hemoglobin A1C Stat Lab 02/03/24 16:03 Completed Lipase Stat Lab 02/03/24 16:03 Completed Lipid Panel Stat Lab 02/03/24 16:03 Completed T4 (Thyroxine) Stat Lab 02/03/24 16:03 Completed TSH [Thyroid Stimulating Hormone] Stat Lab 02/03/24 16:03 Completed Troponin I Stat Lab 02/03/24 16:03 Completed MDM Narrative Medical Decision Narrative: 38-year-old female history of anxiety, depression, bipolar disorder, chronic chest pain and pleurisy, hysterectomy not on hormone therapy seizure disorder presenting with chest pain. Patient states that chest pain started about 6 AM, 10 hours prior to this visit. She was just sitting on the couch. Under her left breast, does not radiate, but associated with left-sided shoulder pain. After having onset of pain, patient also developed vomiting and diarrhea this nonbloody, nonbilious. States that she has had similar chest pains in the past, this is different only and that she developed diarrhea afterward. No fevers or chills, rash, sick contacts, dyspnea, new medications or travel, or any other relevant history. History was obtained via conversation with patient. On arrival, patient hemodynamically stable, alert, oriented x4, appropriate, GCS 15, moving all extremities spontaneously, pupils equal and reactive to light. Full physical exam performed and significant for very well-appearing woman who is mildly anxious, but no acute distress. Lungs are clear to auscultation anterior and posterior bilaterally. Saturating 100% on room air. Nontachypneic. Cardiac exam without murmurs, gallops, rubs, pulses are equal and symmetric intact in bilateral upper and lower extremities. Nontachycardic. No lower extremity edema. Abdomen soft, nontender, nondistended. Patient not actively vomiting. Differential includes gastritis, enteritis, pancreatitis, cholecystitis, ACS, AK, pneumonia, pneumothorax, bronchitis, among others. Patient was given Toradol, Compazine, Benadryl, GI cocktail, Decadron, fluids for symptomatic management and correction of underlying abnormalities. Workup independently interpreted and significant for nonactionable CBC or chemistry. Troponin negative, A1c pending, lipid panel nonactionable. Lipase negative thyroid studies nonactionable. Chest x-ray with no acute cardiopulmonary space disease, CT head without acute intracranial abnormality. See radiology read for full review of final results. Independent interpretation of EKG shows sinus rhythm 76 beats a minute no ST or T wave changes concern for acute anemia. GA 149, QRS 100, QTc 396, axis normal. Patient placed on continuous cardiac monitoring and continuous pulse ox with initial blood pressure 120/84, heart rate 84, saturation 98% on room air. Low risk Wells, PERC negative, D-dimer inappropriate at this time. Because patient low risk chest pain, heart score 0, and chest pain started almost 12 hours prior to arrival, delta troponin not deemed necessary at this time. Because patient at baseline without signs or symptoms of clinical decompensation, deemed appropriate for discharge. Results were relayed to patient who voiced understanding and were agreeable to outpatient management and follow up. I discussed my clinical impression with patient and answered all questions. At this time, the evidence for any other entities in the differential is insufficient to warrant any further testing or ED observation. This was explained as well. Advisory was given that persistent or worsening symptoms require further evaluation. I confirmed the understanding of this discussion. Wood Grinder Operator disclaimer Much of this encounter note is an electronic photolettering machine operator spoken language to printed text. Electronic photolettering machine operator of the spoken language may permit errors. Although I have reviewed the note, some errors may still exist.
--- NOTE | 2024-02-03 16:20 | PC.NURSE ---
Pt gone to RAD
[2024-02-03 16:26] LABS: Chloride 108 mmol/L (98-107)
[2024-02-03 16:27] LABS: Potassium 3.4 mmoL/L (3.5-5.1); Sodium 140 mmol/L (136-145)
[2024-02-03 16:29] LABS: Alanine Aminotransferase 19 U/L (12-78); Alkaline Phosphatase 69 U/L (38-126); Aspartate Amino Transferase 24 U/L (14-36); Bilirubin,Total 0.2 mg/dl (0.2-1.3); Blood Urea Nitrogen 9 mg/dl (7-17); Creatinine Clearance Estimated 115 mL/min (50-200); Estimated Glomerular Filt Rate 94 ml/min (>60); GFR (African American) 113 ML/MIN (>60)
[2024-02-03 16:30] VITALS: BP 120/83; PULSE 76; O2SAT 96
[2024-02-03 16:30] LABS: Albumin Level 4.4 g/dl (3.5-5.0); Albumin/Globulin Ratio 1.7 (1.1-1.8); Anion Gap 12.4 mEq/L (5-15); Calcium 9.3 mg/dl (8.4-10.2); Carbon Dioxide 23 mmol/L (22.0-30.0); Chol/HDL Ratio 2.7 (1-3.5); Cholesterol 147 mg/dl (140-200); Globulin 2.6 g/dL (1.3-3.2); Glucose 112 mg/dl (74-100); HDL Cholesterol 55 mg/dl (40-60); Lipase 57 U/L (23-300); Triglycerides 89 mg/dl (30-150); VLDL Cholesterol 18 mg/dL (0-40)
[2024-02-03 16:32] LABS: Basophils # 0.1 K/mm3 (0-0.2); Basophils % 0.8 % (0.1-2.0); Eosinophils # 0.1 K/mm3 (0.0-0.4); Hematocrit 41.8 % (37.0-47.0); Hemoglobin 13.4 g/dL (12.2-16.2); Lymphocytes # 1.9 K/mm3 (0.7-4.5); Lymphocytes % 24.5 % (10-50); Mean Corpuscular HGB Conc 31.9 g/dL (31.8-35.4); Mean Corpuscular Volume 94.1 fl (81-99); Mean Platelet Volume 7.4 fl (7.4-10.4); Monocytes # 0.6 K/mm3 (0.1-1.0); Monocytes % 7.9 % (1.7-9.3); Neutrophils % 65.8 % (37.0-80.0); Platelet Count 499 K/mm3 (142-424); Red Blood Count 4.44 M/mm3 (4.20-5.40); Red Cell Distribution Width 13.7 % (11.5-17.5); White Blood Count 7.6 K/mm3 (4.8-10.8)
[2024-02-03 16:41] LABS: Direct LDL Cholesterol 75.36 mg/dL (100-129)
[2024-02-03] MEDS: BELLADONNA ALKALOIDS 60 ML ML PO (16:41)
[2024-02-03] MEDS: KETOROLAC 30MG/ML VIAL 15 MG IV (16:41)
[2024-02-03] MEDS: diphenhydrAMINE 50MG/ML VIAL 25 MG IV (16:41)
[2024-02-03] MEDS: PROCHLORPERAZINE 10MG/2ML VIAL 10 MG IV (16:41)
[2024-02-03] MEDS: LACTATED RINGERS 1000ML 1,000 ML 999 ML IV (16:42)
[2024-02-03] MEDS: ACETAMINOPHEN 500MG TAB 1000 MG PO (16:42)
[2024-02-03] MEDS: DEXAMETHASONE 4MG TABLET 10 MG PO (16:42)
[2024-02-03 16:49] LABS: Troponin I < 0.01 ng/ml (0.00-0.034)
--- NOTE | 2024-02-03 17:00 | PC.NURSE ---
Dr. Amaya at to update pt on results
[2024-02-03 17:03] LABS: Thyroid Stimulating Hormone 0.64 uIU/mL (0.465-4.68)
[2024-02-03 17:11] VITALS: BP 103/61; PULSE 67; RESP 13; TEMP 36.7
[2024-02-03 17:38] LABS: Hemoglobin A1C 4.8 % (4.0-6.0)
== END 2024-02-03 17:12 | disposition home or self-care (01) ==
PROVIDERS: Emergency Provider Emergency Medicine; PCP Nurse Practitioner Family
DX: S06.0X0A Concussion without loss of consciousness, initial encounter; R07.9 Chest pain, unspecified; W19.XXXA Unspecified fall, initial encounter; F31.9 Bipolar disorder, unspecified; F41.9 Anxiety disorder, unspecified; Z87.891 Personal history of nicotine dependence
CPT/HCPCS: 70450; 71045; 80053; 80061; 83036; 83690; 84436; 84443; 84484; 85025; 93005; 96361; 96374; 96375; 99285; J7120

== ENCOUNTER 2024-05-27 09:00 | Outpatient (RCR) | payer MEDICARE, OTHER, SELFPAY ==
--- NOTE | 2024-03-31 17:07 | HMH.PTOPEV ---
PT Outpatient Evaluation Rehab PT Outpatient Evaluation Start: 03/31/24 16:08 Freq: Status: Active Protocol: Document 03/31/24 16:08 KARRIE (Rec: 03/31/24 17:07 KARRIE [id number]) E-signed By Ene Castañeda, PT Outpatient Therapy Subjective History Subjective History Pt is a 38 y/o female who reports chronic LBP for 2 years. Pt reports she fell 2 days ago tripping over her dogs resulting in slight increase in LBP, denies recent imaging of the low back. Pt reports she had a lumbar spine MRI in 2021 showing a bulging disc. Pt reports intermittent shooting pain of the posterior aspect of bilateral legs and numbness/tingling of both feet. Pt denies b/b dysfunction or saddle anesthesia. Pt reports she takes Gabapentin and has had multiple injections in her back with minimal improvement. Pt reports pain is aggravated by bending, lifting, and prolonged standing/walking and is mostly sharp, shooting in nature. Medical History: Bipolar disorder, Anxiety, Seizures since 2004 (caused by stress) New diagnosis of cancer in past 12 No months? Chief Complaint Pain Symptom Type Ache,Sharp,Dull,Shooting Symptoms Relieved By Heat,Ice,OTC Meds,Prescription Meds Symptoms Aggravated By Sitting,Standing,Bending/ Stooping,Physical Activity, Walking,Lifting Current Functional Limitations Lifting,Housework,Driving, Standing,Sitting,Walking, Bending/Stooping Symptom Description Constant but Variable Level of pain today (0-10) 5 Pain scale - at its best (0-10) 3 Pain scale - at its worst (0-10) 6 Lumbopelvic Eval Palapation tenderness bilateral lumbar spinal tenderness Yes paraspinal tenderness Yes buttock tenderness Yes Lumbar/Sacral Palpation Findings Tenderness Lumbar/Sacral Palpation Overall Comment 3/4 TTP Accessory Movement L-spine Vertebrae Accessory Movements Central P/[place] that Elicit Symptoms L3 bilateral L4 bilateral L5 bilateral S1 bilateral Range of Motion Lumbar Spine Active Flexion Range of 80 Motion (degrees) Lumbar Spine Active Extension Range of 15 Motion (degrees) Left Lumbar Spine Lateral Flexion Active 10 Range of Motion (degrees) Right Lumbar Spine Lateral Flexion 10 Active Range of Motion (degrees) Manual Muscle Test Bilateral Knee Extension Strength Grade 5 Normal Knee Flexion Strength Grade 5 Normal Hip Flexion Strength Grade 5 Normal Hip Abduction Strength Grade 4 Good Hip Adduction Strength Grade 4 Good Hip Extension Strength Grade 4- Good- Ankle Dorsiflexion Strength Grade 5 Normal DTR Rt Patellar 2+ Lt Patellar 2+ Rt Gastroc/Soleus 2+ Lt Gastroc/Soleus 2+ Altered Sensation Bilateral Comment equal and intact to light touch sensation bilaterally Special Tests Hip Nicola (ALICE) Test Positive Left,Positive Right Sciatic Nerve Tension Test Negative Left,Negative Right Unilateral Straight Leg Raise (Lasegue) Negative Left,Negative Right Test Oswestry Index Section 1 Pain Intensity The pain is moderate and does not vary much Section 2 Personal Care (Washing,Dresing) my way of washing or dressing even though it causes some pain Section 3 Lifting lifting heavy weights off the floor, but I can manage light to medium Section 4 Walking I have some pain when walking but it does not increase with distance Section 5 Sitting Pain prevents me from sitting for more than one hour Section 6 Standing I have some pain on standing, but it does not increase with time Section 7 Sleeping I get pain in bed, but it does not prevent me from sleeping well Section 8 Social Life Pain has restricted my social life and I do not go out often Section 9 Traveling Pain restricts me to short necessary journeys under 30 minutes Section 10 Changing Degreee of Pain My pain is neither getting better or worse Score and Risk Level Oswestry Sc 23 Oswestry Risk Level Moderate Disability Outpatient Therapy Assessment Impairments Problems/Impairmments Palpation Tenderness,Impaired Range of Motion,Impaired Strength,Impaired Walking, Impaired Standing,Impaired Sitting,Impaired Lifting, Impaired Household Care, Impaired Squatting,Impaired Bending,Subjective C/O Pain, Impaired Self Care/Self Management Prognosis Rehab Potential Good Clinical Impression Consistent with Diagnosis Yes Short Term Goals Number of Weeks 3 Decrease Subjective C/O Pain Yes: Improve pain at worst to 4/10 to improve overall QOL Improve Self Care/Self Management Yes Patient to be Ind w/ HEP Yes Manager Medicaid Goals Number of Weeks 6 Decreased Palpation Tenderness Yes: 1-2/4 TTP of lumbar paraspinals, SP and gluteal mm Increase Range of Motion Yes: Improve lumbar AROM to WNL Increase Strength Yes: Improve B hip MMT to 4+-5 /5 grossly to assist with function Restore Ability to Lift Objects to Waist Yes: demonstrate proper Level mechanics to assist with ADLs & prevent reinjury Improve Oswestry Score Yes: Improve score to mild disability category to improve overall QOL Decrease Subjective C/O Pain Yes: Improve pain at worst to 2/10 to improve overall QOL Outpatient Therapy Plan of Care Treatment Plan May Include Therapeutic Exercise Including Home Yes Exercise Program Manual Therapy Techniques Yes Neuromuscular Re-education Yes Therapeutic Activities to Return to Yes Previous Functional/Work Level ADL/Self Care Education Yes Mechanical Traction Yes Dry Needling Yes Thermal Modalities Yes Electrical Stimulation Yes Ultrasound/Phonophoresis Yes Iontophoresis Yes Massage Yes Eval/Re-Eval Yes Frequency Times per week 2 Duration Number of Weeks 4-6 Addendums This patient is a candidate for social No or vocational rehab? Patient/Guardian verbally acknowledges Yes understanding of treatment program and consents to further treatment? Patient/Guardian verbally acknowledges Yes understanding of diagnosis, prognosis and goals for treatment? Eval Complexity PT Charges 85114 - Low Complexity Shoulder/Elbow Eval Shoulder Objective Measurements Elbow Objective Measurements PHYSICIAN CERTIFICATION: I certify the specified therapy services for Josy Melgar are required, authorized, and reviewed every 30 days.
--- NOTE | 2024-05-03 10:09 | HMH.RHREAS ---
Rehab Reassessment Rehab OP Re-assessment Start: 03/31/24 16:08 Freq: Status: Active Protocol: Document 05/03/24 09:07 JOIECHRIS (Rec: 05/03/24 10:09 KARRIE [id number]) E-signed By Ene Castañeda, PT Oswestry Index Section 1 Pain Intensity The pain comes and goes and is moderate Section 2 Personal Care (Washing,Dresing) increase the pain, but I manage not to change my way of doing it Section 3 Lifting I can lift heavy weights, but it gives me extra pain Section 4 Walking I have some pain when walking but it does not increase with distance Section 5 Sitting I can sit in any chair for as long as I like Section 6 Standing I have some pain on standing, but it does not increase with time Section 7 Sleeping I get pain in bed, but it does not prevent me from sleeping well Section 8 Social Life Pain has restricted my social life and I do not go out often Section 9 Traveling I get some pain when traveling , but none of my usual forms of travel m Section 10 Changing Degreee of Pain My pain is neither getting better or worse Score and Risk Level Oswestry Sc 15 Oswestry Risk Level Moderate Disability Rehab Re-assessment Subjective Subjective Pt reports she has been unable to attend PT in 19 days due to having to work around her boss' schedule. Pt reports overall her low back pain is about the same. Pt reports her dogs knocked her down again 3 -4 days ago resulting in increased LBP, denies serious injuries from the falls. Pt reports pain at worst as 7.5/ 10 on VAS since the fall. Pt reports pain stays localized to the low back. Objective Objective Notes Lumbar AROM: flex 50, ext 15, LF 10 BLE MMT: hip abd 4/5, hip add 4/5, hip ext 4-/5 Assessment Assessment Notes Pt has attended 4 PT visits since her initital PT evaluation on 03/31/24. Pt reported increased low back pain 3-4 days ago after falling due to being knocked down by her dogs, denies serious injuries from the fall . Pt demonstrated worsening of subjective report of LBP and lumbar flexion AROM this date compared to the initial evaluation. Pt demonstrated improved SHANNAN score although is still in the moderate disability category. Overall, the pt would continue to benefit from skilled PT to further improve subjective report of pain, lumbar AROM, hip/core strength and functional activity tolerance to improve overall QOL. Patient goals met ST/3 Goals Not Met p! at worst, HEP compliance Revised Goals n/a Plan Plan Continue initial POC Frequency of Therapy 2x/week Duration of therapy 4 more weeks Time and Billing Re-Eval Time 10 Re-Eval Billing Units 1 PHYSICIAN CERTIFICATION: I certify the specified therapy services for Josy Melgar are required, authorized, and reviewed every 30 days.
== END 2024-05-27 23:59 | disposition home or self-care (01) ==
LOC: PT 09:00
PROVIDERS: Visit Provider Nurse Practitioner Family
DX: M54.50 Low back pain, unspecified (principal)
CPT/HCPCS: 97014; 97035; 97110; 97140; 97163; 97164; G0283

== ENCOUNTER 2024-06-02 14:12 | Outpatient (CLI) | payer MEDICARE, OTHER, SELFPAY ==
--- NOTE | 2024-06-02 14:16 | MM_ITS ---
PROCEDURE INFORMATION: Exam: MG Bilateral Diagnostic Breast Tomosynthesis Exam date and time: 06/02/2024 2:08 PM Age: 38 years old Clinical indication: Ultrasound performed 12/04/2023 for left breast palpable lump was negative. Diagnostic mammogram was recommended as part of the routine palpable lump workup. Due for bilateral annual screening mammography TECHNIQUE: Imaging protocol: Bilateral Diagnostic tomosynthesis and 2D mammography including computer-aided detection (CAD) when performed. Unilateral or bilateral exam. COMPARISON: 1. MG MM DIG MAMM DX UNILAT LT CAD 12/04/2023 1:04 PM 2. MG MM DIG SCREENING MAMM BI W/CAD 06/04/2023 3:17 PM 3. MG MM DIG MAMM BI DX W/CAD 09/10/2021 2:10 PM 4. MG DXBI MM Dig mamm BI DX w/CAD 04/29/2018 3:05 PM FINDINGS: MAMMOGRAPHY: Breast composition: The breast is heterogeneously dense, which may obscure small masses. Breast mammogram findings: Upper posterior focal asymmetry is unchanged dating back to 04/29/2018. No new mass, architectural distortion, or suspicious calcifications have developed to suggest malignancy. No axillary adenopathy. IMPRESSION: No mammographic evidence of malignancy. Recommend annual screening mammography unless otherwise clinically indicated. Clinical follow-up regarding the patient's palpable lump. If clinically suspicious, sampling or MRI could be performed for further assessment ASSESSMENT: BI-RADS Category 1: Negative.
== END 2024-06-02 23:59 | disposition home or self-care (01) ==
LOC: RAD 14:14
PROVIDERS: PCP Nurse Practitioner Family; Visit Provider Nurse Practitioner Family
DX: R92.8 Other abnormal and inconclusive findings on diagnostic imaging of breast (principal); N63.0 Unspecified lump in unspecified breast
CPT/HCPCS: 77062; 77066; G0279

== ENCOUNTER 2024-06-24 09:17 | Emergency (ER) | payer MEDICARE, OTHER, SELFPAY ==
[2024-06-24] VITALS (7 sets, daily range): BP systolic 132–141; BP diastolic 68–96; PULSE 76–95; RESP 16–20; TEMP 36.7; O2SAT 99–100; BMI 23.8
--- NOTE | 2024-06-24 09:21 | ED_ITS ---
Discharge Plan Disposition Patient Disposition: Home, Self-Care Condition: Good Prescriptions Prescriptions: No Action quetiapine 25 mg tablet 25 mg PO HS Patient Comments: TAKE ONE TABLET BY MOUTH EVERY DAY AT BEDTIME famotidine 20 mg tablet 20 mg PO DAILY Qty: 30 2RF epinephrine [EpiPen 2-Gomez] 0.3 mg/0.3 mL auto-injector 0.3 mg IM Q5-15M PRN (Reason: anaphylaxis) Qty: 2 1RF Rx Instructions: do not exceed 3 doses per episode sertraline 50 mg tablet 50 mg PO DAILY Patient Comments: TAKE ONE TABLET BY MOUTH EVERY DAY ibuprofen 600 mg tablet PO Patient Comments: TAKE ONE TABLET BY MOUTH EVERY 6 HOURS NEEDED FOR PAIN --TAKE WITH FOOD-- lamotrigine 200 mg tablet See Rx Instructions .ROUTE .COMPLEX Qty: 180 0RF Rx Instructions: TAKE ONE TABLET BY MOUTH TWICE DAILY FOR SEIZURES albuterol sulfate 90 mcg/actuation HFA aerosol inhaler 2 inh inhalation Q6H PRN (Reason: shortness of breath or wheezing) Qty: 8.5 0RF oxcarbazepine 150 mg tablet 150 mg PO BID Qty: 90 2RF gabapentin 300 mg capsule 300 mg PO TID Qty: 90 1RF clonazepam [Klonopin] 0.5 mg tablet 0.5 mg PO BID PRN (Reason: panic attack(s)) Qty: 45 1RF amoxicillin 500 mg tablet 500 mg PO BID 10 Days Qty: 20 0RF Referrals Follow up/Referrals: Simeon Garrison APRN [Primary Care Provider] - See instructions Activity Restrictions/Add. Instructions Additional Instructions/Restrictions: Please follow-up with your primary care doctor. Please return with any new or worsening symptoms Clinical Impressions Clinical Impression: Closed head injury Print Language Print Language: German Discharge ED Provider: Casey Adams General Adult HPI General Chief complaint: PAIN Stated complaint: AO 06/22/24-pain and tingling R side, headache, Time Seen by Provider: 06/24/24 09:21 History of Present Illness HPI narrative: She presents with a chief complaint of headaches, neck pain, and right arm numbness following a fall a few days ago. She reports that while playing with her grandson, she accidentally hit a coffee table, causing immediate pain from the back of her head to the front, along with blurred vision. Since the fall, she has been experiencing daily headaches and neck pain, which she describes as being located mainly around the middle and sides of her neck. In addition to the neck pain, she reports numbness and swelling in her right arm and fingers, which has been ongoing even before the fall. She mentions having to remove her rings due to the swelling. She also reports pain in her lower abdomen, which has been present for the past four or five days. She describes the pain as a dull ache that comes in more severe waves. She denies any pain during urination. She has a history of a cyst and is currently taking famotidine for acid reflux- like symptoms, which she reports is not helping with her current abdominal pain. She has made recent dietary changes, including switching from salt to a no-salt alternative. She further elaborates that the fall occurred in her daughter's kitchen while playing with her grandson. She describes the pain as shooting from the back of her head to the front, accompanied by blurred vision. She mentions that her right arm numbness is ongoing and predates the fall. She reports that the abdominal pain can be sudden and intense, causing her to drop what she's doing. She also mentions trying to avoid spicy foods due to her symptoms. Please note that above description of symptoms, in this electronic medical record under categorization of recalled from ER triage doctor by RN are reflective of an initial nursing assessment, however, is not reflective of my full history and physical exam that was personally taken and clarified. Consequentially, this preceding description of symptoms, which may include the patient's categorized chief complaint in the EMR, do not reflect my personal clinical impression, and the ultimate description of history of present illness and patient stated complaints should be deferred to this section of the note. Unless stated otherwise or congruent with this section of the note, additional signs, symptoms, or incongruence should be interpreted as inaccurate with my clinical impression. Related Data Home Medications ?Medication ?Instructions ?Recorded ?Confirmed quetiapine 25 mg tablet 25 mg PO HS 03/11/23 03/22/24 sertraline 50 mg tablet 50 mg PO DAILY 08/21/23 03/22/24 ibuprofen 600 mg tablet mg PO 11/19/23 03/22/24 Previous Rx's ?Medication ?Instructions ?Recorded lamotrigine 200 mg tablet See Rx Instructions .Route 07/26/23 .COMPLEX SEIZURES #180 tabs famotidine 20 mg tablet 20 mg PO DAILY #30 tabs 10/28/23 epinephrine 0.3 mg/0.3 mL 0.3 mg (0.3 mL) IM Q5-15M PRN 02/23/24 injection, auto-injector (EpiPen anaphylaxis #2 ea 2-Gomez) albuterol sulfate 90 mcg/actuation 2 inh inhalation Q6H PRN shortness 05/04/24 aerosol inhaler of breath or wheezing #8.5 grams clonazepam 0.5 mg tablet (Klonopin) 0.5 mg PO BID PRN panic attack(s) 05/31/24 #45 tabs gabapentin 300 mg capsule 300 mg PO TID Pain #90 caps 05/31/24 oxcarbazepine 150 mg tablet 150 mg PO BID #90 tabs 05/31/24 amoxicillin 500 mg tablet 500 mg PO BID 10 days #20 tabs 06/07/24 Allergies Allergy/AdvReac Type Severity Reaction Status Date / Time venom-honey bee Allergy Unknown Unknown Verified 03/22/24 11:16 [BEE VENOM (HONEY BEE)] allergy reaction [facility] Disclaimer: The information contained in this section may have been updated after the patient was seen, as this information can be updated by other users. Medical History Cervical strain Exposure to COVID-19 virus Viral syndrome Gastroenteritis Contusion of hip, right Fall Chest pain Sinusitis Anxiety Seizure Liver disease Thyroid disease Urinary tract infection Migraine Hypertension Panic disorder Major depressive disorder Bipolar II disorder Surgical History H/O: hysterectomy Previous section Family History Other No significant family history Social History Smoking Status: Former smoker tobacco type: cigarettes packs per day: 1 second hand exposure: Yes alcohol intake: never substance use type: former substance user and heroin current occupational status: disabled Travel in the last 8 weeks: None household members: spouse housing: house number of children: 2 current occupational exposures/hazards: No caffeine: Yes Other Medical History Have you received the Flu Vaccine for this season: No Have you received the Pneumonia Vaccine: No ROS Obtained: Yes other As per HPI Physical Exam General General appearance: alert and in no apparent distress Head Head exam: atraumatic and normocephalic Eye Eye exam: Present normal appearance Neck Neck exam: Present normal inspection Chest Chest inspection: Present normal inspection and symmetric chest wall rise Respiratory Respiratory exam: Present normal lung sounds bilaterally; Absent respiratory distress Cardiovascular Cardiovascular exam: Present regular rate and normal rhythm Abdominal Exam Abdominal exam: Present soft; Absent tenderness Neurological Exam Neurological exam: Present alert and oriented X3 Psychiatric Psychiatric exam: Present normal affect and normal mood Skin Skin exam: Present warm and dry Medical Decision Making Medical Records Medical records reviewed: Yes I reviewed the patient's medical records. Screening: Per USPSTF and CDC recommendations, given the prevalence of disease in our region, it is our hospital?s policy to screen for HIV and viral Hepatitis for all patients aged 18 and over and those with ongoing risk factors. Cosme Inquiry Pt receiving controlled substance: No Vital Signs: 06/24/24 09:19 06/24/24 09:25 06/24/24 09:30 Temperature 98.0 F Temperature Source Oral Pulse Rate 91 H 87 Pulse Rate [Right] 95 H Respiratory Rate 20 Blood Pressure 132/85 141/96 H Blood Pressure [Right Arm] 132/85 Blood Pressure Mean [Right Arm] 100 Blood Pressure Source Blood Pressure Source [Right Arm] Automatic Cuff Blood Pressure Position 02 Sat by Pulse Oximetry 99 99 99 Oxygen Delivery Method Room Air Room Air Room Air 06/24/24 10:00 06/24/24 10:30 06/24/24 11:00 Temperature Temperature Source Pulse Rate 90 84 76 Pulse Rate [Right] Respiratory Rate Blood Pressure 140/68 137/95 H 133/82 Blood Pressure [Right Arm] Blood Pressure Mean [Right Arm] Blood Pressure Source Blood Pressure Source [Right Arm] Blood Pressure Position 02 Sat by Pulse Oximetry 100 100 99 Oxygen Delivery Method Room Air Room Air 06/24/24 11:58 Temperature 98.0 F Temperature Source Oral Pulse Rate 76 Pulse Rate [Right] Respiratory Rate 16 Blood Pressure 133/82 Blood Pressure [Right Arm] Blood Pressure Mean [Right Arm] Blood Pressure Source Automatic Cuff Blood Pressure Source [Right Arm] Blood Pressure Position Sitting 02 Sat by Pulse Oximetry Oxygen Delivery Method Room Air Lab Data Lab Results 06/24/24 09:24: Urine Color Yellow, Urine Appearance Clear, Urine pH 7.0, Ur Specific [place] 1.010, Urine Protein Negative, Urine Glucose (UA) Negative, Urine Ketones Negative, Urine Blood Negative, Urine Nitrate Negative, Urine Bilirubin Negative, Urine Urobilinogen 0.2, Ur Leukocyte Esterase Negative, Urine RBC None, Urine WBC None, Ur Squamous Epith Cells Occasional, Urine Bacteria None 06/24/24 10:15: WBC 8.2, RBC 5.01, Hgb 15.4, Hct 45.6, MCV 91.1, MCH 30.7, MCHC 33.7, RDW 13.8, Plt Count 404, MPV 6.6 L, Neut % (Auto) 71.2, Lymph % (Auto) 18.8, [place] % (Auto) 6.5, Eos % (Auto) 2.7, Baso % (Auto) 0.8, Neut # (Auto) 5.9, Lymph # (Auto) 1.5, [place] # (Auto) 0.5, Eos # (Auto) 0.2, Baso # (Auto) 0.1, Sodium 140, Potassium 4.3, Chloride 110 H, Carbon Dioxide 26, Anion Gap 8.3, BUN 10, Creatinine 0.90, Estimated Creat Clear 89, Estimated GFR 70, Est GFR ( Amer) 84, Glucose 102 H, Calcium 9.9, Total Bilirubin 0.5, AST 41 H, ALT 39, Alkaline Phosphatase 77, Total Protein 7.3, Albumin 4.6, Globulin 2.7, Albumin/Globulin Ratio 1.7, Lipase 125, HIV 1&2 Antibody Rapid Nonreactive 06/24/24 10:15 06/24/24 10:15 Orders (Tests/Meds): ED MEDICATIONS Discontinued Medications Generic Name Dose Route Start Last Admin Trade Name Santiagoq PRN Reason Stop Dose Admin Ketorolac Tromethamine 15 mg 06/24/24 11:20 06/24/24 11:35 Ketorolac 30mg/Ml Vial IV 06/24/24 11:21 15 mg ONCE ONE Administration Methocarbamol 500 mg 06/24/24 11:20 06/24/24 11:35 Methocarbamol 500mg Tablet PO 06/24/24 11:21 500 mg ONCE STA Administration Prochlorperazine Edisylate 10 mg 06/24/24 11:20 06/24/24 11:36 Prochlorperazine 10mg/2ml Vial IM 06/24/24 11:21 Not Given ONCE ONE Prochlorperazine Edisylate 10 mg 06/24/24 11:37 06/24/24 11:38 Prochlorperazine 10mg/2ml Vial IV 06/24/24 11:38 10 mg ONCE ONE Administration ORDERS Category Date Time Status CT cervical spine wo con Stat Cat Scan 06/24/24 11:[address] head/brain wo con Stat Cat Scan 06/24/24 10:52 Completed Complete Blood Count Auto Diff Stat Lab 06/24/24 10:15 Completed Comprehensive Metabolic Panel Stat Lab 06/24/24 10:15 Completed HIV (1&2) Antibody Rapid Stat Lab 06/24/24 10:15 Completed Hep C Ab with Reflex to RNA Stat Lab 06/24/24 10:15 Received Lipase Stat Lab 06/24/24 10:15 Completed UA [Urinalysis and Microscopic] Stat Lab 06/24/24 09:24 Completed Medical Decision Narrative: Patient with history and exam per above presenting for evaluation of headache and neck pain status post traumatic injury Diagnoses considered include fracture, postconcussive syndrome, intracranial hemorrhage, among others. ED workup and treatment included: ED MEDICATIONS Discontinued Medications Generic Name Dose Route Start Last Admin Trade Name Freq PRN Reason Stop Dose Admin Ketorolac Tromethamine 15 mg 06/24/24 11:20 06/24/24 11:35 Ketorolac 30mg/Ml Vial IV 06/24/24 11:21 15 mg ONCE ONE Administration Methocarbamol 500 mg 06/24/24 11:20 06/24/24 11:35 Methocarbamol 500mg Tablet PO 06/24/24 11:21 500 mg ONCE STA Administration Prochlorperazine Edisylate 10 mg 06/24/24 11:20 06/24/24 11:36 Prochlorperazine 10mg/2ml Vial IM 06/24/24 11:21 Not Given ONCE ONE Prochlorperazine Edisylate 10 mg 06/24/24 11:37 06/24/24 11:38 Prochlorperazine 10mg/2ml Vial IV 06/24/24 11:38 10 mg ONCE ONE Administration ORDERS Category Date Time Status CT cervical spine wo con Stat Cat Scan 06/24/24 11:[address] head/brain wo con Stat Cat Scan 06/24/24 10:52 Completed Complete Blood Count Auto Diff Stat Lab 06/24/24 10:15 Completed Comprehensive Metabolic Panel Stat Lab 06/24/24 10:15 Completed HIV (1&2) Antibody Rapid Stat Lab 06/24/24 10:15 Completed Hep C Ab with Reflex to RNA Stat Lab 06/24/24 10:15 Received Lipase Stat Lab 06/24/24 10:15 Completed UA [Urinalysis and Microscopic] Stat Lab 06/24/24 09:24 Completed Labs were independently interpreted by me, significant for no acute findings Imaging was independently visualized and interpreted by me, significant for no acute findings Please refer to radiology report for full details. My clinical impression at this time is most consistent with postconcussive syndrome Patient is requesting to be discharged at this time. She initially was going to leave AGAINST MEDICAL ADVICE however after reassessment of shared decision making we will discharge her at this time. The patient was advised that persistent or worsening symptoms require further evaluation. Critical Care Critical Care Time Critical Care Time: No
[2024-06-24 10:12] LABS: Microscopic, Urine URINE MICROSCOPIC (MICROSCOPIC)
[2024-06-24 10:15] LABS: Appearance,Urine CLEAR (Clear); Bilirubin,Urine Negative (Negative); Blood, Urine Negative (Negative); Color,Urine YELLOW (Yellow); Glucose,Urine (UA) Negative (Negative); Ketones,Urine Negative (Negative); Leukocyte Esterase,Urine Negative (Negative); Nitrate,Urine Negative (Negative); Protein,Urine Negative (Negative); Urobilinogen,Urine 0.2 EU/dl (0.2)
[2024-06-24 10:29] LABS: Squamous Epithelial Cell,Urine Occasional #/hpf (0-5)
[2024-06-24 10:36] LABS: Basophils # 0.1 K/mm3 (0-0.2); Basophils % 0.8 % (0.1-2.0); Eosinophils # 0.2 K/mm3 (0.0-0.4); Eosinophils % 2.7 % (0.1-12.0); Hematocrit 45.6 % (37.0-47.0); Hemoglobin 15.4 g/dL (12.2-16.2); Lymphocytes # 1.5 K/mm3 (0.7-4.5); Lymphocytes % 18.8 % (10-50); Mean Corpuscular HGB Conc 33.7 g/dL (31.8-35.4); Mean Corpuscular Hemoglobin 30.7 pg (27.0-31.2); Mean Corpuscular Volume 91.1 fl (81-99); Mean Platelet Volume 6.6 fl (7.4-10.4); Monocytes # 0.5 K/mm3 (0.1-1.0); Monocytes % 6.5 % (1.7-9.3); Neutrophils # 5.9 K/mm3 (1.8-7.8); Neutrophils % 71.2 % (37.0-80.0); Platelet Count 404 K/mm3 (142-424); Red Blood Count 5.01 M/mm3 (4.20-5.40); Red Cell Distribution Width 13.8 % (11.5-17.5); White Blood Count 8.2 K/mm3 (4.8-10.8)
[2024-06-24 10:40] LABS: Alanine Aminotransferase 39 U/L (12-78); Albumin Level 4.6 g/dl (3.5-5.0); Albumin/Globulin Ratio 1.7 (1.1-1.8); Alkaline Phosphatase 77 U/L (38-126); Anion Gap 8.3 mEq/L (5-15); Aspartate Amino Transferase 41 U/L (14-36); Bilirubin,Total 0.5 mg/dl (0.2-1.3); Blood Urea Nitrogen 10 mg/dl (7-17); Calcium 9.9 mg/dl (8.4-10.2); Carbon Dioxide 26 mmol/L (22.0-30.0); Chloride 110 mmol/L (98-107); Creatinine Clearance Estimated 89 mL/min (50-200); Estimated Glomerular Filt Rate 70 ml/min (>60); GFR (African American) 84 ML/MIN (>60); Globulin 2.7 g/dL (1.3-3.2); Glucose 102 mg/dl (74-100); Lipase 125 U/L (23-300); Potassium 4.3 mmoL/L (3.5-5.1); Sodium 140 mmol/L (136-145); Total Protein,Serum 7.3 g/dl (6.3-8.2)
--- NOTE | 2024-06-24 10:41 | PC.NURSE ---
TJ ROUNDED ON PT AT THIS TIME
--- NOTE | 2024-06-24 10:52 | CT_ITS ---
PROCEDURE INFORMATION: Exam: CT Head Without Contrast Exam date and time: 06/24/2024 11:13 AM Age: 39 years old Clinical indication: Syncope and collapse; Additional info: Fall, syncope TECHNIQUE: Imaging protocol: Computed tomography of the head without contrast. Radiation optimization: All CT scans at this facility use at least one of these dose optimization techniques: automated exposure control; mA and/or kV adjustment per patient size (includes targeted exams where dose is matched to clinical indication); or iterative reconstruction. COMPARISON: CT HEAD/BRAIN WO CON 02/03/2024 4:25 PM FINDINGS: Brain: There is no evidence of acute parenchymal hemorrhage, extra-axial collection, or acute infarction. There is no mass effect, midline shift, or downward herniation. Cerebral ventricles: No ventriculomegaly. Paranasal sinuses: Visualized sinuses are unremarkable. No fluid levels. Mastoid air cells: Visualized mastoid air cells are well aerated. Bones: Unremarkable. No acute fracture. Soft tissues: Unremarkable. IMPRESSION: No acute intracranial abnormality.
--- NOTE | 2024-06-24 11:03 | PC.NURSE ---
VBG RESULTS RECEIVED FROM RESPIRATORY, DR GLYNN NOTIFIED
--- NOTE | 2024-06-24 11:04 | PC.NURSE ---
PT TO CT
--- NOTE | 2024-06-24 11:05 | CT_ITS ---
PROCEDURE INFORMATION: Exam: CT Cervical Spine Without Contrast Exam date and time: 06/24/2024 11:13 AM Age: 39 years old Clinical indication: Injury or trauma; Other: Syncope/fall TECHNIQUE: Imaging protocol: Computed tomography of the cervical spine without contrast. Radiation optimization: All CT scans at this facility use at least one of these dose optimization techniques: automated exposure control; mA and/or kV adjustment per patient size (includes targeted exams where dose is matched to clinical indication); or iterative reconstruction. COMPARISON: CT CERVICAL SPINE WO CON 09/26/2021 12:55 PM FINDINGS: Bones/joints: No acute fracture. Normal alignment. There is straightening of cervical lordosis. There is [id number] multilevel degenerative disc disease. The spinal canal appears patent. Lungs: Lung apices are normal. Soft tissues: Unremarkable. IMPRESSION: No acute findings.
--- NOTE | 2024-06-24 11:13 | PC.NURSE ---
DR GLYNN AT BEDSIDE
--- NOTE | 2024-06-24 11:32 | PC.NURSE ---
RT notified of recemepic epi neb
[2024-06-24] MEDS: KETOROLAC 30MG/ML VIAL 15 MG IV (11:35)
[2024-06-24] MEDS: METHOCARBAMOL 500MG TABLET 500 MG PO (11:35)
[2024-06-24 11:37] LABS: HIV (1&2) Antibody Rapid NONREACTIVE (NONREACTIVE)
[2024-06-24] MEDS: PROCHLORPERAZINE 10MG/2ML VIAL 10 MG IV (11:38)
--- NOTE | 2024-06-24 11:57 | PC.NURSE ---
Upon entering the room patient had taken her own IV out stating she had to get to her daughter because her grandson had fallen and hit his head. Patient bleeding down arm to floor. Gauze and cobfabiano applied. made aware.
[2024-06-27 14:11] LABS: HCV Ab Reactive (Non Reactive)
== END 2024-06-24 11:59 | disposition home or self-care (01) ==
PROVIDERS: Emergency Provider Emergency Medicine; PCP Nurse Practitioner Family
DX: S09.90XA Unspecified injury of head, initial encounter (principal); R51.9 Headache, unspecified; H54.7 Unspecified visual loss; M54.2 Cervicalgia; G56.91 Unspecified mononeuropathy of right upper limb; R10.9 Unspecified abdominal pain; W01.190A Fall on same level from slipping, tripping and stumbling with subsequent striking against furniture, initial encounter; Y93.89 Activity, other specified; Y92.000 Kitchen of unspecified non-institutional (private) residence as the place of occurrence of the external cause
CPT/HCPCS: 70450; 72125; 80053; 81001; 83690; 85025; 86803; 87389; 96372; 96374; 96375; 99284; J0780; J1885

== ENCOUNTER 2024-07-08 10:01 | Outpatient (RCR) | payer MEDICARE, OTHER, SELFPAY ==
--- NOTE | 2024-07-08 11:57 | HMH.PTOPEV ---
PT Outpatient Evaluation Rehab PT Outpatient Evaluation Start: 07/08/24 10:05 Freq: Status: Active Protocol: Document 07/08/24 10:06 REMINGTON (Rec: 07/08/24 10:53 REMINGTON [id number]) E-signed By Suellen Lugo, PT Outpatient Therapy Subjective History Subjective History This is an initial PT evaluation for 39 y/o female, Josy Melgar, who presents to PT with referral for LBP. Pt reports her complaints are chronic in duration (a few years) and dull/aching in nature. Pt reports the pain has remained the same throughout the past few years. Pt has had PT in the past for her back and reports no relief with physical therapy treatments. Pt reports she has to do PT to get an MRI approved. Pt reports shooting pain down her R leg that starts in her LB. Pt reports both of her feet have pens and needles sensation intermittently (denies hx of diabetes). Denies B symptoms of weakness or numbness. Prior Injury: Pt reports no recent falls or injuries that would worsen her LB pain. PMH: Bipolar disorder, Anxiety , Epilepsy since 2004 (caused by stress), GERD, asthma. MRI: Pt reports she had a lumbar spine MRI in 2021 showing a lumbar bulging disc. Pt reports she is getting another one soon. New diagnosis of cancer in past 12 No months? Chief Complaint Pain Symptom Type Ache,Sharp,Dull,Shooting Symptoms Relieved By Heat,Ice Symptoms Aggravated By Physical Activity,Lifting Prior Functional Limitations None Current Functional Limitations Lifting,Housework,Sleeping, Standing,Recreation Activity, Walking,Bending/Stooping Symptom Description Constant but Variable,Activity Dependent Level of pain today (0-10) 7 Pain scale - at its best (0-10) 6 Pain scale - at its worst (0-10) 10 Lumbopelvic Eval Posture Thoracic Spine Posture Standing Position Neutral Lumbar Spine Posture Standing Position Neutral Assistive device Assistive Devices None / NA Gait Observation General Gait Pattern Observation No Deviations/Normal Palapation tenderness right thoracic spinal tenderness Yes: 2/4 TTP lumbar spinal tenderness Yes: 2/4 TTP paraspinal tenderness Yes: 2/4 TTP buttock tenderness Yes: 2/4 TTP Accessory Movement L-spine Vertebrae Accessory Movements Central P/A [place] that Elicit Symptoms L2 right L3 right L4 right Range of Motion Lumbar Spine Active Flexion Range of 75, painful Motion (degrees) Lumbar Spine Active Extension Range of 15, painful Motion (degrees) Left Lumbar Spine Lateral Flexion Active 12, painful Range of Motion (degrees) Right Lumbar Spine Lateral Flexion 12, painful Active Range of Motion (degrees) Lumbar Spine ROM Limitations Pain Manual Muscle Test Bilateral Knee Extension Strength Grade 5 Normal Knee Flexion Strength Grade 5 Normal Hip Flexion Strength Grade 4 Good Hip Abduction Strength Grade 4 Good Hip Adduction Strength Grade 4 Good Hip Extension Strength Grade 4 Good Altered Sensation Comment Intact to light touch throughout BLE Special Tests Hip Scouring (Quadrant) Test Positive Left,Positive Right Hip Nicola (ALICE) Test Positive Left,Positive Right Hip Piriformis Test Positive Left,Positive Right Sacroiliac Joint Compression Test Negative Left,Negative Right Lumbar [place] Distraction Test/Manual Painful Traction Oswestry Index Section 1 Pain Intensity The pain comes and goes and is severe Section 2 Personal Care (Washing,[place]) increase the pain, but I manage not to change my way of doing it Section 3 Lifting I can lift heavy weights, but it gives me extra pain Section 4 Walking I have some pain when walking but it does not increase with distance Section 5 Sitting I can sit in any chair for as long as I like Section 6 Standing I have some pain on standing, but it does not increase with time Section 7 Sleeping Because of my pain, my normal night's sleep is less than 6 hours sleep Section 8 Social Life Pain has no significant effect on my social life apart from limiting Section 9 Traveling I get some pain when traveling , but none of my usual forms of travel m Section 10 Changing Degreee of Pain My pain is neither getting better or worse Score and Risk Level Oswestry Sc 17 Oswestry Risk Level Moderate Disability Outpatient Therapy Assessment Impairments Problems/Impairmments Impaired Range of Motion, Impaired Strength,Impaired Lifting,Impaired Bending, Impaired Recreational Activities,Impaired Running, Impaired Jumping,Subjective C/ O Pain Prognosis Rehab Potential Fair Comment Pt presents with Chronic LBP with radiating pain (r-sided). Pt was tender to palpation of paraspinals, lumbar spine, glute muscles, and hamstrings. Pt reports pain with all spinal ROM movements. Pt would benefit from skilled OP PT to address deficits and improve QOL. Pt's prognosis to achieve PT goals is fair d/t chronic nature of pain and subjective reports of lack of relief with previous PT treatments. Clinical Impression Consistent with Diagnosis Yes Consistent with LBP Short Term Goals Number of Weeks 4 Improve Oswestry Score Yes: Improve by 2 points. Decrease Subjective C/O Pain Yes: Decrease at worst pain to 8/10. Patient to be Ind w/ HEP Yes: Verbalize IND with HEP. Mcc Goals Number of Weeks 6 Decreased Palpation Tenderness Yes: Decrease TTP lumbar structure and soft tissue to 1 /4 Increase Strength Yes: BLE 5/5 MMT to maximize daily functioning. Improve Oswestry Score Yes: Improve to score reflecting mild disability. Decrease Subjective C/O Pain Yes: Decrease at worst pain to 5/10 to improve quality of life. Patient to be Ind w/ Advanced HEP Yes: Verbalize IND with advanced HEP Outpatient Therapy Plan of Care Treatment Plan May Include Therapeutic Exercise Including Home Yes Exercise Program Manual Therapy Techniques Yes Neuromuscular Re-education Yes Therapeutic Activities to Return to Yes Previous Functional/Work Level Gait Training Yes ADL/Self Care Education Yes Mechanical Traction Yes Dry Needling Yes Thermal Modalities Yes Electrical Stimulation Yes Ultrasound/Phonophoresis Yes Iontophoresis Yes Massage Yes Eval/Re-Eval Yes Aquatic Therapy Yes Frequency Times per week 2-3 times Duration Number of Weeks 5-6 weeks Addendums This patient is a candidate for social No or vocational rehab? Patient/Guardian verbally acknowledges Yes understanding of treatment program and consents to further treatment? Patient/Guardian verbally acknowledges Yes understanding of diagnosis, prognosis and goals for treatment? Eval Complexity PT Charges 99621 - Low Complexity Shoulder/Elbow Eval Shoulder Objective Measurements Elbow Objective Measurements PHYSICIAN CERTIFICATION: I certify the specified therapy services for Josy Melgar are required, authorized, and reviewed every 30 days.
== END 2024-07-08 23:59 | disposition home or self-care (01) ==
LOC: PT 10:01
PROVIDERS: Visit Provider Nurse Practitioner Family
DX: M54.50 Low back pain, unspecified (principal)
CPT/HCPCS: 97163

== ENCOUNTER 2024-09-16 14:30 | Outpatient (CLI) | payer MEDICARE, OTHER, SELFPAY ==
--- NOTE | 2024-09-16 14:30 | MR_ITS ---
FINAL REPORT CLINICAL HISTORY: LBP bilateral thigh pain , tingling in bilateral feet COMPARISON: None FINDINGS: Multiplanar MR imaging of the lumbar spine was performed without contrast. On the sagittal T2-weighted images, the disc spaces are preserved. The vertebrae are of normal height. The vertebral alignment is normal. L1-2: There is no significant canal stenosis or neural foraminal narrowing. L2-3: There is no significant canal stenosis or neural foraminal narrowing. L3-4: There is no significant canal stenosis or neural foraminal narrowing. L4-5: There is no significant canal stenosis or neural foraminal narrowing. L5-S1: There is no significant canal stenosis or neural foraminal narrowing. IMPRESSION: There is no significant canal stenosis or neural foraminal narrowing. Reviewed, Interpreted and Dictated by Javier Cabezas MD Transcribed by Amarilys Benton Authenticated and [facility]
--- NOTE | 2024-09-16 14:30 | MR_ITS ---
FINAL REPORT CLINICAL HISTORY: Neck pain, Cervical DDD left sided neck pain and right arm pain , numbness and tingling COMPARISON: None FINDINGS: Multi planar MR imaging was obtained of the cervical spine. There is abnormal decreased signal throughout the cervical discs. There is mild reversal of the cervical lordosis. The vertebrae are of normal height. There is no malalignment. The cervical cord demonstrates normal signal and configuration. C2-C3: There is no evidence of significant disc bulge or protrusion. There is no significant facet hypertrophy. C3-C4: There is no evidence of significant disc bulge or protrusion. There is no significant facet hypertrophy. C4-C5: Moderate diffuse disc bulge. Endplate hypertrophy. Moderate bilateral neural foraminal narrowing. C5-C6: There is no evidence of significant disc bulge or protrusion. There is no significant facet hypertrophy. C6-C7: Moderate diffuse disc bulge. Endplate hypertrophy. Moderate bilateral neural foraminal narrowing. C7-T1: There is no evidence of significant disc bulge or protrusion. There is no significant facet hypertrophy. IMPRESSION: Diffuse disc bulges at C4-5 and C6-7 with moderate bilateral neural foraminal narrowing. Reviewed, Interpreted and Dictated by Javier Cabezas MD Transcribed by Amarilys Benton Authenticated and [facility]
== END 2024-09-16 23:59 | disposition home or self-care (01) ==
LOC: RAD 14:30
PROVIDERS: PCP Nurse Practitioner Family; Visit Provider Nurse Practitioner Family
DX: M50.30 Other cervical disc degeneration, unspecified cervical region (principal); M54.50 Low back pain, unspecified; M54.9 Dorsalgia, unspecified; M79.604 Pain in right leg; M54.16 Radiculopathy, lumbar region
CPT/HCPCS: 72141; 72148

== ENCOUNTER 2024-09-27 18:39 | Outpatient (CLI) | payer MEDICARE, OTHER, SELFPAY | END 2024-09-27 23:59 | disposition home or self-care (01) | LOC: LAB.DROPOF 18:40 | PROVIDERS: PCP Nurse Practitioner Family; Visit Provider Nurse Practitioner Family | DX: R10.2 Pelvic and perineal pain (principal) | CPT/HCPCS: 87086 ==

== ENCOUNTER 2024-10-03 15:20 | Outpatient (CLI) | payer MEDICARE, OTHER, SELFPAY ==
[2024-10-03 15:04] LABS: Albumin Level 5.4 g/dl (3.5-5.0); Chloride 103 mmol/L (98-107); Potassium 4.4 mmoL/L (3.5-5.1); Sodium 135 mmol/L (136-145)
[2024-10-03 15:07] LABS: Alanine Aminotransferase 23 U/L (12-78); Alkaline Phosphatase 94 U/L (38-126); Anion Gap 15.4 mEq/L (5-15); Aspartate Amino Transferase 25 U/L (14-36); Bilirubin,Total 0.2 mg/dl (0.2-1.3); Blood Urea Nitrogen 14 mg/dl (7-17); Calcium 9.6 mg/dl (8.4-10.2); Carbon Dioxide 21 mmol/L (22.0-30.0); Estimated Glomerular Filt Rate 93 ml/min (>60); GFR (African American) 113 ML/MIN (>60); Globulin 2.7 g/dL (1.3-3.2); Glucose 100 mg/dl (74-100); Total Protein,Serum 8.1 g/dl (6.3-8.2)
== END 2024-10-03 23:59 | disposition home or self-care (01) ==
LOC: LAB.DROPOF 15:20
PROVIDERS: PCP Nurse Practitioner Acute Care; Visit Provider Nurse Practitioner Acute Care
DX: N39.0 Urinary tract infection, site not specified (principal); R31.9 Hematuria, unspecified; E66.3 Overweight
CPT/HCPCS: 36415; 80053; 87086

== ENCOUNTER 2024-10-05 13:06 | Outpatient (POV) | payer MEDICARE, OTHER, SELFPAY ==
--- NOTE | 2024-10-05 14:00 | EXP.PAIN.SOA ---
[facility] Disclaimer: The information contained in this section may have been updated after the patient was seen, as this information can be updated by other users. Medical History Long-term current use of benzodiazepine Cervical strain Exposure to COVID-19 virus Viral syndrome Gastroenteritis Contusion of hip, right Fall Chest pain Sinusitis Anxiety Seizure Liver disease Thyroid disease Urinary tract infection Migraine Hypertension Panic disorder Major depressive disorder Bipolar II disorder Surgical History H/O: hysterectomy Previous section Family History Other No significant family history Social History Smoking Status: Former smoker tobacco type: cigarettes packs per day: 1 second hand exposure: Yes alcohol intake: never substance use type: former substance user and heroin current occupational status: disabled Travel in the last 8 weeks: None household members: spouse housing: house number of children: 2 current occupational exposures/hazards: No caffeine: Yes PM Subjective & Objective Subjective Subjective:: Patient is a pleasant 39-year-old female who presents today for worsening pain. Patient was seen in our office back in 2022 and did have a lumbar epidural in October 2022. Patient states today that her pain is an 8 out of 10. She states she has still the chronic low back and left leg symptoms with numbness and tingling that goes into her bilateral feet that is been going on for years as well as still the chronic neck pain that radiates into her left shoulder. Patient does state that she really has felt like the back injection did not really provide significant relief and that she has even tried physical therapy with no improvement. Patient does currently do Aleve and Tylenol and is prescribed Flexeril however she states it really does nothing for her pain. Patient states that she is interested any options we can provide. She has prescribed clonazepam and gabapentin from an outside provider. Her Cosme has been reviewed. Review of Systems: General: No recent weight changes, no fever, no sleep disturbances Respiratory: No cough, no shortness of air, no recurring pulmonary infections Cardiovascular/peripheral vascular: No chest pain, no palpitations, no edema, no shortness of breath Gastrointestinal: No new onset incontinence, normal bowel movements reported Genitourinary: No new onset incontinence Musculoskeletal: Neck pain, left shoulder pain, low back pain, left leg pain Psychiatric: [Normal mood/affect] Neurological: [Denies weakness in extremities], [denies balance issues] Pain at rest (0-10 scale): 8 Objective Objective:: Physical Exam: General: Alert and oriented x3, no acute distress, pleasant and cooperative Lungs: Respirations even and unlabored, symmetrical chest expansion Eyes: PERRL Musculoskeletal: Flexion and extension of cervical [spine] somewhat guarded secondary to pain Neurological: Speech clear, no gross sensory deficit Has patient had previous pain injection?: No Conservative treatment options previously tried: Home exercise plan Length of treatment: Longer than 12 weeks Meds Home Medications and Allergies Home Medications ?Medication ?Instructions ?Recorded ?Confirmed ?Type ibuprofen 600 mg tablet mg PO 11/19/23 10/03/24 History epinephrine 0.3 mg/0.3 mL 0.3 mg (0.3 mL) IM Q5-15M PRN 02/23/24 10/03/24 Rx injection, auto-injector (EpiPen anaphylaxis #2 ea 2-Gomez) albuterol sulfate 90 mcg/actuation 2 inh inhalation Q6H PRN shortness 05/04/24 10/03/24 Rx aerosol inhaler of breath or wheezing #8.5 grams cyclobenzaprine 10 mg tablet See Rx Instructions .Route 09/01/24 10/03/24 Rx .COMPLEX #60 tabs lamotrigine 200 mg tablet See Rx Instructions .Route 09/01/24 10/03/24 Rx .COMPLEX #180 tabs gabapentin 600 mg tablet 600 mg PO TID #90 tabs 09/27/24 10/03/24 Rx clonazepam 0.5 mg tablet (Klonopin) 0.5 mg PO BID PRN anxiety #45 tabs 10/03/24 10/03/24 Rx nitrofurantoin 100 mg PO Q12H 5 days #10 caps 10/04/24 Rx monohydrate/macrocrystals 100 mg capsule (Macrobid) oxcarbazepine 150 mg tablet 150 mg PO BID #90 tabs 10/04/24 Rx quetiapine 25 mg tablet 25 mg PO HS #30 tabs 10/04/24 Rx sertraline 50 mg tablet 50 mg PO DAILY #30 tabs 10/04/24 Rx New Prescriptions to Start Prescriptions: Allergies Allergy/AdvReac Type Severity Reaction Status Date / Time venom-honey bee (BEE VENOM Allergy Unknown Unknown Verified 10/03/24 09:16 (HONEY BEE)) allergy reaction Assessment and Plan *Assessment and plan (1) Degenerative disc disease, cervical: Status: Acute Category: Medical Code(s): M50.30 - Other cervical disc degeneration, unspecified cervical region (2) Neck pain: Status: Acute Category: Medical Code(s): M54.2 - Cervicalgia (3) Low back pain: Status: Acute Qualifiers: Back pain laterality: left Chronicity: acute Sciatica presence: without sciatica Qualified Code(s): M54.50 - Low back pain, unspecified Category: Medical Code(s): M54.50 - Low back pain, unspecified (4) Lumbar radicular pain: Status: Acute Category: Medical Code(s): M54.16 - Radiculopathy, lumbar region Plan I did review over her MRI findings of both her neck and lumbar spine. Patient does state that she has more issues with her neck and her low back currently. I did skilled nursing facility counselor her that we can always try a cervical epidural. Patient states she is not interested in any injections for her neck and that even the low back injections did not seem to help. I did skilled nursing facility counselor her that we are interventional pain and that this is her go to and that we can try different muscle relaxer. Patient agrees with this plan of care. In the past we did do compounded cream. I will order additional compound cream with increased dosage of the ketamine. Patient will return to clinic in 2 weeks for reevaluation of symptoms and plan of care. Patient has been instructed to contact the clinic with any concerns before the next appointment. Dr. Thakkar has reviewed this note and agrees with this plan of care. This note was dictated using voice recognition software and make contain errors or omissions. All injections are used with Lidocaine, Bupivacaine and Depo Medrol. Occasionally urine drug screen is needed to verify patient's compliance with our office pain contract. This is ordered based off specific treatments related to chronic pain with the potential to abuse certain medications.
[2024-10-05 15:32] VITALS: BP 131/81; PULSE 102; RESP 18; O2SAT 98; BMI 25.8
== END 2024-10-05 23:59 | disposition home or self-care (01) ==
PROVIDERS: PCP Nurse Practitioner Family; Visit Provider Nurse Practitioner Family
DX: M50.30 Other cervical disc degeneration, unspecified cervical region (principal); M54.50 Low back pain, unspecified; M54.16 Radiculopathy, lumbar region; Z87.891 Personal history of nicotine dependence
CPT/HCPCS: 99212; G0463

== ENCOUNTER 2024-10-28 15:03 | Outpatient (CLI) | payer MEDICARE, OTHER, SELFPAY ==
--- NOTE | 2024-10-28 15:06 | XR_ITS ---
FINAL REPORT CLINICAL HISTORY: bronchitis cough that wont go away COMPARISON: 02/03/2024 FINDINGS: PA and lateral views of the chest were obtained. The cardiac and mediastinal silhouettes are within normal limits. The lungs are clear. There is no pleural effusion or pneumothorax. No acute osseous abnormality is identified. IMPRESSION: No radiographic evidence of acute cardiac or pulmonary disease. Reviewed, Interpreted and Dictated by Kellie Murrell MD Transcribed by Sindhu Hall Authenticated and [facility]
== END 2024-10-28 23:59 | disposition home or self-care (01) ==
LOC: RAD 15:05
PROVIDERS: PCP Family Medicine; Visit Provider Family Medicine
DX: J40 Bronchitis, not specified as acute or chronic (principal)
CPT/HCPCS: 71046

== ENCOUNTER 2024-11-03 11:59 | Emergency (ER) | payer MEDICARE, OTHER, SELFPAY ==
[2024-11-03 12:01] VITALS: BP 136/70; PULSE 61; RESP 20; TEMP 37; O2SAT 98; BMI 27.4
[2024-11-03 12:07] LABS: Coronavirus 19, PCR Not Detected (NotDetected); Influenza A, PCR Not Detected (NotDetected); Influenza B, PCR Not Detected (NotDetected)
--- NOTE | 2024-11-03 12:21 | XR_ITS ---
FINAL REPORT CLINICAL HISTORY: soa COMPARISON: 10/28/2024 FINDINGS: SINGLE VIEW CHEST No acute pulmonary opacity is present. There is no evidence of effusion or pneumothorax. Mediastinum is unremarkable. Heart size is normal. IMPRESSION: No acute abnormality. Reviewed, Interpreted and Dictated by Ayla Mcdowell MD Transcribed by Leti Hussein Authenticated and [facility]
--- NOTE | 2024-11-03 12:23 | ED_ITS ---
<Statement entered by Ene Spann DO - 11/03/24 16:04> I was consulted by the YESENIA, and we discussed the complexity of the problems being addressed. I approved the treatment and management plan for this patient's care in the emergency department, thus performing a substantive portion of the medical decision making. Ene Spann DO Discharge Plan Disposition Patient Disposition: Home, Self-Care Condition: Good Prescriptions Prescriptions: New prednisone 20 mg tablet 20 mg PO BID 5 Days Qty: 10 0RF No Action epinephrine [EpiPen 2-Gomez] 0.3 mg/0.3 mL auto-injector 0.3 mg IM Q5-15M PRN (Reason: anaphylaxis) Qty: 2 1RF Rx Instructions: do not exceed 3 doses per episode gabapentin 600 mg tablet 600 mg PO TID Qty: 90 2RF azithromycin [Zithromax Z-Gomez] 250 mg tablet See Rx Instructions PO .COMPLEX Qty: 6 0RF Rx Instructions: For 250 mg dose pack: take 500 mg today (day 1), then 250 mg for 4 days (days 2-5) PO promethazine 6.25 mg/5 mL syrup 6.25 mg PO Q4-6H PRN (Reason: cough) Qty: 120 0RF hydrocodone-acetaminophen 5-325 mg tablet 1 tab PO Q4-6H PRN (Reason: cough) Qty: 20 0RF ibuprofen 600 mg tablet 600 mg PO DIRECTED Patient Comments: TAKE ONE TABLET BY MOUTH EVERY 6 HOURS NEEDED FOR PAIN --TAKE WITH FOOD-- albuterol sulfate 90 mcg/actuation HFA aerosol inhaler 2 inh inhalation Q6H PRN (Reason: shortness of breath or wheezing) Qty: 8.5 0RF cyclobenzaprine 10 mg tablet See Rx Instructions .ROUTE .COMPLEX Qty: 60 2RF Dose Instruction: TAKE ONE TABLET BY MOUTH THREE TIMES DAILY NEEDED FOR MUSCLE SPASMS Rx Instructions: TAKE ONE TABLET BY MOUTH THREE TIMES DAILY NEEDED FOR MUSCLE SPASMS lamotrigine 200 mg tablet See Rx Instructions .ROUTE .COMPLEX Qty: 180 2RF Dose Instruction: TAKE ONE TABLET BY MOUTH TWICE DAILY Rx Instructions: TAKE ONE TABLET BY MOUTH TWICE DAILY oxcarbazepine 150 mg tablet 150 mg PO BID Qty: 90 2RF quetiapine 25 mg tablet 25 mg PO HS Qty: 30 2RF sertraline 50 mg tablet 50 mg PO DAILY Qty: 30 2RF clonazepam [Klonopin] 0.5 mg tablet 0.5 mg PO BID PRN (Reason: anxiety) Qty: 45 0RF metaxalone 800 mg tablet 800 mg PO TID PRN (Reason: muscle pain) Qty: 42 0RF Referrals Follow up/Referrals: Provider,Referral, [Primary Care Provider] - See instructions Activity Restrictions/Add. Instructions Additional Instructions/Restrictions: Please take prednisone as prescribed. Increase your fluid intake. Use your albuterol inhaler as directed. Follow-up with PCP within 7 days. Do not use tobacco or vape, do not be around secondhand smoke. Return to the ED for worsening of condition. Clinical Impressions Clinical Impression: Bronchitis Cough Qualifiers: Cough type: acute Qualified Code(s): R05.1 - Acute cough Instructions Patient Instructions: DI for Acute Bronchitis Print Language Print Language: Setswana Discharge ED Provider: Ene Spann General Adult HPI General Chief complaint: Upper Respiratory Infection Stated complaint: congestion Time Seen by Provider: 11/03/24 12:11 Mode of Arrival: Ambulatory Limitations: No Limitations Description of Symptoms (Recalled from ER Triage Doc. by RN): Patient complaint of cough, congestion and rib pain when she coughs. States she had the flu a couple of weeks ago and got better, went to her pcp and was diagnosed with Bronchitis. Has finished her steroids and antibiotics with no relief of her symptoms. History of Present Illness HPI narrative: patient is a 39 year-old female who presents to the ED for shortness of breath x 1 week, worse this morning. Patient states that she is coughed so much that she is having back pain during her cough episodes. She states she saw someone last week who gave her steroids and a Z-Gomez which did not relieve her symptoms. Related Data Home Medications ?Medication ?Instructions ?Recorded ?Confirmed ibuprofen 600 mg tablet 600 mg PO DIRECTED Pain 11/19/23 10/28/24 Previous Rx's ?Medication ?Instructions ?Recorded epinephrine 0.3 mg/0.3 mL 0.3 mg (0.3 mL) IM Q5-15M PRN 02/23/24 injection, auto-injector (EpiPen anaphylaxis #2 ea 2-Gomez) albuterol sulfate 90 mcg/actuation 2 inh inhalation Q6H PRN shortness 05/04/24 aerosol inhaler of breath or wheezing #8.5 grams cyclobenzaprine 10 mg tablet See Rx Instructions .Route 09/01/24 .COMPLEX #60 tabs lamotrigine 200 mg tablet See Rx Instructions .Route 09/01/24 .COMPLEX #180 tabs gabapentin 600 mg tablet 600 mg PO TID #90 tabs 09/27/24 oxcarbazepine 150 mg tablet 150 mg PO BID #90 tabs 10/04/24 quetiapine 25 mg tablet 25 mg PO HS #30 tabs 10/04/24 sertraline 50 mg tablet 50 mg PO DAILY #30 tabs 10/04/24 metaxalone 800 mg tablet 800 mg PO TID PRN muscle pain #42 10/05/24 tabs azithromycin 250 mg tablet See Rx Instructions PO .COMPLEX #6 10/25/24 (Zithromax Z-Gomez) tabs promethazine 6.25 mg/5 mL oral 6.25 mg (5 mL) PO Q4-6H PRN cough 10/25/24 syrup #120 mL hydrocodone 5 mg-acetaminophen 325 1 tab PO Q4-6H PRN cough #20 tabs 10/28/24 mg tablet clonazepam 0.5 mg tablet (Klonopin) 0.5 mg PO BID PRN anxiety #45 tabs 11/01/24 prednisone 20 mg tablet 20 mg PO BID 5 days #10 tabs 11/03/24 Allergies Allergy/AdvReac Type Severity Reaction Status Date / Time venom-honey bee (BEE VENOM Allergy Unknown Unknown Verified 10/28/24 14:44 (HONEY BEE)) allergy reaction [facility] Disclaimer: The information contained in this section may have been updated after the patient was seen, as this information can be updated by other users. Medical History Long-term current use of benzodiazepine Cervical strain Exposure to COVID-19 virus Viral syndrome Gastroenteritis Contusion of hip, right Fall Chest pain Sinusitis Anxiety Seizure Liver disease Thyroid disease Urinary tract infection Migraine Hypertension Panic disorder Major depressive disorder Bipolar II disorder Surgical History H/O: hysterectomy Previous section Family History Other No significant family history Social History Smoking Status: Current every day smoker tobacco type: cigarettes packs per day: 1 second hand exposure: Yes alcohol intake: never substance use type: former substance user and heroin current occupational status: disabled Travel in the last 8 weeks: None household members: spouse housing: house number of children: 2 current occupational exposures/hazards: No caffeine: Yes Have you lived/traveled outside [place] in past 30 days?: No Contact w/someone who lives/traveled outside [place] past 30 days?: No Exposure to someone with infectious disease in past 14 days?: No Do you have a fever (greater than 100.4 F or 38 C)?: No Have you tested positive for COVID-19: No Exposed to someone with COVID-19 in past 14 days?: No Do you have a sore throat?: No Do you have a cough?: No Do you have any weakness?: No Do you have any diarrhea?: No Are you experiencing any unusual bleeding?: No Do you have any muscle aches/pain?: No Do you have any abdominal pain?: No Are you experiencing loss of taste or smell?: No Other Medical History Have you received the Flu Vaccine for this season: No Have you received the Pneumonia Vaccine: No ROS Obtained: Yes Systems reviewed as appropriate & no additional complaints except as documented Physical Exam General General appearance: alert and in no apparent distress Head Head exam: atraumatic and normocephalic Eye Eye exam: Present normal appearance and PERRL ENT ENT exam: Present normal exam Neck Neck exam: Present normal inspection Chest Chest inspection: Present normal inspection and symmetric chest wall rise; Absent tenderness Respiratory Respiratory exam: Present wheezes; Absent respiratory distress or accessory muscle use Cardiovascular Cardiovascular exam: Present regular rate Abdominal Exam Abdominal exam: Present soft and normal bowel sounds; Absent tenderness Extremities Exam Extremities exam: Present normal inspection and full ROM Back Exam Back exam: Present normal inspection and full ROM Neurological Exam Neurological exam: Present alert and oriented X3 Psychiatric Psychiatric exam: Present normal affect and normal mood Skin Skin exam: Present warm and dry Medical Decision Making Medical Records Screening: Per USPSTF and CDC recommendations, given the prevalence of disease in our region, it is our hospital?s policy to screen for HIV and viral Hepatitis for all patients aged 18 and over and those with ongoing risk factors. Cosme Inquiry Pt receiving controlled substance: No Vital Signs: 11/03/24 12:01 11/03/24 12:32 11/03/24 13:37 Temperature 98.6 F 98.6 F Temperature Source Oral Oral Pulse Rate 129 H 84 Pulse Rate [Radial] 61 Respiratory Rate 20 20 Blood Pressure 111/66 118/78 Blood Pressure [Right Arm] 136/70 Blood Pressure Mean [Right Arm] 92 Blood Pressure Source Automatic Cuff Blood Pressure Source [Right Arm] Automatic Cuff Blood Pressure Position Sitting Blood Pressure Position [Right Arm] Sitting 02 Sat by Pulse Oximetry 98 98 Oxygen Delivery Method Room Air Room Air Lab Data Lab Results 11/03/24 12:02: SARS-CoV-2 (PCR) Not detected, Influenza A Untype (PCR) Not detected, Influenza Type B (PCR) Not detected 11/03/24 12:31: WBC 12.5 H, RBC 4.75, Hgb 14.4, Hct 42.8, MCV 90.1, MCH 30.3, MCHC 33.6, RDW 12.9, Plt Count 638 H, MPV 8.2, Neut % (Auto) 69.2, Lymph % (Auto) 19.2, Amador % (Auto) 8.1, Eos % (Auto) 2.4, Baso % (Auto) 0.3, Neut # (Auto) 8.7 H, Lymph # (Auto) 2.4, Amador # (Auto) 1.0, Eos # (Auto) 0.3, Baso # (Auto) 0.0, Sodium 140, Potassium 4.3, Chloride 110 H, Carbon Dioxide 19 L, A nion Gap 15.3 H, BUN 14, Creatinine 0.80, Estimated Creat Clear 108, Estimated GFR 80, Est GFR ( Amer) 97, Glucose 98, Calcium 9.5, Total Bilirubin 0.2, AST 37 H, ALT 52, Alkaline Phosphatase 98, Total Protein 7.4, Albumin 4.9, Globulin 2.5, Albumin/Globulin Ratio 2.0 H 11/03/24 12:31 11/03/24 12:31 Orders (Tests/Meds): ED MEDICATIONS Discontinued Medications Generic Name Dose Route Start Last Admin Trade Name Freq PRN Reason Stop Dose Admin Acetaminophen 1,000 mg 11/03/24 13:36 11/03/24 13:36 Acetaminophen 500mg Tab PO 11/03/24 13:37 1,000 mg ONCE ONE Administration Albuterol/Ipratropium 9 ml 11/03/24 12:21 11/03/24 12:25 Ipratropium/Albuterol 3 Ml Neb IH 11/03/24 12:22 9 ml ONCE ONE Administration Ketorolac Tromethamine 15 mg 11/03/24 12:21 11/03/24 12:25 Ketorolac 30mg/Ml Vial IV 11/03/24 12:22 15 mg ONCE ONE Administration Sodium Chloride 10 ml 11/03/24 12:21 Sodium Chloride 0.9% 10ml Flush Syringe IV 12/03/24 12:20 NEEDED PRN Maintain IV Site ORDERS Category Date Time Status CXR --portable [XR chest portable] Stat Exams 11/03/24 12:21 Completed CBC w/Auto Diff [Complete Blood Count Auto Diff] Stat Lab 11/03/24 12:31 Completed CMP [Comprehensive Metabolic Panel] Stat Lab 11/03/24 12:31 Completed Rapid PCR Covid and Flu A/B Stat Lab 11/03/24 12:02 Completed Medical Decision Narrative: In summary, patient is a 39 year-old female who presents to the ED for shortness of breath x 1 week, worse this morning. Patient states that she is coughed so much that she is having back pain during her cough episodes. She states she saw someone last week who gave her steroids and a Z-Gomez which did not relieve her symptoms. PMHx anxiety, bipolar, opioid use, GERD, tobacco use, history of hepatitis C, seizures. Upon initial exam, patient is alert, oriented and cooperative. Patient is hemodynamically stable. Physical exam remarkable for cough, bilateral wheezing in lung diane. No respiratory distress. Denies fever, chills, headache, visual disturbances, chest pain, abdominal pain, flank pain, dysuria. Differential diagnosis includes URI, COVID, influenza, bronchitis, among others. Initial workup will be conducted with hematologic labs, imaging. Initial inventions include Solu-Medrol, Toradol and continuous DuoNeb. Initial workup reviewed by me. Hematologic labs remarkable for WBC 12.5, took prednisone last week. CMP unremarkable for any actionable abnormalities. Negative for COVID and influenza. I considered additional testing but deferred due to symptomatic improvement. I informally interpreted the imaging as no acute cardiopulmonary process. See final read. Upon repeat evaluation, patient had an acceptable resolution of symptoms. They were ambulatory in the ED. Able to tolerate p.o. discussed that she will take prednisone 20 mg twice daily x 5 days. Advised her on how to use her albuterol inhaler that she has at home. Discussed not using tobacco or vaping, staying away from secondhand smoke. Advised her that she may get a air purifier at home for her pet dander that could be exacerbating symptoms as well. We discussed humidifier. Advised her to take acetaminophen and ibuprofen [id number] for symptomatic relief of pain during coughing. We discussed following up with PCP within 7 days. Critical Care Critical Care Time Critical Care Time: No
[2024-11-03] MEDS: KETOROLAC 30MG/ML VIAL 15 MG IV (12:25)
[2024-11-03] MEDS: IPRATROPIUM/ALBUTEROL 3 ML NEB 9 ML IH (12:25)
[2024-11-03 12:32] VITALS: BP 111/66; PULSE 129; O2SAT 98
[2024-11-03 12:45] LABS: Basophils % 0.3 % (0.1-2.0); Eosinophils # 0.3 K/mm3 (0.0-0.4); Eosinophils % 2.4 % (0.1-12.0); Hematocrit 42.8 % (37.0-47.0); Hemoglobin 14.4 g/dL (12.2-16.2); Lymphocytes # 2.4 K/mm3 (0.7-4.5); Lymphocytes % 19.2 % (10-50); Mean Corpuscular HGB Conc 33.6 g/dL (31.8-35.4); Mean Corpuscular Hemoglobin 30.3 pg (27.0-31.2); Mean Corpuscular Volume 90.1 fl (81-99); Mean Platelet Volume 8.2 fl (7.4-10.4); Monocytes % 8.1 % (1.7-9.3); Neutrophils # 8.7 K/mm3 (1.8-7.8); Neutrophils % 69.2 % (37.0-80.0); Platelet Count 638 K/mm3 (142-424); Red Blood Count 4.75 M/mm3 (4.20-5.40); Red Cell Distribution Width 12.9 % (11.5-17.5); White Blood Count 12.5 K/mm3 (4.8-10.8)
[2024-11-03 12:53] LABS: Alanine Aminotransferase 52 U/L (12-78); Albumin Level 4.9 g/dl (3.5-5.0); Alkaline Phosphatase 98 U/L (38-126); Anion Gap 15.3 mEq/L (5-15); Aspartate Amino Transferase 37 U/L (14-36); Bilirubin,Total 0.2 mg/dl (0.2-1.3); Blood Urea Nitrogen 14 mg/dl (7-17); Calcium 9.5 mg/dl (8.4-10.2); Carbon Dioxide 19 mmol/L (22.0-30.0); Chloride 110 mmol/L (98-107); Creatinine Clearance Estimated 108 mL/min (50-200); Estimated Glomerular Filt Rate 80 ml/min (>60); GFR (African American) 97 ML/MIN (>60); Globulin 2.5 g/dL (1.3-3.2); Glucose 98 mg/dl (74-100); Potassium 4.3 mmoL/L (3.5-5.1); Sodium 140 mmol/L (136-145); Total Protein,Serum 7.4 g/dl (6.3-8.2)
[2024-11-03] MEDS: ACETAMINOPHEN 500MG TAB 1000 MG PO (13:36)
[2024-11-03 13:37] VITALS: BP 118/78; PULSE 84; RESP 20; TEMP 37; O2SAT 98
== END 2024-11-03 13:38 | disposition home or self-care (01) ==
PROVIDERS: Nurse Practitioner; Emergency Provider Emergency Medicine
DX: J40 Bronchitis, not specified as acute or chronic (principal); R06.02 Shortness of breath; R05.9 Cough, unspecified; R09.81 Nasal congestion; R07.82 Intercostal pain; F17.210 Nicotine dependence, cigarettes, uncomplicated
CPT/HCPCS: 71045; 80053; 85025; 87636; 96374; 99283; J1885; J7620

== ENCOUNTER 2024-11-04 13:57 | Outpatient (POV) | payer MEDICARE, OTHER, SELFPAY ==
[2024-11-04 13:59] VITALS: BP 132/89; PULSE 126; RESP 16; O2SAT 98; BMI 27.4
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
== END 2024-11-04 23:59 | disposition home or self-care (01) ==
PROVIDERS: PCP Family Medicine; Visit Provider Nurse Practitioner Family
DX: M54.50 Low back pain, unspecified (principal); M54.16 Radiculopathy, lumbar region; F17.210 Nicotine dependence, cigarettes, uncomplicated
CPT/HCPCS: 99212; G0463

== ENCOUNTER 2024-12-01 14:26 | Outpatient (POV) | payer MEDICARE, OTHER, SELFPAY ==
[2024-12-01 14:49] VITALS: BP 146/80; PULSE 111; RESP 18; O2SAT 99; BMI 27.9
--- NOTE | 2024-12-01 15:24 | A.OFFVIS_ITS ---
[facility] Disclaimer: The information contained in this section may have been updated after the patient was seen, as this information can be updated by other users. Medical History Long-term current use of benzodiazepine Cervical strain Exposure to COVID-19 virus Viral syndrome Gastroenteritis Contusion of hip, right Fall Chest pain Sinusitis Anxiety Seizure Liver disease Thyroid disease Urinary tract infection Migraine Hypertension Panic disorder Major depressive disorder Bipolar II disorder Surgical History H/O: hysterectomy Previous section Family History Other No significant family history Social History Smoking Status: Former smoker tobacco type: cigarettes packs per day: 1 smoking status stop date: 07/26/2024 second hand exposure: Yes alcohol intake: never substance use type: former substance user and heroin current occupational status: other Travel in the last 8 weeks: None household members: spouse housing: house number of children: 2 current occupational exposures/hazards: No caffeine: Yes PM Subjective & Objective Subjective Subjective:: Patient is a pleasant 39-year-old female who presents today for follow-up. Today she rates her pain a 7 out of 10. She denies any new trauma or injury. She does state that she still has the chronic low back pain that does go down into her left leg with numbness and tingling. Patient is prescribed gabapentin from an outside provider. At her last visit we did try and see if we could get a new muscle relaxer of Skelaxin ordered however she states that her insurance would not cover this medication. Patient has been tried on Robaxin, tizanidine and Flexeril. Patient has also been tried on meloxicam and Celebrex. Patient does state that she is interested in any options we may be able to provide. Her Cosme has been reviewed. Review of Systems: General: No recent weight changes, no fever, no sleep disturbances Respiratory: No cough, no shortness of air, no recurring pulmonary infections Cardiovascular/peripheral vascular: No chest pain, no palpitations, no edema, no shortness of breath Gastrointestinal: No new onset incontinence, normal bowel movements reported Genitourinary: No new onset incontinence Musculoskeletal: Low back pain, left leg pain Psychiatric: [Normal mood/affect] Neurological: [Denies weakness in extremities], [denies balance issues] Pain at rest (0-10 scale): 7 Objective Objective:: Physical Exam: General: Alert and oriented x3, no acute distress, pleasant and cooperative Lungs: Respirations even and unlabored, symmetrical chest expansion Eyes: PERRL Musculoskeletal: Flexion and extension of lumbar [spine] somewhat guarded secondary to pain Neurological: Speech clear, no gross sensory deficit Has patient had previous pain injection?: No Conservative treatment options previously tried: Home exercise plan Length of treatment: Longer than 12-week Meds Home Medications and Allergies Home Medications ?Medication ?Instructions ?Recorded ?Confirmed ?Type ibuprofen 600 mg tablet 600 mg PO DIRECTED Pain 11/19/23 12/01/24 History epinephrine 0.3 mg/0.3 mL 0.3 mg (0.3 mL) IM Q5-15M PRN 02/23/24 12/01/24 Rx injection, auto-injector (EpiPen anaphylaxis #2 ea 2-Gmoez) lamotrigine 200 mg tablet See Rx Instructions .Route 09/01/24 12/01/24 Rx .COMPLEX #180 tabs gabapentin 600 mg tablet 600 mg PO TID #90 tabs 09/27/24 12/01/24 Rx oxcarbazepine 150 mg tablet 150 mg PO BID #90 tabs 10/04/24 12/01/24 Rx quetiapine 25 mg tablet 25 mg PO HS #30 tabs 10/04/24 12/01/24 Rx sertraline 50 mg tablet 50 mg PO DAILY #30 tabs 10/04/24 12/01/24 Rx metaxalone 800 mg tablet 800 mg PO TID PRN muscle pain #42 10/05/24 12/01/24 Rx tabs baclofen 5 mg tablet 5 mg PO TID #42 tabs 11/04/24 12/01/24 Rx promethazine 25 mg tablet 25 mg PO Q4-6H PRN cough #20 tabs 11/10/24 12/01/24 Rx cyclobenzaprine 10 mg tablet See Rx Instructions .Route 11/11/24 12/01/24 Rx .COMPLEX #60 tabs clonazepam 0.5 mg tablet (Klonopin) 0.5 mg PO BID PRN anxiety #45 tabs 11/28/24 12/01/24 Rx New Prescriptions to Start Prescriptions: Allergies Allergy/AdvReac Type Severity Reaction Status Date / Time venom-honey bee (BEE VENOM Allergy Unknown Unknown Verified 11/28/24 09:29 (HONEY BEE)) allergy reaction Assessment and Plan *Assessment and plan (1) Low back pain: Status: Acute Qualifiers: Back pain laterality: left Chronicity: acute Sciatica presence: without sciatica Qualified Code(s): M54.50 - Low back pain, unspecified Category: Medical Code(s): M54.50 - Low back pain, unspecified (2) Lumbar radicular pain: Status: Acute Category: Medical Code(s): M54.16 - Radiculopathy, lumbar region Plan I did discuss with the patient that I will see if we can change her compounded cream dosage and increase the overall ketamine in it. Patient will also be given a 2-week dose of diclofenac 75 mg twice daily and we will also send in a new prescription of the orphenadrine muscle relaxer as she has tried others and that the Skelaxin is not covered by her insurance. Patient will return to clinic in 2 weeks for reevaluation of symptoms and plan of care. Patient has been instructed to contact the clinic with any concerns before the next appointment. Dr. Thakkar has reviewed this note and agrees with this plan of care. This note was dictated using voice recognition software and make contain errors or omissions. All injections are used with Lidocaine, Bupivacaine and Depo Medrol. Occasionally urine drug screen is needed to verify patient's compliance with our office pain contract. This is ordered based off specific treatments related to chronic pain with the potential to abuse certain medications.
== END 2024-12-01 23:59 | disposition home or self-care (01) ==
PROVIDERS: PCP Family Medicine; Visit Provider Nurse Practitioner Family
DX: M54.50 Low back pain, unspecified (principal); M54.16 Radiculopathy, lumbar region; Z87.891 Personal history of nicotine dependence
CPT/HCPCS: 99212; G0463

== ENCOUNTER 2024-12-27 10:13 | Outpatient (POV) | payer MEDICARE, OTHER, SELFPAY ==
[2024-12-27 11:50] VITALS: BP 126/79; PULSE 94; RESP 14; O2SAT 100; BMI 28.8
--- NOTE | 2024-12-27 12:00 | A.OFFVIS_ITS ---
[facility] Disclaimer: The information contained in this section may have been updated after the patient was seen, as this information can be updated by other users. Medical History Long-term current use of benzodiazepine Cervical strain Exposure to COVID-19 virus Viral syndrome Gastroenteritis Contusion of hip, right Fall Chest pain Sinusitis Anxiety Seizure Liver disease Thyroid disease Urinary tract infection Migraine Hypertension Panic disorder Major depressive disorder Bipolar II disorder Surgical History H/O: hysterectomy Previous section Family History Other No significant family history Social History Smoking Status: Former smoker tobacco type: cigarettes packs per day: 1 smoking status stop date: 07/26/2024 second hand exposure: Yes alcohol intake: never substance use type: former substance user and heroin current occupational status: other Travel in the last 8 weeks: None household members: spouse housing: house number of children: 2 current occupational exposures/hazards: No caffeine: Yes PM Subjective & Objective Subjective Subjective:: Patient is a pleasant 39-year-old female who presents today for follow-up. Today she rates her pain an 8 out of 10. Patient does states she still has her chronic low back pain that does radiate down primarily her left leg but does state that she has been having even some in the right leg. Patient does also make mention that she is starting to have pain in her neck that does have numbness and tingling into both her upper extremities. Patient states that it does seem aggravated when she is doing more things with her arms and hands. Patient denies any new falls or injuries that initially started this. Patient does state that she ended up getting the diclofenac that we ordered at our last visit however still did not notice any additional improvement with this. Patient has now been tried on multiple medications including meloxicam, Celebrex, diclofenac, Robaxin, tizanidine and Flexeril. Her insurance would not cover Skelaxin or orphenadrine. Her Cosme has been reviewed. Review of Systems: General: No recent weight changes, no fever, no sleep disturbances Respiratory: No cough, no shortness of air, no recurring pulmonary infections Cardiovascular/peripheral vascular: No chest pain, no palpitations, no edema, no shortness of breath Gastrointestinal: No new onset incontinence, normal bowel movements reported Genitourinary: No new onset incontinence Musculoskeletal: Neck pain, upper arm numbness tingling, chronic low back pain Psychiatric: [Normal mood/affect] Neurological: [Denies weakness in extremities], [denies balance issues] Pain at rest (0-10 scale): 8 Objective Objective:: Physical Exam: General: Alert and oriented x3, no acute distress, pleasant and cooperative Lungs: Respirations even and unlabored, symmetrical chest expansion Eyes: PERRL Musculoskeletal: Flexion and extension of lumbar [spine] somewhat guarded secondary to pain, [antalgic gait noted] Neurological: Speech clear, no gross sensory deficit Has patient had previous pain injection?: No Conservative treatment options previously tried: Home exercise plan Length of treatment: Longer than 12 weeks Meds Home Medications and Allergies Home Medications ?Medication ?Instructions ?Recorded ?Confirmed ?Type ibuprofen 600 mg tablet 600 mg PO DIRECTED Pain 11/19/23 12/27/24 History epinephrine 0.3 mg/0.3 mL 0.3 mg (0.3 mL) IM Q5-15M PRN 02/23/24 12/27/24 Rx injection, auto-injector (EpiPen anaphylaxis #2 ea 2-Gomez) lamotrigine 200 mg tablet See Rx Instructions .Route 09/01/24 12/27/24 Rx .COMPLEX #180 tabs oxcarbazepine 150 mg tablet 150 mg PO BID #90 tabs 10/04/24 12/27/24 Rx quetiapine 25 mg tablet 25 mg PO HS #30 tabs 10/04/24 12/27/24 Rx sertraline 50 mg tablet 50 mg PO DAILY #30 tabs 10/04/24 12/27/24 Rx metaxalone 800 mg tablet 800 mg PO TID PRN muscle pain #42 10/05/24 12/27/24 Rx tabs baclofen 5 mg tablet 5 mg PO TID #42 tabs 11/04/24 12/27/24 Rx promethazine 25 mg tablet 25 mg PO Q4-6H PRN cough #20 tabs 11/10/24 12/27/24 Rx cyclobenzaprine 10 mg tablet See Rx Instructions .Route 11/11/24 12/27/24 Rx .COMPLEX #60 tabs clonazepam 0.5 mg tablet (Klonopin) 0.5 mg PO BID PRN anxiety #45 tabs 11/28/24 12/27/24 Rx diclofenac sodium 75 mg 75 mg PO BID #28 tabs 12/01/24 12/27/24 Rx tablet,delayed release orphenadrine citrate 100 mg 100 mg PO BID #28 tabs 12/01/24 12/27/24 Rx tablet,extended release gabapentin 600 mg tablet 600 mg PO TID #90 tabs 12/23/24 12/27/24 Rx New Prescriptions to Start Prescriptions: Allergies Allergy/AdvReac Type Severity Reaction Status Date / Time venom-honey bee (BEE VENOM Allergy Unknown Unknown Verified 11/28/24 09:29 (HONEY BEE)) allergy reaction Assessment and Plan *Assessment and plan (1) Acute neck pain: Status: Acute Category: Medical Code(s): M54.2 - Cervicalgia (2) Lumbar radiculopathy: Status: Acute Category: Medical Code(s): M54.16 - Radiculopathy, lumbar region Plan Patient continues to have chronic low back pain that does radiate into her bilateral lower extremities. We did discuss how the pain does radiate down into her lower legs and she did state that it came more along the sides at her upper thighs and then would come down into the front of her lower legs. I did discuss with the patient that this would be something that she may benefit from a lumbar epidural at the L4-L5 level as it does follow that dermatome based off of how she describes her symptoms. Patient does have a lot of anxiety related additional injections and states that she is afraid that she would not end up going through with this option. Patient has had some injections in the past that only provided temporary to minimal improvement. I did discuss with the patient since she is having more acute neck pain that we could try the journavx 50 mg twice daily and do 2-week dose. Patient will follow-up in clinic in 2 weeks. Patient has been instructed to contact the clinic with any concerns before the next appointment. Dr. Thakkar has reviewed this note and agrees with this plan of care. This note was dictated using voice recognition software and make contain errors or omissions. All injections are used with Lidocaine, Bupivacaine and Depo Medrol. Occasionally urine drug screen is needed to verify patient's compliance with our office pain contract. This is ordered based off specific treatments related to chronic pain with the potential to abuse certain medications.
== END 2024-12-27 23:59 | disposition home or self-care (01) ==
PROVIDERS: PCP Family Medicine; Visit Provider Nurse Practitioner Family
DX: M54.2 Cervicalgia (principal); M54.16 Radiculopathy, lumbar region; Z87.891 Personal history of nicotine dependence
CPT/HCPCS: 99212; G0463

== ENCOUNTER 2025-03-31 13:47 | Outpatient (CLI) | payer MEDICARE, OTHER, SELFPAY ==
--- OUTSIDE RECORDS SUMMARY | 2025-03-31 13:50 | XMS_ITS | Clinical Summary ---
Author Organization [facility] Address [address] [place] [address] Care Team Providers Care Cycle Director Name Role Phone Ed Morrissey MD Primary Care Provider [phone] Allergies Active Allergy Reactions Criticality Noted Date Comments Bee Venom Anaphylaxis High 04/24/2022 Family History Medical History Relation Name Comments Seizures Maternal Grandmother Migraines Mother Seizures Paternal Grandfather Relation Name Status Comments Maternal Grandmother Mother Paternal Grandfather Social History Tobacco Use Types Packs/Day Years Used Date Smoking Tobacco: Former Alcohol Use Standard Drinks/Week Comments No 0 (1 standard drink = 0.6 oz pur e alcohol) Comments Unknown Sex and Gender Information Value Date Recorded Sex Assigned at Not on file Legal Sex Female 8:31 PM EDT Gender Identity Not on file Sexual Orientation Not on file Last Filed Vital Signs Vital Sign Reading Time Taken Comments Blood Pressure 124/77 06/04/2022 11:27 AM EDT Pulse 99 06/04/2022 11:27 AM EDT Temperature 37.7 C (99.9 F) 06/04/2022 11:27 AM EDT Respiratory Rate 18 06/04/2022 11:27 AM EDT Oxygen Saturation 98% 06/04/2022 11:27 AM EDT Inhaled Oxygen Concentration - - Weight 62.1 kg (137 lb) 06/04/2022 11:27 AM EDT Height 167.6 cm (5' 6 ) 06/04/2022 11:27 AM EDT Body Mass Index 22.11 06/04/2022 11:27 AM EDT Plan of Treatment Health Maintenance Due Date Last Done Comments [facility]-Depression Screening 1985 [facility]-Medicare Annual Wellness (AWV) 1985 [facility]-Infant/Child/Adol SDOH Screenings 1985 [facility]-Varicella Vaccines (1 of 2 - 13+ 2-dose series) 1998 HPV Vaccines (1 - 3-dose series) 2000 [facility]- SDOH Screenings 2003 [facility]-Adult SDOH Screenings 2003 [facility]-DTaP,Tdap,and Td Vaccines (1 - Tdap) 2004 [facility]-Hepatitis B Vaccines (1 of 3 - 19+ 3-dose series) 2004 [facility]-Pap Smear 2006 [facility]-Cervical Cancer Screening 2015 [facility]-HPV/Cotest 2015 [id number] Vaccine (1 - season) 2024 [facility]-Influenza Vaccine (#1) 05/08/202506/11, 07/31/2010 [facility]-Zoster Vaccines (1 of 2) 2035 [facility]-HIV Screening Completed 06/04/2022 [facility]-Hepatitis C Screening Completed 06/04/2022 [facility]-HIB Vaccines Aged Out No longer e ligible based on patient's age to complete this topic [facility]-Hepatitis A Vaccines Aged Out No longer eligible based on patient's age to complete this topic [facility]-IPV Vaccines Aged Out No longer e ligible based on patient's age to complete this topic [facility]-Pneumococcal Vaccine: Pediatrics (0 to 5 Years) and At-Risk Patients (6 to 49 Years) Aged Out No longer eligible b ased on patient's age to complete this topic [facility]-Rotavirus Vaccines Aged Out No lo nger eligible based on patient's age to complete this topic Procedures Procedure Name Priority Date/Time Associated Diagnosis Comments HEPATITIS C ANTIBODY - ED W/REFLEX TO HCV QUANT PCR STAT 06/04/2022 12:06 PM EDT HIV 1/2 ANTIBODY/ANTIGEN SCREEN WITH REFLEX TO HIV I/II DIFFERENTIATION STAT 06/04/2022 12:06 PM EDT from Last 3 Months or Most Recently Relevant to Health Maintenance Results * HIV 1 & 2 Antibody/Antigen Screen (06/04/2022 12:06 PM EDT) Pathologist [facility] HIV 1 & 2 Antibody/Anti gen Screen Nonreactive Nonreactive 06/04/2022 2:10 PM EDT [facility] Blood Venous blood specimen / Unknown Venipuncture / Unknown 06/04/2022 12:06 PM EDT 06/04/2022 12:44 PM EDT us Vito Travis MD LAB BLOOD ORDERABLES Final Resul t Performing Organization Address City/[facility] Co de Phone Number [facility] [address] [place] [address] * (ABNORMAL) Hepatitis C Antibody - ED (06/04/2022 12:06 PM EDT) Pathologist [facility] Hepatitis C Antibody Positive( A) Negative 06/04/2022 4:21 PM EDT [facility] Comment:This specimen is rasta ng sent for confirmation by RT-PCR. Blood Venous blood specimen / Unknown Venipuncture / Unknown 06/04/2022 12:06 PM EDT 06/04/2022 12:44 PM EDT us Vito Travis MD LAB BLOOD ORDERABLES Final Resul t Performing Organization Address City/[facility] de Phone Number [facility] [address] [place] [address] from Last 3 Months or Most Recently Relevant to Health Maintenance Insurance MEDICAID-[place] [facility] MEDICARE Care Teams Cycle Director Relationship Specialty Start Date End Date Ed Morrissey MD [address] [place] [address] PCP - General 04/24/22
--- NOTE | 2025-03-31 13:51 | XR_ITS ---
FINAL REPORT CLINICAL HISTORY: Pain in left ankle COMPARISON: None FINDINGS: LEFT ANKLE 3 views of the left ankle were obtained. There is no acute fracture or dislocation. The mortise is intact. Visualized joint spaces are normally aligned. There is significant soft tissue swelling laterally. IMPRESSION: Soft tissue swelling without acute bony abnormality. Reviewed, Interpreted and Dictated by Ayla Mcdowell MD Transcribed by Stacia Hodge Authenticated and [facility]
== END 2025-03-31 23:59 | disposition home or self-care (01) ==
LOC: RAD 13:48
PROVIDERS: PCP Family Medicine; Visit Provider Family Medicine
DX: S93.402A Sprain of unspecified ligament of left ankle, initial encounter (principal); X58.XXXA Exposure to other specified factors, initial encounter
CPT/HCPCS: 73610

== ENCOUNTER 2025-04-08 11:00 | Emergency (ER) | payer MEDICARE, OTHER, SELFPAY ==
--- OUTSIDE RECORDS SUMMARY | 2025-04-08 11:09 | XMS_ITS | Clinical Summary ---
Author Organization [facility] Address [address] [place] [address] Care Team Providers Care Lead Caster Helper Name Role Phone Ed Morrissey MD Primary Care Provider [phone] Allergies Active Allergy Reactions Criticality Noted Date [...] Due Date Last Done Comments [facility]-Depression Screening 1985 [facility]-Medicare Annual Wellness (AWV) 1985 [facility]-/Child/Adol SDOH Screenings 1985 [facility]-Varicella Vaccines (1 of 2 - 13+ 2-dose series) 1998 HPV Vaccines (1 - 3-dose series) 2000 [facility]- SDOH Screenings 2003 [facility]-Adult SDOH Screenings 2003 [facility]-DTaP,Tdap,and Td Vaccines (1 - Tdap) 2004 [facility]-Hepatitis B Vaccines (1 of 3 - 19+ 3-dose series) 2004 [facility]-Pap Smear 2006 [facility]-Cervical Cancer Screening 2015 [facility]-HPV/Cotest 2015 [id number] Vaccine (1 - season) 2024 [facility]-Influenza Vaccine [...] Antibody/Antigen Screen (06/04/2022 12:06 PM EDT) Pathologist [facility] HIV 1 & 2 Antibody/Anti gen Screen Nonreactive Nonreactive 06/04/2022 2:10 PM EDT [facility] Blood Venous blood specimen / Unknown Venipuncture / Unknown 06/04/2022 12:06 PM EDT 06/04/2022 12:44 PM EDT us Vito Travis MD LAB BLOOD ORDERABLES Final Resul t Performing Organization Address City/[facility] Co de Phone Number [facility] [address] [place] [address] * (ABNORMAL) Hepatitis C Antibody - ED (06/04/2022 12:06 PM EDT) Pathologist [facility] Hepatitis C Antibody Positive( A) Negative 06/04/2022 4:21 PM EDT [facility] Comment:This specimen is rasta ng sent for confirmation by RT-PCR. Blood Venous blood specimen / Unknown Venipuncture / Unknown 06/04/2022 12:06 PM EDT 06/04/2022 12:44 PM EDT us Vito Travis MD LAB BLOOD ORDERABLES Final Resul t Performing Organization Address City/[facility] de Phone Number HEALTHCARE [facility] [address] [place] [address] from Last 3 Months or Most Recently Relevant to Health Maintenance Insurance MEDICAID-[place] [facility] MEDICARE Care Teams Lead Caster Helper Relationship Specialty Start Date End Date Ed Morrissey MD [address] [place] [address] PCP - General 04/24/22
[2025-04-08 11:22] VITALS: BP 134/101; PULSE 95; RESP 20; TEMP 36.9; O2SAT 99; BMI 25.9
--- NOTE | 2025-04-08 11:28 | XR_ITS ---
PROCEDURE INFORMATION: Exam: XR Left Tibia and Fibula Exam date and time: 04/08/2025 11:46 AM Age: 39 years old Clinical indication: Injury or trauma; Other: Fall, left foot pain TECHNIQUE: Imaging protocol: Radiologic exam of the left tibia and fibula. Views: 2 views. COMPARISON: CR XR TIBIA FIBULA LT 2V 04/08/2025 11:46 AM FINDINGS: Bones/joints: No acute fracture. No dislocation. Soft tissues: Normal. IMPRESSION: No acute findings.
--- NOTE | 2025-04-08 11:28 | XR_ITS ---
PROCEDURE INFORMATION: Exam: XR Left Foot Exam date and time: 04/08/2025 11:46 AM Age: 39 years old Clinical indication: Injury or trauma; Other: Fall, left foot and ankle pain TECHNIQUE: Imaging protocol: Radiologic exam of the left foot. Views: 1 or 2 views. COMPARISON: CR XR ANKLE LT MIN 3V 03/31/2025 1:52 PM FINDINGS: Bones/joints: Edema along the lateral malleolus. No acute fracture or dislocation. Soft tissues: Normal. IMPRESSION: Edema along the lateral malleolus.
--- NOTE | 2025-04-08 11:28 | XR_ITS ---
PROCEDURE INFORMATION: Exam: XR Left Ankle Exam date and time: 04/08/2025 11:46 AM Age: 39 years old Clinical indication: Injury or trauma; Other: Fall, left ankle pain TECHNIQUE: Imaging protocol: Radiologic exam of the left ankle. Views: 1 or 2 views. COMPARISON: CR XR ANKLE LT MIN 3V 03/31/2025 1:52 PM FINDINGS: Bones/joints: No acute fracture or dislocation. Soft tissues: Lateral soft tissue swelling. IMPRESSION: Lateral soft tissue swelling.
--- NOTE | 2025-04-08 11:28 | CT_ITS ---
PROCEDURE INFORMATION: Exam: CTA Abdominal Aorta and Bilateral Lower Extremities (Run-off) With Contrast Exam date and time: 04/08/2025 11:55 AM Age: 39 years old Clinical indication: Foot pain; Left; Additional info: No pulse in lower extremity, PT states she has rolled her ankle 3 times in the last month with the most recent time being 2 days ago. Pain & swelling TECHNIQUE: Imaging protocol: Computed tomographic angiography of the of the abdominal aorta, pelvis and bilateral lower extremities with contrast. 3D rendering (Not supervised by radiologist): MIP and/or 3D reconstructed images were created by the technologist. Radiation optimization: All CT scans at this facility use at least one of these dose optimization techniques: automated exposure control; mA and/or kV adjustment per patient size (includes targeted exams where dose is matched to clinical indication); or iterative reconstruction. Contrast material: ISOVUE 370; Contrast volume: 120 ml; Contrast route: INTRAVENOUS (IV); COMPARISON: CT ABDOMEN PELVIS WO CON 03/04/2023 1:50 PM FINDINGS: Aorta: No aortic aneurysm. No aortic dissection. Celiac trunk and mesenteric arteries: No occlusion or significant stenosis. Renal arteries: No occlusion or significant stenosis. Right iliac arteries: No occlusion or significant stenosis. Right femoral/popliteal arteries: No occlusion or significant stenosis. Right infrapopliteal arteries: No occlusion or significant stenosis. Left iliac arteries: No occlusion or significant stenosis. Left femoral/popliteal arteries: No occlusion or significant stenosis. Left infrapopliteal arteries: No occlusion or significant stenosis. Liver: No mass. Gallbladder and biliary ducts: Unremarkable. No calcified stones. No ductal dilation. Pancreas: Unremarkable. No mass. No ductal dilation. Spleen: Normal. No splenomegaly. Adrenal glands: Normal. No mass. Kidneys and ureters: Normal. No mass. Stomach and bowel: Unremarkable. No obstruction. No mucosal thickening. Appendix: No evidence of appendicitis. Urinary bladder: Unremarkable. No mass. Reproductive: Unremarkable as visualized. Intraperitoneal space: Unremarkable. No free air. No significant fluid collection. Lymph nodes: No lymphadenopathy. Bones/joints: See Soft tissues finding. Soft tissues: Soft tissue edema and fluid along the lateral malleolus left ankle. No acute fracture. IMPRESSION: 1. Normal CTA and runoff. 2. Soft tissue edema and fluid along the lateral malleolus left ankle. No acute fracture.
--- NOTE | 2025-04-08 11:28 | PC.NURSE ---
i was unable to palpate a pulse in the left foot. notified MD. currently ultrasounding
[2025-04-08 11:30] VITALS: BP 146/100; PULSE 87; O2SAT 98
--- NOTE | 2025-04-08 11:30 | ED_ITS ---
Discharge Plan Disposition Patient Disposition: Home, Self-Care Prescriptions Prescriptions: No Action epinephrine [EpiPen 2-Gomez] 0.3 mg/0.3 mL auto-injector 0.3 mg IM Q5-15M PRN (Reason: anaphylaxis) Qty: 2 1RF Rx Instructions: do not exceed 3 doses per episode gabapentin 600 mg tablet 600 mg PO TID Qty: 90 2RF lamotrigine 200 mg tablet See Rx Instructions .ROUTE .COMPLEX Qty: 180 3RF Dose Instruction: TAKE ONE TABLET BY MOUTH TWICE DAILY Rx Instructions: TAKE ONE TABLET BY MOUTH TWICE DAILY ibuprofen 600 mg tablet 600 mg PO DIRECTED Patient Comments: TAKE ONE TABLET BY MOUTH EVERY 6 HOURS NEEDED FOR PAIN --TAKE WITH FOOD-- quetiapine 25 mg tablet See Rx Instructions .ROUTE .COMPLEX Qty: 30 2RF Dose Instruction: TAKE ONE TABLET BY MOUTH EVERY DAY AT BEDTIME Rx Instructions: TAKE ONE TABLET BY MOUTH EVERY DAY AT BEDTIME cyclobenzaprine 10 mg tablet See Rx Instructions .ROUTE .COMPLEX Qty: 60 2RF Dose Instruction: TAKE ONE TABLET BY MOUTH THREE TIMES DAILY NEEDED FOR MUSCLE SPASMS MAY CAUSE DROWSINESS Rx Instructions: TAKE ONE TABLET BY MOUTH THREE TIMES DAILY NEEDED FOR MUSCLE SPASMS MAY CAUSE DROWSINESS oxcarbazepine 150 mg tablet 150 mg PO BID Qty: 90 2RF clonazepam [Klonopin] 0.5 mg tablet 0.5 mg PO BID PRN (Reason: anxiety) Qty: 45 0RF sertraline 50 mg tablet 50 mg PO DAILY Qty: 30 2RF Referrals Follow up/Referrals: Tremaine Skinner DO [Staff Physician, Orthopedics] - See instructions Kun Todd MD [Primary Care Provider, Family Practice] - See instructions Activity Restrictions/Add. Instructions Additional Instructions/Restrictions: There is no evidence of broken bones on your x-ray imaging today. Your foot has good blood flow. You likely have an injury to a tendon or ligament. I am referring you to our orthopedic surgeon, Dr. Skinner, for follow-up. Contact his office early next week to schedule an appointment. You are also being provided a walking boot and crutches. Use these to help you walk. You can take the walking boot off when at rest. You can take Tylenol and ibuprofen to help with pain. You can elevate the leg to help with swelling. Clinical Impressions Clinical Impression: Pain and swelling of left ankle Print Language Print Language: Turkmen Discharge ED Provider: Daim Coyle General Adult HPI General Chief complaint: Extremity Injury, Lower Stated complaint: ao L ankle pain/fall Time Seen by Provider: 04/08/25 11:14 Mode of Arrival: Wheelchair Source of Information: Patient Description of Symptoms (Recalled from ER Triage Doc. by RN): left foot and ankle pain after multiple falls. swelling History of Present Illness HPI narrative: Josy Melgar is a 39Y female with a history of anxiety, bipolar disorder who presents the emergency department for complaints of injury to her left ankle. Patient states that on the second of this month, she rolled her ankle while outside, a few days later, she rolled her ankle again. 2 days ago, she was working outside and rolled the ankle on the left again. This would be her third injury to the ankle since the beginning of the month. She states that since then, she feels like her left foot is dragging and she can barely bear weight on it. She notes that it is swollen at the ankle and painful in that area. She feels like there is a rubber band behind her ankle. Related Data Home Medications ?Medication ?Instructions ?Recorded ?Confirmed ibuprofen 600 mg tablet 600 mg PO DIRECTED Pain 0 11/19/23 04/04/25 Previous Rx's ?Medication ?Instructions ?Recorded epinephrine 0.3 mg/0.3 mL 0.3 mg (0.3 mL) IM Q5-15M MI N 02/23/24 injection, auto-injector (EpiPen anaphylaxis #2 ea 2-Gomez) quetiapine 25 mg tablet See Rx Instructions .Route 0 01/30/25 .COMPLEX #30 tabs cyclobenzaprine 10 mg tablet See Rx Instructions .Rout e 02/03/25 .COMPLEX #60 tabs oxcarbazepine 150 mg tablet 150 mg PO BID #90 tabs 06/01 clonazepam 0.5 mg tablet (Klonopin) 0.5 mg PO BID PRN anxiety #45 tabs 03/30/25 gabapentin 600 mg tablet 600 mg PO TID #90 tabs 04/04 lamotrigine 200 mg tablet See Rx Instructions .Route 0 04/04/25 .COMPLEX #180 tabs sertraline 50 mg tablet 50 mg PO DAILY #30 tabs 11/01 Allergies Allergy/AdvReac Type Severity Reaction Status Date / Time venom-honey bee (BEE VENOM Allergy Unknown Unknown Verified 04/04/25 09:07 (HONEY BEE)) allergy reaction [facility] Disclaimer: The information contained in this section may have been updated after the patient was seen, as this information can be updated by other users. Medical History (Updated 04/08/25 @ 14:26 by Dami Coyle MD) Long-term current use of benzodiazepine Cervical strain Exposure to COVID-19 virus Viral syndrome Gastroenteritis Contusion of hip, right Fall Chest pain Sinusitis Anxiety Seizure Liver disease Thyroid disease Urinary tract infection Migraine Hypertension Panic disorder Major depressive disorder Bipolar II disorder Surgical History H/O: hysterectomy Previous section Family History Other No significant family history Social History Smoking Status: Never smoker smoking status stop date: 07/26/2024 second hand exposure: Yes alcohol intake: never substance use type: former substance user and heroin current occupational status: other Travel in the last 8 weeks?: None household members: spouse housing: house number of children: 2 current occupational exposures/hazards: No caffeine: Yes Have you lived/traveled outside [place] in past 30 days?: No Contact w/someone who lives/traveled outside US past 30 days?: No Exposure to someone with infectious disease in past 14 days?: No Do you have a fever (greater than 100.4 F or 38 C)?: No Have you tested positive for COVID-19?: No Exposed to someone with COVID-19 in past 14 days?: No Do you have a sore throat?: No Do you have a cough?: No Do you have any weakness?: No Do you have any diarrhea?: No Are you experiencing any unusual bleeding?: No Do you have any muscle aches/pain?: No Do you have any abdominal pain?: No Are you experiencing loss of taste or smell?: No Other Medical History Have you received the Flu Vaccine for this season: No Have you received the Pneumonia Vaccine: No ROS Obtained: Yes Systems reviewed as appropriate & no additional complaints except as documented Physical Exam General General appearance: alert and in no apparent distress Head Head exam: atraumatic Eye Eye exam: Present normal appearance ENT ENT exam: Present normal external ear exam Neck Neck exam: Present full ROM Chest Chest inspection: Present symmetric chest wall rise Respiratory Respiratory exam: Present normal lung sounds bilaterally; Absent respiratory distress Cardiovascular Cardiovascular exam: Present regular rate and normal rhythm Abdominal Exam Abdominal exam: Present soft; Absent tenderness or guarding Extremities Exam Extremities exam: Present normal inspection Expanded Lower Extremity Exam Left: Ankle image: 2 1. swelling and ecchymosis Comment: Swelling over the left lateral malleolus with ecchymosis underneath the lateral malleolus. There is some swelling to the forefoot as well. No palpable DP pulse. Palpable PT pulse. Unable to get dopplerable DP pulses. Patient has 3 out of 5 strength with plantarflexion at the ankle and 2 out of 5 strength with dorsiflexion. Sensation is grossly intact. Back Exam Back exam: Present normal inspection Neurological Exam Neurological exam: Present alert and oriented X3 Psychiatric Psychiatric exam: Present normal affect Skin Skin exam: Present warm and dry Medical Decision Making Medical Records Screening: Per USPSTF and CDC recommendations, given the prevalence of disease in our region, it is our hospital?s policy to screen for HIV and viral Hepatitis for all patients aged 18 and over and those with ongoing risk factors. Cosme Inquiry Pt receiving controlled substance: No Vital Signs: 04/08/25 11:22 04/08/25 11:30 04/08/25 13:11 Temperature 98.4 F Temperature Source Oral Pulse Rate 87 82 Pulse Rate [Right] 95 H Respiratory Rate 20 Blood Pressure 146/100 H 130/90 Blood Pressure [Right Arm] 134/101 H Blood Pressure Mean Blood Pressure Mean [Right Arm] 112 02 Sat by Pulse Oximetry 99 98 100 04/08/25 13:30 04/08/25 14:00 04/08/25 14:40 Temperature 98.5 F Temperature Source Pulse Rate 9 L 86 87 Pulse Rate [Right] Respiratory Rate 16 18 18 Blood Pressure 137/92 H 141/87 H 139/84 Blood Pressure [Right Arm] Blood Pressure Mean 100 99 Blood Pressure Mean [Right Arm] 02 Sat by Pulse Oximetry 100 100 Lab Data Lab Results 04/08/25 11:40: WBC 8.2, RBC 4.80, Hgb 14.5, Hct 43.5, MCV 90.6, MCH 30.2, MCHC 33.3, RDW 13.0, Plt Count 468 H, MPV 8.0, Neut % (Auto) 63.2, Lymph % (Auto) 26.2, [place] % (Auto) 7.8, Eos % (Auto) 1.9, Baso % (Auto) 0.4, Neut # (Auto) 5.2, Lymph # (Auto) 2.2, [place] # (Auto) 0.6, Eos # (Auto) 0.2, Baso # (Auto) 0.0, PT 10.2, INR 0.91, APTT 23.2, Sodium 134 L, Potassium 3.9, Chloride 102, Carbon Dioxide 28, Anion Gap 7.9, BUN 12, Creatinine 0.70, Estimated Creat Clear 124, Estimated GFR 93, Est GFR ( Amer) 113, Glucose 96, Calcium 10.0, Total Bilirubin 0.2, AST 32, ALT 36, Alkaline Phosphatase 90, Total Creatine Kinase 50, Total Protein 7.6, Albumin 4.0, Globulin 3.6 H, Albumin/Globulin Ratio 1.1 04/08/25 11:40 04/08/25 11:40 Orders (Tests/Meds): ED MEDICATIONS Discontinued Medications Generic Name Dose Route Start Last Admin Trade Name Freq PRN Reason Stop Dose Admin Acetaminophen 1,000 mg 04/08/25 13:36 04/08/25 13:46 Acetaminophen 500mg Tab PO 04/08/25 13:37 1,000 mg ONCE ONE Administration Ibuprofen 600 mg 04/08/25 13:36 04/08/25 13:45 Ibuprofen 600 Mg Tablet PO 04/08/25 13:37 600 mg ONCE ONE Administration Iopamidol 120 ml 04/08/25 11:53 04/08/25 11:54 Iopamidol-370 (76%);100ml Bottle IV 04/08/25 11:54 120 ml ONCE ONE Administration Sodium Chloride 50 ml 04/08/25 11:53 04/08/25 11:54 0.9 % Sodium Chloride 50 Ml Vial IV 04/08/25 11:54 50 ml ONCE ONE Administration Sodium Chloride 10 ml 04/08/25 11:53 04/08/25 11:54 Sodium Chloride 0.9% 10ml Syr (Rad Only) IV 04/08/25 11:54 10 ml ONCE ONE Administration ORDERS Category Date Time Status CT angio abdomen/femoral Stat Cat Scan 04/08/25 11:28 Completed Ankle XR - Left 2 Views [XR ankle LT 2V] Stat Exams 04/08/25 11:28 Completed Fibula/tibia XR left 2 views [XR tibia fibula LT 2V] Exams 04/08/25 11:28 Completed Stat Foot XR left 2 views [XR foot LT 2V] Stat Exams 04/08/25 11:28 Completed POCUS Point of Care (ER Only) Stat Exams 04/08/25 11:28 Taken CBC w/Auto Diff [Complete Blood Count Auto Diff] Stat Lab 04/08/25 11:40 Completed CK [Creatine Kinase] Stat Lab 04/08/25 11:40 Completed CMP [Comprehensive Metabolic Panel] Stat Lab 04/08/25 11:40 Completed PT INR [Prothrombin Time INR] Stat Lab 04/08/25 11:40 Completed PTT [Activated Partial Thrombo Time] Stat Lab 04/08/25 11:40 Completed Medical Decision Narrative: Josy Melgar is a 39Y female with a history of anxiety, bipolar disorder who presents the emergency department for complaints of injury to her left ankle. Patient states that on the second of this month, she rolled her ankle while outside, a few days later, she rolled her ankle again. 2 days ago, she was working outside and rolled the ankle on the left again. This would be her third injury to the ankle since the beginning of the month. She states that since then, she feels like her left foot is dragging and she can barely bear weight on it. She notes that it is swollen at the ankle and painful in that area. She feels like there is a rubber band behind her ankle. On arrival, patient is hemodynamically stable, borderline tachycardic, breathing comfortably on room air with appropriate oxygen saturation. Physical exam, as stated above, revealed an overall well-appearing female in no distress. GCS 15. She has swelling over the lateral malleolus with ecchymosis dependent to this area of swelling. She has some swelling to the forefoot as well. No palpable DP pulse but a palpable PT pulse. No auditory Doppler is able to be obtained. [id number] ultrasound of the foot was used to evaluate for any Doppler flow to the dorsum of the foot. Unable to find dopplerable, flow on the dorsum of the left foot, however it is present on the right. Patient also noted to have weakness with plantar and dorsiflexion of the left foot. Sensation is grossly intact. Differential diagnosis includes, but is not limited to: Neurovascular injury such as arterial dissection/occlusion/thrombus, fracture, dislocation, soft tissue injury, ligamentous/tendinous injury, compartment syndrome, among others. Insert morbid Workup in the emergency room included: CT abdomen pelvis with runoff to evaluate for any arterial injury, CK, CBC with differential, CMP, PT/INR, left foot x- ray, left ankle x-ray, left tib-fib x-ray Laboratory studies were interpreted by me personally. No leukocytosis, no anemia, platelets within normal limits, coagulation studies unremarkable, mild hyponatremia at 134 but nonactionable. Electrolytes otherwise within normal limits. CK within normal limits. X-ray imaging was interpreted by me personally. No fracture or dislocation in the foot, ankle or tib-fib is noted. See final radiology report for details. There is soft tissue edema most notably over the lateral malleoli are area. CT imaging was interpreted by me personally. Patient appears to have adequate arterial flow to the distal foot without disruption or evidence of arterial occlusion or injury. See final radiology report for details. There is no evidence of fracture on CT imaging as well. Final radiology report for details. Given her negative workup here, is felt that it is likely cannot find a pulse secondary to swelling and that she likely injured a ligament, most likely her ATFL given the location. Will place patient in walking boot and provide crutches. Will also give her referral to Dr. Skinner with orthopedic surgery for follow-up. Instructed her to take Tylenol and ibuprofen for pain. All questions were answered. She was then discharged from the emergency department in stable condition. Critical Care Critical Care Time Critical Care Time: No
[2025-04-08 11:46] LABS: Hematocrit 43.5 % (37.0-47.0); Hemoglobin 14.5 g/dL (12.2-16.2); Immature Granulocytes % 0.5 %; Mean Corpuscular HGB Conc 33.3 g/dL (31.8-35.4); Mean Corpuscular Hemoglobin 30.2 pg (27.0-31.2); Mean Corpuscular Volume 90.6 fl (81-99); Nucleated Red Blood Cells % 0 %; Platelet Count 468 K/mm3 (142-424); Red Blood Count 4.80 M/mm3 (4.20-5.40); Red Cell Distribution Width-SD 43.5 fL; White Blood Count 8.2 K/mm3 (4.8-10.8)
[2025-04-08 11:52] LABS: Albumin Level 4.0 g/dl (3.5-5.0); Chloride 102 mmol/L (98-107); Potassium 3.9 mmoL/L (3.5-5.1); Sodium 134 mmol/L (136-145)
[2025-04-08] MEDS: 0.9 % SODIUM CHLORIDE 50 ML VIAL IV (11:54)
[2025-04-08] MEDS: IOPAMIDOL-370 (76%);100ML BOTTLE 120 ML IV (11:54)
[2025-04-08] MEDS: SODIUM CHLORIDE 0.9% 10ML SYR (RAD ONLY) 10 ML IV (11:54)
[2025-04-08 11:55] LABS: Alanine Aminotransferase 36 U/L (12-78); Albumin/Globulin Ratio 1.1 (1.1-1.8); Alkaline Phosphatase 90 U/L (38-126); Anion Gap 7.9 mEq/L (5-15); Aspartate Amino Transferase 32 U/L (14-36); Bilirubin,Total 0.2 mg/dl (0.2-1.3); Blood Urea Nitrogen 12 mg/dl (7-17); Calcium 10.0 mg/dl (8.4-10.2); Carbon Dioxide 28 mmol/L (22.0-30.0); Creatinine Clearance Estimated 124 mL/min (50-200); Creatinine,Serum 0.70 mg/dl (0.52-1.04); Estimated Glomerular Filt Rate 93 ml/min (>60); GFR (African American) 113 ML/MIN (>60); Globulin 3.6 g/dL (1.3-3.2); Glucose 96 mg/dl (74-100); Total Protein,Serum 7.6 g/dl (6.3-8.2)
[2025-04-08 11:58] LABS: Activated Partial Thrombo Time 23.2 seconds (22.8-30.6); INR 0.91 (0.9-1.1); Prothrombin Time 10.2 seconds (10.1-12.5)
[2025-04-08 13:01] LABS: Creatine Kinase 50 U/L (30-135)
[2025-04-08 13:11] VITALS: BP 130/90; PULSE 82; O2SAT 100
[2025-04-08 13:30] VITALS: BP 137/92; PULSE 9; RESP 16; O2SAT 100
[2025-04-08] MEDS: IBUPROFEN 600 MG TABLET PO (13:45)
[2025-04-08] MEDS: ACETAMINOPHEN 500MG TAB 1000 MG PO (13:46)
[2025-04-08 14:00] VITALS: BP 141/87; PULSE 86; RESP 18; O2SAT 100
[2025-04-08 14:40] VITALS: BP 139/84; PULSE 87; RESP 18; TEMP 36.9; O2SAT 100
== END 2025-04-08 14:41 | disposition home or self-care (01) ==
PROVIDERS: Emergency Provider Student in an Organized Health Care Education/Training Program; PCP Family Medicine
DX: M25.572 Pain in left ankle and joints of left foot (principal); F41.1 Generalized anxiety disorder; F31.9 Bipolar disorder, unspecified
CPT/HCPCS: 73590; 73600; 73620; 75635; 80053; 82550; 85025; 85610; 85730; 99285; Q9967

== ENCOUNTER 2025-05-01 14:59 | Outpatient (CLI) | payer MEDICARE, OTHER, SELFPAY ==
--- NOTE | 2025-05-01 15:00 | XR_ITS ---
PROCEDURE INFORMATION: Exam: XR Left Ankle Exam date and time: 05/01/2025 2:53 PM Age: 39 years old Clinical indication: Pain; Ankle; Left; Additional info: Left ankle pain after fall TECHNIQUE: Imaging protocol: Radiologic exam of the left ankle. Views: 3 or more views. COMPARISON: CT ANGIO ABDOMEN/FEMORAL 04/08/2025 11:55 AM FINDINGS: Bones/joints: Normal. Soft tissues: Extensive lateral ankle swelling. IMPRESSION: Extensive lateral ankle swelling. No acute fracture.
== END 2025-05-01 23:59 | disposition home or self-care (01) ==
LOC: RAD 15:00
PROVIDERS: Visit Provider Physician Assistant Surgical
DX: M25.572 Pain in left ankle and joints of left foot (principal); M25.472 Effusion, left ankle
CPT/HCPCS: 73610

== ENCOUNTER 2025-05-31 10:20 | Emergency (ER) | payer MEDICARE, OTHER, SELFPAY ==
[2025-05-31] VITALS (7 sets, daily range): BP systolic 120–136; BP diastolic 73–93; PULSE 83–98; RESP 16–24; TEMP 36.7; O2SAT 96–99; BMI 27.8
--- NOTE | 2025-05-31 10:21 | ECG_ITS ---
APPROVED REPORT Exam: Resting ECG HR:95 bpm ECG Measurements Heart Rate 95 AXES CO 149 P 44 QRSd 92 QRS 58 QT 332 T 42 QTc 385 Conclusion SINUS RHYTHM POSSIBLE RIGHT VENTRICULAR CONDUCTION DELAY [RSR (QR) IN V1/V2] BORDERLINE ECG UNCONFIRMED REPORT Normal sinus rhythm. No ST elevation or depression. QTc 385 Electronically signed by : ADILSON NAVA, 05/31/2025 15:26:45
--- NOTE | 2025-05-31 10:29 | XR_ITS ---
FINAL REPORT TECHNIQUE: Single view chest CLINICAL HISTORY: cp COMPARISON: 06/02/2019 FINDINGS: A single view of the chest was obtained. The heart and mediastinum are within normal limits. The lungs are clear. There is no pneumothorax. IMPRESSION: No acute cardiopulmonary process. Reviewed, Interpreted and Dictated by Kellie Mrurell MD Transcribed by Lillie Joyce Authenticated and [facility]
--- NOTE | 2025-05-31 10:32 | ED_ITS ---
<Statement entered by Dami Coyle MD - 06/01/25 12:50> I was consulted by the YESENIA, and we discussed the complexity of the problems being addressed. I approve the treatment and management plan for this patient's care in the emergency department, thus performing a substantive portion of the medical decision making. Dami Coyle MD Discharge Plan Disposition Patient Disposition: Home, Self-Care Prescriptions Prescriptions: New prednisone 20 mg tablet 20 mg PO BID 7 Days Qty: 14 0RF No Action epinephrine [EpiPen 2-Gomez] 0.3 mg/0.3 mL auto-injector 0.3 mg IM Q5-15M PRN (Reason: anaphylaxis) Qty: 2 1RF Rx Instructions: do not exceed 3 doses per episode gabapentin 600 mg tablet 600 mg PO TID Qty: 90 2RF lamotrigine 200 mg tablet See Rx Instructions .ROUTE .COMPLEX Qty: 180 3RF Dose Instruction: TAKE ONE TABLET BY MOUTH TWICE DAILY Rx Instructions: TAKE ONE TABLET BY MOUTH TWICE DAILY ibuprofen 600 mg tablet 600 mg PO DIRECTED Patient Comments: TAKE ONE TABLET BY MOUTH EVERY 6 HOURS NEEDED FOR PAIN --TAKE WITH FOOD-- sertraline 50 mg tablet 50 mg PO DAILY Qty: 30 2RF quetiapine 25 mg tablet See Rx Instructions .ROUTE .COMPLEX Qty: 30 2RF Dose Instruction: TAKE ONE TABLET BY MOUTH EVERY DAY AT BEDTIME Rx Instructions: TAKE ONE TABLET BY MOUTH EVERY DAY AT BEDTIME cyclobenzaprine 10 mg tablet See Rx Instructions .ROUTE .COMPLEX Qty: 60 2RF Dose Instruction: TAKE ONE TABLET BY MOUTH THREE TIMES DAILY NEEDED FOR MUSCLE SPASMS MAY CAUSE DROWSINESS Rx Instructions: TAKE ONE TABLET BY MOUTH THREE TIMES DAILY NEEDED FOR MUSCLE SPASMS MAY CAUSE DROWSINESS oxcarbazepine 150 mg tablet 150 mg PO BID Qty: 90 2RF clonazepam [Klonopin] 0.5 mg tablet 0.5 mg PO BID PRN (Reason: anxiety) Qty: 45 0RF Referrals Follow up/Referrals: Kun Todd MD [Primary Care Provider, Family Practice] - See instructions Activity Restrictions/Add. Instructions Additional Instructions/Restrictions: Take meds as directed. Increase fluids and rest. Please follow-up with Dr. Todd for further treatment and management. Clinical Impressions Clinical Impression: Chest pain, Paresthesia Instructions Patient Instructions: DI for Chest Pain, DI for Numbness/Tingling Print Language Print Language: Hungarian Discharge ED Provider: Dami Coyle HPI <Helenitalo Nunezedwin (ED), KILNMAN - Last Filed: 05/31/25 18:52> General Chief Complaint: Chest Pain Stated Complaint: Chest Pain Time Seen by Provider: 05/31/25 10:22 Mode of Arrival: Ambulatory Source of Information: Patient Description of Symptoms (Recalled from ER Triage Doc. by RN): PT REPORTS NUMBNESS AND TINGLING OF RIGHT HAND THAT STARTED ON THURSDAY NIGHT. PT REPORTS PAIN RADIATING TO RIGHT SIDE OF CHEST ABOUT 0200 THIS AM. REPORTS CHEST PAIN IS SHARP, RATES 5/10. PT FEELS THAT HER RIGHT HAND IS SWOLLEN AND MORE NUMBNESS OF RING AND MIDDLE FINGER History of Present Illness HPI narrative: 39-year-old female presents to the ED today with complaint of numbness in her middle 2 fingers on her right hand. She says this started Thursday. She reports that this started Thursday night and then later that evening and in the morning on Thursday she started having pain that moved up her arm and into her right side of her chest. She says the chest pain is sharp and rates it a 5.5 out of 10. She says she had to wait on a ride so that is why she is just now here. She says this pain is intermittent but has increased this morning. She has no nausea or vomiting. She says she does have a mild headache and feels foggy. Patient has no weakness or diminished sensation. Related Data Home Medications ?Medication ?Instructions ?Recorded ?Confirmed ibuprofen 600 mg tablet 600 mg PO DIRECTED Pain 0 11/19/23 05/01/25 Previous Rx's ?Medication ?Instructions ?Recorded epinephrine 0.3 mg/0.3 mL 0.3 mg (0.3 mL) IM Q5-15M NE N 02/23/24 injection, auto-injector (EpiPen anaphylaxis #2 ea 2-Gomez) gabapentin 600 mg tablet 600 mg PO TID #90 tabs 04/04 lamotrigine 200 mg tablet See Rx Instructions .Route 0 04/04/25 .COMPLEX #180 tabs sertraline 50 mg tablet 50 mg PO DAILY #30 tabs 11/01 quetiapine 25 mg tablet See Rx Instructions .Route 0 04/11/25 .COMPLEX #30 tabs cyclobenzaprine 10 mg tablet See Rx Instructions .Rout e 05/05/25 .COMPLEX #60 tabs oxcarbazepine 150 mg tablet 150 mg PO BID #90 tabs 11/01 clonazepam 0.5 mg tablet (Klonopin) 0.5 mg PO BID PRN anxiety #45 tabs 05/30/25 prednisone 20 mg tablet 20 mg PO BID 7 days #14 tabs 05/31/25 Allergies Allergy/AdvReac Type Severity Reaction Status Date / Time venom-honey bee (BEE VENOM Allergy Unknown Unknown Verified 05/31/25 11:03 (HONEY BEE)) allergy reaction PFSH <Helen Limon (ED), KIL[place]MAN - Last Filed: 05/31/25 18:52> [facility] Disclaimer: The information contained in this section may have been updated after the patient was seen, as this information can be updated by other users. Medical History Long-term current use of benzodiazepine Cervical strain Exposure to COVID-19 virus Viral syndrome Gastroenteritis Contusion of hip, right Fall Chest pain Sinusitis Anxiety Seizure Liver disease Thyroid disease Urinary tract infection Migraine Hypertension Panic disorder Major depressive disorder Bipolar II disorder Surgical History H/O: hysterectomy Previous section Family History Other No significant family history Social History Smoking Status: Former smoker tobacco type: cigarettes packs per day: 1 smoking status stop date: 07/26/2024 second hand exposure: Yes alcohol intake: never substance use type: former substance user and heroin current occupational status: other Travel in the last 8 weeks?: None household members: spouse housing: house number of children: 2 current occupational exposures/hazards: No caffeine: Yes Have you lived/traveled outside US in past 30 days?: No Contact w/someone who lives/traveled outside US past 30 days?: No Exposure to someone with infectious disease in past 14 days?: No Do you have a fever (greater than 100.4 F or 38 C)?: No Have you tested positive for COVID-19?: No Exposed to someone with COVID-19 in past 14 days?: No Do you have a sore throat?: No Do you have a cough?: No Do you have any weakness?: No Do you have any diarrhea?: No Are you experiencing any unusual bleeding?: No Do you have any muscle aches/pain?: No Do you have any abdominal pain?: No Are you experiencing loss of taste or smell?: No Other Medical History Have you received the Flu Vaccine for this season: No Have you received the Pneumonia Vaccine: No <Helen Limon (ED), KIL[place]MAN - Last Filed: 05/31/25 18:52> ROS Obtained: Yes Systems reviewed as appropriate & no additional complaints except as documented Constitutional Constitutional: Reports as per HPI Physical Exam <Helen Limon (ED), KIL[place]MAN - Last Filed: 05/31/25 18:52> General General appearance: alert Head Head exam: normocephalic Eye Eye exam: Present PERRL ENT ENT exam: Present mucous membranes moist Neck Neck exam: Present normal inspection and trachea midline Chest Chest inspection: Present normal inspection and symmetric chest wall rise Respiratory Respiratory exam: Present normal lung sounds bilaterally Cardiovascular Cardiovascular exam: Present regular rate, normal rhythm, normal heart sounds, +S1 and +S2 Abdominal Exam Abdominal exam: Present soft and normal bowel sounds Extremities Exam Extremities exam: Present normal inspection, full ROM, normal capillary refill and other (No pain) Back Exam Back exam: Present normal inspection and full ROM Neurological Exam Neurological exam: Present alert, oriented X3 and normal gait Psychiatric Psychiatric exam: Present anxious Skin Skin exam: Present warm, dry and intact HEART Score <Helen Limon (ED), KILNMAN - Last Filed: 05/31/25 18:52> HEART Score HEART Score assessment performed?: Yes History (anamnesis): Slightly suspicious ECG: Normal Age: <45 years Risk factors: 1-2 risk factors Troponin: </= normal limit HEART Score: 1 <Dami Coyle MD - Last Filed: 05/31/25 11:10> HEART Score HEART Score: 1 Critical Care <Helen Limon (ED), KILNMAN - Last Filed: 05/31/25 18:52> Critical Care Time Critical Care Time: No Medical Decision Making <Helen Limon (ED), KILNMAN - Last Filed: 05/31/25 18:52> Cosme Inquiry Pt receiving controlled substance: No Cosme was queried for this patient: No Vital Signs Vital Signs: 05/31/25 10:20 05/31/25 11:21 05/31/25 11:30 Temperature 98.0 F Temperature Source Oral Pulse Rate 97 H 98 H Pulse Rate [Apical] 94 H Respiratory Rate 18 24 23 Blood Pressure 120/85 135/73 Blood Pressure [Right Arm] 135/92 H Blood Pressure Mean [Right Arm] 106 Blood Pressure Source [Right Arm] Automatic Cuff Blood Pressure Position [Right Arm] Sitting 02 Sat by Pulse Oximetry 99 99 96 Oxygen Delivery Method Room Air Room Air 05/31/25 12:00 05/31/25 12:30 05/31/25 13:00 Temperature Temperature Source Pulse Rate 86 85 83 Pulse Rate [Apical] Respiratory Rate 18 16 16 Blood Pressure 121/89 136/79 131/80 Blood Pressure [Right Arm] Blood Pressure Mean [Right Arm] Blood Pressure Source [Right Arm] Blood Pressure Position [Right Arm] 02 Sat by Pulse Oximetry 96 97 98 Oxygen Delivery Method Room Air 05/31/25 13:19 Temperature 98.0 F Temperature Source Oral Pulse Rate 84 Pulse Rate [Apical] Respiratory Rate 18 Blood Pressure 122/93 H Blood Pressure [Right Arm] Blood Pressure Mean [Right Arm] Blood Pressure Source [Right Arm] Blood Pressure Position [Right Arm] 02 Sat by Pulse Oximetry Oxygen Delivery Method Room Air Lab Data Labs: Lab Results 05/31/25 10:30: WBC 7.3, RBC 4.95, Hgb 14.9, Hct 44.8, MCV 90.5, MCH 30.1, MCHC 33.3, RDW 12.5, Plt Count 448 H, MPV 8.5, Neut % (Auto) 58.7, Lymph % (Auto) 28.1, Hood % (Auto) 9.5 H, Eos % (Auto) 2.5, Baso % (Auto) 0.7, Neut # (Auto) 4.3, Lymph # (Auto) 2.1, Hood # (Auto) 0.7, Eos # (Auto) 0.2, Baso # (Auto) 0.1, D-Dimer 0.31, Sodium 133 L, Potassium 5.1, Chloride 103, Carbon Dioxide 22, Anion Gap 13.1, BUN 7, Creatinine 0.60, Estimated Creat Clear 146, Estimated GFR 111, Est GFR ( Amer) 135, Glucose 101 H, Calcium 9.2, Magnesium 1.9, Total Bilirubin 1.1, AST 45 H, ALT 24, Alkaline Phosphatase 57, Troponin I 0.02, Total Protein 7.9, Albumin 4.8, Globulin 3.1, Albumin/Globulin Ratio 1.5, Lipase 58 05/31/25 12:20: Troponin I < 0.01 05/31/25 10:30 05/31/25 10:30 Response Orders (Tests/Meds): ED MEDICATIONS Discontinued Medications Generic Name Dose Route Start Last Admin Trade Name Freq PRN Reason Stop Dose Admin Aspirin 325 mg 05/31/25 10:29 05/31/25 10:47 Aspirin 325mg Tablet PO 05/31/25 10:30 325 mg ONCE ONE Administration Famotidine 20 mg 05/31/25 10:29 05/31/25 10:40 Famotidine 20mg/2ml Vial IV 05/31/25 10:30 20 mg ONCE ONE Administration Ketorolac Tromethamine 30 mg 05/31/25 13:11 05/31/25 13:14 Ketorolac 30mg/Ml Vial IV 05/31/25 13:12 30 mg ONCE ONE Administration Morphine Sulfate 4 mg 05/31/25 10:29 05/31/25 10:41 Morphine 4mg/Ml Syringe IV 05/31/25 10:30 4 mg ONCE ONE Administration Ondansetron HCl 4 mg 05/31/25 10:29 05/31/25 10:40 Ondansetron 4mg/2ml Vial IV 05/31/25 10:30 4 mg ONCE ONE Administration Prednisone 40 mg 05/31/25 13:11 05/31/25 13:14 Prednisone 20mg Tab PO 05/31/25 13:12 40 mg ONCE ONE Administration Sodium Chloride 8 ml 05/31/25 10:29 05/31/25 10:39 Sodium Chloride 0.9% 10ml Vial IV 06/30/25 10:28 8 ml NEEDED PRN Administration dilute pepcid ORDERS Category Date Time Status Chest XR -- portable [XR chest portable] Stat Exams 05/31/25 10:29 Completed CBC [Complete Blood Count Auto Diff] Stat Lab 05/31/25 10:30 Completed Comprehensive Metabolic Panel Stat Lab 05/31/25 10:30 Completed D-Dimer Stat Lab 05/31/25 10:30 Completed Lipase Stat Lab 05/31/25 10:30 Completed Magnesium Stat Lab 05/31/25 10:30 Completed Trop I [Troponin I] Stat Lab 05/31/25 10:30 Completed Troponin I Timed Lab 05/31/25 12:20 Completed MDM Narrative Medical Decision Narrative: patient is a 39-year-old female presenting to the emergency department for evaluation of chest pain, numbness in her right hand to middle fingers. Patient is hemodynamically stable and nontoxic-appearing upon arrival, afebrile. Differential diagnosis includes ACS, reflux, anxiety, among others. Workup will be conducted with hematologic labs, specific imaging, provocative tests. Initial inventions include crystalloid bolus, analgesics. Initial workup reviewed by me hematologic labs are remarkable for normal troponins x 2 other labs nonactionable. Imaging was negative read by myself. Read by radiology was negative for acute findings. Patient stable for discharge home. I want her to follow-up with her PCP for the swelling in her right hand. She complains that it is numb to her elbow. She has good movement. I am going to prescribe some steroids for the swelling. I discussed this with the Dr Coyle and he agrees with the plan. Patient safe for discharge home. <Dami Coyle MD - Last Filed: 05/31/25 11:10> Vital Signs Vital Signs: 05/31/25 10:20 05/31/25 11:21 05/31/25 11:30 Temperature 98.0 F Temperature Source Oral Pulse Rate 97 H 98 H Pulse Rate [Apical] 94 H Respiratory Rate 18 24 23 Blood Pressure 120/85 135/73 Blood Pressure [Right Arm] 135/92 H Blood Pressure Mean [Right Arm] 106 Blood Pressure Source [Right Arm] Automatic Cuff Blood Pressure Position [Right Arm] Sitting 02 Sat by Pulse Oximetry 99 99 96 Oxygen Delivery Method Room Air Room Air 05/31/25 12:00 05/31/25 12:30 05/31/25 13:00 Temperature Temperature Source Pulse Rate 86 85 83 Pulse Rate [Apical] Respiratory Rate 18 16 16 Blood Pressure 121/89 136/79 131/80 Blood Pressure [Right Arm] Blood Pressure Mean [Right Arm] Blood Pressure Source [Right Arm] Blood Pressure Position [Right Arm] 02 Sat by Pulse Oximetry 96 97 98 Oxygen Delivery Method Room Air 05/31/25 13:19 Temperature 98.0 F Temperature Source Oral Pulse Rate 84 Pulse Rate [Apical] Respiratory Rate 18 Blood Pressure 122/93 H Blood Pressure [Right Arm] Blood Pressure Mean [Right Arm] Blood Pressure Source [Right Arm] Blood Pressure Position [Right Arm] 02 Sat by Pulse Oximetry Oxygen Delivery Method Room Air Lab Data Labs: Lab Results 05/31/25 10:30: WBC 7.3, RBC 4.95, Hgb 14.9, Hct 44.8, MCV 90.5, MCH 30.1, MCHC 33.3, RDW 12.5, Plt Count 448 H, MPV 8.5, Neut % (Auto) 58.7, Lymph % (Auto) 28.1, Hood % (Auto) 9.5 H, Eos % (Auto) 2.5, Baso % (Auto) 0.7, Neut # (Auto) 4.3, Lymph # (Auto) 2.1, Hood # (Auto) 0.7, Eos # (Auto) 0.2, Baso # (Auto) 0.1, D-Dimer 0.31, Sodium 133 L, Potassium 5.1, Chloride 103, Carbon Dioxide 22, Anion Gap 13.1, BUN 7, Creatinine 0.60, Estimated Creat Clear 146, Estimated GFR 111, Est GFR ( Amer) 135, Glucose 101 H, Calcium 9.2, Magnesium 1.9, Total Bilirubin 1.1, AST 45 H, ALT 24, Alkaline Phosphatase 57, Troponin I 0.02, Total Protein 7.9, Albumin 4.8, Globulin 3.1, Albumin/Globulin Ratio 1.5, Lipase 58 05/31/25 12:20: Troponin I < 0.01 Response Orders (Tests/Meds): ED MEDICATIONS Discontinued Medications Generic Name Dose Route Start Last Admin Trade Name Freq PRN Reason Stop Dose Admin Aspirin 325 mg 05/31/25 10:29 05/31/25 10:47 Aspirin 325mg Tablet PO 05/31/25 10:30 325 mg ONCE ONE Administration Famotidine 20 mg 05/31/25 10:29 05/31/25 10:40 Famotidine 20mg/2ml Vial IV 05/31/25 10:30 20 mg ONCE ONE Administration Ketorolac Tromethamine 30 mg 05/31/25 13:11 05/31/25 13:14 Ketorolac 30mg/Ml Vial IV 05/31/25 13:12 30 mg ONCE ONE Administration Morphine Sulfate 4 mg 05/31/25 10:29 05/31/25 10:41 Morphine 4mg/Ml Syringe IV 05/31/25 10:30 4 mg ONCE ONE Administration Ondansetron HCl 4 mg 05/31/25 10:29 05/31/25 10:40 Ondansetron 4mg/2ml Vial IV 05/31/25 10:30 4 mg ONCE ONE Administration Prednisone 40 mg 05/31/25 13:11 05/31/25 13:14 Prednisone 20mg Tab PO 05/31/25 13:12 40 mg ONCE ONE Administration Sodium Chloride 8 ml 05/31/25 10:29 05/31/25 10:39 Sodium Chloride 0.9% 10ml Vial IV 06/30/25 10:28 8 ml NEEDED PRN Administration dilute pepcid ORDERS Category Date Time Status Chest XR -- portable [XR chest portable] Stat Exams 05/31/25 10:29 Completed CBC [Complete Blood Count Auto Diff] Stat Lab 05/31/25 10:30 Completed Comprehensive Metabolic Panel Stat Lab 05/31/25 10:30 Completed D-Dimer Stat Lab 05/31/25 10:30 Completed Lipase Stat Lab 05/31/25 10:30 Completed Magnesium Stat Lab 05/31/25 10:30 Completed Trop I [Troponin I] Stat Lab 05/31/25 10:30 Completed Troponin I Timed Lab 05/31/25 12:20 Completed ECG Data Tracing #1: Attestation: I reviewed this ECG and interpreted as documented below: ECG Narrative: Normal sinus rhythm. No ST elevation or depression. QTc of 385
--- NOTE | 2025-05-31 10:33 | PC.NURSE ---
XR AT BEDSIDE
[2025-05-31 10:39] LABS: Hematocrit 44.8 % (37.0-47.0); Hemoglobin 14.9 g/dL (12.2-16.2); Immature Granulocytes % 0.5 %; Mean Corpuscular HGB Conc 33.3 g/dL (31.8-35.4); Mean Corpuscular Hemoglobin 30.1 pg (27.0-31.2); Mean Corpuscular Volume 90.5 fl (81-99); Nucleated Red Blood Cells % 0 %; Platelet Count 448 K/mm3 (142-424); Red Blood Count 4.95 M/mm3 (4.20-5.40); Red Cell Distribution Width-SD 41.3 fL; White Blood Count 7.3 K/mm3 (4.8-10.8)
[2025-05-31] MEDS: SODIUM CHLORIDE 0.9% 10ML VIAL 8 ML IV (10:39)
[2025-05-31] MEDS: FAMOTIDINE 20MG/2ML VIAL 20 MG IV (10:40)
[2025-05-31] MEDS: ONDANSETRON 4MG/2ML VIAL 4 MG IV (10:40)
[2025-05-31] MEDS: MORPHINE 4MG/ML SYRINGE 4 MG IV (10:41)
--- OUTSIDE RECORDS SUMMARY | 2025-05-31 10:46 | XMS_ITS | Clinical Summary ---
Author Organization [facility] Address [address] [place] [address] Care Team Providers Care Ice Plant Operator Name Role Phone Ed Morrissey MD Primary Care Provider [phone] Allergies Active Allergy Reactions Criticality Noted Date [...] Health Maintenance Due Date Last Done Comments [facility]-Depression Screening [facility]-Medicare Annual Wellness (AWV) 1985 [facility]-/Child/Adol SDOH Screenings 1985 [facility]-Varicella Vaccines (1 of 2 - 13+ 2-dose series) 1998 [facility]- SDOH Screenings 2003 [facility]-Adult SDOH Screenings 2003 [facility]-DTaP,Tdap,and Td Vaccines (1 - Tdap) 2004 [facility]-Hepatitis B Vaccines (1 of 3 - 19+ 3-dose series) 2004 [facility]-Pap Smear 2006 HPV Vaccines (1 - 3-dose SCDM series) 2012 [facility]-Cervical Cancer Screening 2015 [facility]-HPV/Cotest 2015 [id number] Vaccine (1 - season) 2025 [facility]-Influenza Vaccine (#1) 05/08/202506/11, 07/31/2010 [facility]-Zoster Vaccines [...] 2 Antibody/Antigen Screen (06/04/2022 12:06 PM EDT) HIV 1 & 2 Antibody/Anti gen Screen Nonreactive Nonreactive 06/04/2022 2:10 PM EDT [facility] Blood Venous blood specimen / Unknown Venipuncture / Unknown 06/04/2022 12:06 PM EDT 06/04/2022 12:44 PM EDT us Vito Travis MD LAB BLOOD ORDERABLES Final Resul t Performing Organization Address City/[facility] Co de Phone Number [facility] [address] [place] [address] * (ABNORMAL) Hepatitis C Antibody - ED (06/04/2022 12:06 PM EDT) Pathologist [facility] Hepatitis C Antibody Positive( A) Negative 06/04/2022 4:21 PM EDT [facility] Comment:This specimen is rasta ng sent for confirmation by RT-PCR. Blood Venous blood specimen / Unknown Venipuncture / Unknown 06/04/2022 12:06 PM EDT 06/04/2022 12:44 PM EDT us Vito Travis MD LAB BLOOD ORDERABLES Final Resul t Performing Organization Address City/[facility] Co de Phone Number [facility] [address] [place] [address] from Last 3 Months or Most Recently Relevant to Health Maintenance Insurance MEDICAID-[place] [facility] MEDICARE Care Teams Ice Plant Operator Relationship Specialty Start Date End Date Ed Morrissey MD [address] [place] [address] PCP - General 04/24/22
[2025-05-31] MEDS: ASPIRIN 325MG TABLET 325 MG PO (10:47)
[2025-05-31 10:53] LABS: Alanine Aminotransferase 24 U/L (12-78); Albumin Level 4.8 g/dl (3.5-5.0); Albumin/Globulin Ratio 1.5 (1.1-1.8); Alkaline Phosphatase 57 U/L (38-126); Anion Gap 13.1 mEq/L (5-15); Aspartate Amino Transferase 45 U/L (14-36); Bilirubin,Total 1.1 mg/dl (0.2-1.3); Blood Urea Nitrogen 7 mg/dl (7-17); Calcium 9.2 mg/dl (8.4-10.2); Carbon Dioxide 22 mmol/L (22.0-30.0); Chloride 103 mmol/L (98-107); Creatinine Clearance Estimated 146 mL/min (50-200); Creatinine,Serum 0.60 mg/dl (0.52-1.04); Estimated Glomerular Filt Rate 111 ml/min (>60); GFR (African American) 135 ML/MIN (>60); Globulin 3.1 g/dL (1.3-3.2); Glucose 101 mg/dl (74-100); Lipase 58 U/L (23-300); Magnesium 1.9 mg/dl (1.6-2.3); Potassium 5.1 mmoL/L (3.5-5.1); Sodium 133 mmol/L (136-145); Total Protein,Serum 7.9 g/dl (6.3-8.2)
[2025-05-31 10:57] LABS: D-Dimer 0.31 ug/mL (0.0-0.5)
[2025-05-31 11:05] LABS: Troponin I 0.02 ng/ml (0.00-0.034)
--- NOTE | 2025-05-31 11:59 | PC.NURSE ---
Provider okay w/ 2 hour repeat trop. Next trop to be drawn @ 4955
[2025-05-31 12:56] LABS: Troponin I < 0.01 ng/ml (0.00-0.034)
[2025-05-31] MEDS: KETOROLAC 30MG/ML VIAL 30 MG IV (13:14)
== END 2025-05-31 13:25 | disposition home or self-care (01) ==
PROVIDERS: Nurse Practitioner; Emergency Provider Student in an Organized Health Care Education/Training Program; PCP Family Medicine
DX: R07.89 Other chest pain (principal); R20.2 Paresthesia of skin; R51.9 Headache, unspecified; I10 Essential (primary) hypertension; Z87.891 Personal history of nicotine dependence
CPT/HCPCS: 71045; 80053; 83690; 83735; 84484; 85025; 85378; 93005; 96374; 96375; 99285; J1885; J2270; J2405

== ENCOUNTER 2025-08-25 14:40 | Outpatient (CLI) | payer MEDICARE, OTHER, SELFPAY ==
[2025-08-25 20:06] LABS: Hematocrit 45.1 % (37.0-47.0); Hemoglobin 15.1 g/dL (12.2-16.2); Immature Granulocytes % 0.3 %; Mean Corpuscular HGB Conc 33.5 g/dL (31.8-35.4); Mean Corpuscular Hemoglobin 30.0 pg (27.0-31.2); Mean Corpuscular Volume 89.5 fl (81-99); Nucleated Red Blood Cells % 0 %; Platelet Count 600 K/mm3 (142-424); Red Blood Count 5.04 M/mm3 (4.20-5.40); Red Cell Distribution Width-SD 42.1 fL; White Blood Count 9.4 K/mm3 (4.8-10.8)
--- OUTSIDE RECORDS SUMMARY | 2025-08-26 09:46 | XMS_ITS | Clinical Summary ---
Author Organization [facility] Address [address] [place] [address] Care Team Providers Care Orchid Transplanter Name Role Phone Ed Morrissey MD Primary Care Provider [phone] Allergies Active Allergy Reactions Criticality Noted Date [...] Health Maintenance Due Date Last Done Comments [facility]-Depression Screening 1985 [facility]-Infant/Child/Adol SDOH Screenings 1985 [facility]-Varicella Vaccines (1 of 2 - 13+ 2-dose series) 1998 [facility]- SDOH Screenings 2003 [facility]-Adult SDOH Screenings 2003 [facility]-DTaP,Tdap,and Td Vaccines (1 - Tdap) 2004 [facility]-Hepatitis B Vaccines (1 of 3 - 19+ 3-dose series) 2004 [facility]-Pap Smear 2006 [facility]-Cervical Cancer Screening 2015 [facility]-HPV/Cotest 2015 [id number] Vaccine (1 - 2024- season) 2025 [facility]-Influenza Vaccine (#1) 05/08/202506/11, 07/31/2010 [facility]-Zoster Vaccines (1 of 2) 2035 HPV Vaccines (No Doses Required) Completed [facility]-HIB Vaccines Aged Out No longer e [...] on patient's age to complete this topic Insurance [address] [place] [id number] [place]-[facility] MEDICARE Care Teams Orchid Transplanter Relationship Specialty Start Date End Date Ed Morrissey MD [address] [place] [address] PCP - General 04/24/22
== END 2025-08-25 23:59 | disposition home or self-care (01) ==
LOC: LAB.DROPOF 08-26 09:44
PROVIDERS: PCP Family Medicine; Visit Provider Family Medicine
DX: R10.9 Unspecified abdominal pain (principal); I10 Essential (primary) hypertension
CPT/HCPCS: 85025

== ENCOUNTER 2025-08-29 17:52 | Outpatient (CLI) | payer MEDICARE, OTHER, SELFPAY ==
--- OUTSIDE RECORDS SUMMARY | 2025-08-29 17:56 | XMS_ITS | Clinical Summary ---
Author Organization [facility] Address [address] [place] [address] Care Team Providers Care Healthcare Associate Name Role Phone Ed Morrissey MD Primary Care Provider [phone] Allergies Active Allergy Reactions Criticality Noted Date [...] 2006 [facility]-Cervical Cancer Screening 2015 [facility]-HPV/Cotest 2015 [id number] Vaccine (1 - 2024- season) 2025 [facility]-Influenza [...] this topic Insurance [address] [place] [id number] MEDICAID-[facility] MEDICARE Care Teams Healthcare Associate Relationship Specialty Start Date End Date Ed Morrissey MD [address] [place] [address] PCP - General 04/24/22
[2025-08-29 19:26] LABS: Free T4 (Free Thyroxine) 0.86 ng/dl (0.78-2.19)
[2025-08-29 19:41] LABS: Thyroid Stimulating Hormone 1.37 uIU/mL (0.465-4.68)
== END 2025-08-29 23:59 | disposition home or self-care (01) ==
LOC: LAB 17:55
PROVIDERS: Nurse Practitioner Acute Care; PCP Family Medicine; Visit Provider Family Medicine
DX: F41.1 Generalized anxiety disorder (principal); F31.9 Bipolar disorder, unspecified
CPT/HCPCS: 36415; 84439; 84443

== ENCOUNTER 2025-09-02 15:11 | Emergency (ER) | payer MEDICARE, OTHER, SELFPAY ==
[2025-09-02] VITALS (11 sets, daily range): BP systolic 122–168; BP diastolic 80–99; PULSE 93–120; RESP 16–18; TEMP 36.8–36.9; O2SAT 97–100; BMI 27.4
--- NOTE | 2025-09-02 15:10 | ECG_ITS ---
APPROVED REPORT Exam: Resting ECG HR:119 bpm ECG Measurements Heart Rate 119 AXES NH 130 P 68 QRSd 94 QRS 70 QT 312 T 51 QTc 383 Conclusion SINUS TACHYCARDIA ABNORMAL RHYTHM ECG No STEMI Electronically signed by : NICKOLAS BURDICK, 09/03/2025 07:15:13
--- OUTSIDE RECORDS SUMMARY | 2025-09-02 15:31 | XMS_ITS | Clinical Summary ---
Author Organization [facility] Address [address] [place] [address] Care Team Providers Care Customer Service Agent Name Role Phone Ed Morrissey MD Primary Care Provider [phone] Allergies Active Allergy Reactions Criticality Noted Date [...] 2006 [facility]-Cervical Cancer Screening 2015 [facility]-HPV/Cotest 2015 [id number] Vaccine (1 - 2024- season) 2025 [facility]-Influenza [...] this topic Insurance [address] [place] [id number] [place] [facility] MEDICARE Care Teams Customer Service Agent Relationship Specialty Start Date End Date Ed Morrissey MD [address] [place] [address] PCP - General 04/24/22
[2025-09-02 15:34] LABS: Coronavirus 19, PCR Not Detected (NotDetected); Influenza A, PCR Not Detected (NotDetected); Influenza B, PCR Not Detected (NotDetected)
--- NOTE | 2025-09-02 15:55 | CT_ITS ---
PROCEDURE INFORMATION: Exam: CT Abdomen And Pelvis With Contrast Exam date and time: 09/02/2025 5:17 PM Age: 40 years old Clinical indication: Abdominal pain; Additional info: Luq pain, diarrhea TECHNIQUE: Imaging protocol: Computed tomography of the abdomen and pelvis with contrast. 3D rendering (Not supervised by radiologist): MIP and/or 3D reconstructed images were created by the technologist. Radiation optimization: All CT scans at this facility use at least one of these dose optimization techniques: automated exposure control; mA and/or kV adjustment per patient size (includes targeted exams where dose is matched to clinical indication); or iterative reconstruction. Contrast material: ISOVUE; Contrast volume: 70 ml; Contrast route: IV; COMPARISON: CT ANGIO ABDOMEN/FEMORAL 04/08/2025 11:55 AM FINDINGS: Liver: Normal. No mass. Gallbladder and biliary ducts: Normal. No calcified stones. No ductal dilation. Pancreas: Normal. No ductal dilation. Spleen: Normal. No splenomegaly. Adrenal glands: Normal. No mass. Kidneys and ureters: Normal. No hydronephrosis. Stomach and bowel: Unremarkable. No obstruction. No mucosal thickening. Appendix: No evidence of appendicitis. Intraperitoneal space: Unremarkable. No free air. No significant fluid collection. Vasculature: Unremarkable. No abdominal aortic aneurysm. Lymph nodes: Left upper quadrant small bowel thickening with multiple prominent mesenteric nodes can be seen with mild infectious or inflammatory enteritis. Urinary bladder: Unremarkable as visualized. Reproductive: Unremarkable as visualized. Bones/joints: Unremarkable. No acute fracture. Soft tissues: Normal. Other findings: Clinical IMPRESSION: Left upper quadrant small bowel thickening with multiple prominent mesenteric nodes can be seen with mild infectious or inflammatory enteritis. In
--- NOTE | 2025-09-02 15:55 | CT_ITS ---
PROCEDURE INFORMATION: Exam: CTA Chest With Contrast Exam date and time: 09/02/2025 5:17 PM Age: 40 years old Clinical indication: Pain; Chest pressure; Additional info: Chest pain, cough, pleuritic chest pain TECHNIQUE: Imaging protocol: Computed tomographic angiography of the chest with contrast. Exam focused on the arteries. 3D rendering (Not supervised by radiologist): MIP and/or 3D reconstructed images were created by the technologist. Radiation optimization: All CT scans at this facility use at least one of these dose optimization techniques: automated exposure control; mA and/or kV adjustment per patient size (includes targeted exams where dose is matched to clinical indication); or iterative reconstruction. Contrast material: ISOVUE; Contrast volume: 70 ml; Contrast route: INTRAVENOUS (IV); COMPARISON: CT ANGIO CHEST PE PROTOCOL 10/16/2022 12:45 PM FINDINGS: Pulmonary arteries: Normal. No pulmonary emboli. Aorta: Unremarkable. No aortic aneurysm. No aortic dissection. Lungs: Unremarkable. No consolidation. No masses. Pleural spaces: Unremarkable. No pneumothorax. No pleural effusion. Heart: Unremarkable. No cardiomegaly. No pericardial effusion. Lymph nodes: Unremarkable. No enlarged lymph nodes. Bones/joints: Unremarkable. No acute fracture. Soft tissues: Unremarkable. IMPRESSION: No acute findings.
--- NOTE | 2025-09-02 15:55 | CT_ITS ---
PROCEDURE INFORMATION: Exam: CT Head Without Contrast Exam date and time: 09/02/2025 5:15 PM Age: 40 years old Clinical indication: Pain; Headache; Additional info: Fall 11d ago, headaches TECHNIQUE: Imaging protocol: Computed tomography of the head without contrast. Radiation optimization: All CT scans at this facility use at least one of these dose optimization techniques: automated exposure control; mA and/or kV adjustment per patient size (includes targeted exams where dose is matched to clinical indication); or iterative reconstruction. COMPARISON: CT HEAD/BRAIN WO CON 06/24/2024 11:13 AM FINDINGS: Brain: Normal. No hemorrhage. Unremarkable white matter. No mass effect. Cerebral ventricles: No ventriculomegaly. Paranasal sinuses: Visualized sinuses are unremarkable. No fluid levels. Mastoid air cells: Visualized mastoid air cells are well aerated. Bones: Unremarkable. No acute fracture. Soft tissues: Unremarkable. IMPRESSION: No acute intracranial abnormality.
--- NOTE | 2025-09-02 16:02 | [facility].EDGENADL ---
Discharge Plan Disposition Patient Disposition: Home, Self-Care Prescriptions Prescriptions: No Action epinephrine [EpiPen 2-Gomez] 0.3 mg/0.3 mL auto-injector 0.3 mg IM Q5-15M PRN (Reason: anaphylaxis) Qty: 2 1RF Rx Instructions: do not exceed 3 doses per episode ibuprofen 600 mg tablet 600 mg PO DIRECTED Patient Comments: TAKE ONE TABLET BY MOUTH EVERY 6 HOURS NEEDED FOR PAIN --TAKE WITH FOOD-- sertraline 50 mg tablet See Rx Instructions .ROUTE .COMPLEX Qty: 30 2RF Dose Instruction: TAKE ONE TABLET BY MOUTH EVERY DAY Rx Instructions: TAKE ONE TABLET BY MOUTH EVERY DAY quetiapine 25 mg tablet See Rx Instructions .ROUTE .COMPLEX Qty: 30 2RF Dose Instruction: TAKE ONE TABLET BY MOUTH EVERY DAY AT BEDTIME Rx Instructions: TAKE ONE TABLET BY MOUTH EVERY DAY AT BEDTIME oxcarbazepine 150 mg tablet 150 mg PO BID Qty: 90 2RF lamotrigine 200 mg tablet See Rx Instructions .ROUTE .COMPLEX Qty: 180 3RF Dose Instruction: TAKE ONE TABLET BY MOUTH TWICE DAILY Rx Instructions: TAKE ONE TABLET BY MOUTH TWICE DAILY gabapentin 600 mg tablet 600 mg PO TID Qty: 90 0RF cyclobenzaprine 10 mg tablet See Rx Instructions .ROUTE .COMPLEX Qty: 60 0RF Dose Instruction: TAKE ONE TABLET BY MOUTH THREE TIMES DAILY NEEDED FOR MUSCLE SPASMS MAY CAUSE DROWSINESS Rx Instructions: TAKE ONE TABLET BY MOUTH THREE TIMES DAILY NEEDED FOR MUSCLE SPASMS MAY CAUSE DROWSINESS clonazepam [Klonopin] 0.5 mg tablet 0.5 mg PO BID PRN (Reason: anxiety) Qty: 45 0RF Referrals Follow up/Referrals: Kun Todd MD [Primary Care Provider, Family Practice] - See instructions Activity Restrictions/Add. Instructions Additional Instructions/Restrictions: Your CT scan showed some inflammation of the small bowel, called enteritis. This is likely from a viral illness. Continue to hydrate well by drinking plenty of fluids including water, sugar-free Gatorade and Pedialyte. You can take Tylenol and ibuprofen to help with your symptoms. You will likely have diarrhea for the next several days. I encourage you to follow-up with your primary care doctor. If you develop any new or worsening symptoms, or if you become concerned for your health for any reason, return to the emergency department for evaluation Clinical Impressions Clinical Impression: Enteritis, Headache Instructions Patient Instructions: DI for Acute Abdominal Pain Print Language Print Language: [place] Discharge ED Provider: Dami Coyle General Adult HPI General Chief complaint: Abdominal Pain Stated complaint: abdominal pain Time Seen by Provider: 09/02/25 15:46 Mode of Arrival: Ambulatory Source of Information: Patient Description of Symptoms (Recalled from ER Triage Doc. by RN): Patient complaining of abdominal pain that started at 2300 last night. patient states she tried taking some Tums that didn't help. Patient states her daughter was recently diagnosed with Covid and she is concerned that she has gotten it. patient also complaining of swelling in hands and feet. History of Present Illness HPI narrative: Josy Melgar is a 40y female who presents to the emergency department for several complaints. 11 Days ago, she fell and hit her head and has had consistent headaches since then. For the past 3 days, she states that her headaches have been more severe she has also developed diarrhea, left upper quadrant abdominal pain, midsternal chest pain that is pressure-like in nature and worse with laying down. She states that there is no family history of heart issues in the family but noted her personally. She denies any nausea or vomiting or fever. She reports a mild cough as well. She denies any dysuria or hematuria and states that she was recently checked for urinary tract affection was told that that she did not have a urinary tract infection. She reports that her daughter currently has COVID with similar type symptoms. She reports a history of abdominal hysterectomy and . She denies any alcohol use or recreational drug use. She also reports that both of her hands and feet have been swollen over the last 2 days Related Data Home Medications ?Medication ?Instructions ?Recorded ?Confirmed ibuprofen 600 mg tablet 600 mg PO DIRECTED Pain 11/19/23 08/28/25 Previous Rx's ?Medication ?Instructions ?Recorded epinephrine 0.3 mg/0.3 mL 0.3 mg (0.3 mL) IM Q5-15M PRN 02/23/24 injection, auto-injector (EpiPen anaphylaxis #2 ea 2-Gomez) sertraline 50 mg tablet See Rx Instructions .Route 07/04/25 .COMPLEX #30 tabs quetiapine 25 mg tablet See Rx Instructions .Route 07/27/25 .COMPLEX #30 tabs oxcarbazepine 150 mg tablet 150 mg PO BID #90 tabs 08/02/25 lamotrigine 200 mg tablet See Rx Instructions .Route 08/21/25 .COMPLEX #180 tabs cyclobenzaprine 10 mg tablet See Rx Instructions .Route 08/23/25 .COMPLEX #60 tabs gabapentin 600 mg tablet 600 mg PO TID #90 tabs 08/23/25 clonazepam 0.5 mg tablet (Klonopin) 0.5 mg PO BID PRN anxiety #45 tabs 08/29/25 Allergies Allergy/AdvReac Type Severity Reaction Status Date / Time venom-honey bee (BEE VENOM Allergy Unknown Unknown Verified 08/28/25 14:10 (HONEY BEE)) allergy reaction PFSH [facility] Disclaimer: The information contained in this section may have been updated after the patient was seen, as this information can be updated by other users. Medical History Hematuria Long-term current use of benzodiazepine Cervical strain Exposure to COVID-19 virus Viral syndrome Gastroenteritis Contusion of hip, right Fall Chest pain Sinusitis Anxiety Seizure Liver disease Thyroid disease Urinary tract infection Migraine Hypertension Panic disorder Major depressive disorder Bipolar II disorder Surgical History H/O: hysterectomy Previous section Family History Other No significant family history Social History Smoking Status: Former smoker tobacco type: cigarettes packs per day: 1 smoking status stop date: 07/26/2024 second hand exposure: Yes alcohol intake: never substance use type: former substance user and heroin current occupational status: other Travel in the last 8 weeks?: None household members: spouse housing: house number of children: 2 current occupational exposures/hazards: No caffeine: Yes Have you lived/traveled outside [place] in past 30 days?: No Contact w/someone who lives/traveled outside [place] past 30 days?: No Exposure to someone with infectious disease in past 14 days?: No Do you have a fever (greater than 100.4 F or 38 C)?: No Have you tested positive for COVID-19?: No Exposed to someone with COVID-19 in past 14 days?: No Do you have a sore throat?: No Do you have a cough?: No Do you have any weakness?: No Do you have any diarrhea?: No Are you experiencing any unusual bleeding?: No Do you have any muscle aches/pain?: No Do you have any abdominal pain?: No Are you experiencing loss of taste or smell?: No Other Medical History Have you received the Flu Vaccine for this season: No Have you received the Pneumonia Vaccine: No ROS Obtained: Yes Systems reviewed as appropriate & no additional complaints except as documented Physical Exam General General appearance: alert, in no apparent distress and anxious Head Head exam: atraumatic Eye Eye exam: Present normal appearance ENT ENT exam: Present normal external ear exam Neck Neck exam: Present full ROM Chest Chest inspection: Present symmetric chest wall rise Respiratory Respiratory exam: Present normal lung sounds bilaterally; Absent respiratory distress, wheezes or stridor Cardiovascular Cardiovascular exam: Present normal rhythm and tachycardia Abdominal Exam Abdominal exam: Present soft and tenderness (LUQ without guarding or rebound); Absent guarding or rigidity Extremities Exam Extremities exam: Present normal inspection Back Exam Back exam: Present normal inspection Neurological Exam Neurological exam: Present alert and oriented X3 Psychiatric Psychiatric exam: Present normal affect Skin Skin exam: Present warm and dry Medical Decision Making Medical Records Screening: Per USPSTF and CDC recommendations, given the prevalence of disease in our region, it is our hospital?s policy to screen for HIV and viral Hepatitis for all patients aged 18 and over and those with ongoing risk factors. Cosme Inquiry Pt receiving controlled substance: No Vital Signs: 09/02/25 15:16 09/02/25 16:00 09/02/25 16:15 Temperature 98.4 F Temperature Source Oral Pulse Rate 119 H 118 H Pulse Rate [Right Brachial] 119 H Respiratory Rate 16 Blood Pressure 130/80 133/89 Blood Pressure [Right Arm] 136/82 Blood Pressure Mean Blood Pressure Mean [Right Arm] 100 Blood Pressure Source [Right Arm] Automatic Cuff Blood Pressure Position [Right Arm] Sitting 02 Sat by Pulse Oximetry 97 98 97 Oxygen Delivery Method Room Air 09/02/25 16:31 09/02/25 16:45 09/02/25 17:00 Temperature Temperature Source Pulse Rate 120 H 116 H 113 H Pulse Rate [Right Brachial] Respiratory Rate Blood Pressure 128/84 139/94 H 122/83 Blood Pressure [Right Arm] Blood Pressure Mean Blood Pressure Mean [Right Arm] Blood Pressure Source [Right Arm] Blood Pressure Position [Right Arm] 02 Sat by Pulse Oximetry 99 98 98 Oxygen Delivery Method 09/02/25 17:45 09/02/25 18:00 09/02/25 18:10 Temperature Temperature Source Pulse Rate 115 H 110 H 100 H Pulse Rate [Right Brachial] Respiratory Rate 18 18 Blood Pressure 167/99 H 168/96 H 122/85 Blood Pressure [Right Arm] Blood Pressure Mean 132 130 97 Blood Pressure Mean [Right Arm] Blood Pressure Source [Right Arm] Blood Pressure Position [Right Arm] 02 Sat by Pulse Oximetry 100 100 99 Oxygen Delivery Method 09/02/25 18:45 09/02/25 18:49 Temperature 98.3 F Temperature Source Pulse Rate 98 H 93 H Pulse Rate [Right Brachial] Respiratory Rate 18 Blood Pressure 124/90 124/90 Blood Pressure [Right Arm] Blood Pressure Mean 107 Blood Pressure Mean [Right Arm] Blood Pressure Source [Right Arm] Blood Pressure Position [Right Arm] 02 Sat by Pulse Oximetry 100 Oxygen Delivery Method Lab Data Lab Results 09/02/25 15:10: SARS-CoV-2 (PCR) Not detected, Influenza A Untype (PCR) Not detected, Influenza Type B (PCR) Not detected 09/02/25 16:15: WBC 8.0, RBC 4.69, Hgb 13.9, Hct 42.2, MCV 90.0, MCH 29.6, MCHC 32.9, RDW 13.1, Plt Count 452 H, MPV 8.3, Neut % (Auto) 67.4, Lymph % (Auto) 18.0, Coles % (Auto) 10.1 H, Eos % (Auto) 3.9, Baso % (Auto) 0.4, Neut # (Auto) 5.4, Lymph # (Auto) 1.5, Coles # (Auto) 0.8, Eos # (Auto) 0.3, Baso # (Auto) 0.0, ESR 4, PT 10.4, INR 0.93, VBG pH 7.43 H, VBG pCO2 36.2, VBG pO2 208.9 H, VBG HCO3 23.3, VBG Total CO2 24.4, VBG O2 Saturation 99.2 H, VBG Base Excess -1.0, VBG Lactic Acid 2.0, Sodium 139, Potassium 4.4, Chloride 105, Carbon Dioxide 26, Anion Gap 12.4, BUN 12, Creatinine 0.80, Estimated Creat Clear 114, Estimated GFR 79, Est GFR ( Amer) 96, Glucose 109 H, Calcium 10.5 H, Total Bilirubin 0.2, AST 20, ALT 25, Alkaline Phosphatase 99, Troponin I < 0.01, C-Reactive Protein 3.4, NT-Pro-B Natriuret Pep < 20.0, Total Protein 7.1, Albumin 4.4, Globulin 2.7, Albumin/Globulin Ratio 1.6, Lipase 52, Serum HCG, Qual Negative 09/02/25 16:15 09/02/25 16:15 Orders (Tests/Meds): ED MEDICATIONS Discontinued Medications Generic Name Dose Route Start Last Admin Trade Name Freq PRN Reason Stop Dose Admin Lactated Ringer's 1,000 mls @ 999 mls/hr 09/02/25 15:55 09/02/25 18:55 Lactated Ringer's 1000 Ml Bag IV 09/02/25 16:55 Infused .Q1H1M ONE Infusion Iopamidol 70 ml 09/02/25 17:16 09/02/25 17:17 Iopamidol-370 (76%);100ml Bottle IV 09/02/25 17:17 70 ml ONCE ONE Administration Ketorolac Tromethamine 15 mg 09/02/25 15:55 09/02/25 16:24 Ketorolac 15mg/Ml Vial IV 09/02/25 15:56 15 mg ONCE ONE Administration Sodium Chloride 10 ml 09/02/25 17:16 09/02/25 17:17 Sodium Chloride 0.9% 10ml Syr (Rad Only) IV 09/02/25 17:17 10 ml ONCE ONE Administration Sodium Chloride 50 ml 09/02/25 17:16 09/02/25 17:17 0.9 % Sodium Chloride 50 Ml Vial IV 09/02/25 17:17 50 ml ONCE ONE Administration ORDERS Category Date Time Status CT abdomen pelvis w con Stat Cat Scan 09/02/25 15:[address] angio chest PE protocol Stat Cat Scan 09/02/25 15:[address] head/brain wo con Stat Cat Scan 09/02/25 15:55 Completed BNP [NT Pro Brain Natriuretic Pep.] Stat Lab 09/02/25 16:15 Completed CBC w/Auto Diff [Complete Blood Count Auto Diff] Stat Lab 09/02/25 16:15 Completed CMP [Comprehensive Metabolic Panel] Stat Lab 09/02/25 16:15 Completed CRP [C-Reactive Protein] Stat Lab 09/02/25 16:15 Completed ESR [Erythrocyte Sedimentation Rate] Stat Lab 09/02/25 16:15 Completed Lipase Stat Lab 09/02/25 16:15 Completed PT INR [Prothrombin Time INR] Stat Lab 09/02/25 16:15 Completed Rapid PCR Covid and Flu A/B Stat Lab 09/02/25 15:10 Completed Serum [HCG Qualitative, Serum] Stat Lab 09/02/25 16:15 Completed Troponin I Stat Lab 09/02/25 16:15 Completed VBG [Venous Blood Gas] Stat RT 09/02/25 16:15 Completed Medical Decision Narrative: Josy Melgar is a 40y female who presents to the emergency department for several complaints. 11 Days ago, she fell and hit her head and has had consistent headaches since then. For the past 3 days, she states that her headaches have been more severe she has also developed diarrhea, left upper quadrant abdominal pain, midsternal chest pain that is pressure-like in nature and worse with laying down. She states that there is no family history of heart issues in the family but noted her personally. She denies any nausea or vomiting or fever. She reports a mild cough as well. She denies any dysuria or hematuria and states that she was recently checked for urinary tract affection was told that that she did not have a urinary tract infection. She reports that her daughter currently has COVID with similar type symptoms. She reports a history of abdominal hysterectomy and . She denies any alcohol use or recreational drug use. She also reports that both of her hands and feet have been swollen over the last 2 days. On arrival, patient is normotensive, tachycardic, afebrile, oxygen saturation 97% on room air. Physical exam, stated above, reveals an overall nontoxic-appearing female in no significant respiratory distress. She is speaking in full sentences. Abdomen is tender in the left upper quadrant without guarding or rebound. Cardiopulmonary exam reveals tachycardia but no murmurs or rubs. No wheezing, rales or rhonchi. Differential diagnosis includes, but is not limited to: Viral respiratory illness such as COVID or flu, pneumonia, ACS, pericarditis, myocarditis, pulmonary embolism, diverticulitis, colitis/enteritis, GERD, peptic ulcer disease, urinary tract infection/pyelonephritis, ureterolithiasis, concussion, migraine headaches, intracranial hemorrhage, among others. The most morbid conditions were considered and workup was based on these. Workup in the emergency department included: Hematologic labs, urine studies, EKG, CT head, CT chest PE protocol, CT abdomen pelvis with IV contrast. Patient was treated with 1 L lactated ringer and 15 mg of IV Toradol. EKG was interpreted by me personally. Showed sinus tachycardia. No ST elevation or depression. No T wave inversions. QTc normal at 383 Patient's laboratory workup shows no leukocytosis, no anemia, platelets mildly elevated at 152. ESR normal at 4. Coagulation studies within normal limits. VBG with very mildly elevated pH of 7.43 with pCO2 normal at 36.2, bicarb normal at 23.3, lactate normal at 2. Electrolytes and kidney function within normal limits. Bilirubin normal at 0.2. Liver enzymes within normal limits. Troponin less than 0.01. CRP normal at 3.4. NT proBNP within normal limits. Lipase normal at 52. Negative test. Negative COVID and flu swab. CT imaging was interpreted by me personally. No acute findings on CT head with no acute hemorrhage, mass or midline shift. No pulmonary embolism, no aortic dissection, no ground glass opacities on CT chest. CT abdomen pelvis shows some mild left upper quadrant small bowel wall thickening with multiple mesenteric lymph nodes, likely related to infectious or inflammatory enteritis. See radiology report for details. On reassessment, patient is resting more comfortably. I do feel that her symptomatology is likely related to a viral enteritis and should improve over time. Recommended treatment at home with NSAIDs, Tylenol and hydration. Return precautions were given. All questions were answered. She demonstrated understanding was in agreement with this plan. She was then discharged from the emergency department in stable condition. Critical Care Critical Care Time Critical Care Time: No
[2025-09-02] MEDS: LACTATED RINGERS 1000ML 1,000 ML 999 ML IV (16:24)
[2025-09-02] MEDS: KETOROLAC 15MG/ML VIAL 15 MG IV (16:24)
[2025-09-02 16:25] LABS: Hematocrit 42.2 % (37.0-47.0); Hemoglobin 13.9 g/dL (12.2-16.2); Immature Granulocytes % 0.2 %; Mean Corpuscular HGB Conc 32.9 g/dL (31.8-35.4); Mean Corpuscular Hemoglobin 29.6 pg (27.0-31.2); Mean Corpuscular Volume 90.0 fl (81-99); Nucleated Red Blood Cells % 0 %; Platelet Count 452 K/mm3 (142-424); Red Blood Count 4.69 M/mm3 (4.20-5.40); Red Cell Distribution Width-SD 42.6 fL; White Blood Count 8.0 K/mm3 (4.8-10.8)
[2025-09-02 16:36] LABS: HCG Qualitative, Serum Negative (Negative)
[2025-09-02 16:37] LABS: INR 0.93 (0.9-1.1); Prothrombin Time 10.4 seconds (10.1-12.5)
[2025-09-02 16:39] LABS: Albumin Level 4.4 g/dl (3.5-5.0); Chloride 105 mmol/L (98-107); Lactate Venous 2.0 mmol/L (0.4-2.0); Potassium 4.4 mmoL/L (3.5-5.1); Sodium 139 mmol/L (136-145); VBG HCO3 23.3 mmol/L (23-30); VBG PCO2 36.2 mmol/L (35-51); VBG PH 7.43 mmol/L (7.31-7.41); VBG PO2 208.9 mmol/L (28-40)
[2025-09-02 16:41] LABS: Blood Urea Nitrogen 12 mg/dl (7-17); Creatinine Clearance Estimated 114 mL/min (50-200); Creatinine,Serum 0.80 mg/dl (0.52-1.04); Estimated Glomerular Filt Rate 79 ml/min (>60); GFR (African American) 96 ML/MIN (>60)
[2025-09-02 16:42] LABS: Alanine Aminotransferase 25 U/L (12-78); Albumin/Globulin Ratio 1.6 (1.1-1.8); Alkaline Phosphatase 99 U/L (38-126); Anion Gap 12.4 mEq/L (5-15); Aspartate Amino Transferase 20 U/L (14-36); Bilirubin,Total 0.2 mg/dl (0.2-1.3); Calcium 10.5 mg/dl (8.4-10.2); Carbon Dioxide 26 mmol/L (22.0-30.0); Globulin 2.7 g/dL (1.3-3.2); Glucose 109 mg/dl (74-100); Lipase 52 U/L (23-300); Total Protein,Serum 7.1 g/dl (6.3-8.2)
[2025-09-02 16:48] LABS: C-Reactive Protein 3.4 mg/L (0-4)
[2025-09-02 16:51] LABS: NT Pro Brain Natriuretic Pep. < 20.0 pg/mL (0-125)
[2025-09-02 17:06] LABS: Troponin I < 0.01 ng/ml (0.00-0.034)
[2025-09-02] MEDS: SODIUM CHLORIDE 0.9% 10ML SYR (RAD ONLY) 10 ML IV (17:17)
[2025-09-02] MEDS: IOPAMIDOL-370 (76%);100ML BOTTLE 70 ML IV (17:17)
[2025-09-02] MEDS: 0.9 % SODIUM CHLORIDE 50 ML VIAL IV (17:17)
== END 2025-09-02 18:59 | disposition home or self-care (01) ==
PROVIDERS: Emergency Provider Student in an Organized Health Care Education/Training Program; PCP Family Medicine
DX: R10.12 Left upper quadrant pain (principal); K52.9 Noninfective gastroenteritis and colitis, unspecified; R00.0 Tachycardia, unspecified; R51.9 Headache, unspecified; W19.XXXA Unspecified fall, initial encounter
CPT/HCPCS: 70450; 71275; 74177; 80053; 82803; 83690; 83880; 84484; 84703; 85025; 85610; 85651; 86140; 87636; 93005; 96361; 96374; 99285; J1885; J7120; Q9967